=== PATIENT | male | born 1965 | race Two or more races ===

== ENCOUNTER 2024-01-19 07:49 | Outpatient (REF) | payer MEDICARE, MEDICAID, SELFPAY ==
[2024-01-19 08:34] LABS: Estimated Average Glucose 126 mg/dL
[2024-01-19 09:08] LABS: Alanine Aminotransferase 25 U/L (0-40); Alkaline Phosphatase 78 U/L (39-117); Anion Gap 12 (12-20); Aspartate Amino Transferase 24 U/L (5-37); Bilirubin Total 0.4 mg/dL (0.0-1.0); Blood Urea Nitrogen 17 mg/dL (9-16); Calcium 9.5 mg/dL (8.4-10.2); Carbon Dioxide 27 mmol/L (22-29); Chloride 109 mmol/L (96-108); Cholesterol 165 mg/dL (<200); Estimated Glomerular Filt Rate > 60; Glucose Random 132 mg/dL (60-115); HDL Cholesterol 48 mg/dL (>40); LDL Cholesterol Calculated 92 mg/dL (<100); Sodium 144 mmol/L (135-145); Total Protein 6.7 g/dL (6.5-8.0); Triglycerides 128 mg/dL (<150)
[2024-01-19 09:08] LABS: Creatinine Urine 143.58 mg/dL; Microalbum/Creatinine Ratio Ur 7.6 ug/mg cr (<30)
[2024-01-19 09:24] LABS: TSH reflex Free T4 0.09 uIU/mL (0.32-4.0)
[2024-01-19 09:28] LABS: Prostate Specific Antigen 1.11 ng/mL (<0.05-4.0)
[2024-01-19 10:07] LABS: Free T4 (Free Thyroxine) 1.03 ng/dL (0.71-1.85)
[2024-01-20 07:24] LABS: Triiodothyronine T3 Free 3.4 pg/mL (2.3-4.2)
== END 2024-01-19 07:50 | disposition home or self-care (01) ==
LOC: HO.LAB 07:49
PROVIDERS: PCP Internal Medicine; Visit Provider Internal Medicine
DX: E11.9 Type 2 diabetes mellitus without complications (principal); E78.00 Pure hypercholesterolemia, unspecified; E89.0 Postprocedural hypothyroidism; I10 Essential (primary) hypertension; M51.16 Intervertebral disc disorders with radiculopathy, lumbar region; N40.1 Benign prostatic hyperplasia with lower urinary tract symptoms; Z12.5 Encounter for screening for malignant neoplasm of prostate
CPT/HCPCS: 36415; 80053; 80061; 82043; 82570; 83036; 84153; 84439; 84443; 84481

== ENCOUNTER 2024-02-22 09:58 | Outpatient (AMB) | payer MEDICARE, MEDICAID, SELFPAY ==
--- NOTE | 2024-02-22 09:53 | MHC.PC.OV ---
Vital Signs 02/22/24 10:21 Height 5 ft 9 in Weight 207 lb 6 oz BMI 30.6 BP 122/84 Blood Pressure Location Rt brachial Position Sitting Respiration 14 Pulse 82 Pulse Source Pulse Oximeter Temp 98.1 F Temp Source Oral Pulse Oximetry (%) 96 Oxygen Delivery Method Room Air Intake Visit Reasons: Establish Care not a transfer Intake Note: New patient visit. Possible tonsil stones Customer Support Representative Required: Yes Customer Support Representative Language: Speech And Hearing Director Name: Spencer Spaulding Information Interpreted: clinical only Allergies seafood Allergy (Severe, Verified 02/22/24 10:27) throat closes penicillin V Allergy (Unknown, Verified 02/22/24 10:27) Rash Medication List - Last Reconciled 02/22/24 by Mary Ann Briscoe, [employer]UCK [employer] aspirin (Adult Low Dose Aspirin) 81 mg PO DAILY atorvastatin 40 mg PO DAILY dulaglutide (Trulicity) mg subcut finasteride 5 mg PO DAILY folic acid 1 mg PO DAILY gabapentin mg PO levothyroxine 150 mcg PO DAILY lisinopril-hydrochlorothiazide 10-12.5 mg 1 tab PO DAILY lisinopril-hydrochlorothiazide 20-12.5 mg 1 tab PO DAILY metoprolol succinate ER 25 mg PO DAILY Tobacco use date assessed: 02/22/24 Dental Screening Dental Screen Date: 02/22/24 Did you have a dental visit in the last 12 months?: Yes Did you have a dental problem in the last 6 months where you did not have access to dental care?: No Was dental information given to patient?: Patient has dentist HPI HPI Comments History of Present Illness Details 59-year-old [place]uran speaking male with BPH with LUTS, diabetes type 2, hypertension, anemia, hypothyroidism, Vit d def, MDD, insomnia, seasonal allergies, GERD, chronic low back pain , CAD, PVD Status post shoulder replacement right, neck surgery Health Maintenance: ? Colon reports this + EGD done 2022, + polyp w/ 10 year call > record n/a to me ? PSA 01/2024 ? Tdap declines Specialists: [facility] in [place] Customer Support Representative: [phone] [facility]. Old records avail to me today, reviewed prior to visit - very minimal. [place] since [place] care here a few years ago CC: tonsils small things coming out of it and tried to remove w/ Qtips but hurt throat, bilat worse on R side DM well controlled, HGA1c 6.0% Overdue for DM Eye exam wears glasses BPH with LUTs on finasteride, appt w [facility] 04/07/24 Needs derm referral for [place] needs cards referral for CAD, denies chest pain. needs podiatry referral for diabetic neuropathy States he will be getting MRI of his spine 03/06/24 ff'd by an injection,managed by [facility] Reviewed labs below; asked about med change in levothyroxine since these labs; states was at 150mcg now 125 mcg QD, Will repeat labs today to check TSH and properly adjust his levothyroxine. Labs from 01/19/2024 show normal electrolytes, normal renal function, random glucose 132, hemoglobin A1c 6.0%, normal LFTs, triglycerides 128, cholesterol 165, LDL 92, HDL 48, PSA 1.11, TSH 0.09, free T4 1.03, free T3 3.4 Exam: Awake alert, NAD tonsil stone R RRR LS CTAB No edema BLE, decreased PP, hairless ankles bilat, skin intact Plan: referrals made as requested. old records from [facility] requested. thyroid labs today, titrate med PRN Tdap declined reassured re; tonsil stone; salt water gargles, do not try to remove FU in 4-6 weeks 30 min for complex dz mgmt, sooner PRN This note is constructed using voice recognition software. While every effort has been made to ensure accuracy in c[employer], still errors may have been included Sometimes, these errors may affect the content or meaning of the given sentence . Total time spent caring for the patient today was 60 minutes. This includes time spent before the visit reviewing the chart, time spent during the visit, and time spent after the visit on documentation [facility] Medical History (Updated 02/22/24 @ 14:36 by VIMAL Rodriguez) Mass of left testicle Thyroid disorder Diabetes Surgical History (Updated 02/22/24 @ 10:29 by Rosalie Soriano CMA) H/O neck surgery H/O right knee surgery Family History (Updated 02/22/24 @ 10:30 by Rosalie Soriano CMA) Sister Diabetes Brother Diabetes Mother Hypercholesteremia Pancreatic cancer Social History (Updated 02/22/24 @ 10:31 by Rosalie Soriano CMA) Housing: Apartment Patient Tobacco Use Status: Never used Tobacco e-Cigarette/Vaping Use: Never Used Second Hand Smoke Exposure: No service: No Current occupational status: unemployed Cognitive needs: No Hearing needs: No Vision needs: No Questionnaire PHQ-9 Over the last 2 weeks, how often have you been bothered by any of the following problems? 1. Little interest or pleasure in doing things: several days 2. Feeling down, depressed, or hopeless: not at all 3. Trouble falling or staying asleep, or sleeping too much: several days 4. Feeling tired or having little energy: several days 5. Poor appetite or overeating: more than half the days 6. Feeling bad about yourself - or that you are a failure or have let yourself or your family down: not at all 7. Trouble concentrating on things, such as reading the newspaper or watching television: not at all 8. Moving or speaking so slowly that other people could have noticed. Or the opposite - being so fidgety or restless that you have been moving around a lot more than usual: not at all 9. Thoughts that you would be better off or of hurting yourself in some way: not at all Total score: 5 Depression Screening Interpretation: Positive Depression Screening Follow-up: Existing condition Depression Screening Done: Yes 91533 - PHQ-9 Billing: Yes Source: Developed by Drs. Vincent Washington, Yana Brown, Estiven Mckinney and colleagues, with an educational rodney from [employer]. Thrive Questionnaire Date Thrive assessed: 02/22/24 I am a: Patient What is your living situation today?: I have a place to live, but I am worried about losing it in the future Within the past 12 months, did the food you bought not last and you didn't have the money to get more?: Sometimes True Within the past 12 months, did you worry whether your food would run out before you got money to buy more?: Sometimes True Do you have trouble paying for medicines?: Yes Do you have trouble getting transportation to medical appointments?: No Do you have trouble paying your heating and electricity bill?: Yes Do you have trouble taking care of your child, family member or friend?: No Do you have trouble with day-to-day activities such as bathing, preparing meals, shopping, managing finances, etc.?: Yes Are you currently unemployed and looking for a job?: Yes Are you interested in more education?: No Please select the resources that you would like help with: Housing/Prison, Food, Paying for medicine, Daily support and Job search/training Currently or been in a relationship where the following occur: No concerns reported THRIVE Score: 4 AUDIT C Alcohol Use Questionnaire (AUDIT-C) 1. How often do you have a drink containing alcohol?: Never 3. How often do you have six or more drinks on one occasion?: Never Total Score: 0 Score Reviewed/Action Taken: Yes ALBINO-7 AMB Questionnaire ALBINO-7 Date ALBINO - 7 assessed: 02/22/24 Feeling nervous, anxious, or on edge: 0 = Not at all Not being able to stop or control worryin = Not at all Worrying too much about different things: 1 = Several days Trouble relaxin = Not at all Being so restless that it is hard to sit still: 0 = Not at all Becoming easily annoyed or irritable: 0 = Not at all Feeling afraid as if something awful might happen: 0 = Not at all Total ALBINO-7 score (0-4 normal; 5-9 mild; 10-14 moderate; 15-21 severe): 1 Source: Developed by Drs. Vincent Washington, Yana Brown, Estiven Mckinney and colleagues, with an educational rodney from [employer]. ALBINO-7 Assessment Billing ALBINO-7 Assessment Tool: ALBINO-7 Assessment 13136 Physical exam (Primary Care) Vital Signs: Last Vital Signs Temp 98.1 F 02/22/24 10:21 Pulse 82 02/22/24 10:21 Resp 14 02/22/24 10:21 BP 122/84 02/22/24 10:21 Pulse Ox 96 02/22/24 10:21 Oxygen Delivery Method Room Air 02/22/24 10:21 BMI result Body Mass Index 30.6 Tobacco/Smoking Status: Tobacco use Status Tobacco use date assessed 02/22/24 02/22/24 10:27 Patient Tobacco Use Status Never used Tobacco 02/22/24 10:31 e-Cigarette/Vaping Use Never Used 02/22/24 10:31 PHQ-9: PHQ-9 Score PHQ-9: Total score 5 07/22/24 10:51 Depression Screening Interpretation: Positive Depression Screening Follow-up: Existing condition Thrive Assessment: Date of Thrive Assessment Date Thrive assessed 02/22/24 02/22/24 10:33 Currently or been in a relationship where the following occur: No concerns reported Assessment and Plan Assessment & Plan (1) Diabetes mellitus type 2 with complications: Comment: HLD and HTN Code(s): E11.8 - Type 2 diabetes mellitus with unspecified complications (2) CAD (coronary artery disease): Code(s): I25.10 - Atherosclerotic heart disease of [place] coronary artery without angina pectoris Qualifiers: Associated angina: without angina Coronary Disease-Associated Artery/Lesion type: [place] artery [place] vs. transplanted heart: [place] heart Qualified Code(s): I25.10 - Atherosclerotic heart disease of [place] coronary artery without angina pectoris (3) Rosacea: Code(s): L71.9 - Rosacea, unspecified (4) Diabetic peripheral neuropathy: Code(s): E11.42 - Type 2 diabetes mellitus with diabetic polyneuropathy (5) Hypothyroid: Code(s): E03.9 - Hypothyroidism, unspecified Qualifiers: Hypothyroidism type: acquired Qualified Code(s): E03.9 - Hypothyroidism, unspecified (6) HTN (hypertension): Code(s): I10 - Essential (primary) hypertension Qualifiers: Hypertension type: secondary to endocrine disorders Qualified Code(s): I15.2 - Hypertension secondary to endocrine disorders (7) PVD (peripheral vascular disease): Comment: based on clinical exam, decreased PP bilat, hairless ankles, skin intact Monitor skin integrity Statin and ASA Code(s): I73.9 - Peripheral vascular disease, unspecified (8) MDD (major depressive disorder), recurrent episode: Comment: was on sertraline and mirtazapine in the past; not currently on any meds Code(s): F33.9 - Major depressive disorder, recurrent, unspecified Qualifiers: Major depression episode severity: mild Qualified Code(s): F33.0 - Major depressive disorder, recurrent, mild (9) Tonsil stone: Code(s): J35.8 - Other chronic diseases of tonsils and adenoids (10) Chronic low back pain: Comment: managed by [facility] Code(s): M54.50 - Low back pain, unspecified; G89.29 - Other chronic pain Qualifiers: Back pain laterality: bilateral Sciatica presence: without sciatica Qualified Code(s): M54.50 - Low back pain, unspecified; G89.29 - Other chronic pain (11) Encounter for screening involving social determinants of health (SDoH): Code(s): Z13.9 - Encounter for screening, unspecified (12) Vitamin D deficiency: Code(s): E55.9 - Vitamin D deficiency, unspecified (13) BPH w urinary obs/LUTS: Code(s): N40.1 - Benign prostatic hyperplasia with lower urinary tract symptoms; N13.8 - Other obstructive and reflux uropathy (14) Anemia: Code(s): D64.9 - Anemia, unspecified (15) GERD without esophagitis: Code(s): K21.9 - Gastro-esophageal reflux disease without esophagitis (16) Seasonal allergies: Code(s): J30.2 - Other seasonal allergic rhinitis Orders: Orders TSH reflex Free T4 Today E03.9 - Hypothyroidism, unspecified Referrals Nurse Navigator Referral Z13.9 - Encounter for screening, unspecified Cardiology Referral I25.10 - Atherosclerotic heart disease of [place] coronary artery without angina pectoris Podiatry Referral E11.42 - Type 2 diabetes mellitus with diabetic polyneuropathy, E11.8 - Type 2 diabetes mellitus with unspecified complications Ophthalmology Referral E11.8 - Type 2 diabetes mellitus with unspecified complications Dermatology Referral L71.9 - Rosacea, unspecified Patient Instructions: please call and schedule diabetic eye exam with [address]hele [place]wn. D, [place] [address] ? Review Patient declined Pneumococcal Vaccine: 02/22/24 Declined TDap/Td: 02/22/24 Coding Level of Care Code New Pt Level 5 (46021) Complex EM visit Add On G2211 Diagnoses Diabetes mellitus type 2 with complications E11.8 Coronary artery disease involving [place] coronary artery of [place] heart without angina pectoris I25.10 Associated angina: without angina Coronary Disease-Associated Artery/Lesion type: [place] artery [place] vs. transplanted heart: [place] heart Rosacea L71.9 Diabetic peripheral neuropathy E11.42 Acquired hypothyroidism E03.9 Hypothyroidism type: acquired Hypertension due to endocrine disorder I15.2 Hypertension type: secondary to endocrine disorders PVD (peripheral vascular disease) I73.9 Mild episode of recurrent major depressive disorder F33.0 Major depression episode severity: mild Tonsil stone J35.8 Chronic bilateral low back pain without sciatica M54.50; G89.29 Back pain laterality: bilateral Sciatica presence: without sciatica Encounter for screening involving social determinants of health (SDoH) Z13.9 Vitamin D deficiency E55.9 BPH w urinary obs/LUTS N40.1; N13.8 Anemia D64.9 GERD without esophagitis K21.9 Seasonal allergies J30.2 Additional Codes ALBINO-7 Assessment Billing - ALBINO-7 Assessment Tool: ALBINO-7 Assessment [id number] ([id number])
[2024-02-22 10:21] VITALS: BP 122/84; PULSE 82; RESP 14; TEMP 36.7; O2SAT 96; BMI 30.6
== END 2024-02-22 11:02 | disposition home or self-care (01) ==
PROVIDERS: PCP Internal Medicine; Visit Provider Nurse Practitioner Family
DX: E11.8 Type 2 diabetes mellitus with unspecified complications (principal); E11.42 Type 2 diabetes mellitus with diabetic polyneuropathy; I73.9 Peripheral vascular disease, unspecified; F33.0 Major depressive disorder, recurrent, mild; I25.10 Atherosclerotic heart disease of native coronary artery without angina pectoris; L71.9 Rosacea, unspecified; E03.9 Hypothyroidism, unspecified; I15.2 Hypertension secondary to endocrine disorders; J35.8 Other chronic diseases of tonsils and adenoids; M54.50 Low back pain, unspecified; G89.29 Other chronic pain; E55.9 Vitamin D deficiency, unspecified
CPT/HCPCS: 99205; G2211

== ENCOUNTER 2024-02-22 11:25 | Outpatient (REF) | payer MEDICARE, MEDICAID, SELFPAY ==
[2024-02-22 14:38] LABS: TSH reflex Free T4 0.03 uIU/mL (0.32-4.0)
[2024-02-22 15:15] LABS: Free T4 (Free Thyroxine) 1.41 ng/dL (0.71-1.85)
== END 2024-02-22 11:26 | disposition home or self-care (01) ==
LOC: HO.WFDLDS 11:25
PROVIDERS: Visit Provider Nurse Practitioner Family
DX: E03.9 Hypothyroidism, unspecified (principal)
CPT/HCPCS: 36415; 84439; 84443

== ENCOUNTER 2024-03-07 11:27 | Outpatient (AMB) | payer MEDICARE, MEDICAID, SELFPAY ==
[2024-03-07 12:18] VITALS: BP 128/78; PULSE 78; TEMP 36.8; O2SAT 98; BMI 30.6
--- NOTE | 2024-03-07 12:18 | AM.OFFWIN_ITS ---
Intake Vital Signs 03/07/24 12:18 Height 5 ft 9 in Weight 207 lb BMI 30.6 BP 128/78 Blood Pressure Location Rt brachial Position Sitting Pulse 78 Pulse Source Pulse Oximeter Temp 98.2 F Temp Source Oral Pulse Oximetry (%) 98 Intake Visit Reasons: pain right side mouth Intake Note: pt is here for pain on right side of mouth up to ear Patient Tobacco Use Status: Never used Tobacco Anchor Tacker Required: Yes Anchor Tacker Language: Serbian Allergies seafood Allergy (Severe, Verified 03/07/24 12:20) throat closes penicillin V Allergy (Unknown, Verified 03/07/24 12:20) Rash HPI pain right side mouth HPI Details This note is constructed using voice recognition software. While every effort has been made to ensure accuracy, superintendent overhead distribution errors may have been included. The patient is a 59 year old male who presents to the clinic today with pain in the right side of his mouth for the last several days. He notes that he has been looking in the back of his mouth and could see some dripping in the back, and a little bit of redness. He feels the pain to be into his neck region. It is moderately tender. He has not tried anything to help make it better. Nothing seems to make it worse. He denies fever, chills, cough, shortness of breath. [facility] Medical History (Updated 02/22/24 @ 14:36 by Mary Ann Briscoe [facility]) Mass of left testicle Thyroid disorder Diabetes Surgical History (Updated 02/22/24 @ 10:29 by Rosalie Soriano CMA) H/O neck surgery H/O right knee surgery Family History (Updated 02/22/24 @ 10:30 by Rosalie Soriano CMA) Sister Diabetes Brother Diabetes Mother Hypercholesteremia Pancreatic cancer Social History (Updated 02/22/24 @ 10:31 by Rosalie Soriano CMA) Housing: Apartment Patient Tobacco Use Status: Never used Tobacco e-Cigarette/Vaping Use: Never Used Second Hand Smoke Exposure: No service: No Current occupational status: unemployed Cognitive needs: No Hearing needs: No Vision needs: No Review of Systems Const All systems reviewed & are unremarkable except as noted in HPI and below Physical Exam Vital Signs: Last Vital Signs Temp 98.2 F 03/07/24 12:18 Pulse 78 03/07/24 12:18 BP 128/78 03/07/24 12:18 Pulse Ox 98 03/07/24 12:18 BMI result Body Mass Index 30.6 Const General: cooperative, healthy appearing, comfortable and no acute distress Orientation/consciousness: patient oriented x3 Limitations: no limitations HEENT Head: Yes normal to inspection Ears: hearing grossly normal bilaterally, external ears normal and TM's normal bilaterally General nose exam: Normal external nose present, Normal nares present and No steven al discharge present Face and sinus: Yes normal facial exam and Yes sinuses nontender Mouth: Normal oral and palatal mucosa present and moist mucous membranes Throat: Yes tonsils normal, Yes uvula midline, Yes posterior oropharynx abnormal (Erythema) and Yes postnasal drainage Eyes General: appearance normal, both eyes and all related structures Neck Neck: Yes normal visual inspection Resp Effort & Inspection: normal respiratory effort, able to speak in complete sentences, Actively coughing, no respiratory distress, not tachypneic, no tripod positioning and no use of accessory muscles Auscultation: clear to auscultation bilaterally Cardio Jugular venous distension: no JVD Rate: regular rate Rhythm: regular rhythm Heart sounds: S1 normal heart sound present, S2 normal heart sound present, no click, no gallops, no murmurs and no rubs Skin General skin exam: no rashes or lesions noted, elasticity normal and turgor normal Neuro General: patient oriented x3 Extrem General: Yes normal to inspection and Yes no clubbing, cyanosis or edema Assessment & Plan Assessment & Plan (1) Allergic rhinitis: Code(s): J30.9 - Allergic rhinitis, unspecified Qualifiers: Allergic rhinitis trigger: unspecified Allergic rhinitis seasonality: unspecified Qualified Code(s): J30.9 - Allergic rhinitis, unspecified Plan: Supportive measures encouraged and reviewed. Advised patient to try [id number] second-generation antihistamine such as Claritin, Zyrtec, or Pia. Additionally may try Flonase nasal spray to help relieve symptoms. Advised increased hydration. Follow up as needed with primary care with worsening or failure to resolve. Plan See above for full details and plan. Coding Level of Care Code Est Pt Level 3 (38976) Diagnoses Allergic rhinitis, unspecified seasonality, unspecified trigger J30.9 Allergic rhinitis trigger: unspecified Allergic rhinitis seasonality: unspecified
== END 2024-03-07 12:43 | disposition home or self-care (01) ==
PROVIDERS: PCP Nurse Practitioner Family; Visit Provider Registered Nurse
DX: J30.9 Allergic rhinitis, unspecified (principal)
CPT/HCPCS: 99213

== ENCOUNTER 2024-04-07 13:00 | Outpatient (AMB) | payer MEDICARE, MEDICAID, SELFPAY ==
--- NOTE | 2024-04-07 13:07 | MHC.OFFVIS ---
Intake Visit Reasons: BPH with LUTS Intake Note: New Patient presents for initial visit for incontinence, testicular pain, ?testicular mass Urology Medications: Finasteride Blood Thinner: Aspirin PVR: 25ml's Medical And Scientific Illustrator Required: Yes Medical And Scientific Illustrator Name: BELLA OGDENNORMA Accompanied by: Self / Same As Patient Allergies seafood Allergy (Severe, Verified 04/07/24 13:30) throat closes penicillin V Allergy (Unknown, Verified 04/07/24 13:30) Rash Medication List - Last Reconciled 04/07/24 by REBECCA Mckenzie- aspirin (Adult Low Dose Aspirin) 81 mg PO DAILY atorvastatin 40 mg PO DAILY dulaglutide (Trulicity) mg subcut finasteride 5 mg PO DAILY folic acid 1 mg PO DAILY gabapentin mg PO levothyroxine 75 mcg PO DAILY lisinopril-hydrochlorothiazide 10-12.5 mg 1 tab PO DAILY lisinopril-hydrochlorothiazide 20-12.5 mg 1 tab PO DAILY metoprolol succinate ER 25 mg PO DAILY HPI Comments Details: Jimmy is a Sinhala-speaking 59-year-old male patient of . He has a past medical history of diabetes, depression, PVD, hypertension, hypothyroidism, diabetic peripheral neuropathy, rosacea, coronary artery disease, GERD, anemia, seasonal allergies, and chronic low-back pain., and left-sided testicular mass. He presents to the office today for ongoing lower urinary tract symptoms he has been experiencing for over a year. He reports previously following up with the urology group in [place] and has been on finasteride for an enlarged prostate in also underwent a scrotal procedure for a mass in his left testicle however he is unsure as to what procedure this was. He reports noting ongoing issues with mixed urinary incontinence. In office urinalysis results reviewed with the patient today. PVR 25 mL. He reports noting episodes of urinary urgency and frequency. He otherwise denies hematuria, dysuria, foul smelling urine, changes to urinary stream, flank pain, fever, and or chills. We discussed at length potential causes of mixed urinary incontinence. Discussed obtaining retroperitoneal and scrotal ultrasound for further assessment evaluation. He is refusing physical assessment today and would like a male provider. He otherwise offers no other issues or concerns at this time. In review of patient's chart it appears PSAs are as follows: PSA: 01/24 1.1 A1C: 01/24 6.0% [facility] Medical History Mass of left testicle Thyroid disorder Diabetes Surgical History H/O neck surgery H/O right knee surgery Family History Sister Diabetes Brother Diabetes Mother Hypercholesteremia Pancreatic cancer Social History Housing: Apartment Patient Tobacco Use Status: Never used Tobacco e-Cigarette/Vaping Use: Never Used Second Hand Smoke Exposure: No service: No Current occupational status: unemployed Cognitive needs: No Hearing needs: No Vision needs: No Review of Systems Const All systems reviewed & are unremarkable except as noted in HPI and below Physical Exam Const General: cooperative, healthy appearing, comfortable, no acute distress, well developed, alert and awake Orientation/consciousness: patient oriented x3 Limitations: ambulation with cane HEENT Head: Yes normal to inspection, Yes normocephalic and Yes atraumatic Ears: hearing grossly normal bilaterally Eyes General: appearance normal, both eyes and all related structures Neck Neck: Yes normal visual inspection and Yes trachea midline Chest Chest palpation & inspection: normal inspection of the chest Resp Effort & Inspection: normal respiratory effort and able to speak in complete sentences Cardio Rate: regular rate GI Inspection: Yes normal to inspection General: Yes no CVA tenderness Back/Spine/Pelvis Back: no CVA tenderness Skin General skin exam: no rashes or lesions noted Neuro General: patient oriented x3 Extrem General: Yes normal to inspection Psych Appearance: grossly normal and well kempt Mental Status: mental status grossly normal Speech and movement: Normal speech and movement present and Clear speech present Affect: normal affect Attitude: cooperative Thought process: Normal thought process present Thought content: Normal thought content present Insight: Fair insight present (Psych) Judgement: Fair judgement present (Psych) Office Procedures Post Void Residual Post Residual Void Post Void Residual (PVR): 25 [id number] Void Residual by ultrasound Results AMB Urinalysis, Automated UA Leukoctes 0 Julio/uL Last Edit by Shameka Becerra on 04/07/24 13:32 UA Nitrite Last Edit by Shameka Becerra on 04/07/24 13:32 UA Urobilinogen 0.2 mg/dL Last Edit by Shameka Becerra on 04/07/24 13:32 UA Protein 0 mg/dL Last Edit by Shameka Becerra on 04/07/24 13:32 UA pH 6.0 Last Edit by Shameka Becerra on 04/07/24 13:32 UA Blood 0 Herman/uL Last Edit by Shameka Becerra on 04/07/24 13:32 UA Specific [place] 1.025 Last Edit by Shameka Becerra on 04/07/24 13:32 UA Ketone Negative Last Edit by Shameka Becerra on 04/07/24 13:32 UA Bilirubin 0 mg/dL Last Edit by Shameka Becerra on 04/07/24 13:32 UA Glucose 0 mg/dL Last Edit by Shameka Becerra on 04/07/24 13:32 Assessment & Plan Assessment & Plan (1) BPH w urinary obs/LUTS: Code(s): N40.1 - Benign prostatic hyperplasia with lower urinary tract symptoms; N13.8 - Other obstructive and reflux uropathy Category: Medical (2) Mixed stress and urge urinary incontinence: Code(s): N39.46 - Mixed incontinence Category: Medical (3) Lower urinary tract symptoms: Code(s): R39.9 - Unspecified symptoms and signs involving the genitourinary system Category: Medical Plan In office urinalysis results reviewed with the patient today; as noted above. PVR 25 mL. Discussed at length potential causes of mixed urinary incontinence. Discussed pelvic floor exercises for men. Will obtain scrotal ultrasound for further assessment evaluation. Will obtain retroperitoneal ultrasound for further assessment evaluation. Continue finasteride. Start Flomax as discussed and prescribed. Physical assessment offered for scrotal discomfort however patient declines at this time he would like male provider. Follow-up in 1-[address] Truong with imaging and PVR; or sooner with any issues, concerns, and or questions. Orders: Orders AMB Post Void Residual by ultrasound Today N13.8 - Other obstructive and reflux uropathy, N40.1 - Benign prostatic hyperplasia with lower urinary tract symptoms AMB Urinalysis Automated Today Z13.9 - Encounter for screening, unspecified Medications: New tamsulosin (Flomax) 0.4 mg PO BEDTIME 30 days 30 caps 2RF Patient Instructions: The patient had an opportunity to ask questions regarding the treatment plan. All questions were answered. Physical exam, labs, and imaging were discussed and reviewed in detail. As well as risks, benefits, and discussion of treatment choices. No major barriers to understanding were identified. The patient expressed understanding and agreement with the above treatment plan. The patient was made aware they should contact our office by phone for worsening of their current condition, the appearance of new symptoms, or with any questions or concerns. Compliance is encouraged with any medications and follow up testing that is ordered. It is a privilege to be allowed the opportunity to participate in? your urological care.? Again, if you have any questions or concerns If you have any questions or concerns please do not hesitate to contact me. The office is [phone]. This note is constructed using voice recognition software. While every effort has been made to ensure accuracy marketing project manager errors may have been included. Yours sincerely, FLORI Mckenzie Coding Level of Care Code New Pt Level 4 (44253) Diagnoses BPH w urinary obs/LUTS N40.1; N13.8 Mixed stress and urge urinary incontinence N39.46 Lower urinary tract symptoms R39.9 CPT Codes Post Residual Void - PVR CPT Code: 63870-Wtbu Void Residual by ultrasound ([id number])
== END 2024-04-07 13:53 | disposition home or self-care (01) ==
LOC: HO.HUSH 13:00
PROVIDERS: PCP Nurse Practitioner Family; Visit Provider Nurse Practitioner Family
DX: N40.1 Benign prostatic hyperplasia with lower urinary tract symptoms (principal); N13.8 Other obstructive and reflux uropathy; N39.46 Mixed incontinence; R39.9 Unspecified symptoms and signs involving the genitourinary system; Z13.9 Encounter for screening, unspecified
CPT/HCPCS: 99204

== ENCOUNTER → 2024-04-07 13:00 | Outpatient (BNVA) | payer MEDICARE, MEDICAID, SELFPAY | PROVIDERS: PCP Nurse Practitioner Family; Visit Provider Nurse Practitioner Family | DX: N40.1 Benign prostatic hyperplasia with lower urinary tract symptoms (principal); N13.8 Other obstructive and reflux uropathy; N39.46 Mixed incontinence; R39.9 Unspecified symptoms and signs involving the genitourinary system | CPT/HCPCS: 51798; 81003; 99202 ==

== ENCOUNTER 2024-05-28 20:30 | Emergency (ER) | payer MEDICARE, MEDICAID, SELFPAY ==
--- NOTE | 2024-05-28 20:31 | ECG_ITS ---
Test Reason : CHEST PAIN Blood Pressure : / mmHG Vent. Rate : 089 BPM Atrial Rate : 089 BPM P-R Int : 172 ms QRS Dur : 100 ms QT Int : 362 ms P-R-T Axes : 030 -19 029 degrees QTc Int : 440 ms Normal sinus rhythm Minimal voltage criteria for LVH, may be normal variant ( R in aVL ) Borderline ECG No previous ECGs available Referred By: Julisa Glynn Electronically Signed By:Victoriano Kong
[2024-05-28 20:35] VITALS: BP 148/95; PULSE 110; O2SAT 99
[2024-05-28 20:40] VITALS: BP 124/80; PULSE 92; RESP 14; TEMP 37.6; O2SAT 97; BMI 31.5
[2024-05-28 20:43] VITALS: BP 124/80; PULSE 92; RESP 14; TEMP 37.6; O2SAT 97
[2024-05-28 20:44] VITALS: PULSE 87
--- NOTE | 2024-05-28 20:45 | PC.NURSE ---
Pt. on radiographer cardiac catheterization at this time.
--- NOTE | 2024-05-28 20:45 | PC.NURSE ---
global compensation analyst, Kaylee, to bedside to translate.
[2024-05-28 20:56] LABS: MANUAL DIFF FLAG NO
[2024-05-28 20:57] LABS: Basophils Absolute Auto 0.1 X10*3/uL (0.0-0.2); Basophils Percent Auto 0.7 % (0-2); Eosinophils Absolute Auto 0.2 X10*3/uL (0.0-0.4); Eosinophils Percent Auto 3.2 % (0-4); Hematocrit 37.9 % (42.0-52.0); Hemoglobin 13.1 g/dl (14.0-18.0); Imm Gran Abs Auto 0.03 X10*3/uL (0.00-0.03); Imm Gran Pct Auto 0.4 % (0.0-0.4); Lymphocytes Absolute Auto 2.3 X10*3/uL (1.2-4.9); Mean Corpuscular HGB Conc 34.6 g/dl (31.0-36.0); Mean Platelet Volume 10.1 fL (9.4-12.4); Monocytes Absolute Auto 0.5 X10*3/uL (0.1-1.2); Neutrophils Absolute Auto 3.8 x10*3/uL (2.0-8.3); Neutrophils Percent Auto 55.7 % (45-73); Platelet Count 233 X10*3/uL (160-400); Red Blood Count 4.68 X10*6/uL (4.60-5.80); Red Cell Distribution Width 12.7 % (11.0-16.0); White Blood Count 6.8 X10*3/uL (4.8-10.8)
[2024-05-28 21:12] LABS: Anion Gap 13 (12-20); Blood Urea Nitrogen 18 mg/dL (9-16); Calcium 9.3 mg/dL (8.4-10.2); Carbon Dioxide 26 mmol/L (22-29); Chloride 107 mmol/L (96-108); Estimated Glomerular Filt Rate > 60; Glucose Random 134 mg/dL (60-115); Potassium 3.2 mmol/L (3.3-5.1); Sodium 143 mmol/L (135-145)
[2024-05-28 21:21] LABS: Troponin-I High Sensitivity 3.2 ng/L (<3.5-35.0)
--- NOTE | 2024-05-28 21:54 | ED.CHESTPAIN ---
HPI - Chest Pain General Chief Complaint: Chest Pain Stated Complaint: chest pain Time Seen by Provider: 05/28/24 21:54 History of Present Illness ED Provider: Arnulfo ANGEL narrative: The patient is a 59-year-old male with a history of type 2 diabetes and hypertension and peripheral vascular disease. He says that he was also treated a long time ago for a possible heart attack at a hospital in [place]. He does not think he has any cardiac stents however. Today the patient was apparently informed by police that had come to his house that his son has been killed earlier today. The patient has subsequently developed chest pain. He was apparently clutching his chest. An ambulance was called and he was brought to the hospital. His chest discomfort has since resolved. He is now saying that he was having abdominal discomfort that he believes was because of the stress. He says that he was treated for a heart attack several years ago in [place] and that his symptoms today were not similar. The moment he is not having any ongoing symptoms. No shortness of breath. No diaphoresis. No nausea or vomiting. Related Data Home Medications ?Medication ?Instructions ?Recorded ?Confirmed aspirin 81 mg tablet,delayed 81 mg PO DAILY 02/22/24 02/22/24 release (Adult Low Dose Aspirin) atorvastatin 40 mg tablet 40 mg PO DAILY 02/22/24 02/22/24 dulaglutide 0.75 mg/0.5 mL mg subcut 02/22/24 02/22/24 subcutaneous pen injector (Trulicity) finasteride 5 mg tablet 5 mg PO DAILY 02/22/24 02/22/24 folic acid 1 mg tablet 1 mg PO DAILY 02/22/24 02/22/24 gabapentin 100 mg capsule mg PO 02/22/24 02/22/24 lisinopril 10 1 tab PO DAILY 02/22/24 02/22/24 mg-hydrochlorothiazide 12.5 mg tablet lisinopril 20 1 tab PO DAILY 02/22/24 02/22/24 mg-hydrochlorothiazide 12.5 mg tablet metoprolol succinate 25 mg 25 mg PO DAILY 02/22/24 02/22/24 tablet,extended release 24 hr Previous Rx's ?Medication ?Instructions ?Recorded levothyroxine 75 mcg tablet 75 mcg PO DAILY #30 tabs 02/22/24 tamsulosin 0.4 mg capsule (Flomax) 0.4 mg PO BEDTIME 30 days #30 caps 04/07/24 Allergies Allergy/AdvReac Type Severity Reaction Status Date / Time seafood Allergy Severe throat Verified 05/28/24 20:41 closes penicillin V Allergy Unknown Rash Verified 05/28/24 20:41 Review of Systems Review of Systems: Yes all other systems are reviewed and are negative [facility] Past Medical History Medical History Mass of left testicle Thyroid disorder Diabetes Surgical History H/O neck surgery H/O right knee surgery Family History Family History Sister Diabetes Brother Diabetes Mother Hypercholesteremia Pancreatic cancer Social History Social History Housing: Apartment Patient Tobacco Use Status: Never used Tobacco Smoked in Last 30 Days: No e-Cigarette/Vaping Use: Never Used Second Hand Smoke Exposure: No Use of substances other than those prescribed or required for medical reasons: No Advance Directives: No Advance Directives Information Provided: Yes service: No Current occupational status: unemployed Cognitive needs: No Hearing needs: No Vision needs: No Physical Exam Vital Signs: Vital Signs: Last Vital Signs Temp 98.3 F 05/28/24 23:24 Pulse 87 05/28/24 23:24 Resp 13 05/28/24 23:24 BP 149/88 H 05/28/24 23:24 Pulse Ox 100 05/28/24 23:24 O2 Del Method Room Air 05/28/24 23:24 BMI result Body Mass Index 31.5 Const: Other: The patient is awake and alert. He has a somewhat withdrawn demeanor but does not seem in any distress. HEENT: Other: Face is symmetrical. Mucous membranes moist. Eyes: General: appearance normal, both eyes and all related structures Neck: Other: Moving his neck easily Resp: Effort & Inspection: normal respiratory effort Auscultation: clear to auscultation bilaterally Cardio: Rate: regular rate Heart sounds: S1 normal heart sound present and S2 normal heart sound present GI: Other: Abdomen is soft and nontender Skin: Other: Skin is dry and unremarkable Neuro: Other: The patient is awake and alert with a normal mental status. Cranial nerves are grossly intact. He is moving all 4 extremities normally Extrem: Other: No peripheral edema Medications Administered Discontinued Medications Generic Name Dose Route Start Last Admin Trade Name Alexander PRN Reason Stop Dose Admin Diazepam 6 mg 05/28/24 23:14 05/28/24 23:21 Diazepam 2 Mg Tablet PO 05/28/24 23:15 6 mg ONCE ONE Administration Medical Decision Making Medical Decision Making [facility] Narrative: The patient is a 59-year-old male who complained of chest discomfort after being informed that his son has been killed. His symptoms have improved spontaneously. He has an unremarkable EKG. He has 2 negative troponins. My suspicion for an acute coronary syndrome is low. I think he may be discharged. He was given a dose of diazepam at discharge. Lab Data 05/28/24 20:51 05/28/24 20:51 Labs: Lab Results 05/28/24 05/28/24 Range/Units 20:51 22:16 WBC 6.8 (4.8-10.8) X10*3/uL RBC 4.68 (4.60-5.80) X10*6/uL Hgb 13.1 L (14.0-18.0) g/dl Hct 37.9 L (42.0-52.0) % MCV 81.0 (80.0-98.0) fL MCH 28.0 (27.0-33.0) pg MCHC 34.6 (31.0-36.0) g/dl RDW 12.7 (11.0-16.0) % Plt Count 233 (160-400) X10*3/uL MPV 10.1 (9.4-12.4) fL Immature Gran % (Auto) 0.4 (0.0-0.4) % Neut % (Auto) 55.7 (45-73) % Lymph % (Auto) 33.0 (20-40) % Haines % (Auto) 7.0 (2-11) % Eos % (Auto) 3.2 (0-4) % Baso % (Auto) 0.7 (0-2) % Lymph # (Auto) 2.3 (1.2-4.9) X10*3/uL Haines # (Auto) 0.5 (0.1-1.2) X10*3/uL Eos # (Auto) 0.2 (0.0-0.4) X10*3/uL Baso # (Auto) 0.1 (0.0-0.2) X10*3/uL Abs Immat Gran (auto) 0.03 (0.00-0.03) X10*3/uL Absolute Neuts (auto) 3.8 (2.0-8.3) x10*3/uL Absolute Nucleated RBC 0.000 (0.0-0.012) X10*3/uL Nucleated RBC % (auto) 0.0 (0.0-0.2) /100WBC Sodium 143 (135-145) mmol/L Potassium 3.2 L (3.3-5.1) mmol/L Chloride 107 (96-108) mmol/L Carbon Dioxide 26 (22-29) mmol/L Anion Gap 13 (12-20) BUN 18 H (9-16) mg/dL Creatinine 1.06 (0.5-1.4) mg/dL Estim Creat Clear Calc 85.0 Estimated GFR > 60 Random Glucose 134 H (60-115) mg/dL Calcium 9.3 (8.4-10.2) mg/dL Troponin I High Sens 3.2 4.0 (<3.5-35.0) ng/L Independent Interpretation I performed an independent interpretation of an: EKG Interpretation: EKG at 20:31 shows normal sinus rhythm at 89 beats per minute. No definite abnormalities. No ischemic changes. No old EKGs available for comparison. Discharge Plan Discharge Clinical Impression: Chest pain Patient Disposition: Home, Self-Care Additional Instructions: Your testing in the emergency room today is very reassuring. Please try to get some rest tonight. Please plan on following up with your regular doctor. Return to the emergency room if worse. Prescriptions: No Action levothyroxine 75 mcg tablet 75 mcg PO DAILY Qty: 30 1RF Rx Instructions: have him STOP the 125 mcg dose and start this. Repeat labs 6 weeks. gabapentin 100 mg capsule PO lisinopril-hydrochlorothiazide 10-12.5 mg tablet 1 tab PO DAILY aspirin [Adult Low Dose Aspirin] 81 mg tablet,delayed release (DR/EC) 81 mg PO DAILY metoprolol succinate 25 mg tablet extended release 24 hr 25 mg PO DAILY finasteride 5 mg tablet 5 mg PO DAILY lisinopril-hydrochlorothiazide 20-12.5 mg tablet 1 tab PO DAILY atorvastatin 40 mg tablet 40 mg PO DAILY folic acid 1 mg tablet 1 mg PO DAILY Trulicity 0.75 mg/0.5 mL pen injector subcut tamsulosin [Flomax] 0.4 mg capsule 0.4 mg PO BEDTIME 30 Days Qty: 30 2RF Referrals: Mary Ann Briscoe, TOOL PROCUREMENT COORDINATOR-BC [Nurse Practitioner] - (chest pain) Interventions: ED Discharge Assessment Last Done: 05/28/24 23:24 Discharge Date/Time: 05/28/24 23:37 Print Language: Mexican
[2024-05-28 22:00] VITALS: BP 149/88; PULSE 87; RESP 13; TEMP 36.8; O2SAT 100
[2024-05-28] MEDS: diazePAM 2 MG TABLET 6 MG PO (23:21)
[2024-05-28 23:24] VITALS: BP 149/88; PULSE 87; RESP 13; TEMP 36.8; O2SAT 100
== END 2024-05-28 23:37 | disposition home or self-care (01) ==
PROVIDERS: Emergency Provider Emergency Medicine; PCP Nurse Practitioner Family
DX: R07.9 Chest pain, unspecified (principal); E11.9 Type 2 diabetes mellitus without complications; I10 Essential (primary) hypertension; Z72.89 Other problems related to lifestyle; Z63.4 Disappearance and death of family member; Z79.85 Long-term (current) use of injectable non-insulin antidiabetic drugs; Z79.02 Long term (current) use of antithrombotics/antiplatelets; Z79.82 Long term (current) use of aspirin
CPT/HCPCS: 36415; 80048; 84484; 85025; 93005; 99283; 99285

== ENCOUNTER → 2024-05-28 20:31 | Outpatient (BNV) | payer MEDICARE, MEDICAID, SELFPAY | PROVIDERS: Emergency Provider Emergency Medicine; PCP Nurse Practitioner Family; Visit Provider Internal Medicine Cardiovascular Disease | DX: R07.9 Chest pain, unspecified (principal) | CPT/HCPCS: 93010 ==

== ENCOUNTER 2024-07-02 07:35 | Outpatient (REF) | payer MEDICARE, MEDICAID, SELFPAY ==
[2024-07-02 08:22] LABS: Estimated Average Glucose 146 mg/dL; Hemoglobin A1C 165.1502 umol/L; Hemoglobin A1c % 6.7 % (<6.0); Total Hemoglobin (HGBA1C) 3306.0918 umol/L
[2024-07-02 08:38] LABS: Alanine Aminotransferase 28 U/L (0-40); Albumin Level 4.1 g/dL (3.5-5.0); Alkaline Phosphatase 70 U/L (39-117); Anion Gap 15 (12-20); Aspartate Amino Transferase 28 U/L (5-37); Bilirubin Total 0.5 mg/dL (0.0-1.0); Blood Urea Nitrogen 24 mg/dL (9-16); Calcium 9.8 mg/dL (8.4-10.2); Carbon Dioxide 27 mmol/L (22-29); Chloride 105 mmol/L (96-108); Cholesterol 184 mg/dL (<200); Estimated Glomerular Filt Rate 55; Glucose Random 162 mg/dL (60-115); HDL Cholesterol 46 mg/dL (>40); LDL Cholesterol Calculated 120 mg/dL (<100); Potassium 3.9 mmol/L (3.3-5.1); Sodium 143 mmol/L (135-145); Total Protein 6.7 g/dL (6.5-8.0); Triglycerides 91 mg/dL (<150)
== END 2024-07-02 07:36 | disposition home or self-care (01) ==
LOC: HO.LAB 07:35
PROVIDERS: PCP Internal Medicine; Visit Provider Internal Medicine
DX: E11.9 Type 2 diabetes mellitus without complications (principal); E78.00 Pure hypercholesterolemia, unspecified; E89.0 Postprocedural hypothyroidism; I10 Essential (primary) hypertension; Z85.850 Personal history of malignant neoplasm of thyroid
CPT/HCPCS: 36415; 80053; 80061; 83036

== ENCOUNTER 2024-07-06 11:35 | Outpatient (AMB) | payer MEDICARE, MEDICAID, SELFPAY ==
--- NOTE | 2024-07-06 11:42 | MHC.OFFVIS ---
Intake Visit Reasons: 3M Follow Up-Testicular Discomfort Intake Note: Patient is present for 3M F/U TESTICULAR DISCOMFORT Urology Medication:TAMSULOSIN,FINASTERIDE Antibiotic Allergy:PENICILLIN Blood Thinner:ASPIRIN Mechanical Maintenance Worker Required: No Allergies seafood Allergy (Severe, Verified 07/06/24 11:42) throat closes penicillin V Allergy (Unknown, Verified 07/06/24 11:42) Rash HPI Comments Details: Jimmy is a Argentine-speaking male. He is a patient of Dr. Briscoe. He seen for the following urologic conditions - lower urinary tract symptoms in setting of diabetes Lower urinary tract symptoms Was placed on finasteride while in [place] Also on tamsulosin Prior procedure on left testicle PSA 01/24 1.1 PFSH Medical History Mass of left testicle Thyroid disorder Diabetes Surgical History H/O neck surgery H/O right knee surgery Family History Sister Diabetes Brother Diabetes Mother Hypercholesteremia Pancreatic cancer Social History Housing: Apartment Patient Tobacco Use Status: Never used Tobacco e-Cigarette/Vaping Use: Never Used Second Hand Smoke Exposure: No service: No Current occupational status: unemployed Cognitive needs: No Hearing needs: No Vision needs: No Results AMB Urinalysis, Automated UA Leukoctes 0 Julio/uL Last Edit by DINORA Cavazos on 07/06/24 12:00 UA Nitrite Negative Last Edit by DINORA Cavazos on 07/06/24 12:00 UA Urobilinogen 0.2 mg/dL Last Edit by DINORA Cavazos on 07/06/24 12:00 UA Protein 15 mg/dL Last Edit by DINORA Cavazos on 07/06/24 12:00 UA pH 5.5 Last Edit by DINORA Cavazos on 07/06/24 12:00 UA Blood 0 Herman/uL Last Edit by DINORA Cavazos on 07/06/24 12:00 UA Specific [place] 1.030 Last Edit by DINORA Cavazos on 07/06/24 12:00 UA Ketone Negative Last Edit by DINORA Cavazos on 07/06/24 12:00 UA Bilirubin 0 mg/dL Last Edit by DINORA Cavazos on 07/06/24 12:00 UA Glucose 0 mg/dL Last Edit by DINORA Cavazos on 07/06/24 12:00 Results Reviewed Results Reviewed: Laboratory Last Values Urine pH (Auto) 5.5 07/06/24 12:00 Specific [place] (Auto) 1.030 07/06/24 12:00 Urine Protein (Auto) 15 mg/dL 07/06/24 12:00 Glucose (UA)(Auto) 0 mg/dL 07/06/24 12:00 Urine Ketones (Auto) Negative 07/06/24 12:00 Urine Blood (Auto) 0 Herman/uL 07/06/24 12:00 Urine Nitrite (Auto) Negative 07/06/24 12:00 Urine Bilirubin (Auto) 0 mg/dL 07/06/24 12:00 Urine Urobilinogen (Auto) 0.2 mg/dL 07/06/24 12:00 Leukocyte Esterase (Auto) 0 Julio/uL 07/06/24 12:00 Assessment & Plan Assessment & Plan Orders: Orders AMB Urinalysis Automated Today Z13.9 - Encounter for screening, unspecified Coding
== END 2024-07-06 14:30 | disposition home or self-care (01) ==
PROVIDERS: PCP Nurse Practitioner Family; Visit Provider Urology
DX: Z13.9 Encounter for screening, unspecified (principal)

== ENCOUNTER → 2024-07-06 11:35 | Outpatient (BNVA) | payer MEDICARE, MEDICAID, SELFPAY | PROVIDERS: PCP Nurse Practitioner Family; Visit Provider Urology | DX: N40.1 Benign prostatic hyperplasia with lower urinary tract symptoms (principal); N13.8 Other obstructive and reflux uropathy; N39.46 Mixed incontinence | CPT/HCPCS: 81003; 99212 ==

== ENCOUNTER 2024-07-29 17:18 | Emergency (ER) | payer MEDICARE, MEDICAID, SELFPAY ==
--- NOTE | ~2024-07-29 | XR_ITS ---
CLINICAL HISTORY: pain, injury 2 view right foot Comparison: None Findings: Bones intact. No dislocations. Plantar calcaneal spur. No ankle effusion. No radiopaque foreign body. IMPRESSION: 1. No acute findings. This document has been electronically signed by: Jitendra Ohara MD on 07/29/2024 18:14:32
--- NOTE | ~2024-07-29 | XR_ITS ---
CLINICAL HISTORY: pain, injury 3 view right ankle Comparison: None Findings: No acute fractures or dislocations. Plantar calcaneal spur. No ankle effusion. No radiopaque foreign body. IMPRESSION: 1. No acute findings. This document has been electronically signed by: Jitendra Ohara MD on 07/29/2024 18:10:11
[2024-07-29 17:38] VITALS: BP 120/72; PULSE 82; RESP 18; TEMP 36.8; O2SAT 98; BMI 31.0
--- NOTE | 2024-07-29 17:43 | ED_ITS ---
HPI - General Adult General Chief complaint: Extremity Injury, Lower Stated complaint: rt ft pain Time Seen by Provider: 07/29/24 22:00 Source: patient Limitations: language barrier History of Present Illness ED Provider: Lorie Mancini PA-C HPI narrative: 59-year-old male with a history of diabetes, hypertension, hypothyroidism, peripheral vascular disease, coronary artery disease, BPH, chronic back pain, presents with right great toe pain x2 days. Associated redness over the medial aspect of the right great toe, extremely sensitive and tender with light palpation. Patient denies history of gout, or fever. Denies injury to the foot. He was sent here by primary care to rule out infection. Related Data Home Medications ?Medication ?Instructions ?Recorded ?Confirmed aspirin 81 mg tablet,delayed 81 mg PO DAILY 02/22/24 02/22/24 release (Adult Low Dose Aspirin) atorvastatin 40 mg tablet 40 mg PO DAILY 02/22/24 02/22/24 dulaglutide 0.75 mg/0.5 mL mg subcut 02/22/24 02/22/24 subcutaneous pen injector (Trulicity) finasteride 5 mg tablet 5 mg PO DAILY 02/22/24 02/22/24 folic acid 1 mg tablet 1 mg PO DAILY 02/22/24 02/22/24 gabapentin 100 mg capsule mg PO 02/22/24 02/22/24 lisinopril 10 1 tab PO DAILY 02/22/24 02/22/24 mg-hydrochlorothiazide 12.5 mg tablet lisinopril 20 1 tab PO DAILY 02/22/24 02/22/24 mg-hydrochlorothiazide 12.5 mg tablet metoprolol succinate 25 mg 25 mg PO DAILY 02/22/24 02/22/24 tablet,extended release 24 hr Previous Rx's ?Medication ?Instructions ?Recorded levothyroxine 75 mcg tablet 75 mcg PO DAILY #30 tabs 02/22/24 tamsulosin 0.4 mg capsule (Flomax) 0.4 mg PO BEDTIME 30 days #30 caps 04/07/24 doxycycline hyclate 100 mg capsule 100 mg PO BID #14 caps 07/29/24 indomethacin 50 mg capsule 50 mg PO TID PRN pain #15 caps 07/29/24 Allergies Allergy/AdvReac Type Severity Reaction Status Date / Time seafood Allergy Severe throat Verified 07/29/24 17:39 closes penicillin V Allergy Unknown Rash Verified 07/06/24 11:42 Review of Systems 2 Review of Systems: Yes all other systems are reviewed and are negative Constitutional: Constitutional: Denies fatigue and Denies fever(s) Cardiovascular: Cardiovascular: Denies chest pain and Denies dyspnea Respiratory: Respiratory: Denies dyspnea Musculoskeletal: Musculoskeletal: Reports arthralgias and Reports joint swelling Endocrine: Endocrine: Denies fatigue PMFSH Past Medical History Attestation statement: The following information was validated with the patient. Medical History Mass of left testicle Thyroid disorder Diabetes Surgical History H/O neck surgery H/O right knee surgery Family History Family History Sister Diabetes Brother Diabetes Mother Hypercholesteremia Pancreatic cancer Social History Social History Housing: Apartment Patient Tobacco Use Status: Never used Tobacco e-Cigarette/Vaping Use: Never Used Second Hand Smoke Exposure: No Advance Directives: No Advance Directives Information Provided: No service: No Current occupational status: unemployed Cognitive needs: No Hearing needs: No Vision needs: No Physical Exam ED Vital Signs: Vital Signs - 24 hr 07/29/24 17:38 Temperature 98.2 F Pulse Rate 82 Respiratory Rate 18 Blood Pressure 120/72 Pulse Oximetry 98 BMI result Body Mass Index 31.0 Const Other: Alert well-appearing Orientation/consciousness: patient oriented x3 Resp Effort & Inspection: normal respiratory effort Cardio Other: Normal peripheral perfusion Skin Other: Warm dry no rash Neuro General: patient oriented x3, no focal motor deficits and CN's II-XI intact bilaterally Extrem Other: Slight erythema along medial aspect of the right great toe, no deformity no ulceration Psych Other: Calm cooperative Course Course Course Narrative: RME performed by Lauryn Munguia PA-C. Patient is a 59 year old assigned male at presenting to the emergency department with right foot pain. Detailed physical exam and review of systems are deferred to the oracle software engineer. Imaging ordered. Patient placed back in the waiting room pending room availability and results. Reevaluation(s) Reevaluation #1: Attempted to call the patient's son as I promised to do so, he has an inbox/voicemail that is yet to be set up I could not leave a message Medications Administered Discontinued Medications Generic Name Dose Route Start Last Admin Trade Name Aleaxnder PRN Reason Stop Dose Admin Doxycycline Monohydrate 100 mg 07/29/24 22:45 07/29/24 23:05 Doxycycline Monohydrate 100 Mg Capsule PO 07/29/24 22:46 100 mg ONCE ONE Administration Indomethacin 50 mg 07/29/24 22:45 07/29/24 23:16 Indomethacin 25 Mg Capsule PO 07/29/24 22:46 50 mg ONCE ONE Administration Medical Decision Making Medical Decision Making MDM Narrative: 59-year-old male with a history of diabetes, hypertension, hypothyroidism, peripheral vascular disease, coronary artery disease, BPH, chronic back pain, presents with right great toe pain x2 days. Associated redness over the medial aspect of the right great toe, extremely sensitive and tender with light palpation. Patient denies history of gout, or fever. Denies injury to the foot. He was sent here by primary care to rule out infection. Problem: Diabetes, peripheral vascular disease History: Per patient I have considered the following differential diagnoses: Cellulitis, gout, diabetic foot infection, osteomyelitis, Plan: X-ray obtained from triage there was no osteomyelitis. This is gout versus early cellulitis. Given his pain is out of proportion with exam findings, it is likely gout. Screening labs were not obtained. I am going to treat the patient for both conditions, he is agreeing to having labs drawn, I will call his son with results. We will obtain screening labs including inflammatory markers and uric acid I have independently reviewed the following tests: Labs: No leukocytosis, not anemic, no electrolyte abnormality, ESR normal, C- reactive protein 2.43, uric acid 7.5 X-ray right foot:MPRESSION: 1. No acute findings. This document has been electronically signed by: Jitendra Ohara MD on 07/29/2024 18:14:32 Lab Data 07/29/24 23:08 07/29/24 23:08 Labs: Lab Results 07/29/24 Range/Units 23:08 WBC 8.3 (4.8-10.8) X10*3/uL RBC 4.64 (4.60-5.80) X10*6/uL Hgb 12.5 L (14.0-18.0) g/dl Hct 37.9 L (42.0-52.0) % MCV 81.7 (80.0-98.0) fL MCH 26.9 L (27.0-33.0) pg MCHC 33.0 (31.0-36.0) g/dl RDW 13.0 (11.0-16.0) % Plt Count 247 (160-400) X10*3/uL MPV 10.6 (9.4-12.4) fL Immature Gran % (Auto) 0.4 (0.0-0.4) % Neut % (Auto) 48.4 (45-73) % Lymph % (Auto) 41.5 H (20-40) % [place] % (Auto) 6.4 (2-11) % Eos % (Auto) 2.7 (0-4) % Baso % (Auto) 0.6 (0-2) % Lymph # (Auto) 3.4 (1.2-4.9) X10*3/uL [place] # (Auto) 0.5 (0.1-1.2) X10*3/uL Eos # (Auto) 0.2 (0.0-0.4) X10*3/uL Baso # (Auto) 0.1 (0.0-0.2) X10*3/uL Abs Immat Gran (auto) 0.03 (0.00-0.03) X10*3/uL Absolute Neuts (auto) 4.0 (2.0-8.3) x10*3/uL Absolute Nucleated RBC 0.000 (0.0-0.012) X10*3/uL Nucleated RBC % (auto) 0.0 (0.0-0.2) /100WBC ESR 8 (0-15) MM/HR Sodium 143 (135-145) mmol/L Potassium 4.0 (3.3-5.1) mmol/L Chloride 105 (96-108) mmol/L Carbon Dioxide 28 (22-29) mmol/L Anion Gap 14 (12-20) BUN 22 H (9-16) mg/dL Creatinine 0.91 (0.5-1.4) mg/dL Estim Creat Clear Calc 98.3 Estimated GFR > 60 Random Glucose 133 H (60-115) mg/dL Uric Acid 7.5 H (3.4-7.0) mg/dL Calcium 9.3 (8.4-10.2) mg/dL Magnesium 2.1 (1.6-2.6) mg/dL C-Reactive Protein 2.43 H (< or = 0.50) mg/dL Discharge Plan Discharge Clinical Impression: Cellulitis of great toe of right foot, Gouty arthritis of right great toe Patient Disposition: Home, Self-Care Instructions: Cellulitis (ED), Gout (ED) Additional Instructions: You have labs that are in process, I will contact her son with the results. I am treating you for suspect early cellulitis versus gout. See home care instructions. Take the doxycycline as directed, this is an antibiotic. Use the indomethacin as needed for your pain. Continue to follow up with your primary care provider. Prescriptions: New doxycycline hyclate 100 mg capsule 100 mg PO BID Qty: 14 0RF indomethacin 50 mg capsule 50 mg PO TID PRN (Reason: pain) Qty: 15 0RF Rx Instructions: administer with food or milk No Action levothyroxine 75 mcg tablet 75 mcg PO DAILY Qty: 30 1RF Rx Instructions: have him STOP the 125 mcg dose and start this. Repeat labs 6 weeks. gabapentin 100 mg capsule PO lisinopril-hydrochlorothiazide 10-12.5 mg tablet 1 tab PO DAILY aspirin [Adult Low Dose Aspirin] 81 mg tablet,delayed release (DR/EC) 81 mg PO DAILY metoprolol succinate 25 mg tablet extended release 24 hr 25 mg PO DAILY finasteride 5 mg tablet 5 mg PO DAILY lisinopril-hydrochlorothiazide 20-12.5 mg tablet 1 tab PO DAILY atorvastatin 40 mg tablet 40 mg PO DAILY folic acid 1 mg tablet 1 mg PO DAILY Trulicity 0.75 mg/0.5 mL pen injector subcut tamsulosin [Flomax] 0.4 mg capsule 0.4 mg PO BEDTIME 30 Days Qty: 30 2RF Interventions: ED Discharge Assessment Last Done: 07/30/24 00:01 Discharge Date/Time: 07/30/24 00:08 Print Language: Monegasque
[2024-07-29] MEDS: Doxycycline Monohydrate 100 MG CAPSULE PO (23:05)
[2024-07-29 23:11] LABS: MANUAL DIFF FLAG NO
[2024-07-29 23:14] LABS: Basophils Absolute Auto 0.1 X10*3/uL (0.0-0.2); Basophils Percent Auto 0.6 % (0-2); Eosinophils Absolute Auto 0.2 X10*3/uL (0.0-0.4); Eosinophils Percent Auto 2.7 % (0-4); Hematocrit 37.9 % (42.0-52.0); Hemoglobin 12.5 g/dl (14.0-18.0); Imm Gran Abs Auto 0.03 X10*3/uL (0.00-0.03); Imm Gran Pct Auto 0.4 % (0.0-0.4); Lymphocytes Absolute Auto 3.4 X10*3/uL (1.2-4.9); Lymphocytes Percent Auto 41.5 % (20-40); Mean Corpuscular Hemoglobin 26.9 pg (27.0-33.0); Mean Corpuscular Volume 81.7 fL (80.0-98.0); Mean Platelet Volume 10.6 fL (9.4-12.4); Monocytes Absolute Auto 0.5 X10*3/uL (0.1-1.2); Monocytes Percent Auto 6.4 % (2-11); Neutrophils Percent Auto 48.4 % (45-73); Platelet Count 247 X10*3/uL (160-400); Red Blood Count 4.64 X10*6/uL (4.60-5.80); White Blood Count 8.3 X10*3/uL (4.8-10.8)
[2024-07-29] MEDS: Indomethacin 25 MG CAPSULE 50 MG PO (23:16)
[2024-07-29 23:34] LABS: Anion Gap 14 (12-20); Blood Urea Nitrogen 22 mg/dL (9-16); C Reactive Protein 2.43 mg/dL (< or = 0.50); Calcium 9.3 mg/dL (8.4-10.2); Carbon Dioxide 28 mmol/L (22-29); Chloride 105 mmol/L (96-108); Creatinine Clr Calc Pharmacy 98.3; Estimated Glomerular Filt Rate > 60; Glucose Random 133 mg/dL (60-115); Magnesium 2.1 mg/dL (1.6-2.6); Sodium 143 mmol/L (135-145); Uric Acid 7.5 mg/dL (3.4-7.0)
[2024-07-29 23:47] VITALS: BP 128/78; PULSE 60; RESP 16; TEMP 36.8; O2SAT 100
[2024-07-29 23:56] LABS: Erythrocyte Sedimentation Rate 8 MM/HR (0-15)
[2024-07-30 00:01] VITALS: BP 128/78; PULSE 60; RESP 16; TEMP 36.8; O2SAT 100
== END 2024-07-30 00:08 | disposition home or self-care (01) ==
PROVIDERS: Physician Assistant Medical; Emergency Provider Emergency Medicine; PCP Nurse Practitioner Family
DX: L03.031 Cellulitis of right toe (principal); M10.071 Idiopathic gout, right ankle and foot; M25.571 Pain in right ankle and joints of right foot; Z79.899 Other long term (current) drug therapy
CPT/HCPCS: 36415; 73610; 73630; 80048; 83735; 84550; 85025; 85652; 86140; 99283; 99284

== ENCOUNTER → 2024-07-29 17:44 | Outpatient (BNV) | payer MEDICARE, MEDICAID, SELFPAY | PROVIDERS: PCP Nurse Practitioner Family; Visit Provider Radiology Diagnostic Radiology | DX: M25.571 Pain in right ankle and joints of right foot (principal); M79.671 Pain in right foot | CPT/HCPCS: 73610; 73630 ==

== ENCOUNTER 2024-08-10 14:42 | Outpatient (AMB) | payer MEDICARE, MEDICAID, SELFPAY ==
--- OUTSIDE RECORDS SUMMARY | 2024-08-10 14:46 | XMS_ITS | Continuity of Care Document ---
Author Organization [facility] Address [address] [place] [id number]- Care Team Providers Care Water Vessel Captain Name Role Phone Hilda Hills NP Primary Care Physician Encounter [facility] [place] Date(s): 06/12/24 - 07/12/[address] [address]- Encounter Type: Triage Allergies, Adverse Reactions, Alerts Substance Criticality Severity Reaction Reaction Severity Status penicillin Active Contrast Dye 1 Activ e Seafood Active 1pt states SOB and shaking Medications Alcohol Pads See Instructions, # 100 each, Refills 11, Tot. Refills 11, Maintenance, to administer insulin daily; Dx DM2, 05/04/24 9:30:00 AM EDT, Supply, 175, cm, 05/02/24 8:57:00 EDT, Height, 81.8, kg, 12/24/23 19:52:00 EDT, Dry Weight Start Date: 05/04/24 Status: Ordered Quantity: 100.0 Unit: each Repeat number: 12 aspirin 81 mg oral delayed release tablet 81 mg, 1, tablet, By Mouth, Daily, # 90 tablet, Refills 3, Tot. Refills 3, Maintenance, 05/20/24 10:59:00 AM EDT, Route to Pharmacy Electronically, [id number], Partial fill upon patient request if the prescription is for a schedule II opioid drug., 175, cm, 05/20/24 10:42:00 EDT, Height,81.8, kg, 12/24/23 19:52:00 EDT, Dry Weight Start Date: 05/20/24 Status: Ordered Quantity: 90.0 Unit: tablet Repeat number: 4 gabapentin 100 mg oral capsule 100 mg, 1, capsule, By Mouth, 3 times a day, # 270 capsule, Refills 0, Tot. Refills 0, Maintenance,05/02/24 9:29:00 AM EDT, Route to Pharmacy Electronically, [id number], Partial fill upon patient request if the prescription is for a schedule II opioid drug., 175, cm, 05/02/24 8:57:00 EDT, Height, 81.8, kg, 12/24/23 19:52:00 EDT, Dry Weight Start Date: 05/02/24 Status: Ordered Quantity: 270.0 Unit: capsule Repeat number: 1 Home BP monitor Home BP monitor, See Instructions, # 1 each, Refills 0, Tot. Refills 0, Maintenance, Home BP monitor. Chek BP daily. ICD: I10, 05/02/24 9:17:00 AM EDT, Supply Start Date: 05/02/24 Status: Ordered Quantity: 1.0 Unit: each Repeat number: 1 hydrochlorothiazide-lisinopril 25 mg-20 mg oral tablet 1 tablet, By Mouth, Daily, # 90 tablet, 4 Refills, Maintenance, 06/21/24 11:13:00 AM EST, Tablet, [facility], Partial fill upon patient request if the prescription is for a schedule II opioid drug., 1 tablet By Mouth Daily, 175, cm, 06/21/24 10:32:00 EST, Height, 81.8, kg, 12/24/23 19:52:00 EDT, Dry Weight Start Date: 06/21/24 Status: Ordered Quantity: 90.0 Unit: tablet Repeat number: 5 hydrOXYzine hydrochloride 25 mg oral tablet 1 tablet = 25 mg, By Mouth, Daily at bedtime, PRN Sleep, # 90 each, 0 Refills, Acute 02/05/26 10:52:00 AM EDT, 06/21/24 10:52:00 AM EST, Tablet, [id number], Partial fill upon patient requestif the prescription is for a schedule II opioid drug., 175, cm, 06/21/24 10:32:00 EST, Height, 81.8, kg, 12/24/23 19:52:00 EDT, Dry Weight Start Date: 06/21/24 Stop Date: 02/05/26 Status: Ordered Quantity: 90.0 Unit: each Repeat number: 1 levothyroxine 125 mcg (0.125 mg) oral tablet 1 tablet = 125 mcg, By Mouth, Daily, # 30 tablet, 1 Refills, Maintenance, 03/28/24 10:20:00 AM EDT, Tablet, [facility], Partial fill upon patient request if the prescription is for a schedule II opioid drug., 175, cm, 03/28/24 9:40:00 EDT, Height, 81.8, kg, 12/24/23 19:52:00 EDT, Dry Weight Start Date: 03/28/24 Status: Ordered Quantity: 30.0 Unit: tablet Repeat number: 2 LORazepam 1 mg oral tablet 1 tablet = 1 mg, By Mouth, Once, PRN as needed for anxiety, take one tablet 2 hour prior to procedure with second tab as needed 30 min prior to procedure, # 2 tablet, 0 Refills, Soft Stop, 05/02/24 9:15:00 AM EDT, Tablet, [facility], Partial fill upon patient request if the prescription is for a schedule II opioid drug., 175, cm, 05/02/24 8:57:00 EDT, Height, 81.8, kg, 12/24/23 19:52:00 EDT, Dry Weight Start Date: 05/02/24 Status: Ordered Quantity: 2.0 Unit: tablet Repeat number: 1 metFORMIN 500 mg oral tablet, extended release 1 tablet = 500 mg, By Mouth, Daily, 1 tab po daily x 1 week then increase to 1 tab po bid x 1 week then increae dose to 2 tabs po in am and 1 tab in pm x 1 week , then increase dose to 2 tabs po bid., # 90 tablet, 0 Refills, Maintenance, 05/20/24 2:18:00 PM EDT, ER Tablet, [facility], Partial fill upon patient request if the prescription is for a schedule II opioid drug., 175, cm, 05/20/24 10:42:00 EDT, Height, 81.8, kg, 12/24/23 19:52:00 EDT, Dry Weight Start Date: 05/20/24 Status: Ordered Quantity: 90.0 Unit: tablet Repeat number: 1 Metoprolol Succinate ER 25 mg oral tablet, extended release 25 mg, 1, tablet, By Mouth, Daily, # 90 tablet, Refills 3, Tot. Refills 3, Maintenance, 05/20/24 10:57:00 AM EDT, Route to Pharmacy Electronically, [id number], Partial fill upon patient request if the prescription is for a schedule II opioid drug., 175, cm, 05/20/24 10:42:00 EDT, Height,81.8, kg, 12/24/23 19:52:00 EDT, Dry Weight Start Date: 05/20/24 Status: Ordered Quantity: 90.0 Unit: tablet Repeat number: 4 Problem List Condition Confirmation Course Effective Dates Status Health St atus Informant Obese class I Confirmed Active DM type 2 (diabetes mellitus, type 2) Confirmed Active Social History Social History Type Response Smoking Status Never (less than 100 in lifetime) entered on: 05/29/24 Sex Sex Representation Male (finding) Patient Care team information Care Team Personnel Name: Hilda Hills NP Position: S PCO Associate Professional Member Role: PCP Address: [address] [place] [address] Telecom: Care Team Related Persons Name: NATALIE DUDLEY Insurance Providers Guarantor name: JERAMY CANTU [facility] Information #: 1 Payer: MEDICARE PART B OUTPT Member Number: NA Policy Number: NA Group Number: NA
--- OUTSIDE RECORDS SUMMARY | 2024-08-10 14:46 | XMS_ITS | Continuity of Care Document ---
Author Organization [facility] Address [address] [place] [address]- Care Team Providers Care Wildlife Management Professor Name Role Phone Hilda Hills NP Primary Care Physician [place] [facility] [place] [facility] [address] [place] [address]- Attending Physician: Hilda Hills NP Admitting Physician: Hilda Hills NP Referring Physician: Hilda Hills NP Encounter Type: Pre-Outpt Allergies, Adverse Reactions, Alerts Substance Criticality Severity [...] 10:59:00 AM EDT, Route to Pharmacy Electronically, [id number], Partial fill upon patient request if the [...] 9:29:00 AM EDT, Route to Pharmacy Electronically, [id number], Partial fill upon patient [...] Refills, Maintenance, 06/21/24 11:13:00 AM EST, Tablet, [facility], Partial fill upon patient [...] AM EDT, 06/21/24 10:52:00 AM EST, Tablet, [facility], Partial fill upon patient [...] Refills, Maintenance, 03/28/24 10:20:00 AM EDT, Tablet, [facility], Partial fill upon patient request [...] Soft Stop, 05/02/24 9:15:00 AM EDT, Tablet, [facility], Partial fill upon patient request [...] Maintenance, 05/20/24 2:18:00 PM EDT, ER Tablet, [facility], Partial fill upon patient request [...] 10:57:00 AM EDT, Route to Pharmacy Electronically, [facility], Partial fill upon patient request if the [...] Team Personnel Name: Hilda Hills NP Position: [facility] PCO Associate Professional Member Role: PCP Address: [address] [place] [address] Telecom: Care Team Related Persons Name: NATALIE DUDLEY Insurance Providers Guarantor name: JERAMY CANTU [employer] Health Plan Information #: 1 Payer: MEDICARE PART B OUTPT Member Number: [id number] Policy Number: NA Group Number: NA Health Plan Information #: 2 Payer: MEDICARE PART B OUTPT Member Number: [id number] Policy Number: NA Group Number: NA Health Plan Information #: 3 Payer: [facility] Member Number: NA Policy Number: NA Group Number: NA
[2024-08-10 15:00] VITALS: BP 116/80; PULSE 80; O2SAT 97; BMI 30.3
--- NOTE | 2024-08-10 15:00 | MHC.PC.OV ---
Vital Signs 08/10/24 15:00 Height 5 ft 9 in Weight 205 lb 2 oz BMI 30.3 BP 116/80 Blood Pressure Location Lt brachial Position Sitting Pulse 80 Pulse Source Pulse Oximeter Pulse Oximetry (%) 97 Oxygen Delivery Method Room Air Intake Visit Reasons: New Patient Intake Note: Pt is here for Transfer of care from [facility]. Weight Loss Sales Consultant Required: Yes Weight Loss Sales Consultant Language: Danish Accompanied by: children Allergies seafood Allergy (Severe, Verified 08/10/24 15:02) throat closes penicillin V Allergy (Unknown, Verified 08/10/24 15:02) Rash Medication List - Last Reconciled 08/10/24 by Zachary Roberto PA-C alcohol swabs (BD Alcohol Swabs) pad topical aspirin (Adult Low Dose Aspirin) 81 mg PO DAILY cholecalciferol (vitamin D3) 1,250 mcg PO QWEEK dulaglutide (Trulicity) mg subcut finasteride 5 mg PO DAILY folic acid 1 mg PO DAILY gabapentin mg PO hydroxyzine HCl 25 mg PO DAILY indomethacin 50 mg PO TID PRN levothyroxine 125 mcg PO DAILY levothyroxine 125 mcg PO DAILY lisinopril-hydrochlorothiazide 10-12.5 mg 1 tab PO DAILY lorazepam 0.5 mg PO DAILY metformin 1,000 mg PO BID metoprolol succinate ER 25 mg PO DAILY Tobacco use date assessed: 08/10/24 Dental Screening Dental Screen Date: 08/10/24 Did you have a dental visit in the last 12 months?: Yes Did you have a dental problem in the last 6 months where you did not have access to dental care?: No Was dental information given to patient?: Patient has dentist HPI New Patient HPI Details Patient is a 59-year-old Danish-speaking male here today for new patient visit/ transfer care visit. Patient is Danish-speaking only thus used a remote science faculty member.. 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 concerns--> reports recently seen at the ER for right great toe swelling and pain. He was given indomethacin in antibiotic for possible cellulitis. Continues to have swelling in pain though no further redness. Of note uric level is 7.5 recently which is clinical picture could be consistent with gout. Right shoulder tendinitis- has has shoulder surgery in the past though continues to have pain and decrease ROM . He has done physical therapy though has not felt that helpful. He continues to have pain when he does flexion and extension with his right shoulder. He is not interested in anymore surgeries though is interested in trying an anti-inflammatory to help with his tendinitis. .. Type 2 diabetes: Most recent A1c is 6.7 and patient continues with once a week injection of Trulicity. He reports he does neuropathy bilateral lower extremities and he has been taking gabapentin 100 mg. He continues to have signs and symptoms of neuropathy and he is willing to increase his dose of gabapentin to 100 b.i.d.. .. Coronary artery disease: He reports getting coronary artery evaluations in [place] though never needed a stent. He was to see a business risk analyst in the past though did not make it to the appointment due to a family emergency. Most recent lipid panel showing elevated LDL. He reports he takes a atorvastatin 40 mg regularly. We discuss perhaps increasing his dose to 80 mg for better LDL control. He would like to be referred to Cardiology again. .. Hypertension: Patient's blood pressure acceptable today in office. He continues on lisinopril hydrochlorothiazide . [facility] Medical History Mass of left testicle Thyroid disorder Diabetes Surgical History H/O neck surgery H/O right knee surgery Family History Sister Diabetes Brother Diabetes Mother Hypercholesteremia Pancreatic cancer Social History Housing: Apartment Patient Tobacco Use Status: Never used Tobacco e-Cigarette/Vaping Use: Never Used Second Hand Smoke Exposure: No service: No Current occupational status: unemployed Cognitive needs: No Hearing needs: No Vision needs: No Questionnaire PHQ-9 Over the last 2 weeks, how often have you been bothered by any of the following problems? 1. Little interest or pleasure in doing things: not at all 2. Feeling down, depressed, or hopeless: several days 3. Trouble falling or staying asleep, or sleeping too much: several days 4. Feeling tired or having little energy: more than half the days 5. Poor appetite or overeating: not at all 6. Feeling bad about yourself - or that you are a failure or have let yourself or your family down: not at all 7. Trouble concentrating on things, such as reading the newspaper or watching television: not at all 8. Moving or speaking so slowly that other people could have noticed. Or the opposite - being so fidgety or restless that you have been moving around a lot more than usual: several days 9. Thoughts that you would be better off or of hurting yourself in some way: not at all Total score: 5 Depression Screening Interpretation: Positive Depression Screening Follow-up: Existing condition and Declines treatment Depression Screening Done: Yes 56290 - PHQ-9 Billing: Yes Source: Developed by Drs. Vincent Washington, Yana Brown, Estiven Mckinney and colleagues, with an educational rodney from [employer]. Thrive Questionnaire Date Thrive assessed: 08/10/24 I am a: Patient What is your living situation today?: I have a steady place to live Within the past 12 months, did the food you bought not last and you didn't have the money to get more?: Sometimes True Within the past 12 months, did you worry whether your food would run out before you got money to buy more?: Sometimes True Do you have trouble paying for medicines?: Yes Do you have trouble getting transportation to medical appointments?: No Do you have trouble paying your heating and electricity bill?: Yes Do you have trouble taking care of your child, family member or friend?: I choose not to answer this question Do you have trouble with day-to-day activities such as bathing, preparing meals, shopping, managing finances, etc.?: Yes Are you currently unemployed and looking for a job?: No Are you interested in more education?: No Please select the resources that you would like help with: Paying for medicine Currently or been in a relationship where the following occur: I choose not to answer THRIVE Score: 3 AUDIT C Alcohol Use Questionnaire (AUDIT-C) 1. How often do you have a drink containing alcohol?: Never 3. How often do you have six or more drinks on one occasion?: Never Total Score: 0 ALBINO-7 AMB Questionnaire ALBINO-7 Date ALBINO - 7 assessed: 08/10/24 Feeling nervous, anxious, or on edge: 1 = Several days Not being able to stop or control worryin = Several days Worrying too much about different things: 0 = Not at all Trouble relaxin = Not at all Being so restless that it is hard to sit still: 0 = Not at all Becoming easily annoyed or irritable: 0 = Not at all Feeling afraid as if something awful might happen: 0 = Not at all Total ALBINO-7 score (0-4 normal; 5-9 mild; 10-14 moderate; 15-21 severe): 2 Source: Developed by Drs. Vincent Washington, Yana Brown, Estiven Mckinney and colleagues, with an educational rodney from [employer]. ALBINO-7 Assessment Billing ALBINO-7 Assessment Tool: ALBINO-7 Assessment 35209 Review of Systems Const Denies headache(s) Eyes Denies loss of vision ENT Denies vertigo, Denies dizziness, Denies headache(s) and Denies sore throat Card Denies chest pain, Denies leg edema and Denies lightheadedness Resp Denies cough, Denies hemoptysis and Denies wheezing GI Denies abdominal pain, Denies melena, Denies constipation, Denies diarrhea and Denies vomiting Denies dysuria, Denies urinary frequency and Denies urinary urgency Musc Denies arthralgias, Denies joint swelling, Denies numbness and Denies tingling Neuro Denies Abnormal speech present, Denies behavioral changes, Denies vertigo, Denies dizziness, Denies headache(s), Denies loss of vision, Denies memory loss, Denies numbness and Denies tingling Psych Denies anxiety, Denies behavioral changes, Denies depression, Denies memory loss and Denies panic attacks Amandeep/Lymph Denies easy bleeding and Denies easy bruising Aller/Immun Denies wheezing Physical exam (Primary Care) Vital Signs: Last Vital Signs Pulse 80 08/10/24 15:00 BP 116/80 08/10/24 15:00 Pulse Ox 97 08/10/24 15:00 Oxygen Delivery Method Room Air 08/10/24 15:00 BMI result Body Mass Index 30.3 Tobacco/Smoking Status: Tobacco use Status Tobacco use date assessed 08/10/24 08/10/24 15:05 Patient Tobacco Use Status Never used Tobacco 08/10/24 15:05 e-Cigarette/Vaping Use Never Used 08/10/24 15:05 PHQ-9: PHQ-9 Score PHQ-9: Total score 5 08/10/24 15:08 Depression Screening Interpretation: Positive Depression Screening Follow-up: Existing condition and Declines treatment Thrive Assessment: Date of Thrive Assessment Date Thrive assessed 08/10/24 08/10/24 15:05 Currently or been in a relationship where the following occur: I choose not to answer Const General: healthy appearing, no acute distress, alert and awake Nutritional Appearance: well nourished Orientation/consciousness: oriented to person, oriented to place and oriented to time HENMT Ears: TM's normal bilaterally General nose exam: Normal nasal mucous membranes and turbinates present Eyes Conjunctivae: conjunctivae normal Sclerae: sclerae normal Pupils: Equal, round and reactive pupils present Neck Neck: Yes no lymphadenopathy and Yes no JVD Thyroid: Thyroid normal Carotids: no bruits Resp Effort & Inspection: normal respiratory effort and not tachypneic Auscultation: no crackles, no rales, no rhonchi and no wheezes Cardio Rate: regular rate Rhythm: regular rhythm Heart sounds: no murmurs and normal S1 and S2 GI Palpation (GI): Soft to palpation, nontender, no hepatomegaly and no splenomegaly Auscultation: normal bowel sounds Skin General skin exam: no rashes or lesions noted and dry skin Neuro General: oriented to person, oriented to place and oriented to time Cranial nerves: Yes Equal, round and reactive pupils present Speech: No Abnormal speech present Gait exam (Neuro): Normal gait present Motor exam (neuro): no tremor noted Extrem Right upper extremity: full ROM Left upper extremity: full ROM Right lower extremity: full ROM; no edema Left lower extremity: full ROM; no edema Psych Mental Status: mental status grossly normal Speech and movement: Normal speech and movement present Affect: normal affect Attitude: cooperative Thought process: Normal thought process present Office Procedures Flu Questionnaire Does the patient have a severe egg allergy?: No Does the patient have severe life threatening allergies?: No Does the patient have a fever or illness today?: No Has the patient ever had Guillain-Harmony Syndrome?: No Has the patient ever had any past reaction to a flu shot?: No Immunizations Fluarix Triv [id number] (PF) 45 mcg (15 mcg x 3)/0.5 mL IM syringe Performing Provider: Zachary Roberto PA-C [facility] Documented (not given) by: DINORA Carmichael on 08/10/24 15:08 Reason Not Given: Patient Refused Coding Level of Care Code Est Pt Level 4 (42920) Diagnoses Hypertension due to endocrine disorder I15.2 Hypertension type: secondary to endocrine disorders Acquired hypothyroidism E03.9 Hypothyroidism type: acquired Coronary artery disease involving benton coronary artery of benton heart without angina pectoris I25.10 Associated angina: without angina Coronary Disease-Associated Artery/Lesion type: benton artery Elem vs. transplanted heart: benton heart Mild episode of recurrent major depressive disorder F33.0 Major depression episode severity: mild Diabetes mellitus type 2 with complications E11.8 Right shoulder tendinitis M77.8 Additional Codes ALBINO-7 Assessment Billing - ALBINO-7 Assessment Tool: ALBINO-7 Assessment 89447 ([id number]) PHQ-9 - 49572 - PHQ-9 Billing: Yes ([id number]) Assessment & Plan Assessment & Plan (1) HTN (hypertension): Code(s): I10 - Essential (primary) hypertension Category: Medical Qualifiers: Hypertension type: secondary to endocrine disorders Qualified Code(s): I15.2 - Hypertension secondary to endocrine disorders Plan: Patient's blood pressure acceptable today in office. Will continue his current dose of lisinopril hydrochlorothiazide. Will consider discontinuing hydrochlorothiazide if he continues to have gout . Goal blood pressures to remain below 140/90 (2) Hypothyroid: Code(s): E03.9 - Hypothyroidism, unspecified Category: Medical Qualifiers: Hypothyroidism type: acquired Qualified Code(s): E03.9 - Hypothyroidism, unspecified Plan: Most recent TSH slow thus his levothyroxine was reduced to 75 mcg. Unclear what dose he is taking at this point. Will recheck his TSH (3) CAD (coronary artery disease): Code(s): I25.10 - Atherosclerotic heart disease of benton coronary artery without angina pectoris Category: Medical Qualifiers: Associated angina: without angina Coronary Disease-Associated Artery/Lesion type: benton artery Elem vs. transplanted heart: benton heart Qualified Code(s): I25.10 - Atherosclerotic heart disease of benton coronary artery without angina pectoris Plan: Patient apparently has a history of coronary artery disease though he mentions he has gotten cardiac catheterizations in the past though did not need any stents. He was to be referred to a business risk analyst in the past though could not make appointment due to a family emergency. He would like a referral to a business risk analyst as he has history of concerns for coronary artery disease. Will continue risk modifications with blood pressure control, diabetes control and cholesterol control. Goal LDL to remain below 100 optimally below 70. (4) MDD (major depressive disorder), recurrent episode: Comment: was on sertraline and mirtazapine in the past; not currently on any meds Code(s): F33.9 - Major depressive disorder, recurrent, unspecified Category: Medical Qualifiers: Major depression episode severity: mild Qualified Code(s): F33.0 - Major depressive disorder, recurrent, mild Plan: Patient's PHQ-9 score positive for mild depression which has been existing condition for him. Not interested in mental health therapy at this time. Patient was on depression medication in the past though is now off them. (5) Diabetes mellitus type 2 with complications: Comment: HLD and HTN Code(s): E11.8 - Type 2 diabetes mellitus with unspecified complications Category: Medical Plan: Patient's type 2 diabetes well controlled with current antihyperglycemic med regime. Most recent A1c is 6.7. Will continue to follow do assure normal. Goal A1c to be below 7.0 (6) Right shoulder tendinitis: Code(s): M77.8 - Other enthesopathies, not elsewhere classified Category: Medical Plan: Patient continues to have decreased range of motion and pain in the right shoulder with certain movements. He did have previous surgeries right shoulder though never recovered well. He did do 3 months of physical therapy though was not particularly effective. He is willing to try an anti-inflammatory to help with his tendinitis. We did discuss perhaps trying another round of physical therapy or trying a cortisone injection in his right shoulder though he declines at this time. He reports having hypertensive response to cortisone injections in the past. Orders: Orders Influenza [id number] Immunization 08/10/24 Z23 - Encounter for immunization Comprehensive [place]. Panel Fast 08/10/24 E11.8 - Type 2 diabetes mellitus with unspecified complications Microalbumin, Random (w Creat) 08/10/24 E11.8 - Type 2 diabetes mellitus with unspecified complications Complete Blood Count no Diff 08/10/24 E11.8 - Type 2 diabetes mellitus with unspecified complications Vitamin D 25-OH Total 08/10/24 E55.9 - Vitamin D deficiency, unspecified TSH reflex Free T4 08/10/24 E03.9 - Hypothyroidism, unspecified Prostate Specific Antigen Scr 08/10/24 N13.8 - Other obstructive and reflux uropathy, N40.1 - Benign prostatic hyperplasia with lower urinary tract symptoms, Z12.5 - Encounter for screening for malignant neoplasm of prostate Lipid Panel 08/10/24 I25.10 - Atherosclerotic heart disease of benton coronary artery without angina pectoris Referrals Cardiology Referral I25.10 - Atherosclerotic heart disease of benton coronary artery without angina pectoris Medications: New prednisone take 3 tabs x 3 days, take 2 tabs x 3 days , take 1 tabs x 3 days 10 mg PO DIRECTED 9 days 18 tabs 0RF M10.9 - Gout, unspecified levothyroxine 75 mcg PO DAILY 90 tabs 1RF E03.9 - Hypothyroidism, unspecified atorvastatin 40 mg PO DAILY 90 days 90 tabs 1RF I25.10 - Atherosclerotic heart disease of benton coronary artery without angina pectoris meloxicam 15 mg PO DAILY 30 days 30 tabs 1RF M77.8 - Other enthesopathies, not elsewhere classified gabapentin 100 mg PO BID 30 days 60 caps 3RF E11.42 - Type 2 diabetes mellitus with diabetic polyneuropathy Discontinued indomethacin administer with food or milk Discontinued Reason: Doctor's Order 50 mg PO TID PRN 15 caps 0RF pain Patient Instructions: Goal: A1c to remain below 7.0, LDL to be below 100 Barriers: Chronic pain, adherence to physical activity and healthy eating habits
== END 2024-08-10 15:38 | disposition home or self-care (01) ==
PROVIDERS: PCP Nurse Practitioner Family; Visit Provider Physician Assistant
DX: Z23 Encounter for immunization (principal)

== ENCOUNTER → 2024-08-10 14:42 | Outpatient (BNVA) | payer MEDICARE, MEDICAID, SELFPAY | PROVIDERS: PCP Nurse Practitioner Family; Visit Provider Physician Assistant | DX: E11.40 Type 2 diabetes mellitus with diabetic neuropathy, unspecified (principal); E03.9 Hypothyroidism, unspecified; N40.0 Benign prostatic hyperplasia without lower urinary tract symptoms; I25.10 Atherosclerotic heart disease of native coronary artery without angina pectoris; I15.2 Hypertension secondary to endocrine disorders; F33.0 Major depressive disorder, recurrent, mild; M77.8 Other enthesopathies, not elsewhere classified; Z28.21 Immunization not carried out because of patient refusal; Z79.899 Other long term (current) drug therapy | CPT/HCPCS: 90471; 96127; 99212 ==

== ENCOUNTER 2024-08-31 14:49 | Outpatient (AMB) | payer MEDICARE, MEDICAID, SELFPAY ==
--- NOTE | 2024-08-31 14:53 | A.OFFVIS_ITS ---
Intake Visit Reasons: cystoscopy(BPH) Intake Note: Patient presents today for cystoscopy Urology Medication:FINASTERIDE Antibiotic Allergy:PENICILLIN Blood Thinner:ASPIRIN URO- G Disposable Cystoscope Lot:: [id number] Exp: 12/09/26 Web Marketing Intern Required: No Accompanied by: Self / Same As Patient Allergies seafood Allergy (Severe, Verified 08/31/24 15:10) throat closes penicillin V Allergy (Unknown, Verified 08/31/24 15:10) Rash HPI Comments Details: Jimmy is a Divehi-speaking male. He is a patient of Dr. Briscoe. 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 by qualified medical sales representative Here for office cystoscopy Has been on combination prostate medications tamsulosin and finasteride Episodes of urinary leakage Cystoscopy with large median lobe Recommend GreenLight laser prostatectomy Lower urinary tract symptoms Was placed on finasteride while in [place] - Also on tamsulosin Prior procedure on left testicle PSA 01/24 1.1 PFSH Medical History Mass of left testicle Thyroid disorder Diabetes Surgical History H/O neck surgery H/O right knee surgery Family History Sister Diabetes Brother Diabetes Mother Hypercholesteremia Pancreatic cancer Social History Housing: Apartment Patient Tobacco Use Status: Never used Tobacco e-Cigarette/Vaping Use: Never Used Second Hand Smoke Exposure: No service: No Current occupational status: unemployed Cognitive needs: No Hearing needs: No Vision needs: No Review of Systems Const Denies chills and Denies fever(s) Card Reports no additional complaints and Denies syncope Resp Denies cough GI Denies abdominal pain and Denies heartburn Reports as per HPI and Denies change in libido Neuro Denies syncope Psych Denies change in libido Endo Denies change in libido Physical Exam Const General: cooperative, healthy appearing, comfortable and no acute distress Orientation/consciousness: patient oriented x3 HEENT Face and sinus: Yes normal facial exam Mouth: moist mucous membranes Neck Neck: Yes normal visual inspection, Yes full ROM and Yes trachea midline Chest Chest palpation & inspection: normal inspection of the chest Resp Effort & Inspection: normal respiratory effort, able to speak in complete sentences and no respiratory distress GI Inspection: Yes normal to inspection Back/Spine/Pelvis Cervical Spine: normal cervical lordosis Thoracic/Lumbar Spine: thoracic and lumbar spine normal to inspection Skin General skin exam: no rashes or lesions noted Neuro General: patient oriented x3, gait normal, tone normal and moves all extremities Extrem General: Yes normal to inspection and Yes capillary refill normal Office Procedures Cystoscopy Consent Discussed risk and benefit or proposed procedure with the patient. Information consent for procedure given to the patient. Discussed technical aspects, risks, benefits and alternatives in full. Addressed all of the patient's questions and concerns regarding the procedure. The patient demonstrated knowledge and understanding. They wish to proceed with this procedure. Preparation The patient was prepped in the usual manner. A racing car driver was present and in the room. Genitalia was prepped with betadine solution in a sterile manner. Lidocaine Jelly 2% was placed into the urethra and 16Fr flexible Olympus cystoscope was inserted into the meatus after adequate lubrication. Procedure Cystoscopy performed -using a disposable Urovue digital 16 Taj[place] cystoscope. Meatus normal position Urethra anterior and posterior urethra normal Prostatic Urethra median lobe overgrowth Bladder examination with retroflexion of cystoscope Bladder Orifices normal shape and position Bladder Capacity - Trabeculations - Cellule Formation - Diverticulum Formation - Mucosal Erythema - Bladder Tumor - [id number] DISPOSABLE SCOPE URO-G FLEXIBLE SCOPE Procedure code (CPT) selection complete Office Meds lidocaine HCl 2 % mucosal jelly in applicator Performing Provider: Perico Truong MD [facility] Administered by: Lorie Welch RN on 08/31/24 15:19 Dose Route Admin Location Dispensed Lot Number Expiration Date [facility] Auto Bench Mechanic 10 mL intra-urethral 10 mL nitrofurantoin monohydrate/macrocrystals 100 mg capsule Performing Provider: Perico Truong MD Performing [facility] Administered by: Lorie Welch RN on 08/31/24 15:19 Dose Route Admin Location Dispensed Lot Number Expiration Date NDC Auto Bench Mechanic 100 mg PO 1 cap Results AMB Urinalysis, Automated UA Leukoctes 0 Julio/uL Last Edit by Xinguoduyce Triparazzi on 08/31/24 15:11 UA Nitrite Last Edit by Xinguoduyce Bress on 08/31/24 15:11 UA Urobilinogen 0.2 mg/dL Last Edit by Brandyce Bress on 08/31/24 15:11 UA Protein 0 mg/dL Last Edit by Wallope Bress on 08/31/24 15:11 UA pH 6.0 Last Edit by Xinguoduyce Bress on 08/31/24 15:11 UA Blood 0 Herman/uL Last Edit by Wallope Bress on 08/31/24 15:11 UA Specific [place] 1.015 Last Edit by Wallope Bress on 08/31/24 15:11 UA Ketone Last Edit by Brandyce [employer] on 08/31/24 15:11 UA Bilirubin 0 mg/dL Last Edit by Brandyce [employer] on 08/31/24 15:11 UA Glucose 0 mg/dL Last Edit by Brandyce Bress on 08/31/24 15:11 Results Reviewed Results Reviewed: Laboratory Last Values Urine pH (Auto) 6.0 08/31/24 15:10 Specific [place] (Auto) 1.015 08/31/24 15:10 Urine Protein (Auto) 0 mg/dL 08/31/24 15:10 Glucose (UA)(Auto) 0 mg/dL 08/31/24 15:10 Urine Blood (Auto) 0 Herman/uL 08/31/24 15:10 Urine Bilirubin (Auto) 0 mg/dL 08/31/24 15:10 Urine Urobilinogen (Auto) 0.2 mg/dL 08/31/24 15:10 Leukocyte Esterase (Auto) 0 Julio/uL 08/31/24 15:10 Assessment & Plan Assessment & Plan (1) BPH w urinary obs/LUTS: Code(s): N40.1 - Benign prostatic hyperplasia with lower urinary tract symptoms; N13.8 - Other obstructive and reflux uropathy Category: Medical (2) Lower urinary tract symptoms: Code(s): R39.9 - Unspecified symptoms and signs involving the genitourinary system Category: Medical Plan We discussed the nature of the decision and reasonable options for performing a prostate intervention. Interventions include TURP, GreenLight laser enucleation of the prostate, GreenLight laser ablation of the prostate, transurethral incision of the prostate, and I-Tend prostate procedure. Options such as medical therapy were discussed. The relative uncertainties and benefits related to each alternate procedure were adequately discussed. General surgical risks including, but not limited to, pain, bleeding, infection, myocardial infarction, pulmonary embolus, deep vein thrombosis and cerebrovascular accident which may result in further hospitalization were discussed. Full disclosure of the procedure as well as all major risks, benefits and complications were discussed including but not limited to damage to the urethra or bladder neck, recurrent BPH, retrograde ejaculation, bladder infection, urge, de atilio frequency, incomplete emptying, dysuria, remote chance of erectile dysfunction, epididymitis, and meatal stenosis. The success rate of the procedure was discussed. Success of the procedure in the short-term does not necessarily guarantee that long-term success will be maintained. Suitable follow up will need to be maintained. The patient showed understanding of discussion. An opportunity was provided for questions to be answered and wishes to proceed with the following procedure. - GreenLight prostatectomy Orders: Orders AMB Cystoscopy Today N13.8 - Other obstructive and reflux uropathy, N39.46 - Mixed incontinence, N40.1 - Benign prostatic hyperplasia with lower urinary tract symptoms, R39.9 - Unspecified symptoms and signs involving the genitourinary system AMB Urinalysis Automated Today Z13.9 - Encounter for screening, unspecified Patient Instructions: Imaging studies, laboratory and physical exam results were discussed and reviewed in detail. No major barriers to patient understanding were identified. An opportunity to ask questions regarding the treatment plan was provided. All questions were answered. The patient expressed understanding and agreement with the above treatment plan. The patient is aware they should contact our office by phone for worsening of their current condition or the appearance of new urologic symptoms. Compliance is encouraged with any medications and followup testing that is ordered. It is a privilege to participate in the urologic care of your patient. If you have any questions or concerns regarding treatment for the above conditions, or other urologic issues, please do not hesitate to contact me. The office telephone contact is [phone]. This note is constructed using voice recognition software. While every effort has been made to ensure accuracy system integration engineer errors may have been included. Yours sincerely, Dr Perico Truong MD, [facility] - Urology Providers of Expert, Compassionate Care for the Genitourinary System Coding Level of Care Code Est Pt Level 4 (88828) Diagnoses BPH w urinary obs/LUTS N40.1; N13.8 Lower urinary tract symptoms R39.9 CPT Codes Cystoscopy - CPT: 38370-[id number] ([id number])
--- OUTSIDE RECORDS SUMMARY | 2024-08-31 16:58 | XMS_ITS ---
Author Organization [facility] Address [address] [address] Care Team Providers Care Cook House Laborer Name Role Phone Deana Bryant MD Primary Care Provider Unavail able Peter HASTINGS, William Unavailable [phone] Cliff Clemons APRN Unavailable [phone] Allergies Allergen (clinical drug ingredient) Drug/Non Drug Allergy documented on EMR Reaction Allergy Type Onset Date Status Penicillin Unknown Drug Allergy Active REASON FOR VISIT FU AFTER PX Medications Medication SIG (Take, Route, Frequency, Duration) Notes Start Date End Date Status metFORMIN HCl 500 MG 1 tablet with a lisset l Orally Once a day Not-Taking Lactulose 10 GM/15ML 15 ml Orally Once a day as needed for 30 day(s) 05/19/2023 Active PEG 3350-KCl-Na Bicarb-NaCl 420 GM as directed Orally 09/02/2021 Not -Taking Hydrocortisone 2.5 % 1 application Recta l Twice a day for 14 days 02/05/2023 Active Nulytely with Flavor Packs 420 GM as directed Orally 02/05/2023 Not-Takin g Atorvastatin Calcium 40 MG TAKE 1 TABLET BY MOUTH ONCE DAILY AT BEDTIME AT 9PM Oral for 30 Active Metoprolol Succinate ER 25 MG TAKE 1 TABLET BY MOUTH ONCE DAILY FOR 90 DAYS Oral for 90 days Active Aspirin Adult Low Strength 81 MG Oral for 30 Active Lactulose 10 GM/15ML 15 ml Orally Once a day as needed for 30 days Active Lisinopril 10 MG 1 tablet Orally Once a day Active Omeprazole 40 MG 1 capsule 30 minutes before morning meal Orally Once a day 05/19/2023 Active Isosorbide Dinitrate 20 MG 1 tablet Oral ly Twice a day Active Social History Tobacco Use: Social History Observation Description Date Details (start date - stop date) Never Smoker NA - NA Tobacco Use/Smoking (Archived) Question Answer Notes Are you a? nonsmoker Alcohol Screen (Audit-C) Question Answer Notes Did you have a drink containing alcohol in the p ast year? No Points 0 Interpretation Negative Problems Problem Type SNOMED Code ICD Code Onset Dates Problem Status W/U Status Risk Notes Problem Gastric polyp (13556013) Gastric polyp (K31.7) Active confirmed HP resected per egd Problem Chronic gastritis (1413952) Chronic gastritis (K29.50) Active confirmed -per egd Vital Signs Weight 184 lbs 08/26/2023 Height 69 in 08/26/2023 BMI 27.17 kg/m2 08/26/2023 Blood pressure systolic 145 mm Hg 08/26/19 Blood pressure diastolic 95 mm Hg 024 Weight-kg 83.46 kg 08/26/2023 Encounters Encounter Location Date Provider Diagnosis [place] [address] [facility] [place] [address] 08/26/2023 Cliff Clemons Epigastric pain R10. 13 ; Pancreatitis K85.10 ; Family history of colon cancer Z80.0 ; Colon polyp D12.2 ; Internal hemorrhoid K64.8 ; Diverticula of colon K57.30 ; Rectal bleeding K62.5 ; Positive fecal occult blood test R19.5 ; Bowel habit changes R19.4 ; Chronic gastritis K29.50 ; Gastric polyp K31.7 ; Enteritis K52.9 and Encounter to discuss test results Z71.2 Assessments Encounter Date Diagnosis (ICD Code) Assessment Notes Treatment Notes Treatment Clinical Notes Section Notes 08/26/2023 Epigastric pain (ICD-10 - R10.13) Severe episodes. Pt went to the ER recommended EGD to r.o ulcer since pain is not improving with medications and current tx . Will proceed with EGD since symptoms over 3 months will proceed with EUS 08/26/2023 Pancreatitis (ICD-10 - K85.10) as per pt will request records. (RECORDS of ct showed acute interstitial pancreatitis. Lipase 89 h, amylase wnl per labs . will proceed with EUS Recommended EUS and labs but pt is moving to [place] this upcoming week. He will benefit from EUS . Pt agreed to f.u with a new GI and proceed with EUS 08/26/2023 Family history of colon cancer (ICD-10 - Z80.0) mother 70s 08/26/2023 Colon polyp (ICD-10 - D12.2) bx- HP --per csp . surveillance [address] no acute process no polyps seen per csp 01/2023 surveillance 5 y. 08/26/2023 Internal hemorrhoid (ICD-10 - K64.8) csp 08/26/2023 Diverticula of colon (ICD-10 - K57.30) csp To reduce the risk of recurrence, patients with a history of diverticulitis should consume a high-quality diet, achieve or maintain a normal body mass index, be routinely physically active, and not smoke. Additionally, patients with a history of diverticulitis should avoid regular use (2 or more times per week) of nonsteroidal anti-inflammatory drugs except aspirin prescribed for secondary prevention of cardiovascular disease. 08/26/2023 Rectal bleeding (ICD-10 - K62.5) Episodes after bowel movement / as per pt multiple episodes. Bright red blood (seen on pictures) no black stools. Severe constipation. Will proceed with lactulose / iron and hg WNL no recent episodes since last OV 08/26/2023 Positive fecal occult blood test (ICD-10 - R19.5) 01/2023 Csp done 08/26/2023 Bowel habit changes (ICD-10 - R19.4) constipation / poor response to miralax / will try lactulose controlled 08/26/2023 Chronic gastritis (ICD-10 - K29.50) -per egd 08/26/2023 Gastric polyp (ICD-10 - K31.7) HP resected per egd 08/26/2023 Enteritis (ICD-10 - K52.9) suspected per ct 08/26/2023 Encounter to discuss test results (ICD-10 - Z71.2) labs 08/26/2023 Other GERD DIET recommended: Avoid chocolate, garlic, onions, mint, citrus fruits, coffee (including decaffeinated), alcohol, highly seasoned foods, and carbonated beverages. Avoid fried ,spicy and fatty foods. Avoid lying down or bending after eating. Do not eat 2 to 3 hours before bedtime. Eat four to six small meals a day instead of three larger meals. Avoid NSAID medications. . Dietary and lifestyle changes were also discussed. Recommended probiotics TAKE PPI for one month ONLY then only PRN. Discussed side effects of PPI with patient during this visit Discussed test results with patient and all questions answered. Copy of results discussed during visit given to pt present to pcp . Also recommended : Eat a high- fiber diet. Drink at least eight glasses of water each day.Avoid spicy food, coffee , tea and alcohol . Stimulate the intestine by drinking hot or cold water or prune juice before meals. Avoid heavy lifting. Instructe d the pt to go to the nearest ER if symptoms occur as discussed, such as intense abdominal pain, intense nausea and vomiting, fever , chills, or rectal bleeding. Pt expressed understanding Plan Of Treatment Treatment Notes Assessment Notes Diverticula of colon To reduce the risk of recurrence, patients with a history of diverticulitis should consume a high-quality diet, achieve or maintain a normal body mass index, be routinely physically active, and not smoke. Additionally, patients with a history of diverticulitis should avoid regular use (2 or more times per week) of nonsteroidal anti-inflammatory drugs except aspirin prescribed for secondary prevention of cardiovascular disease. Next Appt Details Follow Up: PRN / will fax re cords to new GI, Reason: Progress Notes * JERAMY LINARES MDOB: (58 yo M)Acc No.[id number]:08/26/2023 Patient:?GABE LINARES Lan Sweeney Appointment Provider:?JOAQUIN Greene :1965???Age:58 Y???Sex:Male Sup ervising Provider:William Green MD Date:08/26/2023 Address:[place], [id number] Pcp:Deana Bryant MD Subjective: * Chief Complaints: * ???1. FU AFTER PX. * HPI: ???Depression Screening:?PHQ-2 (2015 Edition)?Little interest or pleasure in doing things??Not at all ?Feeling down, depressed, or hopeless??Not at all ?Total Score?0 ???Introduction:? This is a pleasant 58-year-old male patient come for follow-up discussed the labs with the patient slight elevation on lipase 89. Recommended endoscopic ultrasound but he is unable to proceed because he is moving to [place] this upcoming week recommended to have this test done when he finds a new marketing database analyst and he verbalized understanding he stated that the pain comes and goes but it seems to be controlled copy of all results given to present to new marketing database analyst in [place] and he verbalized understanding. He denies rectal pain, rectal bleeding, nausea, vomiting, weight loss. * ROS:?General/Constitutional:?Fever?denies.?Night sweats?denies.?Weight loss?denies.?Respiratory:?Cough?denies.?Shortness of Breath?denies.?Cardiovascular:?Pain in legs when walking?denies.?Swelling of Feet and Legs?denies.?Chest pain?denies.?Irregular heartbeat?denies.?Gastrointestinal:?Abdominal Swelling?denies.?Bloating?denies.?Gas?denies.?Jaundice?denies.?Hemorrhoids?denie s.?Soiling/ Incontinence?denies.?Denies?Rectal Pain,?denies.?Reflux?denies.?Abdominal Pain?admits middle?right?.?Blood in Stool?denies.?Change in Bowel Habits?denies.?Constipation?denies.?Difficulty Swallowing?denies.?Heartburn?denies.?Denies?Nausea,?denies.?Denies?Rectal Bleeding.?Denies?Vomiting,?denies.?Denies?Weight Loss.? * Medical History:?Hypertensio n, Diabetes mellitus type 2, DiscHerriated, Thyriod Cancer. * Surgical History:?Right knee surgery 2017, thyroid remove 2015. * Hospitalization/Major Diagno stic Procedure:?[facility] due to back injury 06/03/2021, [facility], pancreatitis-[facility] 04/2023. * Family History:?Mother: ginette june, Diabetes.?Father: , Diabetes.?Paternal uncle: , Colon Cancer.? No Family History Of Colon Polyps, Crohn's Disease, Ulcerative Colitis and or Liver Disease. * Social History:?Tobacco Use:?Tobacco Use/Smoking?Are you a??nonsmoker ???Drugs/Alcohol:?Drugs?Have you used drugs other than those for medical reasons in the past 12 months??No ?Alcohol Screen (Audit-C)?Did you have a drink containing alcohol in the past year??No ?Points?0 ?Interpretation?Negative ?Caffeine?Intake:?1-2 cups per day Diet soda ?Do you smoke marijuana?: No. ?Do you drink alcohol?: No. * Medications:?Taking Lactulos e 10 GM/15ML Solution 15 ml Orally Once a day as needed , Taking Omeprazole 40 MG Capsule Delayed Release 1 capsule 30 minutes before morning meal Orally Once a day , Taking Isosorbide Dinitrate 20 MG Tablet 1 tablet Orally Twice a day , Taking Lisinopril 10 MG Tablet 1 tablet Orally Once a day , Taking Atorvastatin Calcium 40 MG Tablet TAKE 1 TABLET BY MOUTH ONCE DAILY AT BEDTIME AT 9PM Oral , Taking Aspirin Adult Low Strength 81 MG Tablet Delayed Release Oral , Taking Metoprolol Succinate ER 25 MG Tablet Extended Release 24 Hour TAKE 1 TABLET BY MOUTH ONCE DAILY FOR 90 DAYS Oral , Taking Lactulose 10 GM/15ML Solution 15 ml Orally Once a day as needed , Taking Hydrocortisone 2.5 % Cream 1 application Rectal Twice a day , Not-Taking/PRN Nulytely with Flavor Packs 420 GM Solution Reconstituted as directed Orally , Not-Taking/PRN metFORMIN HCl 500 MG Tablet 1 tablet with a meal Orally Once a day , Not-Taking/PRN PEG 3350-KCl-Na Bicarb-NaCl 420 GM Solution Reconstituted as directed Orally , Medication List reviewed and reconciled with the patient * Allergies:?Penicillin. Objective: * Vitals:?Wt:184lbs, Ht: 69 in , BMI:27.17Index, BP:145/95mm Hg, Pulse: 64 /min, Wt-k.46 kg. * Examination: ???Patient Exam: ?GENERAL APPEARANCE:?pleasant, well nourished, well developed, in no acute distress,?well groomed , pleasant, well nourished, well developed, in no acute distress,?well groomed.?EYES:?conjunctivae are anicteric.?Upper eyelids normal,?lower eyelids normal , conjunctivae are anicteric.?Upper eyelids normal,?lower eyelids normal.?NECK/THYROID:?neck supple,?no masses. Trachea midline , neck supple,?no masses. Trachea midline.?LYMPH NODES:?no cervical lymphadenopathy , no cervical lymphadenopathy.?HEART:?unremarkable sounds -?no murmurs, rubs, gallops , unremarkable sounds -?no murmurs, rubs, gallops.?LUNGS:?unlabored respiration,?clear to auscultation bilaterally , unlabored respiration,?clear to auscultation bilaterally.?ABDOMEN?normal?bowel sounds present. Soft, nontender, nondistended. No masses. No hepatosplenomegaly , normal?bowel sounds present. Soft, nontender, nondistended. No masses. No hepatosplenomegaly.?NEUROLOGIC:?non-focal , non-focal.?MUSCULOSKELETAL:?normal gait and station , normal gait and station.?PSYCH:?alert and?oriented x 3,?unremarkable , alert and?oriented x 3,?unremarkable.? Assessment: * Assessment: 1.?Pancreatitis - K85.10 (Pr ethan), as per pt will request records. (RECORDS of ct showed acute interstitial pancreatitis. Lipase 89 h, amylase wnl per labs . will proceed with EUS ?2.?Epigastric pain - R10.13, Severe episodes. Pt went to the ER recommended EGD to r.o ulcer since pain is not improving with medications and current tx . Will proceed with EGD since symptoms over 3 months will proceed with EUS ?3.?Family history of colon cancer - Z80.0, mother 70s?4.?Colon polyp - D12.2, bx- HP --per csp . surveillance [address] no acute process no polyps seen per csp 01/2023 surveillance 5 y.?5.?Internal hemorrhoid - K64.8, csp ?6.?Diverticula of colon - K57.30, csp ?7.?Rectal bleeding - K62.5, Episodes after bowel movement / as per pt multiple episodes. Bright red blood (seen on pictures) no black stools. Severe constipation. Will proceed with lactulose / iron and hg WNL no recent episodes since last OV?8.?Positive fecal occult blood test - R19.5, 01/2023 Csp done ?9.?Bowel habit changes - R19.4, constipation / poor response to miralax / will try lactulose controlled?10.?Chronic gastritis - K29.50, -per egd ?11.?Gastric polyp - K31.7, HP resected per egd ?12.?Enteritis - K52.9, suspected per ct ?13.?Encounter to discuss test results - Z71.2, labs? Plan: * Treatment: 2.?Diverticula of colon? Notes: To reduce the risk of recurrence, patients with a history of diverticulitis should consume a high-quality diet, achieve or maintain a normal body mass index, be routinely physically active, and not smoke. Additionally, patients with a history of diverticulitis should avoid regular use (2 or more times per week) of nonsteroidal anti-inflammatory drugs except aspirin prescribed for secondary prevention of cardiovascular disease.?? 3.?Others? Clinical Notes:GERDDIET recommended: Avoid chocolate, garlic, onions, mint, citrus fruits,coffee (including decaffeinated), alcohol, highly seasoned foods, andcarbonated beverages. Avoid fried ,spicy and fatty foods. Avoid lying down orbending after eating. Do not eat 2 to 3 hours before bedtime. Eat four to sixsmall meals a day instead of three larger meals. Avoid NSAID medications.. Dietary and lifestyle changes were alsodiscussed. Recommended probiotics TAKE PPI for one month ONLY then only PRN. Discussed side effects of PPIwith patient during this visit Discussed test results with patient and all questions answered. Copy ofresults discussed during visit given to pt present to pcp . Also recommended : Eat a high- fiber diet. Drink at least eightglasses of water each day.Avoid spicy food, coffee , tea and alcohol . Stimulate the intestine by drinking hotor cold water or prune juice before meals. Avoid heavy lifting.Instructedthe pt to go to the nearest ER if symptoms occur as discussed, suchas intense abdominal pain, intense nausea and vomiting, fever , chills, orrectal bleeding. Pt expressed understanding ?? * ??Immunizations:? ??Immunization record has be en reviewed and updated. * Preventive Medicine:? ??Counseling:?Care goal follow-up plan:?Above Normal BMI Follow-up?Dietary management education, guidance, and counseling ??Screenings:?FALL RISK SCREENING?Fall Risk Assessment:?No falls in the past year * Follow Up:?PRN / will fax re cords to new GI * Review Notes: William Green 2023-08-26 15:11:26* Sign off status: Completed true * Appointment Provider:JOAQUIN Carter Date:?08/26/2023 Generated for Marley maya/Mumtaz/Nickitting on:?08/31/2024 04:57 PM EST History and Physical Notes * HPI (History of Present Illness) Category Sub-Category Detail Notes Category Notes Introduction This is a pleas ant 58-year-old male patient come for follow-up discussed the labs with the patient slight elevation on lipase 89. Recommended endoscopic ultrasound but he is unable to proceed because he is moving to [place] this upcoming week recommended to have this test done when he finds a new marketing database analyst and he verbalized understanding he stated that the pain comes and goes but it seems to be controlled copy of all results given to present to new marketing database analyst in [place] and he verbalized understanding. He denies rectal pain, rectal bleeding, nausea, vomiting, weight loss Depression Screening PHQ-2 (2015 Edition) Little interest or pleasure in doing things?: Not at all Feeling down, depressed, or hopeless?: N ot at all Total Score: 0 Examination Category Sub-Category Detail Notes Category Not es Patient Exam GENERAL APPEARANCE: pleasant, we ll nourished, well developed, in no acute distress,??well groomed , pleasant, well nourished, well developed, in no acute distress,??well groomed EYES: conjunctivae are ani cteric.??Upper eyelids normal,??lower eyelids normal , conjunctivae are anicteric.??Upper eyelids normal,??lower eyelids normal NECK/THYROID: neck supple,??no mas ses. Trachea midline , neck supple,??no masses. Trachea midline HEART: unremarkable sounds -??no murmurs, rubs, gallops , unremarkable sounds - ??no murmurs, rubs, gallops LUNGS: unlabored respiratio n,??clear to auscultation bilaterally , unlabored respiration,??clear to auscultation bilaterally Abdomen normal??bowel sounds present. Soft, nontender, nondistended. No masses. No hepatosplenomegaly , normal??bowel sounds present. Soft, nontender, nondistended. No masses. No hepatosplenomegaly NEUROLOGIC: non-focal , non-foca l MUSCULOSKELETAL: normal gait and stat ion , normal gait and station LYMPH NODES: no cervical lymphade nopathy , no cervical lymphadenopathy PSYCH: alert and??oriented x 3,??unremarkable , alert and??oriented x 3,??unremarkable
--- OUTSIDE RECORDS SUMMARY | 2024-08-31 16:58 | XMS_ITS | Continuity of Care Document ---
Author Organization [facility] Address [address] [place] [address]- Care Team Providers Care Silk Screen Printer Machine Name Role Phone Reinier OSBORNE, Hilda Primary Care Physician Encounter [facility] Date(s): 07/28/24 - 08/27/[address] [address]- Encounter Type: Triage Allergies, Adverse Reactions, Alerts [...] 10:59:00 AM EDT, Route to Pharmacy Electronically, [id number], Partial fill upon patient request if the [...] 9:29:00 AM EDT, Route to Pharmacy Electronically, [facility], Partial fill upon patient [...] Refills, Maintenance, 06/21/24 11:13:00 AM EST, Tablet, [facility], Partial fill upon patient [...] AM EDT, 06/21/24 10:52:00 AM EST, Tablet, [facility], Partial fill upon patient [...] Refills, Maintenance, 03/28/24 10:20:00 AM EDT, Tablet, [facility], Partial fill upon patient [...] Soft Stop, 05/02/24 9:15:00 AM EDT, Tablet, [facility], Partial fill upon patient [...] Maintenance, 05/20/24 2:18:00 PM EDT, ER Tablet, [facility], Partial fill upon patient [...] 10:57:00 AM EDT, Route to Pharmacy Electronically, [id number], Partial fill upon patient request if the [...] PCO Associate Professional Member Role: PCP Address: [address] [place] [address] Telecom: Care Team Related Persons Name: NATALIE DUDLEY Insurance Providers Guarantor name: JERAMY CANTU RANDALL Health Plan Information #: 1 Payer: MEDICARE PART B OUTPT Member Number: NA Policy Number: NA Group Number: NA Health Plan Information #: 2 P[facility]: [facility] Member Number: NA Policy Number: NA Group Number: NA
--- OUTSIDE RECORDS SUMMARY | 2024-08-31 16:58 | XMS_ITS | Patient Health Record ---
Author Organization [facility] Address [address] [place] [address] Care Team Providers Care Spring Tacker Name Role Phone CLAUDE CARVALHO MD Primary Care Provider Unavailable Tacho Schofield Unavailable Allergies Allergen (clinical drug ingredient) Drug/Non Drug Allergy documented on EMR Reaction Allergy Type Onset Date Status Penicillin Unknown Drug Allergy Active Reason For Referral No Information Medications Medication SIG (Take, Route, Frequency, Duration) Notes Start Date End Date Status Atorvastatin Calcium 20 MG 1 tablet Oral ly Once a day for 30 day(s) Active Isosorbide Mononitrate ER 60 MG 1/2 tabl et Orally am and pm Active metFORMIN HCl 500 MG 1 tablet with a lisset l Orally Once a day for 30 day(s) Active Aspirin 81 MG 1 tablet Orally Once a day for 30 day(s) Active Lisinopril 20 MG 1 tablet Orally Once a day for 30 day(s) Active Gabapentin 100 MG 1 capsule Orally Onc e a day for 30 day(s) Active hydroCHLOROthiazide 12.5 MG 1 tablet in the morning Orally Once a day for 30 day(s) 02/05/2021 Active hydrALAZINE HCl 25 MG 1 tablet with food Orally Three times a day Active Metoprolol Succinate ER 100 MG 1 tablet Orally twice daily Active Levothyroxine Sodium 150 MCG 1 tablet in the morning on an empty stomach Orally Once a day for 30 day(s) Active Nitroglycerin 0.4 MG as directed Sublingual Active Social History Tobacco Use: Social History Observation Description Date Details (start date - stop date) Never Smoker NA - NA Tobacco Use/Smoking Question Answer Notes Are you a nonsmoker Problems Problem Type SNOMED Code ICD Code Onset Dates Problem Status W/U Status Risk Notes Problem 187515613 Encounter for pre-operative cardiovascular clearance (Z01.810) Active confirmed Problem 67661978 Essential hypertension (I10) Active confirmed Problem 594291982 Dyslipidemia (E78.5) Active confirmed Problem 846703846 Acquired hypothyroidism (E03.9) Active confirmed Problem 763598340075607 Obesity (BMI 30.0-34.9) (E66.9) Active confirmed Problem 670703546 Body mass index [BMI] 33.0-33.9, adult (Z68.33) Active confirmed Plan Of Treatment No Information Insurance Providers Payer Name Payer Address Payer Phone Subscriber Number Group Number Insured Name Patient Relationship to Insured Coverage Start Date Coverage End Date [employer] [facility] [address] [place] [address] [id number] JERAMY LINARES Self - patient is the insured 1 Medical (General) History Medical History History ICD Code coronary artery disease heart diease angina Hypothyroidism type II diabetes dyslipidemia gastroesophageal reflux disease (GERD) morbid obesity Surgical History Surgery Date(Month/Year)
--- OUTSIDE RECORDS SUMMARY | 2024-08-31 16:58 | XMS_ITS | Patient Health Record ---
Author Organization [facility] Address [address] [place] [address] Care Team Providers Care Training And Development Manager Name Role Phone Deana Bryant MD Primary Care Provider Unavail Yamila Marlow Unavailable [phone] Allergies Allergen (clinical drug ingredient) Drug/Non Drug Allergy documented on EMR Reaction Allergy Type Onset Date Status Penicillin Unknown Drug Allergy Active Shellfish (FN) Shellfish-derived Products Unknown Drug Allergy Active Reason For Referral No Information Medications Medication SIG (Take, Route, Frequency, Duration) Notes Start Date End Date Status Metoprolol Succinate ER 50 MG 1 tablet O rally Once a day for 30 day(s) Active hydroCHLOROthiazide 12.5 MG 1 tablet in the morning Orally Once a day for 30 day(s) Active Albuterol Sulfate (2.5 MG/3M L) 0.083% 3 mL as needed Inhalation every 6 hrs Active Ipratropium Frederick 0.02 % 2.5 mL Inhala tion every 8 hrs Active Aspirin EC 81 MG 1 tablet Orally Once a day for 30 day(s) Active Gabapentin 100 MG 1 capsule Orally Onc e a day for 30 day(s) Active Albuterol Sulfate HFA 108 (9 0 Base) MCG/ACT 1 puff as needed Inhalation every 4 hrs Active Nitroglycerin 0.4 MG as directed Sublingual Active Levothyroxine Sodium 125 MCG 1 tablet in the morning on an empty stomach Orally Once a day for 30 day(s) Active Cyclobenzaprine HCl 10 MG 1 tablet at be dtime Orally Once a day Active Ibuprofen 800 MG 1 tablet with food o r milk as needed Orally Twice a day Active Meclizine HCl 12.5 MG 1 tablet as needed Orally every 12 hrs Active Social History Tobacco Use: Social History Observation Description Date Details (start date - stop date) Never Smoker NA - NA Alcohol intake Question Answer Notes Did you have a drink containing alcohol in the p ast year? No Points 0 Interpretation Negative Smokes Question Answer Notes Are you a: nonsmoker Section Notes: No OP No OP No OP No OP Problems Problem Type SNOMED Code ICD Code Onset Dates Problem Status W/U Status Risk Notes Problem Type II diabetes mellitus without complication (368279087) Type 2 diabetes mellitus without complications (E11.9) Active confirmed Problem Postoperative Hypothyroidism (07507277) Postprocedural hypothyroidism (E89.0) Active confirmed Problem Hereditary and idiopathic peripheral neuropathy (939329510) 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) Active confirmed Problem Essential hypertension (20447686) Essential (primary) hypertension (I10) Active confirmed Problem Lumbosacral spondylosis without myelopathy (26014861) Other spondylosis, lumbosacral region (M47.897) Active confirmed Problem Spinal stenosis of lumbar region (90611597) Spinal stenosis, lumbosacral region (M48.07) Active confirmed Problem Lumbar radiculopathy (946288713) Radiculopathy, lumbar region (M54.16) Active confirmed Problem Paresthesia (finding) (05942508) Paresthesia of skin (R20.2) Active confirmed Problem History of malignant neoplasm of thyroid (291102488) Personal history of malignant neoplasm of thyroid (Z85.850) Active confirmed Problem Pain in lumbar spine (469089137) Vertebrogenic low back pain (M54.51) Active confirmed Problem Asthma (381074182) Asthma (J45.909) Active confirmed Plan Of Treatment Pending Test Test Name Order Date EMG/NCS RT lower ext 08/13/2022 Insurance Providers Payer Name Payer Address Payer Phone Subscriber Number Group Number Insured Name Patient Relationship to Insured Coverage Start Date Coverage End Date [facility] [address] [place] [address] [phone] [id number] Jimmy Azevedo Self - patient is the insured Medical (General) History Medical History History ICD Code diabetes mellitus arterial hypertension hx of thyoid cancer - hypothyroidism asthma Surgical History Surgery Date(Month/Year) right knee surgery 2017 thyroidectomy 2016 shoulder replacement 2021 Right wrist surgery 02/06/2023 Hospitalization History Reason Date(Month/Year) back pain 06/2021
--- OUTSIDE RECORDS SUMMARY | 2024-08-31 16:58 | XMS_ITS | Continuity of Care Document ---
Author Organization [facility] Address [address] [place] [address]- Care Team Providers Care Body Care Manager Name Role Phone Reinier OSBORNE, Hilda Primary Care Physician Encounter [facility] [place] Date(s): 07/13/24 - 08/12/[address] [address]- Encounter Type: Triage Allergies, Adverse Reactions, Alerts [...] 10:59:00 AM EDT, Route to Pharmacy Electronically, [id number], Partial fill upon patient request if the [...] 9:29:00 AM EDT, Route to Pharmacy Electronically, [facility], Partial fill upon patient request [...] Refills, Maintenance, 06/21/24 11:13:00 AM EST, Tablet, [facility], Partial fill upon patient request [...] AM EDT, 06/21/24 10:52:00 AM EST, Tablet, [facility], Partial fill upon patient requestif [...] Refills, Maintenance, 03/28/24 10:20:00 AM EDT, Tablet, [facility], Partial fill upon patient request [...] Soft Stop, 05/02/24 9:15:00 AM EDT, Tablet, [facility], Partial fill upon patient request [...] Maintenance, 05/20/24 2:18:00 PM EDT, ER Tablet, [facility], Partial fill upon patient request [...] 10:57:00 AM EDT, Route to Pharmacy Electronically, [facility], Partial fill upon patient request if the [...] PCO Associate Professional Member Role: PCP Address: [address] [place] [address] Telecom: Care Team Related Persons Name: NATALIE DUDLEY Insurance Providers Guarantor name: JERAMY CANTU [place] Health Plan Information #: 1 Payer: MEDICARE PART B OUTPT Member Number: NA Policy Number: NA Group Number: NA Health Plan Information #: 2 Payer: [place] Member Number: NA Policy Number: NA Group Number: NA
--- OUTSIDE RECORDS SUMMARY | 2024-08-31 16:58 | XMS_ITS ---
Author Organization [facility] Address [address] [place] [address] Care Team Providers Care Cnc Router Operator Name Role Phone Manny HASTINGS, Deana Primary Care Provider Unavail naveen Green MD, William Unavailable [phone] Deonte NUÑEZN, Mailen Unavailable [phone] REASON FOR VISIT Medical records request Encounters Encounter Location Date Provider Diagnosis [facility] [address] [place] [phone] 08/24/2023 Cliff Clemons Plan Of Treatment No Information Progress Notes * JERAMY LINARES MDOB: (58 yo M)Acc No.[id number]:08/24/2023 Patient:?ALONDRA ZUNIGAMARTIN OSBORNI Lan Patel :1965???Age:58 Y???Sex:Male Address:[address] [place], [place] [address] [address] * true * Date:? Generated for Marley maya/Mumtaz/eTransmitting on:?08/31/2024 04:58 PM EST
--- OUTSIDE RECORDS SUMMARY | 2024-08-31 16:58 | XMS_ITS ---
Author Organization [facility] Address [address] [place] [address] Care Team Providers Care Director Employee Communications Name Role Phone Deana Bryant MD Primary Care Provider Unavail able Yamila Juarez Unavailable [phone] Ernestina Cantu Unavailable REASON FOR VISIT . [C L] 06/23 PA REQ SENT Encounters Encounter Location Date Provider Diagnosis Physical Medicine [address] [address] 07/14/2023 Ernestina Juarez Plan Of Treatment No Information Progress Notes * Jimmy AZEVEDODOB:[birth year] (58 yo M)Acc No.[id number]:07/14/2023 Patient:?Clarissa AZEVEDO Provider:?Ernestina Smith MD :1965???Age:58 Y???Sex:Male Victor Manuel e:07/14/2023 Address:[address] [place], [place] [phone] Pcp:Deana Bryant MD Subjective: * Chief Complaints: * ???. [C L] 06/23 PA REQ SENT * Medical History:? * Surgical History:? * Hospitalization/Major Diagno stic Procedure:? * Medications:? Objective: Therapeutic Interventions: Assessment: Plan: * Treatment: * Procedure Codes:? * Images: Care Plan Details* * Sign off status: Completed true * Provider:?Ernestina Smith MD Victor Manuel e:?07/14/2023 Generated for Marley maya/Mumtaz/Harinder on:?08/31/2024 04:58 PM EST
--- OUTSIDE RECORDS SUMMARY | 2024-08-31 16:58 | XMS_ITS ---
Author Organization [facility] Address [address] [place] [address] Care Team Providers Care Final Application Reviewer Name Role Phone Deana Bryant MD Primary Care Provider Unavail able Yamila Juarez Unavailable [phone] Ernestina Cantu Unavailable Allergies Allergen (clinical drug ingredient) Drug/Non Drug Allergy documented on EMR Reaction Allergy Type Onset Date Status Penicillin Unknown Drug Allergy Active Shellfish (FN) Shellfish-derived Products Unknown Drug Allergy Active REASON FOR VISIT chronic lower back pain, RLE pain and paresthesia Medications Medication SIG (Take, Route, Frequency, Duration) Notes Start Date End Date Status Albuterol Sulfate (2.5 MG/3M L) 0.083% 3 mL as needed Inhalation every 6 hrs Active Ipratropium [place] 0.02 % 2.5 mL Inhala tion every 8 hrs Active Gabapentin 100 MG 1 capsule Orally Once a day for 30 day(s) Active Albuterol Sulfate HFA 108 (9 0 Base) MCG/ACT 1 puff as needed Inhalation every 4 hrs Active Cyclobenzaprine HCl 10 MG 1 tablet at be dtime Orally Once a day Active Metoprolol Succinate ER 50 MG 1 tablet O rally Once a day for 30 day(s) Active Nitroglycerin 0.4 MG as directed Sublingual Active Levothyroxine Sodium 125 MCG 1 tablet in the morning on an empty stomach Orally Once a day for 30 day(s) Active Ibuprofen 800 MG 1 tablet with food or milk as needed Orally Twice a day Active Meclizine HCl 12.5 MG 1 tablet as needed Orally every 12 hrs Active hydroCHLOROthiazide 12.5 MG 1 tablet in the morning Orally Once a day for 30 day(s) Active Aspirin EC 81 MG 1 tablet Orally Once a day for 30 day(s) Active Cyclobenzaprine HCl 10 MG 1 tablet as ne eded Orally Twice a day for 30 day(s) 04/21/2023 06/19/2023 Active Social History Tobacco Use: Social History Observation Description Date Details (start date - stop date) Never Smoker NA - NA Alcohol intake Question Answer Notes Did you have a drink containing alcohol in the p ast year? 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 04/21/2023 Spinal stenosis, lumbosacral region (ICD-10 - M48.07) 04/21/2023: The patient is not taking the nabumetone. The patient is taking the ibuprofen and the cyclobenzaprine. 04/21/2023 Radiculopathy, lumbar region (ICD-10 - M54.16) 04/21/2023 Other spondylosis, lumbosacral region (ICD-10 - M47.897) 04/21/2023 Vertebrogenic low back pain (ICD-10 - M54.51) 04/21/2023 Paresthesia of skin (ICD-10 - R20.2) Plan Of Treatment Medication Medication Name Sig Start Date Stop Date Notes Cyclobenzaprine HCl 10 MG 1 tablet as ne eded Orally Twice a day for 30 day(s) 04/21/2023 06/19/2023 Treatment Notes Assessment Notes Other hereditary and idiopat hic neuropathies 09/02/2022: Patient Educated with: EMG an d NCS.pdf (EMG and NCS.pdf) Please see recommendations in attached EMG/NCS report. Spinal stenosis, lumbosacral region 04/21: The patient is not taking the nabumetone. The patient is taking the ibuprofen and the cyclobenzaprine. Next Appt Details Follow Up: 3 Months, Reason: Progress Notes * Jimmy AZEVEDODOB:[birth year] (58 yo M)Acc No.[id number]:04/21/2023 Progress Notes Patient:?Clarissa Azevedo Provider:?Ernestina Smith MD :1965???Age:58 Y???Sex:Male Victor Manuel e:04/21/2023 Address:[address] [place], [place] [id number] Pcp:Deana Bryant MD Subjective: * Chief Complaints: * ???Chronic lower back painRL E pain and paresthesia * HPI: ???New symptom(s):?Follow up?04/21/2023: , Pain rating VAS = 8/10, PATIENT LOCATION:, OFFICE, 58 y/o male who comes today for follow up evaluation of chronic lower back and joint pain. The patient underwent right wrist surgery on 02/06/2023. The patient states that he was doing well until 04/18/2023 when he fell at home. The patient was not able to get up from the floor due to severe pain on the right side of his body. He had to wait over an hour on the floor for his to come back home and with the help of a neighbor, he was able to sit up. The patient was taken by ambulance to the ER. No fractures were found. The patient has increased pain in the right wrist and shoulder. The shoulder ROM is limited again. The patient has a large bruise on the right knee. The back pain is also higher than the usual. The patient has been taking ibuprofen and the muscle relaxer. The patient is pending appointment with the surgeon to re-evaluate the right shoulder and wrist. .? * ROS:?General/Constitutional:?Denies?Chills.?Denies?Fever.?Denies?Weight gain.?Denies?Weight loss.?Ophthalmologic:?Denies?Blurred vision.?Denies?Red eye.?ENT:?Denies?Nasal stuffiness.?Denies?Decreased hearing.?Endocrine:?Denies?Cold intolerance.?Denies?Night sweats.?Denies?Heat intolerance.?Respiratory:?Denies?Cough.?Denies?Shortness of breath.?Denies?Sputum production.?Breast:?Denies?Nipple discharge.?Cardiovascular:?Denies?Chest pain.?Denies?Calf pain when walking.?Denies?Palpitations.?Denies?Leg cramps.?Gastrointestinal:?Denies?Abdominal pain.?Denies?Blood in stool.?Denies?Constipation.?Denies?Diarrhea.?Denies?Difficulty swallowing.?Denies?Nausea.?Denies?Vomiting.?Hematology:?Denies?Easy bruising.?Musculoskeletal:?Admits?Joint Stiffness.?Denies?Muscle Cramps.?Admits?Leg cramps.?Admits?Painful joints.?Denies?Swollen joints.?Admits?Back Pain.?Denies?Neck Pain.?Neurologic:?Admits?Numbness.?Admits?Tingling.?Denies?Decreased sleep.?Denies?Headache.?Denies?Anxiety.?Admits?Weakness.?Denies?Memory loss.?Denies?Seizures.?Denies?Depression.?Genitourinary:?Denies?Discharge from genitalia.?Denies?Painful urination.?Skin:?Denies?Rash.? * Medical History:? * Surgical History:?right knee surgery 2017thyroidectomy 2016shoulder replacement 2022Right wrist surgery 02/06/2023 * Hospitalization/Major Diagno stic Procedure:?back pain 06/2021 * Family History:?Family Histo ry: diabetes mellitus, high blood pressure, thyroid disease.? * Social History:?Tobacco Use:?Smokes: Denies?Are you a:?nonsmoker ???Accident:?Accident / Injury?Do you had an accident / injury related to current problem??No ???Occupation:?Occupation: not working. ???ADLs:?Self Care and Mobility: patient denies self care issues, patient denies mobility issues. ???Disability:?Disability: on disability. ???Drugs/Alcohol:?Illicit/street drug use: Denies?Have you used drugs other than those for medical reasons in the past 12 months? No ..?Alcohol intake: Denies?Did you have a drink containing alcohol in the past year??No ?Points?0 ?Interpretation?Negative ???Miscellaneous:?Functionality / ADLs: Independent in ADLs, patient has independent ambulation. ?Exercise: none. ?Living with: spouse. ?Marital status: . ?Hobbies: None. ?Occupation: on disability. ???No OP. * Medications:?TakingAspirin E C 81 MG Tablet Delayed Release 1 tablet Orally Once a day hydroCHLOROthiazide 12.5 MG Tablet 1 tablet in the morning Orally Once a day Metoprolol Succinate ER 50 MG Tablet Extended Release 24 Hour 1 tablet Orally Once a day Meclizine HCl 12.5 MG Tablet 1 tablet as needed Orally every 12 hrs Levothyroxine Sodium 125 MCG Tablet 1 tablet in the morning on an empty stomach Orally Once a day Nitroglycerin 0.4 MG Tablet Sublingual as directed Sublingual Ibuprofen 800 MG Tablet 1 tablet with food or milk as needed Orally Twice a day Cyclobenzaprine HCl 10 MG Tablet 1 tablet at bedtime Orally Once a day Ipratropium [place] 0.02 % Solution 2.5 mL Inhalation every 8 hrs Albuterol Sulfate (2.5 MG/3ML) 0.083% Nebulization Solution 3 mL as needed Inhalation every 6 hrs Albuterol Sulfate HFA 108 (90 Base) MCG/ACT Aerosol Solution 1 puff as needed Inhalation every 4 hrs Gabapentin 100 MG Capsule 1 capsule Orally Once a day Medication List reviewed and reconciled with the patientTaking Aspirin EC 81 MG Tablet Delayed Release 1 tablet Orally Once a day Taking hydroCHLOROthiazide 12.5 MG Tablet 1 tablet in the morning Orally Once a day Taking Metoprolol Succinate ER 50 MG Tablet Extended Release 24 Hour 1 tablet Orally Once a day Taking Meclizine HCl 12.5 MG Tablet 1 tablet as needed Orally every 12 hrs Taking Levothyroxine Sodium 125 MCG Tablet 1 tablet in the morning on an empty stomach Orally Once a day Taking Nitroglycerin 0.4 MG Tablet Sublingual as directed Sublingual Taking Ibuprofen 800 MG Tablet 1 tablet with food or milk as needed Orally Twice a day Taking Cyclobenzaprine HCl 10 MG Tablet 1 tablet at bedtime Orally Once a day Taking Ipratropium [place] 0.02 % Solution 2.5 mL Inhalation every 8 hrs Taking Albuterol Sulfate (2.5 MG/3ML) 0.083% Nebulization Solution 3 mL as needed Inhalation every 6 hrs Taking Albuterol Sulfate HFA 108 (90 Base) MCG/ACT Aerosol Solution 1 puff as needed Inhalation every 4 hrs Taking Gabapentin 100 MG Capsule 1 capsule Orally Once a day Medication List reviewed and reconciled with the patient * Allergies:?PenicillinShellfi sh-derived Productsno[Allergies Verified] Objective: * Examination: ???General Examination: ?GENERAL APPEARANCE:?alert and oriented to person, place and time.?RESPIRATORY:?Breathing: non-labored, non-dyspneic.?INSPECTION:?Normal posture, no deformities.?LUMBAR SPINE:?Limited active range of motion in the lumbar spine due to pain , Pain with end range of motion. , Tenderness in the lumbar spine, paraspinals , Tenderness on sacroiliac joints.?RANGE OF MOTION:?Full active range of motion in the lower extremities.?MOTOR STRENGTH:?4/5 (able to contract and provide resistance) in lower extremities.?MUSCLE ATROPHY:?No gross atrophy observed.?MUSCLE TONE:?Normal in lower extremities.?JOINTS:?No joint swelling or deformities observed on lower extremities.?GAIT:?slightly unsteady gait.?DEEP TENDON REFLEX:?1+ , lower extremities.?SENSATION:?decreased sensation , bilateral lower extremities.?.... 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 ?Labs PCP (06/02/2022): ABNORMAL - CBC Lymphs 3.4(H); BMP Gluc 171(H). NORMAL - Thyroid Panel ?.... ?MRI Lumbar Spine (04/15/2022): ?1. Kxxa-xr-syfrogwl multilevel disc disease with loss of disc disc desiccation seen diffusely throughout the lumbar spine. ?2. Vertebral heights are preserved. No malalignment. ?3. Concentric disc bulges with canal stenosis: ?* At L2-3: Moderate canal stenosis. ?4. Concentric disc bulges with foraminal narrowing: ?* At L3-4 through L5-S1: Moderate bilateral foraminal narrowing. ?5. At remaining levels, canal and foraminal narrowing are mild/sobi-dl-szghsitd. ?6. No significant T2 FS signal abnormality to suggest bone marrow edema, soft tissue or ligamentous injury. Therapeutic Interventions: Assessment: * Assessment: 1.?Other hereditary and idio pathic neuropathies - G60.8 (Primary)?2.?Spinal stenosis, lumbosacral region - M48.07?3.?Radiculopathy, lumbar region - M54.16?4.?Other spondylosis, lumbosacral region - M47.897?5.?Vertebrogenic low back pain - M54.51?6. Paresthesia of skin - R20.2? Plan: * Treatment: 2.?Spinal stenosis, lumbosac ral region? Start Cyclobenzaprine HCl Tablet, 10 MG, 1 tablet as needed, Orally, Twice a day, 30 day(s), 60 Tablets, Refills 1.?? Notes: 04/21/2023: The patient is not taking the nabumetone. The patient is taking the ibuprofen and the cyclobenzaprine.?? * Procedure Codes:?G3002 Chron ic pain mgmt 30 mins * Preventive Medicine:? ??Education:?EDx (EMG NCS):?Educational material provided in respect to Electromyography (EMG) and Nerve Conduction Studies (NCS).? ??Consents:?EDx (EMG NCS):?Informed consent for Electromyography (EMG) and Nerve Conduction Studies (NCS) discussed with patient in detail and signed.? ??E-FORCSE:?Advisory report:?E-FORCSE reviewed: 04/21/2023Med last filled: 02/06/2023 (hydrocodone Rx by surgeon) and 03/26/2023 (Tylenol #3 Rx by ER).? ??- Chronic Pain Mgmt and Treatment:?Goals:?Reduction of pain intensity, improvement of quality of life, reduction in patient discomfort and pain intensity, enhance physical functioning, promote the appropriate use of medications.?Desired Outcomes:?Pain reduction, improved physical functioning, enhanced psychological well-being, increased self-management skills, medication optimization, improved social functioning and participation, increased quality of life.?Clinical Needs:?Identify the sources of pain, Assessing the contributing factors of pain: inflammation, trauma, sleep pattern, physical activity, nutrition, Multidisciplinary approach, Individualized treatment plans, Non-pharmacological interventions: massage, acupuncture, yoga, relaxation techniques, electrical stimulation (TENS), Pharmacological interventions: medication management, Monitoring and ongoing follow-up: pill count, urine drug screen test (UDT), prescription drug monitoring program (PDMP) review, Quality of Life Scale, Pain Disability Index, Patient education and self-management: understanding chronic pain, pain mechanisms, treatment options, self-care strategies, medication management, lifestyle modifications, Behavioral health support: coping strategies to better manage their pain and improve their overall well-being, Access to specialized services to help manage pain.?Strengths:?Multidimensional approach, individualized treatment, multimodal interventions, holistic focus, patient empowerment, ongoing support and monitoring.?Overall treatment management:?Comprehensive evaluation, non-pharmacologic pain treatment modalities: acupuncture therapy, massage therapy, complementary and alternative therapies: relaxation techniques, music therapy, physical / occupational therapy, behavioral support, medications, interventional procedures: injections, lifestyle modifications: exercise, balanced diet, patient education: proper use of medications, collaborative care with other healthcare providers.?Pain score VAS (0-10):?03/12.? ??- Quality Of Life Scale for Pain:?Quality of Life Scale for Pain ( 0 - 10 )?A Measure of Function for People With Pain, Score (0 - 10):(3) Get dressed in the morning. Minimal activities at home. Contact with friends via phone, email.? ??- Pain Disability Index:?Pain disability index ( 0 - 70 )?-Family/Home Responsibilities: This category refers to activities of the home or family. It includes chores or duties performed around the house (e.g. yard work) and errands or favors for other family members (e.g. driving the children to school) Score (0-10): 8-Recreation: This disability includes hobbies, sports, and other similar leisure time activities. Score (0- 10): 8-Social Activity: This category refers to activities, which involve participation with friends and acquaintances other than family members. It includes parties, theater, concerts, dining out, and other social functions. Score (0-10): 7-Occupation: This category refers to activities that are part of or directly related to ones job. This includes non paying jobs as well, such as that of a housewife or volunteer. Score (0-10): 8-Sexual Behavior: This category refers to the frequency and quality of ones sex life. Score (0-10): 7-Self Care: This category includes activities, which involve personal maintenance and independent daily living (e.g. taking a shower, driving, getting dressed, etc.). Score (0-10): 8-Jvmz-Vdnrlqx Activities: This category refers to basic life supporting behaviors such as eating, sleeping and breathing. Score (0-10): 5Add each category from (0) to (10). No disability (0) Max disability (70)INDEX: 49.? ??Counseling:?Pain follow up?Follow-up Plan documented:?Yes ?Communication to patient:?Physical Activity counseling consisting of?Exercise education Patient advised to engage in general conditioning program to improve endurance, aerobic capacity, strength, and flexibility, low impact, as tolerated. Core muscle strengthening exercises. ?Nutrition counseling consisting of?Diet education Eat a healthy balanced diet ???No OP. * Follow Up:?3 Months * Images: Care Plan Details* * Sign off status: Completed true * Provider:?Ernestina Smith MD Victor Manuel e:?[birth year]/21/2023 Generated for Marley maya/Mumtaz/eTalkasmitting on:?08/31/2024 04:57 PM EST History and Physical Notes * HPI (History of Present Illness) Category Sub-Category Detail Notes Category Not es New symptom(s) Follow up 04/21/2023: , Joe n rating VAS = 8/10, PATIENT LOCATION:, OFFICE, 58 y/o male who comes today for follow up evaluation of chronic lower back and joint pain. The patient underwent right wrist surgery on 02/06/2023. The patient states that he was doing well until 04/18/2023 when he fell at home. The patient was not able to get up from the floor due to severe pain on the right side of his body. He had to wait over an hour on the floor for his to come back home and with the help of a neighbor, he was able to sit up. The patient was taken by ambulance to the ER. No fractures were found. The patient has increased pain in the right wrist and shoulder. The shoulder ROM is limited again. The patient has a large bruise on the right knee. The back pain is also higher than the usual. The patient has been taking ibuprofen and the muscle relaxer. The patient is pending appointment with the surgeon to re-evaluate the right shoulder and wrist. Examination Category Sub-Category Detail Notes Category Not es General Examination GENERAL APPEARANCE: alert and oriented to person , place and time .... 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 Labs PCP (06/02/2022): ABNORMAL - CBC Lymphs 3.4(H); BMP Gluc 171(H). NORMAL - Thyroid Panel .... MRI Lumbar Spine (04/15/2022): 1. Zebl-lw-tkjbdnjx multilevel disc disease with loss of disc disc desiccation seen diffusely throughout the lumbar spine. 2. Vertebral heights are preserved. No malalignment. 3. Concentric disc bulges with canal stenosis: * At L2-3: Moderate canal stenosis. 4. Concentric disc bulges with foraminal narrowing: * At L3-4 through L5-S1: Moderate bilateral foraminal narrowing. 5. At remaining levels, canal and foraminal narrowing are mild/ynfz-kb-cuxeumu e. 6. No significant T2 FS signal abnormality to suggest bone marrow edema, soft tissue or ligamentous injury. GAIT: slightly unsteady ga it DEEP TENDON REFLEX: 1+ , lower extremiti es SENSATION: decreased sensation , bilateral lower extremities MOTOR STRENGTH: 4/5 (able to contrac t and provide resistance) in lower extremities MUSCLE ATROPHY: No gross atrophy obs erved RANGE OF MOTION: Full active range of motion in the lower extremities MUSCLE TONE: Normal in lower extr emities JOINTS: No joint swelling or deformities observed on lower extremities LUMBAR SPINE: Limited active range of motion in the lumbar spine due to pain , Pain with end range of motion. , Tenderness in the lumbar spine, paraspinals , Tenderness on sacroiliac joints INSPECTION: Normal posture, no d eformities RESPIRATORY: Breathing: non-labor ed, non-dyspneic
--- OUTSIDE RECORDS SUMMARY | 2024-08-31 16:59 | XMS_ITS ---
Author Organization [facility] Address [address] [address] Care Team Providers Care Equity Research Analyst Name Role Phone Deana Bryant MD Primary Care Provider Unavail able Peter HASTINGS, William Unavailable [phone] REASON FOR VISIT epigastric pain Medications Medication SIG (Take, Route, Frequency, Duration) Notes Start Date End Date Status Lactulose 10 GM/15ML 15 ml Orally Once a day as needed for 30 day(s) 05/19/2023 Active Hydrocortisone 2.5 % 1 application Recta l Twice a day for 14 days 02/05/2023 Active Metoprolol Succinate ER 25 MG TAKE 1 TABLET BY MOUTH ONCE DAILY FOR 90 DAYS Oral for 90 days Active Aspirin Adult Low Strength 81 MG Oral for 30 Active Lactulose 10 GM/15ML 15 ml Orally Once a day as needed for 30 days Active PEG 3350-KCl-Na Bicarb-NaCl 420 GM as directed Orally 09/02/2021 Not -Taking Atorvastatin Calcium 40 MG TAKE 1 TABLET BY MOUTH ONCE DAILY AT BEDTIME AT 9PM Oral for 30 Active Isosorbide Dinitrate 20 MG 1 tablet Oral ly Twice a day Active Lisinopril 10 MG 1 tablet Orally Once a day Active metFORMIN HCl 500 MG 1 tablet with a lisset l Orally Once a day Not-Taking Nulytely with Flavor Packs 420 GM as directed Orally 02/05/2023 Not-Takin g Omeprazole 40 MG 1 capsule 30 minutes before morning meal Orally Once a day 05/19/2023 Active Encounters Encounter Location Date Provider Diagnosis [facility] [address] [place] [id number] 06/09/2023 William Green Epigastric pain R10.13 and Fecal occult blood test positive R19.5 Assessments Encounter Date Diagnosis (ICD Code) Assessment Notes Treatment Notes Treatment Clinical Notes Section Notes 06/09/2023 Epigastric pain (ICD-10 - R10.13) Severe episodes. Pt went to the ER 9.2022 recommended EGD to r.o ulcer since pain is not improving with medications and current tx . Will proceed with EGD since symptoms over 3 months 06/09/2023 Fecal occult blood test positive (ICD-10 - R19.5) 06/09/2023 Other Please refer to full endoscopy report Plan Of Treatment Treatment Notes Assessment Notes Other Please refer to full endoscopy report Progress Notes * JERAMY LINARES MDOB: (58 yo M)Acc No.[id number]:06/09/2023 Patient:?GABE LINARES Lan Sweeney Provider:?William Green MD :1965???Age:58 Y???Sex:Male Victor Manuel e:06/09/2023 Address:[address] [place], [place] [id number] Pcp:Deana Bryant MD Subjective: * Chief Complaints: * ???1. Epigastric pain. * Medical History:? * Medications:?Taking Lactulos e 10 GM/15ML Solution [...] 420 GM Solution Reconstituted as directed Orally Objective: Assessment: * Assessment: 1.?Epigastric pain - R10.13 (Primary), Severe episodes. Pt went to the ER recommended EGD to r.o ulcer since pain is not improving with medications and current tx . Will proceed with EGD since symptoms over 3 months?2.?Fecal occult blood test positive - R19.5? Plan: * Treatment: * Procedure Codes:?35269 EGD * * Sign off status: Completed true * Provider:?William Green MD Date:? 023 Generated for Marley maya/Mumtaz/Harinder on:?08/31/2024 04:58 PM EST
== END 2024-08-31 16:06 | disposition home or self-care (01) ==
PROVIDERS: PCP Nurse Practitioner Family; Visit Provider Urology
DX: N40.1 Benign prostatic hyperplasia with lower urinary tract symptoms (principal); N13.8 Other obstructive and reflux uropathy; R39.9 Unspecified symptoms and signs involving the genitourinary system; N39.46 Mixed incontinence; Z13.9 Encounter for screening, unspecified
CPT/HCPCS: 52000; 99214

== ENCOUNTER → 2024-08-31 14:49 | Outpatient (BNVA) | payer MEDICARE, MEDICAID, SELFPAY | PROVIDERS: PCP Nurse Practitioner Family; Visit Provider Urology | DX: N40.1 Benign prostatic hyperplasia with lower urinary tract symptoms (principal); N39.46 Mixed incontinence; N13.8 Other obstructive and reflux uropathy; E11.9 Type 2 diabetes mellitus without complications; R39.9 Unspecified symptoms and signs involving the genitourinary system | CPT/HCPCS: 52000; 81003; 99212 ==

== ENCOUNTER 2024-09-30 08:50 | Outpatient (REF) | payer MEDICARE, MEDICAID, SELFPAY ==
--- OUTSIDE RECORDS SUMMARY | 2024-09-30 09:15 | XMS_ITS ---
Author Organization [facility] Address [address] [place] [address] Care Team Providers Care Head Transfer Clerk Name Role Phone Deana Bryant MD Primary Care Provider Unavail able Yamila Juarez Unavailable [phone] Ernestina Cantu Unavailable Allergies Allergen (clinical drug [...] needed Inhalation every 6 hrs Active Ipratropium [place] 0.02 % 2.5 mL Inhala tion every [...] Encounter Location Date Provider Diagnosis [facility] [address] [place] [address] 04/21/2023 Ernestina Juarez Other hereditary and idiopathic [...] Notes * Jimmy AZEVEDODOB:[birth year] (58 yo M)Acc No.[id number]:04/21/2023 Progress Notes Patient:?Clarissa Azevedo Provider:?Ernestina Smith MD :1965???Age:58 Y???Sex:Male Victor Manuel e:04/21/2023 Address:[address] [place], [place] [id number] Pcp:Deana Bryant MD Subjective: * Chief Complaints: [...] at bedtime Orally Once a day Ipratropium [place] 0.02 % Solution 2.5 mL Inhalation every [...] bedtime Orally Once a day Taking Ipratropium [place] 0.02 % Solution 2.5 mL Inhalation every [...] Panel ?.... ?MRI Lumbar Spine (04/15/2022): ?1. Oper-bl-zlxgeonw multilevel disc disease with loss of disc disc desiccation seen diffusely throughout the lumbar spine. ?2. Vertebral heights are preserved. No malalignment. ?3. Concentric disc bulges with canal stenosis: ?* At L2-3: Moderate canal stenosis. ?4. Concentric disc bulges with foraminal narrowing: ?* At L3-4 through L5-S1: Moderate bilateral foraminal narrowing. ?5. At remaining levels, canal and foraminal narrowing are mild/gaze-ru-kuetbtou. ?6. No significant T2 FS signal abnormality [...] shower, driving, getting dressed, etc.). Score (0-10): 9-Rgfs-Agnapyi Activities: This category refers to basic life [...] Victor Manuel e:?04/21/2023 Generated for Marley maya/Mumtaz/eTalkasmitting on:?09/30/2024 09:14 AM EST History and Physical Notes * HPI [...] Panel .... MRI Lumbar Spine (04/15/2022): 1. Qymc-id-szopirtx multilevel disc disease with loss of disc disc desiccation seen diffusely throughout the lumbar spine. 2. Vertebral heights are preserved. No malalignment. 3. Concentric disc bulges with canal stenosis: * At L2-3: Moderate canal stenosis. 4. Concentric disc bulges with foraminal narrowing: * At L3-4 through L5-S1: Moderate bilateral foraminal narrowing. 5. At remaining levels, canal and foraminal narrowing are mild/stnc-pk-xnbwtxb e. 6. No significant T2 FS signal [...]
--- OUTSIDE RECORDS SUMMARY | 2024-09-30 09:15 | XMS_ITS ---
Author Organization [facility] Address [address] [place] [address] Care Team Providers Care Cloth Mender Name Role Phone Manny HASTINGS, Deana Primary Care Provider Unavail naveen Green MD, William Unavailable [phone] Bropopeye NUÑEZN, Mailen Unavailable [phone] REASON FOR VISIT Medical records request Encounters Encounter Location Date Provider Diagnosis [facility] [place] [address] [place] [address] 08/24/2023 Cliff Clemons Plan Of Treatment No Information Progress Notes * JERAMY LINARES MDOB: (58 yo M)Acc No.[id number]:08/24/2023 Patient:?ALONDRA ZUNIGAMARTIN OSBORNI Lan Patel :1965???Age:58 Y???Sex:Male Address:[place] [address] * true * Date:? Generated for Marley maya/Mumtaz/eTransmitting on:?09/30/2024 09:14 AM EST
--- OUTSIDE RECORDS SUMMARY | 2024-09-30 09:15 | XMS_ITS ---
Author Organization [facility] Address [address] [address] Care Team Providers Care Track Inspecting Supervisor Name Role Phone Deana Bryant MD Primary Care Provider Unavail able Peter HASTINGS, William Unavailable [phone] REASON FOR VISIT epigastric pain Medications Medication [...] Active Encounters Encounter Location Date Provider Diagnosis [facility] [address] [place] [address] 06/09/2023 William Green Epigastric pain R10.13 and [...] * JERAMY LINARES MDOB: (58 yo M)Acc No.[id number]:06/09/2023 Patient:?GABE LINARES Lan Sweeney Provider:?William Green MD :1965???Age:58 Y???Sex:Male Victor Manuel e:06/09/2023 Address:[address] [place], [place] [phone] Pcp:Deana Bryant MD Subjective: * Chief Complaints: [...] - R19.5? Plan: * Treatment: * Procedure Codes:?17997 EGD * * Sign off status: Completed true * Provider:?William Green MD Date:? 023 Generated for Marlye maya/Mumtaz/Harinder on:?09/30/2024 09:15 AM EST
--- OUTSIDE RECORDS SUMMARY | 2024-09-30 09:15 | XMS_ITS | Continuity of Care Document ---
Author Organization [facility] Address [address] [place] [address]- Care Team Providers Care Air Shovel Operator Name Role Phone Hilda Hills NP Primary Care Physician Encounter [facility] Date(s): 07/13/24 - 08/31/24 [facility] [address] [place] [address] Attending Physician: Melissa Gooden MD Admitting Physician: Melissa Gooden MD Referring Physician: Hilda Hills NP Encounter Type: Pre-OutPatient One Time Allergies, Adverse Reactions, Alerts Substance Criticality Severity [...] 10:59:00 AM EDT, Route to Pharmacy Electronically, [facility], Partial fill upon patient request if the [...] 9:29:00 AM EDT, Route to Pharmacy Electronically, [facility], Partial fill upon patient request [...] Refills, Maintenance, 06/21/24 11:13:00 AM EST, Tablet, [facility], Partial fill upon patient request [...] AM EDT, 06/21/24 10:52:00 AM EST, Tablet, [facility], Partial fill upon patient requestif [...] Refills, Maintenance, 03/28/24 10:20:00 AM EDT, Tablet, [facility], Partial fill upon patient request [...] Soft Stop, 05/02/24 9:15:00 AM EDT, Tablet, [facility], Partial fill upon patient request [...] Maintenance, 05/20/24 2:18:00 PM EDT, ER Tablet, [facility], Partial fill upon patient request [...] 10:57:00 AM EDT, Route to Pharmacy Electronically, [facility], Partial fill upon patient request [...] Team Personnel Name: Hilda Hills NP Position: [facility] PCO Associate Professional Member Role: PCP Address: [address] [place] [address] Telecom: Care Team Related Persons Name: NATALIE DUDLEY Insurance Providers Guarantor name: JERAMY CANTU [facility] Information #: 2 Payer: [facility] Member Number: [id number] Policy Number: NA Group Number: NA Health Plan Information #: 1 Payer: MEDICARE PART B OUTPT Member Number: [id number] Policy Number: NA Group Number: NA
--- OUTSIDE RECORDS SUMMARY | 2024-09-30 09:15 | XMS_ITS | Patient Health Record ---
Author Organization [facility] Address [address] [address] Care Team Providers Care Fire Apparatus Sprinkler Inspector Name Role Phone Deana Bryant MD Primary Care Provider Unavail naveen Green MD, William Unavailable [phone] Allergies Allergen (clinical drug ingredient) Drug/Non Drug Allergy documented on EMR Reaction Allergy Type Onset Date Status Penicillin Unknown Drug Allergy Active Reason For Referral No Information Medications Medication SIG (Take, Route, Frequency, Duration) Notes Start Date End Date Status metFORMIN HCl 500 MG 1 tablet with a lisset l Orally Once a day Not-Taking Atorvastatin Calcium 40 MG TAKE 1 TABLET BY MOUTH ONCE DAILY AT BEDTIME AT 9PM Oral for 30 Active Lactulose 10 GM/15ML 15 ml Orally Once a day as needed for 30 day(s) 05/19/2023 Active Metoprolol Succinate ER 25 MG TAKE 1 TABLET BY MOUTH ONCE DAILY FOR 90 DAYS Oral for 90 days Active PEG 3350-KCl-Na Bicarb-NaCl 420 GM as directed Orally 09/02/2021 Not -Taking Aspirin Adult Low Strength 81 MG Oral for 30 Active Omeprazole 40 MG 1 capsule 30 minutes before morning meal Orally Once a day 05/19/2023 Active Lactulose 10 GM/15ML 15 ml Orally Once a day as needed for 30 days Active Isosorbide Dinitrate 20 MG 1 tablet Oral ly Twice a day Active Lisinopril 10 MG 1 tablet Orally Once a day Active Hydrocortisone 2.5 % 1 application Recta l Twice a day for 14 days 02/05/2023 Active Nulytely with Flavor Packs 420 GM as directed Orally 02/05/2023 Not-Aminta sabillon Immunizations Vaccine Route Administration Date Status Comme nts COVID-19 Pfizer 30mcg/0.3 mL dose Unknown 01/21/2021 Ad ministered COVID-19 Pfizer 30mcg/0.3 mL dose Unknown 08/26/2021 Ad ministered Social History Tobacco Use: Social History Observation [...] Problem Status W/U Status Risk Notes Problem Constipation (28669995) Constipation, unspecified (K59.00) Active confirmed Problem Epigastric pain (97251322) Epigastric pain (R10.13) Active confirmed Severe episodes. Pt went to the ER recommended EGD to r.o ulcer since pain is not improving with medications and current tx . Will proceed with EGD since symptoms over 3 months will proceed with EUS Problem Diverticular disease of colon (323735246) Diverticula of colon (K57.30) Active confirmed csp Problem Rectal bleeding (62511218) Rectal bleeding (K62.5) Active confirmed Episodes after bowel movement / as per pt multiple episodes. Bright red blood (seen on pictures) no black stools. Severe constipation. Will proceed with lactulose / iron and hg WNL no recent episodes since last OV Problem Family history of malignant neoplasm of gastrointestinal tract (266879154) Family history of colon cancer (Z80.0) Active confirmed mother 70s Problem Gastric polyp (32559019) Gastric polyp (K31.7) Active confirmed HP resected per egd Problem Altered bowel habits (08884958) Bowel habit changes (R19.4) Active confirmed constipation / poor response to miralax / will try lactulose controlled Problem Internal hemorrhoid (04408017) Internal hemorrhoid (K64.8) Active confirmed csp Problem Abnormal feces (111496763) Positive fecal occult blood test (R19.5) Active confirmed 01/2023 Csp done Problem Polyp colon (71093773) Colon polyp (D12.2) Active confirmed bx- HP --per csp . surveillance [address] no acute process no polyps seen per csp 01/2023 surveillance 5 y. Problem Pancreatitis (95995549) Pancreatitis (K85.10) Active confirmed as per pt will request records. (RECORDS of ct showed acute interstitial pancreatitis. Lipase 89 h, amylase wnl per labs . will proceed with EUS Problem Constipation (09525212) Constipation (K59.00) Active confirmed Problem Functional dyspepsia (9061095) Acid indigestion (K30) Active confirmed Problem Chronic gastritis (3692013) Chronic gastritis (K29.50) Active confirmed -per egd Problem Encounter to discuss colonoscopy results (Z71.2) Active confirmed Problem History of polyp of colon (situation) (546374963) Personal history of colon polyps (Z79.02) Active confirmed Plan Of Treatment Future Test Test Name Order Date AMYLASE AND LIPASE 05/19/2023 Comp. Metabolic Panel (14) 05/19/2023 Obtain old records 05/26/2023 Insurance Providers Payer Name Payer Address Payer Phone Subscriber Number Group Number Insured Name Patient Relationship to Insured Coverage Start Date Coverage End Date [employer] PLAN [address] [place] [id number] [facility] Self - patient is the insured 2 Medical (General) History Medical History History ICD Code Hypertension diabetes mellitus type 2 DiscHerriated Thyriod Cancer Surgical History Surgery Date(Month/Year) thyroid remove 2016 Right knee surgery 2017 Hospitalization History Reason Date(Month/Year) pancreatitis-[facility] 04/2023 chest pain -[facility] 01/2023 [facility] due to back [facility] 08/2020
--- OUTSIDE RECORDS SUMMARY | 2024-09-30 09:15 | XMS_ITS | Patient Health Record ---
Author Organization [facility] Address [address] [place] [address] Care Team Providers Care Pantograph Setter Name Role Phone CLAUDE CARVALHO MD Primary Care Provider Unavailable Tacho Schofield Unavailable [phone] Allergies Allergen (clinical drug ingredient) Drug/Non Drug [...] Problem Status W/U Status Risk Notes Problem 845500953 Encounter for pre-operative cardiovascular clearance (Z01.810) Active confirmed Problem 98859066 Essential hypertension (I10) Active confirmed Problem 427397638 Dyslipidemia (E78.5) Active confirmed Problem 658334413 Acquired hypothyroidism (E03.9) Active confirmed Problem 741882713432238 Obesity (BMI 30.0-34.9) (E66.9) Active confirmed Problem 581985280 Body mass index [BMI] 33.0-33.9, adult (Z68.33) Active confirmed Plan Of Treatment No Information Insurance Providers Payer Name Payer Address Payer Phone Subscriber Number Group Number Insured Name Patient Relationship to Insured Coverage Start Date Coverage End Date [employer] [address] [place] [address] [id number] JERAMY LINARES Self - patient is the insured 1 Medical (General) History Medical History History ICD Code coronary artery disease heart diease angina Hypothyroidism type II diabetes dyslipidemia gastroesophageal reflux disease (GERD) morbid obesity Surgical History Surgery Date(Month/Year)
--- OUTSIDE RECORDS SUMMARY | 2024-09-30 09:15 | XMS_ITS | Continuity of Care Document ---
Author Organization [facility] Address [address] [place] [address]- Care Team Providers Care Care Director Rn Name Role Phone Reinier OSBORNE, Hilda Primary Care Physician Encounter [facility] Date(s): 08/01/24 - 08/31/24 [facility] [address] [place], [place] [address] Attending Physician: Hilary Cohen Admitting Physician: AdmtrHilary Referring Physician: Admtr ArBrook Encounter Type: Triage Allergies, Adverse Reactions, Alerts [...] 10:59:00 AM EDT, Route to Pharmacy Electronically, [facility], Partial fill upon patient request if the [...] 9:29:00 AM EDT, Route to Pharmacy Electronically, [facility] 5278, Partial fill upon patient [...] Refills, Maintenance, 06/21/24 11:13:00 AM EST, Tablet, [facility]278, Partial fill upon patient [...] AM EDT, 06/21/24 10:52:00 AM EST, Tablet, [facility]278, Partial fill upon patient [...] Refills, Maintenance, 03/28/24 10:20:00 AM EDT, Tablet, [facility], Partial fill upon patient [...] Soft Stop, 05/02/24 9:15:00 AM EDT, Tablet, [facility], Partial fill upon patient [...] Maintenance, 05/20/24 2:18:00 PM EDT, ER Tablet, [facility]278, Partial fill upon patient [...] 10:57:00 AM EDT, Route to Pharmacy Electronically, [facility]273, Partial fill upon patient request if the [...] Team Personnel Name: Hilda Hills NP Position: [facility] PCO Associate Professional Member Role: PCP Address: [address] [place] [address] Telecom: Care Team Related Persons Name: NATALIE DUDLEY Insurance Providers Guarantor name: JERAMY CANTU TONY Health Plan Information #: 1 Payer: MEDICARE PART B OUTPT Member Number: NA Policy Number: NA Group Number: NA Health Plan Information #: 2 Payer: [place] Member Number: NA Policy Number: NA Group Number: NA
--- OUTSIDE RECORDS SUMMARY | 2024-09-30 09:15 | XMS_ITS ---
Author Organization [facility] Address [address] [address] Care Team Providers Care Data Software Engineer Name Role Phone Deana Bryant MD Primary Care Provider Unavail able Peter HASTINGS, William Unavailable [phone] Cliff Clemons APRN Unavailable [phone] Allergies Allergen (clinical drug ingredient) Drug/Non Drug [...] W/U Status Risk Notes Problem Gastric polyp (17355269) Gastric polyp (K31.7) Active confirmed HP resected per egd Problem Chronic gastritis (8462370) Chronic gastritis (K29.50) Active confirmed -per egd Vital Signs Weight 184 lbs 08/26/2023 Height 69 in 08/26/2023 BMI 27.17 kg/m2 08/26/2023 Blood pressure systolic 145 mm Hg 08/26/19 Blood pressure diastolic 95 mm Hg 024 Weight-kg 83.46 kg 08/26/2023 Encounters Encounter Location Date Provider Diagnosis [place] [address] [employer] [facility] [place] [address] 08/26/2023 Cliff Clemons Epigastric pain R10. 13 [...] and labs but pt is moving to [place] this upcoming week. He will benefit from [...] * JERAMY LINARES MDOB: (58 yo M)Acc No.[id number]:08/26/2023 Patient:?GABE LINARES Lan Sweeney Appointment Provider:?JOAQUIN Greene :1965???Age:58 Y???Sex:Male Sup ervising Provider:William Green MD Date:08/26/2023 Address:[place], [phone] Pcp:Deana Bryant MD Subjective: * Chief Complaints: [...] to proceed because he is moving to [place] this upcoming week recommended to have this test done when he finds a new manager call center and he verbalized understanding he stated that the pain comes and goes but it seems to be controlled copy of all results given to present to new manager call center in [place] and he verbalized understanding. He denies rectal [...] thyroid remove 2015. * Hospitalization/Major Diagno stic Procedure:?[facility] due to [facility] 06/03/2021, [facility], pancreatitis-[facility] 04/2023. * Family History:?Mother: ginette june, Diabetes.?Father: [...] Provider:JOAQUIN Carter Date:?08/26/2023 Generated for Marley maya/Mumtaz/Nickitting on:?09/30/2024 09:15 AM EST History and Physical Notes * HPI (History of Present Illness) Category Sub-Category Detail Notes Category Notes Introduction This is a pleas ant 58-year-old male patient come for follow-up discussed the labs with the patient slight elevation on lipase 89. Recommended endoscopic ultrasound but he is unable to proceed because he is moving to [place] this upcoming week recommended to have this test done when he finds a new manager call center and he verbalized understanding he stated that the pain comes and goes but it seems to be controlled copy of all results given to present to new manager call center in [place] and he verbalized understanding. He denies rectal [...]
--- OUTSIDE RECORDS SUMMARY | 2024-09-30 09:15 | XMS_ITS | Patient Health Record ---
Author Organization [facility] Address [address] [place] [address] Care Team Providers Care C Application Developer Name Role Phone Deana Bryant MD Primary Care Provider Unavail Yamila Marlow Unavailable [phone] Allergies Allergen (clinical drug ingredient) Drug/Non Drug [...] needed Inhalation every 6 hrs Active Ipratropium [place] 0.02 % 2.5 mL Inhala tion every [...] Problem Type II diabetes mellitus without complication (428190922) Type 2 diabetes mellitus without complications (E11.9) Active confirmed Problem Postoperative Hypothyroidism (75813752) Postprocedural hypothyroidism (E89.0) Active confirmed Problem Hereditary and idiopathic peripheral neuropathy (223793021) 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) Active confirmed Problem Essential hypertension (20224847) Essential (primary) hypertension (I10) Active confirmed Problem Lumbosacral spondylosis without myelopathy (31885800) Other spondylosis, lumbosacral region (M47.897) Active confirmed Problem Spinal stenosis of lumbar region (23599156) Spinal stenosis, lumbosacral region (M48.07) Active confirmed Problem Lumbar radiculopathy (924973666) Radiculopathy, lumbar region (M54.16) Active confirmed Problem Paresthesia (finding) (07651210) Paresthesia of skin (R20.2) Active confirmed Problem History of malignant neoplasm of thyroid (471471712) Personal history of malignant neoplasm of thyroid (Z85.850) Active confirmed Problem Pain in lumbar spine (178991910) Vertebrogenic low back pain (M54.51) Active confirmed Problem Asthma (516222908) Asthma (J45.909) Active confirmed Plan Of Treatment Pending Test Test Name Order Date EMG/NCS RT lower ext 08/13/2022 Insurance Providers Payer Name Payer Address Payer Phone Subscriber Number Group Number Insured Name Patient Relationship to Insured Coverage Start Date Coverage End Date [facility] [address] [place] [address] [phone] [id number] Jimmy Azevedo Self - patient is the insured Medical (General) History Medical History History ICD Code diabetes mellitus arterial hypertension hx of thyoid cancer - hypothyroidism asthma Surgical History Surgery Date(Month/Year) right knee surgery 2017 thyroidectomy 2016 shoulder replacement 2021 Right wrist surgery 02/06/2023 Hospitalization History Reason Date(Month/Year) back pain 06/2021
--- OUTSIDE RECORDS SUMMARY | 2024-09-30 09:15 | XMS_ITS ---
Author Organization [facility] Address [address] [place] [address] Care Team Providers Care Substation Operator Transforming Name Role Phone Deana Bryant MD Primary Care Provider Unavail able Yamila Juarez Unavailable [phone] Ernestina Cantu Unavailable [phone] REASON FOR VISIT . [C L] 06/23 PA REQ SENT Encounters Encounter Location Date Provider Diagnosis Physical Medicine [address] [address] 07/14/2023 Ernestina Juarez Plan Of Treatment No Information Progress Notes * Jimmy AZEVEDODOB:[birth year] (58 yo M)Acc No.[id number]:07/14/2023 Patient:?Clarissa AZEVEDO Provider:?Ernestina Smith MD :1965???Age:58 Y???Sex:Male Victor Manuel e:07/14/2023 Address:[address] [place], [place] [address] Pcp:Deana Bryant MD Subjective: * Chief Complaints: * ???. [C L] 06/23 PA REQ SENT * Medical History:? * Surgical History:? * Hospitalization/Major Diagno stic Procedure:? * Medications:? Objective: Therapeutic Interventions: Assessment: Plan: * Treatment: * Procedure Codes:? * Images: Care Plan Details* * Sign off status: Completed true * Provider:?Ernestina Smith MD Victor Manuel e:?07/14/2023 Generated for Marley maya/Mumtaz/Nickitting on:?09/30/2024 09:14 AM EST
[2024-09-30 10:30] LABS: Estimated Average Glucose 137 mg/dL; Hemoglobin A1C 149.7737 umol/L; Hemoglobin A1c % 6.4 % (<6.0); Total Hemoglobin (HGBA1C) 3255.9434 umol/L
[2024-09-30 11:07] LABS: Alanine Aminotransferase 21 U/L (0-40); Alkaline Phosphatase 66 U/L (39-117); Anion Gap 11 (12-20); Aspartate Amino Transferase 23 U/L (5-37); Bilirubin Total 0.5 mg/dL (0.0-1.0); Blood Urea Nitrogen 17 mg/dL (9-16); Calcium 9.5 mg/dL (8.4-10.2); Carbon Dioxide 30 mmol/L (22-29); Chloride 106 mmol/L (96-108); Cholesterol 165 mg/dL (<200); Estimated Glomerular Filt Rate > 60; Glucose Random 126 mg/dL (60-115); HDL Cholesterol 42 mg/dL (>40); LDL Cholesterol Calculated 106 mg/dL (<100); Potassium 4.2 mmol/L (3.3-5.1); Sodium 143 mmol/L (135-145); Total Protein 6.9 g/dL (6.5-8.0); Triglycerides 86 mg/dL (<150)
[2024-09-30 11:24] LABS: Free T4 (Free Thyroxine) 1.36 ng/dL (0.71-1.85); TSH reflex Free T4 0.07 uIU/mL (0.32-4.0)
== END 2024-09-30 08:51 | disposition home or self-care (01) ==
LOC: HO.LAB 08:50
PROVIDERS: PCP Internal Medicine; Visit Provider Internal Medicine
DX: E05.90 Thyrotoxicosis, unspecified without thyrotoxic crisis or storm (principal); E11.9 Type 2 diabetes mellitus without complications; E78.00 Pure hypercholesterolemia, unspecified; G25.0 Essential tremor
CPT/HCPCS: 36415; 80053; 80061; 83036; 84439; 84443

== ENCOUNTER 2024-10-30 23:59 | Emergency (ER) | payer MEDICARE, MEDICAID, SELFPAY ==
--- NOTE | ~2024-10-30 | CT_ITS ---
CLINICAL HISTORY: pain CT cervical spine without contrast Comparison: None Findings: Straightening of the cervical lordosis. Thyroid not well visualized absent or severely atrophic. No significant degenerative change. No acute fractures or dislocations. Soft tissues of the neck are normal. Lung apices are clear. IMPRESSION: No acute findings. This document has been electronically signed by: Eladio Godfrey MD on 10/31/2024 02:51:07
[2024-10-31 00:08] VITALS: BP 149/79; PULSE 66; RESP 18; TEMP 36.8; O2SAT 99; BMI 30.4
[2024-10-31] MEDS: Ketorolac Tromethamine 15 MG/ML VIAL IM (02:50)
[2024-10-31] MEDS: methocarbamoL 750 MG TABLET 1500 MG PO (02:50)
--- NOTE | 2024-10-31 02:58 | ED_ITS ---
HPI - General Adult General Chief complaint: Extremity Problem Stated complaint: neck pain, nauseous Time Seen by Provider: 10/31/24 02:12 Source: patient Limitations: language barrier History of Present Illness ED Provider: Lorie Mancini PA-C HPI narrative: 59-year-old male with a history of diabetes, hypertension, hyperlipidemia, coronary artery disease, hypothyroidism, peripheral vascular disease, chronic b ack pain, who presents with neck pain x4 weeks. Pain originates over left posterior neck with radiation across upper back into the shoulder and upper chest. Pain worse with movement and palpation. Patient can not identify a mechanism of injury, there was no obvious trauma or overuse injury. Denied paresthesias of upper extremity. No weakness of upper extremity. No visual changes or headache. Patient states he was seen by his primary care provider, they prescribed naproxen, he has not had relief from symptoms. Related Data Home Medications ?Medication ?Instructions ?Recorded ?Confirmed aspirin 81 mg tablet,delayed 81 mg PO DAILY 02/22/24 08/10/24 release (Adult Low Dose Aspirin) dulaglutide 0.75 mg/0.5 mL mg subcut 02/22/24 08/10/24 subcutaneous pen injector (Trulicity) finasteride 5 mg tablet 5 mg PO DAILY 02/22/24 08/10/24 folic acid 1 mg tablet 1 mg PO DAILY 02/22/24 08/10/24 lisinopril 10 1 tab PO DAILY 02/22/24 08/10/24 mg-hydrochlorothiazide 12.5 mg tablet metoprolol succinate 25 mg 25 mg PO DAILY 02/22/24 08/10/24 tablet,extended release 24 hr alcohol swabs (BD Alcohol Swabs) pad topical 08/10/24 08/10/24 cholecalciferol (vitamin D3) 1,250 1,250 mcg PO QWEEK 08/10/24 08/10/24 mcg (50,000 unit) capsule hydroxyzine HCl 25 mg tablet 25 mg PO DAILY 08/10/24 08/10/24 lorazepam 0.5 mg tablet 0.5 mg PO DAILY 08/10/24 08/10/24 metformin 1,000 mg tablet 1,000 mg PO BID 08/10/24 08/10/24 Previous Rx's ?Medication ?Instructions ?Recorded atorvastatin 40 mg tablet 40 mg PO DAILY 90 days #90 tabs 08/10/24 gabapentin 100 mg capsule 100 mg PO BID 30 days #60 caps 08/10/24 levothyroxine 75 mcg tablet 75 mcg PO DAILY #90 tabs 08/10/24 meloxicam 15 mg tablet 15 mg PO DAILY 30 days #30 tabs 08/10/24 ketorolac 10 mg tablet 10 mg PO Q6H PRN pain #20 tabs 10/31/24 methocarbamol 750 mg tablet 1,500 mg (2 x 750 mg) PO Q8H PRN 10/31/24 pain, moderate #20 tabs methylprednisolone 4 mg tablets in 4 mg PO QAM #21 ea 10/31/24 a dose pack (Medrol (Og)) Allergies Allergy/AdvReac Type Severity Reaction Status Date / Time seafood Allergy Severe throat Verified 10/31/24 00:09 closes penicillin V Allergy Unknown Rash Verified 10/31/24 00:09 Review of Systems Review of Systems: Yes all other systems are reviewed and are negative Constitutional: Constitutional: Denies fatigue, Denies fever(s) and Denies headache(s) Eyes: Eyes: Denies change in vision ENT: Denies headache(s) and Reports neck pain Cardiovascular: Cardiovascular: Denies chest pain and Denies dyspnea Respiratory: Respiratory: Denies dyspnea Gastrointestinal: Gastrointestinal: Denies abdominal pain Musculoskeletal: Musculoskeletal: Reports back pain, Denies muscle weakness, Reports neck pain, Denies numbness, Reports radiating pain into limb and Denies tingling Neurologic: Denies headache(s), Denies numbness and Denies tingling Endocrine: Endocrine: Denies fatigue PMFSH Past Medical History Attestation statement: The following information was validated with the patient. Medical History Mass of left testicle Thyroid disorder Diabetes Surgical History H/O neck surgery H/O right knee surgery Family History Family History Sister Diabetes Brother Diabetes Mother Hypercholesteremia Pancreatic cancer Social History Social History Housing: Apartment Patient Tobacco Use Status: Never used Tobacco e-Cigarette/Vaping Use: Never Used Second Hand Smoke Exposure: No Advance Directives: No Advance Directives Information Provided: Yes Do you have a plan to hurt others: No Plan service: No Current occupational status: unemployed Cognitive needs: No Hearing needs: No Vision needs: No Physical Exam ED Vital Signs: Vital Signs - 24 hr 10/31/24 00:08 Temperature 98.2 F Pulse Rate 66 Respiratory Rate 18 Blood Pressure 149/79 H Pulse Oximetry 99 Oxygen Delivery Method Room Air BMI result Body Mass Index 30.4 Const Other: Alert Orientation/consciousness: patient oriented x3 Neck Other: No midline tenderness, pain is left lateral neck with palpation, full range of motion Resp Effort & Inspection: normal respiratory effort Cardio Other: Normal peripheral perfusion Back/Spine/Pelvis Other: Palpable pain across upper trapezius muscle group on the left Skin Other: Warm dry no rash Neuro General: patient oriented x3, gait normal, no focal motor deficits and CN's II- XI intact bilaterally Extrem Other: Strength 5/5 bilateral upper extremities with resistance Psych Other: Cooperative Medications Administered Discontinued Medications Generic Name Dose Route Start Last Admin Trade Name Freq PRN Reason Stop Dose Admin Ketorolac Tromethamine 15 mg 10/31/24 02:20 10/31/24 02:50 Ketorolac Tromethamine 15 Mg/Ml Vial IM 10/31/24 02:21 15 mg ONCE ONE Administration Methocarbamol 1,500 mg 10/31/24 02:20 10/31/24 02:50 Methocarbamol 750 Mg Tablet PO 10/31/24 02:21 1,500 mg ONCE ONE Administration Medical Decision Making Medical Decision Making MDM Narrative: 59-year-old male with a history of diabetes, hypertension, hyperlipidemia, coronary artery disease, hypothyroidism, peripheral vascular disease, chronic ba ck pain, who presents with neck pain x4 weeks. Pain originates over left posterior neck with radiation across upper back into the shoulder and upper chest. Pain worse with movement and palpation. Patient can not identify a mechanism of injury, there was no obvious trauma or overuse injury. Denied paresthesias of upper extremity. No weakness of upper extremity. No visual changes or headache. Patient states he was seen by his primary care provider, they prescribed naproxen, he has not had relief from symptoms. Problem: Diabetes History: Per patient I have considered the following differential diagnoses: Cervical strain, arthritis, cervical radiculopathy, VAD, compression fracture, musculoskeletal strain Plan: Patient having symptoms of cervical radiculopathy, unclear mechanism of injury. We will obtain imaging he has yet to have any. We will treat with Toradol and a muscle relaxant. Thought about VAD, however he has had symptoms for 4 weeks, there was no preceding heavy lifting injury, he has no headache and no visual disturbance he is neurologically intact. I have independently reviewed the following tests: CT cervical spine:Findings: Straightening of the cervical lordosis. Thyroid not well visualized absent or severely atrophic. No significant degenerative change. No acute fractures or dislocations. Soft tissues of the neck are normal. Lung apices are clear. IMPRESSION: No acute findings. Discharge Plan Discharge Clinical Impression: Left cervical radiculopathy Patient Disposition: Home, Self-Care Instructions: Cervical Radiculopathy (ED) Additional Instructions: The CT scan of your cervical spine revealed mild arthritis. There were no other abnormalities. I suspect that you have a pinched nerve causing your symptoms. See home care instructions. Use the ketorolac as directed, this is an anti- inflammatory. Use the Medrol Dosepak as directed this is a steroid taper that is also an anti-inflammatory. Use the methocarbamol as needed for further pain, to note this medication may cause drowsiness do not drive or operate machinery while taking this medication. Follow up with your primary care provider, given the duration of symptoms, they will likely recommend physical therapy. Call to make an appointment. Prescriptions: New methylprednisolone [Medrol (Og)] 4 mg tablets,dose pack 4 mg PO QAM Qty: 21 0RF Rx Instructions: Take the taper per package instructions methocarbamol 750 mg tablet 1,500 mg PO Q8H PRN (Reason: pain, moderate) Qty: 20 0RF ketorolac 10 mg tablet 10 mg PO Q6H PRN (Reason: pain) Qty: 20 0RF Rx Instructions: maximum total duration of 5 days from all oral, intranasal, or parenteral formulations. The patient had an intramuscular dose of Toradol here in the emergency room. No Action lisinopril-hydrochlorothiazide 10-12.5 mg tablet 1 tab PO DAILY aspirin [Adult Low Dose Aspirin] 81 mg tablet,delayed release (DR/EC) 81 mg PO DAILY metoprolol succinate 25 mg tablet extended release 24 hr 25 mg PO DAILY finasteride 5 mg tablet 5 mg PO DAILY folic acid 1 mg tablet 1 mg PO DAILY Trulicity 0.75 mg/0.5 mL pen injector subcut hydroxyzine HCl 25 mg tablet 25 mg PO DAILY lorazepam 0.5 mg tablet 0.5 mg PO DAILY alcohol swabs [BD Alcohol Swabs] Pads, Medicated topical metformin 1,000 mg tablet 1,000 mg PO BID cholecalciferol (vitamin D3) 1,250 mcg (50,000 unit) capsule 1,250 mcg PO QWEEK atorvastatin 40 mg tablet 40 mg PO DAILY 90 Days Qty: 90 1RF meloxicam 15 mg tablet 15 mg PO DAILY 30 Days Qty: 30 1RF gabapentin 100 mg capsule 100 mg PO BID 30 Days Qty: 60 3RF levothyroxine 75 mcg tablet 75 mcg PO DAILY Qty: 90 1RF Print Language: Italian
[2024-10-31 03:13] VITALS: BP 132/62; PULSE 70; RESP 16; TEMP 37.2; O2SAT 99
== END 2024-10-31 03:14 | disposition home or self-care (01) ==
PROVIDERS: Emergency Provider Emergency Medicine Emergency Medical Services; PCP Internal Medicine
DX: M54.12 Radiculopathy, cervical region (principal); M54.2 Cervicalgia; R11.0 Nausea; I25.10 Atherosclerotic heart disease of native coronary artery without angina pectoris; M54.50 Low back pain, unspecified; Z79.899 Other long term (current) drug therapy
CPT/HCPCS: 72125; 96372; 99283; 99284; J1885

== ENCOUNTER → 2024-10-31 02:14 | Outpatient (BNV) | payer MEDICARE, MEDICAID, SELFPAY | PROVIDERS: Emergency Provider Emergency Medicine Emergency Medical Services; PCP Internal Medicine; Visit Provider Radiology Diagnostic Radiology | DX: M54.2 Cervicalgia (principal) | CPT/HCPCS: 72125 ==

== ENCOUNTER 2024-11-04 08:58 | Outpatient (REF) | payer MEDICARE, MEDICAID, SELFPAY ==
--- OUTSIDE RECORDS SUMMARY | 2024-11-04 09:39 | XMS_ITS | Patient Health Record ---
Author Organization [facility] Address [address] [place] [address] Care Team Providers Care Technical Sales Director Name Role Phone CLAUDE CARVALHO MD Primary Care Provider Unavailable Tacho Schofield Unavailable [phone] Allergies Allergen (clinical drug ingredient) Drug/Non Drug [...] Problem Status W/U Status Risk Notes Problem 461783200 Encounter for pre-operative cardiovascular clearance (Z01.810) Active confirmed Problem 23947356 Essential hypertension (I10) Active confirmed Problem 430154183 Dyslipidemia (E78.5) Active confirmed Problem 035514284 Acquired hypothyroidism (E03.9) Active confirmed Problem 100221297532634 Obesity (BMI 30.0-34.9) (E66.9) Active confirmed Problem 671566774 Body mass index [BMI] 33.0-33.9, adult (Z68.33) Active confirmed Plan Of Treatment No Information Insurance Providers Payer Name Payer Address Payer Phone Subscriber Number Group Number Insured Name Patient Relationship to Insured Coverage Start Date Coverage End Date [employer] [facility] [address] [place] [phone] [id number] JERAMY LINARES Self - patient is the insured 1 Medical (General) History Medical History History ICD Code coronary artery disease heart diease angina Hypothyroidism type II diabetes dyslipidemia gastroesophageal reflux disease (GERD) morbid obesity Surgical History Surgery Date(Month/Year)
--- OUTSIDE RECORDS SUMMARY | 2024-11-04 09:39 | XMS_ITS ---
Author Organization [facility] Address [address] [place] [address] Care Team Providers Care Grid Trimmer Name Role Phone Deana Bryant MD Primary Care Provider Unavail able Yamila Juarez Unavailable [phone] Ernestina Cantu Unavailable [phone] REASON FOR VISIT . [C L] 06/23 PA REQ SENT Encounters Encounter Location Date Provider Diagnosis Physical Medicine [address] [address] 07/14/2023 Ernestina Juarez Plan Of Treatment No Information Progress Notes * Jimmy AZEVEDODOB:[birth year] (58 yo M)Acc No.[id number]:07/14/2023 Patient:?Clarissa AZEVEDO Provider:?Ernestina Smith MD :1965???Age:58 Y???Sex:Male Victor Manuel e:07/14/2023 Address:[address] [place], [place] [id number] Pcp:Deana Bryant MD Subjective: * Chief Complaints: * ???. [C L] 06/23 PA REQ SENT * Medical History:? * Surgical History:? * Hospitalization/Major Diagno stic Procedure:? * Medications:? Objective: Therapeutic Interventions: Assessment: Plan: * Treatment: * Procedure Codes:? * Images: Care Plan Details* * Sign off status: Completed true * Provider:?Ernestina Smith MD Victor Manuel e:?07/14/2023 Generated for Marley maya/Mumtaz/Nickitting on:?11/04/2024 09:39 AM EDT
--- NOTE | 2024-11-04 13:16 | MHC.AU.HA1 ---
Hearing Aid Evaluation Date of Visit: 11/04/24 Tugboat Engineer Used: Latvian- In Person Historical Information: Description of Hearing: Within normal gradually sloping to moderate sensorineural hearing loss, binaural. Current personal amplification information, if applicable: None Summary: Pt. went to ENT due to trouble hearing at home, feeling of water in ears, hearing aids recommended. Pt. notes new onset pulsatile tinnitus Ad, reports he did not discuss at ENT because he did not have it at that time. Reviewed amplification options, recommended RITVanessa Jimmy selected rechargeable, has an iPhone he may like to connect with. Counseled on benefits and limitations of amplification. Recommended return to ENT due to pulsatile tinnitus Ad, advised to discuss with PCP, pt reports he is seeing PCP next week and will discuss. Otoscopy clear Au. Hearing Aid Prescription: Based on the individual?s shared listening needs, communication environments, dexterity, desire for connectivity, and personal preferences, the following prescription for amplification has been made: Right ear: Make, Model, Color: Oticion Intent 2 R honey beige Battery Size: Rechargeable Property Preservation Specialist/Slim Tube: 2 85 Type of Earmold/Dome/CShell/SlimTip: 8mm dbl tello Left ear: Make, Model, Color: Oticon Intent 2 R honey beige Battery Size: Rechargeable Property Preservation Specialist/Slim Tube: 2/85 Type of Earmold/Dome/CShell/SlimTip: 8mm double tello Plan of Care: Patient wishes to purchase hearing aids as prescribed Action Taken/Action Needed: Hearing Instrument Fitting to be scheduled when materials arrive Primary Diagnosis: H90.3 Bilateral Sensorineural Hearing Loss Signature: Provider: Taryn Baker, [facility]
== END 2024-11-04 08:59 | disposition home or self-care (01) ==
LOC: HO.SH 08:58
PROVIDERS: Visit Provider Otolaryngology
DX: Z01.118 Encounter for examination of ears and hearing with other abnormal findings (principal); H90.3 Sensorineural hearing loss, bilateral
CPT/HCPCS: 92591

== ENCOUNTER 2024-11-07 11:19 | Day surgery (SDC) | payer MEDICARE, MEDICAID, SELFPAY ==
[2024-11-03 08:13] VITALS: BMI 30.3
--- NOTE | 2024-11-04 12:01 | P.CONAN_ITS ---
Documented by User: Lori Guevara NP 11/04/24 12:02 HPI - Anesthesia Eval Consult details Narrative: 59yo M for ?Laser Ablation Prostate w/Green Light Anesthesia Pre-Procedure Meds Is the patient on any of the following meds?: GLP1/DPP4 PMFSH Active Problems Active Problems: All Active Problems Right shoulder tendinitis (Acute) Gout (Acute) Lower urinary tract symptoms (Acute) Mixed stress and urge urinary incontinence (Acute) Seasonal allergies (Acute) GERD without esophagitis (Acute) Anemia (Acute) BPH w urinary obs/LUTS (Acute) Vitamin D deficiency (Acute) Chronic low back pain (Acute) MDD (major depressive disorder), recurrent episode (Acute) PVD (peripheral vascular disease) (Acute) HTN (hypertension) (Acute) Hypothyroid (Acute) Diabetic peripheral neuropathy (Acute) Rosacea (Acute) CAD (coronary artery disease) (Acute) Encounter for screening involving social determinants of health (SDoH) (Acute) Diabetes mellitus type 2 with complications (Acute) Past Medical History Medical History (Updated 11/01/24 @ 00:01 by Margret Hampton) Mass of left testicle Thyroid disorder Diabetes Family History Family History Sister Diabetes Brother Diabetes Mother Hypercholesteremia Pancreatic cancer Surgical History Surgical History (Updated 11/07/24 @ 12:35 by Deanna Greer RN) H/O hand surgery H/O shoulder surgery H/O neck surgery H/O right knee surgery Social History Social History Housing: Apartment Are you a primary resident care technician to a significant other at home: No Do you presently have visiting nurse or other home services: No Patient Tobacco Use Status: Never used Tobacco e-Cigarette/Vaping Use: Never Used Second Hand Smoke Exposure: No Use of substances other than those prescribed or required for medical reasons: No Have you been hit, kicked, punched, or otherwise hurt by someone within the past year? If so, by whom?: No Are you DNR?: No Advance Directives: No Advance Directives Information Provided: No Advance Directives on File: No Poor oral hygiene: No service: No Current occupational status: unemployed Cognitive needs: No Hearing needs: No Vision needs: No Meds Allergies Allergy/AdvReac Type Severity Reaction Status Date / Time seafood Allergy Severe throat Verified 11/07/24 12:29 closes penicillin V Allergy Intermediate Rash Verified 11/07/24 12:29 Home Medications ?Medication ?Instructions ?Recorded ?Confirmed ?Last Taken ?Type aspirin 81 mg tablet,delayed 81 mg PO DAILY 02/22/24 11/07/24 10/26/24 History release (Adult Low Dose Aspirin) dulaglutide 0.75 mg/0.5 mL mg subcut 02/22/24 08/10/24 10/10/24 History subcutaneous pen injector (Trulicity) finasteride 5 mg tablet 5 mg PO DAILY 02/22/24 11/07/24 Unknown History folic acid 1 mg tablet 1 mg PO DAILY 02/22/24 11/07/24 10/26/24 History lisinopril 10 1 tab PO DAILY 02/22/24 11/07/24 11/06/24 History mg-hydrochlorothiazide 12.5 mg tablet metoprolol succinate 25 mg 25 mg PO DAILY 02/22/24 11/07/24 11/07/24 History tablet,extended release 24 hr alcohol swabs (BD Alcohol Swabs) pad topical 08/10/24 08/10/24 Unknown History cholecalciferol (vitamin D3) 1,250 1,250 mcg PO QWEEK 08/10/24 11/07/24 Unknown History mcg (50,000 unit) capsule hydroxyzine HCl 25 mg tablet 25 mg PO DAILY 08/10/24 11/07/24 Unknown History lorazepam 0.5 mg tablet 0.5 mg PO DAILY PRN Anxiety 08/10/24 11/07/24 Unknown History metformin 1,000 mg tablet 1,000 mg PO BID 08/10/24 11/07/24 10/27/24 History Exam Height,Weight and Vital Signs: Height 5 ft 9 in Weight 92.986 kg Pertinent Lab Results Pertinent Lab Results: Laboratory Tests 07/29/24 09/30/24 23:08 09:17 WBC 8.3 Hgb 12.5 L Hct 37.9 L Plt Count 247 Sodium 143 Potassium 4.2 Chloride 106 Carbon Dioxide 30 H BUN 17 H Creatinine 0.96 Narrative Narrative: EKG 05/2024 Vent. Rate : 089 BPM Atrial Rate : 089 BPM P-R Int : 172 ms QRS Dur : 100 ms QT Int : 362 ms P-R-T Axes : 030 -19 029 degrees QTc Int : 440 ms Normal sinus rhythm Minimal voltage criteria for LVH, may be normal variant ( R in aVL ) Borderline ECG No previous ECGs available Assessment and Plan Assessment Anesthesia Assessment: Chart Reviewed Documented by User: Zaina Davidson MD 11/07/24 15:00 [facility] Past Medical History Medical History (Updated 11/01/24 @ 00:01 by Margret Hampton) Mass of left testicle Thyroid disorder Diabetes Family History Family History Sister Diabetes Brother Diabetes Mother Hypercholesteremia Pancreatic cancer Family history of problems with anesthesia: No Surgical History Surgical History (Updated 11/07/24 @ 12:35 by Deanna Greer RN) H/O hand surgery H/O shoulder surgery H/O neck surgery H/O right knee surgery History of Problems with Anesthesia: No Social History Social History Housing: Apartment Are you a primary resident care technician to a significant other at home: No Do you presently have visiting nurse or other home services: No Patient Tobacco Use Status: Never used Tobacco e-Cigarette/Vaping Use: Never Used Second Hand Smoke Exposure: No Use of substances other than those prescribed or required for medical reasons: No Have you been hit, kicked, punched, or otherwise hurt by someone within the past year? If so, by whom?: No Are you DNR?: No Advance Directives: No Advance Directives Information Provided: No Advance Directives on File: No Poor oral hygiene: No service: No Current occupational status: unemployed Cognitive needs: No Hearing needs: No Vision needs: No Meds Allergies Allergy/AdvReac Type Severity Reaction Status Date / Time seafood Allergy Severe throat Verified 11/07/24 12:29 closes penicillin V Allergy Intermediate Rash Verified 11/07/24 12:29 Home Medications ?Medication ?Instructions ?Recorded ?Confirmed ?Last Taken ?Type aspirin 81 mg tablet,delayed 81 mg PO DAILY 02/22/24 11/07/24 10/26/24 History release (Adult Low Dose Aspirin) dulaglutide 0.75 mg/0.5 mL mg subcut 02/22/24 08/10/24 10/10/24 History subcutaneous pen injector (Trulicity) finasteride 5 mg tablet 5 mg PO DAILY 02/22/24 11/07/24 Unknown History folic acid 1 mg tablet 1 mg PO DAILY 02/22/24 11/07/24 10/26/24 History lisinopril 10 1 tab PO DAILY 02/22/24 11/07/24 11/06/24 History mg-hydrochlorothiazide 12.5 mg tablet metoprolol succinate 25 mg 25 mg PO DAILY 02/22/24 11/07/24 11/07/24 History tablet,extended release 24 hr alcohol swabs (BD Alcohol Swabs) pad topical 08/10/24 08/10/24 Unknown History cholecalciferol (vitamin D3) 1,250 1,250 mcg PO QWEEK 08/10/24 11/07/24 Unknown History mcg (50,000 unit) capsule hydroxyzine HCl 25 mg tablet 25 mg PO DAILY 08/10/24 11/07/24 Unknown History lorazepam 0.5 mg tablet 0.5 mg PO DAILY PRN Anxiety 08/10/24 11/07/24 Unknown History metformin 1,000 mg tablet 1,000 mg PO BID 08/10/24 11/07/24 10/27/24 History Exam Airway Mallampati Class: II TM Dist: >3cm Neck ROM: Full Heart: rrr Lungs: cta Assessment and Plan Assessment Anesthesia Assessment: Anesthesia Plan Discussed Final Anesthetic Review Family History of Problems with Anesthesia: No History of Problems with Anesthesia: No NPO: Yes ASA Class: III Final Preanesthetic Review: No Changes in Pt Med Stat, Meds/Allgs Chart Reviewed and Consent Obtained/Reviewed Patient Risk: Intermediate Procedure Risk: Low Anesthetic Plan Anesthetic Plan: GA Disposition: Standard PACU
[2024-11-07 12:41] VITALS: BP 148/83; PULSE 62; RESP 16; TEMP 36.2; O2SAT 100; BMI 30.2
[2024-11-07 12:46] LABS: Glucose, Whole Blood 108 mg/dL (60-115)
[2024-11-07] MEDS: Lactated Ringers 1,000 ML 100 ML IVCONT (13:15)
--- NOTE | 2024-11-07 15:03 | MHC.SHP ---
Pre-Procedural Eval Section A - 24 Hr Update-Section A only Date of Service: 11/07/24 The patient is an INPATIENT: No Changes since office visit: No Cold of Flu in the past 2 weeks, No New Medical Problems, No Changes in Medication and No Patient answered all questions The patient has been examined within 24 hours of the surgical procedure. The History & Physical has been completed within 30 days and I have reviewed it.: Yes Section B - Complete if H&P > 30 days Chief Complaint: Bladder-neck obstruction Details of Present Illness: Greenlight laser prostate Allergies: Allergies Allergy/AdvReac Type Severity Reaction Status Date / Time seafood Allergy Severe throat Verified 11/07/24 12:29 closes penicillin V Allergy Intermediate Rash Verified 11/07/24 12:29 Plan I have reviewed the history and physical and performed a pertinent physical examination on my patient. No changes have occurred unless specified. Time Spent With Patient Time: Total time managing care of this patient today ____ minutes.
[2024-11-07] MEDS: levoFLOXacin/D5W 500 MG/100 ML PIGGYBACK 100 MG IV (15:15)
--- NOTE | 2024-11-07 16:07 | P.OP_ITS ---
Operative Note Operative Note Date of Service: 11/07/24 Narrative: PreOperative Diagnosis: Bladder outlet obstruction Post Operative Diagnosis: Bladder outlet obstruction Procedure: GreenLight Laser Enucleation of the prostate CPT 26485 Surgeon: Dr Perico Truong Anesthesia: General History of bladder outlet obstruction. Treated with alpha-garcia and other medications. Still with symptoms. On cystoscopy in office has trilobar prostate . Recommendation for prostate procedure with laser enucleation of prostate. Risks and benefits have been discussed. Focus was placed on development of retrograde ejaculation which is a normal part of this procedure. Procedure: After informed consent was verified the patient was brought to the operating room and placed in a supine position. Anesthesia was administered per protocol. Patient was placed in modified dorsal lithotomy position and prepped and draped in a sterile fashion. Safety pause time-out was confirmed. Antibiotics have been given. A Twenty-four English laser cystoscope was inserted per urethra. No abnormalities were found of the anterior and bulbar urethra. The prostatic urethra shows trilobar hypertrophy . The bladder was examined and both ureteric orifices were seen in their normal positions away from the area of interest. Bladder trabeculation Grade 1. Using a GreenLight laser with initial settings of 80 david incisions were made at the 5 and 7 o'clock position. The incisions were taken down from the bladder neck down to the area just proximal of the veru. These were gradually deepened in order to define the lateral aspects of the median lobe area. The deep boundary of enucleation was defined by the prostate surgical capsule. Once clearly defined the grooves were extended in the lateral directions in order to create a deep groove. The median lobe was then ablated and enucleated tissue released into the bladder with the laser power increased to 120 W. Medium sized median lobe. Once the median lobe area had been cleared, attention was directed to the lateral lobes. Starting with the patient's left lateral lobe. First the 05:00 o'clock groove was further developed. This was moved in the lateral direction to undermine the tissue on the lateral side running from the bladder neck to the prostate apex. The ureteric orifice was used to guide incisions. The laser fiber was placed at the 1 o'clock position and a secondary groove was developed down to the level of prostatic capsule. The creation of a second deep groove defined a segment of intervening tissue similar to a slice of orange. At the apex of the prostate the laser was used to vertically link the two grooves releasing the intervening tissue and creating a segment of tissue. This tissue was then removed with a combination of enucleation and ablation working from the apex toward the bladder neck. A similar procedure was repeated on the patient's right-hand side. The only differences being the position of the lateral groove at he 7 o'clock position and the secondary groove at the 11 o'clock position, Otherwise the procedure was developed in a mirror fashion. Power of 120 w After the majority of tissue had been debulked remnant tissue was ablated with the side fire laser and the curve of the prostate followed up each side wall clearly defining the anterior remnant strip that remained between the 11 and 1 o'clock positions. In this case the anterior tissue protruded into the prostatic fossa and was partially ablated with the laser At completion debris and pieces of prostate were removed from the bladder with irrigation. Both ureteric orifices were reviewed again in shown to be patent in away from any areas of energy damage. The apical area was reviewed and any stray mucosal ooze was controlled. A 22 English 30 cc balloon Mancini catheter was placed into the bladder using a flexible stylet. Clear efflux was obtained upon irrigation with a Alicia piston syringe. 30 cc was placed in the balloon and gentle traction was placed. A snap was used to hold tension on the catheter to control bleeding during patient moved and transported. A drainage bag was placed. Once transportation is complete to the PACU the snap will be removed. The patient tolerated the procedure well, he was extubated in the operating and transferred in a stable condition to the recovery area. Total Power 172 kW Lasing time 23.05 Pathology: Prostate tissue Drains: Mancini catheter
[2024-11-07 16:10] VITALS: BP 126/78; PULSE 83; RESP 16; TEMP 36.4; O2SAT 98
[2024-11-07 16:15] VITALS: BP 116/75; PULSE 84; RESP 16; O2SAT 99
[2024-11-07 16:20] VITALS: BP 104/72; PULSE 82; RESP 16; O2SAT 100
[2024-11-07 16:25] VITALS: BP 116/59; PULSE 83; RESP 16; O2SAT 98
[2024-11-07 16:40] VITALS: BP 114/81; PULSE 80; RESP 16; TEMP 36.1; O2SAT 96
== END 2024-11-07 16:43 | disposition home or self-care (01) ==
PROVIDERS: PCP Internal Medicine; Visit Provider Urology
PROC: (CPT 52648; principal; 2024-11-07 14:40)
DX: N40.1 Benign prostatic hyperplasia with lower urinary tract symptoms (principal); N13.8 Other obstructive and reflux uropathy; N50.9 Disorder of male genital organs, unspecified; N39.46 Mixed incontinence; N32.89 Other specified disorders of bladder; E11.9 Type 2 diabetes mellitus without complications; E07.9 Disorder of thyroid, unspecified; Z79.899 Other long term (current) drug therapy; Z79.82 Long term (current) use of aspirin; Z88.0 Allergy status to penicillin; Z56.0 Unemployment, unspecified
CPT/HCPCS: 52649; 82947; 88305; J1885; J1956; J2250; J3010

== ENCOUNTER → 2024-11-07 11:19 | Outpatient (BNV) | payer MEDICARE, MEDICAID, SELFPAY | PROVIDERS: PCP Internal Medicine; Visit Provider Urology | DX: N32.0 Bladder-neck obstruction (principal) | CPT/HCPCS: 52649 ==

== ENCOUNTER → 2024-11-09 08:25 | Outpatient (BNVA) | payer MEDICARE, MEDICAID, SELFPAY | PROVIDERS: PCP Nurse Practitioner Family; Visit Provider Urology | DX: I25.10 Atherosclerotic heart disease of native coronary artery without angina pectoris (principal); E11.40 Type 2 diabetes mellitus with diabetic neuropathy, unspecified; E03.9 Hypothyroidism, unspecified; N40.0 Benign prostatic hyperplasia without lower urinary tract symptoms; I15.2 Hypertension secondary to endocrine disorders; M77.8 Other enthesopathies, not elsewhere classified; M62.830 Muscle spasm of back; Z96.611 Presence of right artificial shoulder joint | CPT/HCPCS: 51700; 51798; 99212 ==

== ENCOUNTER 2024-11-09 08:57 | Outpatient (AMB) | payer MEDICARE, MEDICAID, SELFPAY ==
--- NOTE | 2024-11-09 09:21 | MHC.PC.OV ---
Vital Signs 11/09/24 09:26 Height 5 ft 9 in Weight 208 lb 4 oz BMI 30.7 BP 120/80 Blood Pressure Location Lt brachial Position Sitting Pulse 82 Pulse Source Pulse Oximeter Temp 97.1 F Temp Source Temporal Artery Scan Pulse Oximetry (%) 97 Oxygen Delivery Method Room Air Intake Visit Reasons: f/u DMII/ HTN/ Superintendent Automotive Required: Yes Superintendent Automotive Language: Videogame Designer Name: used tablet- ID#[id number] Accompanied by: Spouse Allergies seafood Allergy (Severe, Verified 11/09/24 09:27) throat closes penicillin V Allergy (Intermediate, Verified 11/09/24 09:27) Rash Medication List - Last Reconciled 11/09/24 by Zachary Roberto PA-C alcohol swabs (BD Alcohol Swabs) pad topical DAILY amlodipine 5 mg PO DAILY aspirin (Adult Low Dose Aspirin) 81 mg PO DAILY atorvastatin 40 mg PO DAILY 90 days cholecalciferol (vitamin D3) 1,250 mcg PO QWEEK dulaglutide (Trulicity) mg subcut finasteride 5 mg PO DAILY folic acid 1 mg PO DAILY gabapentin 300 mg PO BID 30 days hydroxyzine HCl 25 mg PO DAILY levothyroxine 75 mcg PO DAILY levothyroxine 50 mcg PO DAILY 90 days lisinopril-hydrochlorothiazide 10-12.5 mg 1 tab PO DAILY lorazepam 0.5 mg PO DAILY PRN meloxicam 15 mg PO DAILY 30 days metformin 1,000 mg PO BID methocarbamol 1,500 mg (2 x 750 mg) PO Q8H PRN metoprolol succinate ER 25 mg PO DAILY naproxen 500 mg PO BID sulfamethoxazole-trimethoprim 400-80 mg (Bactrim) 1 tab PO DAILY Tobacco use date assessed: 08/10/24 Dental Screening Dental Screen Date: 08/10/24 HPI f/u DMII/ HTN/ HPI Details Patient is a 59-year-old Turkmen-speaking male here today for a follow-up visit Patient is Turkmen-speaking only thus used a remote chief of service.. 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 concerns--> Right shoulder tendinitis- has has shoulder surgery in the past though continues to have pain and decrease ROM . He has done physical therapy though has not felt that helpful. He continues to have pain when he does flexion and extension with his right shoulder. Also having pain in both bilateral upper trapezius regions. Did get seen at the ER for his neck pain and was given a CT of his cervical spine which was normal though had arthritis. He is interested in chiropractics and perhaps increasing his dose of gabapentin for better pain control. He is not interested in anymore surgeries or injections though is interested in trying an anti-inflammatory to help with his tendinitis .. BPH: Recently underwent bladder surgery for bladder outlet obstruction with [facility]. Recently had his catheter removed .. Type 2 diabetes: Most recent A1c is 6.4 from 6.7. and patient continues with once a week injection of Trulicity. .. Coronary artery disease: He reports getting coronary artery evaluations in [place] though never needed a stent. He was to see a silk crepe machine operator in the past though did not make it to the appointment due to a family emergency. Most recent LDL at 01:06. Most recent lipid panel showing elevated LDL. He reports he takes a atorvastatin 40 mg regularly. We discuss perhaps increasing his dose to 80 mg for better LDL control. He would like to be referred to Cardiology again. .. Hypertension: Patient's blood pressure acceptable today in office. He continues on lisinopril hydrochlorothiazide . Laboratory Tests 07/02/24 07/29/24 09/30/24 07:46 23:08 09:17 Hgb 12.5 L Hct 37.9 L Creatinine 0.91 Hemoglobin A1c % 6.7 H 6.4 H Cholesterol 184 165 LDL Cholesterol, C alc 120 H 106 H TSH 0.07 L [facility] Medical History (Updated 11/09/24 @ 09:43 by Zachary Roberto PA-C) Mass of left testicle Thyroid disorder Diabetes Surgical History (Updated 11/09/24 @ 09:38 by Zachary Roberto PA-C) H/O hand surgery H/O shoulder surgery H/O neck surgery H/O right knee surgery Family History Sister Diabetes Brother Diabetes Mother Hypercholesteremia Pancreatic cancer Social History Housing: Apartment Are you a primary health care analyst to a significant other at home: No Do you presently have visiting nurse or other home services: No Patient Tobacco Use Status: Never used Tobacco e-Cigarette/Vaping Use: Never Used Second Hand Smoke Exposure: No service: No Current occupational status: unemployed Cognitive needs: No Hearing needs: No Vision needs: No Questionnaire Thrive Questionnaire Date Thrive assessed: 08/10/24 I am a: Patient What is your living situation today?: I have a steady place to live Within the past 12 months, did the food you bought not last and you didn't have the money to get more?: Sometimes True Within the past 12 months, did you worry whether your food would run out before you got money to buy more?: Sometimes True Do you have trouble paying for medicines?: Yes Do you have trouble getting transportation to medical appointments?: No Do you have trouble paying your heating and electricity bill?: Yes Do you have trouble taking care of your child, family member or friend?: I choose not to answer this question Do you have trouble with day-to-day activities such as bathing, preparing meals, shopping, managing finances, etc.?: Yes Are you currently unemployed and looking for a job?: No Are you interested in more education?: No Please select the resources that you would like help with: Paying for medicine Currently or been in a relationship where the following occur: I choose not to answer THRIVE Score: 3 ALBINO-7 AMB Questionnaire ALBINO-7 Date ALBINO - 7 assessed: 08/10/24 Source: Developed by Drs. Vincent Washington, Yana Brown, Estiven Mckinney and colleagues, with an educational rodney from [employer]. Review of Systems Const Denies headache(s) Eyes Denies loss of vision ENT Denies vertigo, Denies dizziness, Denies headache(s) and Denies sore throat Card Denies chest pain, Denies leg edema and Denies lightheadedness Resp Denies cough, Denies hemoptysis and Denies wheezing GI Denies abdominal pain, Denies melena, Denies constipation, Denies diarrhea and Denies vomiting Denies dysuria, Denies urinary frequency and Denies urinary urgency Musc Denies arthralgias, Denies joint swelling, Denies numbness and Denies tingling Neuro Denies Abnormal speech present, Denies behavioral changes, Denies vertigo, Denies dizziness, Denies headache(s), Denies loss of vision, Denies memory loss, Denies numbness and Denies tingling Psych Denies anxiety, Denies behavioral changes, Denies depression, Denies memory loss and Denies panic attacks Amandeep/Lymph Denies easy bleeding and Denies easy bruising Aller/Immun Denies wheezing Physical exam (Primary Care) Vital Signs: Last Vital Signs Temp 97.1 F 11/09/24 09:26 Pulse 82 11/09/24 09:26 BP 120/80 11/09/24 09:26 Pulse Ox 97 11/09/24 09:26 Oxygen Delivery Method Room Air 11/09/24 09:26 BMI result Body Mass Index 30.7 Tobacco/Smoking Status: Tobacco use Status Tobacco use date assessed 08/10/24 11/09/24 09:22 Patient Tobacco Use Status Never used Tobacco 11/09/24 09:22 e-Cigarette/Vaping Use Never Used 11/09/24 09:22 Thrive Assessment: Date of Thrive Assessment Date Thrive assessed 08/10/24 11/09/24 09:22 Currently or been in a relationship where the following occur: I choose not to answer Const General: healthy appearing, no acute distress, alert and awake Nutritional Appearance: well nourished Orientation/consciousness: oriented to person, oriented to place and oriented to time HENMT Ears: TM's normal bilaterally General nose exam: Normal nasal mucous membranes and turbinates present Eyes Conjunctivae: conjunctivae normal Sclerae: sclerae normal Pupils: Equal, round and reactive pupils present Neck Neck: Yes no lymphadenopathy and Yes no JVD Thyroid: Thyroid normal Carotids: no bruits Resp Effort & Inspection: normal respiratory effort and not tachypneic Auscultation: no crackles, no rales, no rhonchi and no wheezes Cardio Rate: regular rate Rhythm: regular rhythm Heart sounds: no murmurs and normal S1 and S2 GI Palpation (GI): Soft to palpation, nontender, no hepatomegaly and no splenomegaly Auscultation: normal bowel sounds Skin General skin exam: no rashes or lesions noted and dry skin Neuro General: oriented to person, oriented to place and oriented to time Cranial nerves: Yes Equal, round and reactive pupils present Speech: No Abnormal speech present Gait exam (Neuro): Normal gait present Motor exam (neuro): no tremor noted Extrem Right upper extremity: full ROM Left upper extremity: full ROM Right lower extremity: full ROM; no edema Left lower extremity: full ROM; no edema Psych Mental Status: mental status grossly normal Speech and movement: Normal speech and movement present Affect: normal affect Attitude: cooperative Thought process: Normal thought process present Coding Level of Care Code Est Pt Level 4 (08018) Diagnoses Hypertension due to endocrine disorder I15.2 Hypertension type: secondary to endocrine disorders Acquired hypothyroidism E03.9 Hypothyroidism type: acquired Coronary artery disease involving nome coronary artery of nome heart without angina pectoris I25.10 Coronary Disease-Associated Artery/Lesion type: nome artery [place] vs. transplanted heart: nome heart Associated angina: without angina Diabetes mellitus type 2 with complications E11.8 Right shoulder tendinitis M77.8 Status post replacement of right shoulder joint Z96.611 Spasm of both trapezius muscles M62.830 Assessment & Plan Assessment & Plan (1) HTN (hypertension): Code(s): I10 - Essential (primary) hypertension Category: Medical Qualifiers: Hypertension type: secondary to endocrine disorders Qualified Code(s): I15.2 - Hypertension secondary to endocrine disorders Plan: Patient's blood pressure acceptable today in office. Will continue his current dose of lisinopril hydrochlorothiazide. Will consider discontinuing hydrochlorothiazide if he continues to have gout . Goal blood pressures to remain below 140/90 (2) Hypothyroid: Code(s): E03.9 - Hypothyroidism, unspecified Category: Medical Qualifiers: Hypothyroidism type: acquired Qualified Code(s): E03.9 - Hypothyroidism, unspecified Plan: Most recent TSH slow thus his levothyroxine was reduced to 50mcg. Unclear what dose he is taking at this point. Will recheck his TSH (3) CAD (coronary artery disease): Code(s): I25.10 - Atherosclerotic heart disease of nome coronary artery without angina pectoris Category: Medical Qualifiers: Coronary Disease-Associated Artery/Lesion type: nome artery [place] vs. transplanted heart: nome heart Associated angina: without angina Qualified Code(s): I25.10 - Atherosclerotic heart disease of nome coronary artery without angina pectoris Plan: Patient apparently has a history of coronary artery disease though he mentions he has gotten cardiac catheterizations in the past though did not need any stents. Unclear if he has actual established atherosclerosis in the coronary arteries. He was to be referred to a silk crepe machine operator in the past though could not make appointment due to a family emergency. He would like a referral to a silk crepe machine operator as he has history of concerns for coronary artery disease. Will continue risk modifications with blood pressure control, diabetes control and cholesterol control. Goal LDL to remain below 100 optimally below 70. (4) Diabetes mellitus type 2 with complications: Comment: HLD and HTN Code(s): E11.8 - Type 2 diabetes mellitus with unspecified complications Category: Medical Plan: Patient's type 2 diabetes well controlled with current antihyperglycemic med regime. Most recent A1c is 6.7. Will continue to follow do assure normal. Goal A1c to be below 7.0 (5) Right shoulder tendinitis: Code(s): M77.8 - Other enthesopathies, not elsewhere classified Category: Medical Plan: Patient continues to have decreased range of motion and pain in the right shoulder with certain movements. He did have previous surgeries right shoulder though never recovered well. He did do 3 months of physical therapy though was not particularly effective. He is willing to try an anti-inflammatory to help with his tendinitis. We did discuss perhaps trying another round of physical therapy or trying a cortisone injection in his right shoulder though he declines at this time. He reports having hypertensive response to cortisone injections in the past. (6) Status post replacement of right shoulder joint: Code(s): Z96.611 - Presence of right artificial shoulder joint Category: Surgical Plan: As above (7) Spasm of both trapezius muscles: Code(s): M62.830 - Muscle spasm of back Category: Medical Plan: As above patient is interested in going to a chiropractor for conservative treatment of his bilateral trapezius pain and shoulder pains. Will increase his gabapentin to 300 b.i.d. for better pain control. We did discuss the possibility of seeing pain management and doing a pain reduction modality though he is not interested in injections at this time. Medications: New lisinopril-hydrochlorothiazide 10-12.5 mg 1 tab PO DAILY 90 tabs 2RF I15.2 - Hypertension secondary to endocrine disorders levothyroxine 50 mcg PO DAILY 90 days 90 tabs 1RF E03.9 - Hypothyroidism, unspecified gabapentin 300 mg PO BID 30 days 60 caps 3RF M62.830 - Muscle spasm of back, Z96.611 - Presence of right artificial shoulder joint amlodipine 5 mg PO DAILY 90 days 90 tabs 1RF E03.9 - Hypothyroidism, unspecified, I15.2 - Hypertension secondary to endocrine disorders Changed From alcohol swabs (BD Alcohol Swabs) topical DAILY E11.8 - Type 2 diabetes mellitus with unspecified complications To alcohol swabs (BD Alcohol Swabs) 1 pad topical DAILY 90 days 100 ea 6RF E11.8 - Type 2 diabetes mellitus with unspecified complications From hydroxyzine HCl 25 mg PO DAILY J30.2 - Other seasonal allergic rhinitis To hydroxyzine HCl 25 mg PO DAILY 90 days PRN 90 tabs 1RF allergies J30.2 - Other seasonal allergic rhinitis From metformin 1,000 mg PO BID E03.9 - Hypothyroidism, unspecified, E11.8 - Type 2 diabetes mellitus with unspecified complications To metformin 1,000 mg PO BID 90 days 180 tabs 1RF E03.9 - Hypothyroidism, unspecified, E11.8 - Type 2 diabetes mellitus with unspecified complications From dulaglutide (Trulicity) subcut E11.8 - Type 2 diabetes mellitus with unspecified complications To dulaglutide (Trulicity) 0.75 mg (0.5 mL) subcut QWEEK 4 weeks 2 mL 3RF E11.8 - Type 2 diabetes mellitus with unspecified complications Refilled atorvastatin 40 mg PO DAILY 90 days 90 tabs 1RF I25.10 - Atherosclerotic heart disease of nome coronary artery without angina pectoris Discontinued gabapentin Discontinued Reason: Doctor's Order 100 mg PO BID 30 days 60 caps 3RF E11.42 - Type 2 diabetes mellitus with diabetic polyneuropathy On Hold levothyroxine Hold Comment: Doctor's Order 75 mcg PO DAILY 90 tabs 1RF E03.9 - Hypothyroidism, unspecified Patient Instructions: Goal: A1c to be below 7.0, LDL to be below 100, blood pressure to remain below 140/90 Barriers: Adherence to physical activity and healthy eating habits
[2024-11-09 09:26] VITALS: BP 120/80; PULSE 82; TEMP 36.2; O2SAT 97; BMI 30.7
--- OUTSIDE RECORDS SUMMARY | 2024-11-09 09:26 | XMS_ITS | Patient Health Record ---
Author Organization [facility] Address [address] [address] Care Team Providers Care Crepe Machine Operator Name Role Phone Deana Bryant MD Primary Care Provider Unavail naveen Green MD, William Unavailable [phone] Allergies Allergen (clinical drug ingredient) Drug/Non Drug [...] Status W/U Status Risk Notes Problem Constipation (44525442) Constipation, unspecified (K59.00) Active confirmed Problem Epigastric pain (04548301) Epigastric pain (R10.13) Active confirmed Severe episodes. Pt went to the ER recommended EGD to r.o ulcer since pain is not improving with medications and current tx . Will proceed with EGD since symptoms over 3 months will proceed with EUS Problem Diverticular disease of colon (643012700) Diverticula of colon (K57.30) Active confirmed csp Problem Rectal bleeding (63956461) Rectal bleeding (K62.5) Active confirmed Episodes after bowel movement / as per pt multiple episodes. Bright red blood (seen on pictures) no black stools. Severe constipation. Will proceed with lactulose / iron and hg WNL no recent episodes since last OV Problem Family history of malignant neoplasm of gastrointestinal tract (856567059) Family history of colon cancer (Z80.0) Active confirmed mother 70s Problem Gastric polyp (51718368) Gastric polyp (K31.7) Active confirmed HP resected per egd Problem Altered bowel habits (83063883) Bowel habit changes (R19.4) Active confirmed constipation / poor response to miralax / will try lactulose controlled Problem Internal hemorrhoid (53239740) Internal hemorrhoid (K64.8) Active confirmed csp Problem Abnormal feces (956012591) Positive fecal occult blood test (R19.5) Active confirmed 01/2023 Csp done Problem Polyp colon (31111951) Colon polyp (D12.2) Active confirmed bx- HP --per csp . surveillance [address] no acute process no polyps seen per csp 01/2023 surveillance 5 y. Problem Pancreatitis (02230095) Pancreatitis (K85.10) Active confirmed as per pt will request records. (RECORDS of ct showed acute interstitial pancreatitis. Lipase 89 h, amylase wnl per labs . will proceed with EUS Problem Constipation (27957275) Constipation (K59.00) Active confirmed Problem Functional dyspepsia (9875384) Acid indigestion (K30) Active confirmed Problem Chronic gastritis (4171664) Chronic gastritis (K29.50) Active confirmed -per egd Problem Encounter to discuss colonoscopy results (Z71.2) Active confirmed Problem History of polyp of colon (situation) (642834262) Personal history of colon polyps (Z79.02) Active confirmed Plan Of Treatment Future Test Test Name Order Date AMYLASE AND LIPASE 05/19/2023 Comp. Metabolic Panel (14) 05/19/2023 Obtain old records 05/26/2023 Insurance Providers Payer Name Payer Address Payer Phone Subscriber Number Group Number Insured Name Patient Relationship to Insured Coverage Start Date Coverage End Date [employer] [address] [place] [address] [id number] [facility] Self - patient is the insured 2 Medical (General) History Medical History History ICD Code Hypertension diabetes mellitus type 2 DiscHerriated Thyriod Cancer Surgical History Surgery Date(Month/Year) thyroid remove 2016 Right knee surgery 2017 Hospitalization History Reason Date(Month/Year) pancreatitis-[facility] 04/2023 chest pain -[facility] 01/2023 [facility] due to back injury 08/2020
== END 2024-11-09 09:59 | disposition home or self-care (01) ==
LOC: HO.HMCH 08:58
PROVIDERS: PCP Nurse Practitioner Family; Visit Provider Physician Assistant
DX: I15.2 Hypertension secondary to endocrine disorders (principal); E11.8 Type 2 diabetes mellitus with unspecified complications; E03.9 Hypothyroidism, unspecified; I25.10 Atherosclerotic heart disease of native coronary artery without angina pectoris; M77.8 Other enthesopathies, not elsewhere classified; Z96.611 Presence of right artificial shoulder joint; M62.830 Muscle spasm of back

== ENCOUNTER 2024-11-18 10:01 | Outpatient (REF) | payer MEDICARE, MEDICAID, SELFPAY ==
--- OUTSIDE RECORDS SUMMARY | 2024-11-18 10:49 | XMS_ITS | Patient Health Record ---
Author Organization [facility] Address [address] [place] [address] Care Team Providers Care Director Clinical Pharmacology Name Role Phone Deana Bryant MD Primary Care Provider Unavail Yamila Marlow Unavailable [phone] Allergies Allergen (clinical drug ingredient) Drug/Non Drug [...] needed Inhalation every 6 hrs Active Ipratropium [place] 0.02 % 2.5 mL Inhala tion every [...] Problem Type II diabetes mellitus without complication (408252130) Type 2 diabetes mellitus without complications (E11.9) Active confirmed Problem Postoperative Hypothyroidism (03979014) Postprocedural hypothyroidism (E89.0) Active confirmed Problem Hereditary and idiopathic peripheral neuropathy (982752532) 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) Active confirmed Problem Essential hypertension (32711261) Essential (primary) hypertension (I10) Active confirmed Problem Lumbosacral spondylosis without myelopathy (32268148) Other spondylosis, lumbosacral region (M47.897) Active confirmed Problem Spinal stenosis of lumbar region (88696320) Spinal stenosis, lumbosacral region (M48.07) Active confirmed Problem Lumbar radiculopathy (181226508) Radiculopathy, lumbar region (M54.16) Active confirmed Problem Paresthesia (finding) (52068775) Paresthesia of skin (R20.2) Active confirmed Problem History of malignant neoplasm of thyroid (591078167) Personal history of malignant neoplasm of thyroid (Z85.850) Active confirmed Problem Pain in lumbar spine (876501169) Vertebrogenic low back pain (M54.51) Active confirmed Problem Asthma (409115462) Asthma (J45.909) Active confirmed Plan Of Treatment Pending Test Test Name Order Date EMG/NCS RT lower ext 08/13/2022 Insurance Providers Payer Name Payer Address Payer Phone Subscriber Number Group Number Insured Name Patient Relationship to Insured Coverage Start Date Coverage End Date [facility] [address] [place] [address] [phone] [id number] Jimmy Azevedo Self - patient is the insured Medical (General) History Medical History History ICD Code diabetes mellitus arterial hypertension hx of thyoid cancer - hypothyroidism asthma Surgical History Surgery Date(Month/Year) right knee surgery 2017 thyroidectomy 2016 shoulder replacement 2021 Right wrist surgery 02/06/2023 Hospitalization History Reason Date(Month/Year) back pain 06/2021
--- OUTSIDE RECORDS SUMMARY | 2024-11-18 10:49 | XMS_ITS ---
Author Organization [facility] Address [address] [place] [address] Care Team Providers Care Information Technology Assistant Name Role Phone Deana Bryant MD Primary Care Provider Unavail able Yamila Juarez Unavailable [phone] Ernestina Cantu Unavailable REASON FOR VISIT . [C L] 06/23 PA REQ SENT Encounters Encounter Location Date Provider Diagnosis Physical Medicine [address] [address] 07/14/2023 Ernestina Juarez Plan Of Treatment No Information Progress Notes * Jimmy AZEVEDODOB:[birth year] (58 yo M)Acc No.[id number]:07/14/2023 Patient:?Clarissa AZEVEDO Provider:?Ernestina Smith MD :1965???Age:58 Y???Sex:Male Victor Manuel e:07/14/2023 Address:[address] [place], [place] [address] Pcp:Deana Bryant MD Subjective: * Chief Complaints: * ???. [C L] 06/23 PA REQ SENT * Medical History:? * Surgical History:? * Hospitalization/Major Diagno stic Procedure:? * Medications:? Objective: Therapeutic Interventions: Assessment: Plan: * Treatment: * Procedure Codes:? * Images: Care Plan Details* * Sign off status: Completed true * Provider:?Ernestina Smith MD Victor Manuel e:?07/14/2023 Generated for Marley maya/Mumtaz/Nickitting on:?11/18/2024 10:48 AM EDT
--- OUTSIDE RECORDS SUMMARY | 2024-11-18 10:49 | XMS_ITS | Patient Health Record ---
Author Organization [facility] Address [address] [place] [address] Care Team Providers Care Reconcilement Clerk Name Role Phone CLAUDE CARVALHO MD Primary [...] Problem Status W/U Status Risk Notes Problem 344274530 Encounter for pre-operative cardiovascular clearance (Z01.810) Active confirmed Problem 07132880 Essential hypertension (I10) Active confirmed Problem 387577428 Dyslipidemia (E78.5) Active confirmed Problem 272903341 Acquired hypothyroidism (E03.9) Active confirmed Problem 748465123195879 Obesity (BMI 30.0-34.9) (E66.9) Active confirmed Problem 440725382 Body mass index [BMI] 33.0-33.9, adult (Z68.33) Active confirmed Plan Of Treatment No Information Insurance Providers Payer Name Payer Address Payer Phone Subscriber Number Group Number Insured Name Patient Relationship to Insured Coverage Start Date Coverage End Date [facility] [address] [place] [phone] [id number] JERAMY LINARES Self - patient is the insured 1 Medical (General) History Medical History History ICD Code coronary artery disease heart diease angina Hypothyroidism type II diabetes dyslipidemia gastroesophageal reflux disease (GERD) morbid obesity Surgical History Surgery Date(Month/Year)
--- OUTSIDE RECORDS SUMMARY | 2024-11-18 10:49 | XMS_ITS | Patient Health Record ---
Author Organization [facility] Address [address] [address] Care Team Providers Care Sql Programmer Analyst Name Role Phone Deana Bryant MD Primary Care Provider Unavail naveen Green MD, William Unavailable [phone] Allergies Allergen (clinical drug ingredient) Drug/Non Drug [...] 420 GM as directed Orally 02/05/2023 Not-Aminta g Immunizations Vaccine Route Administration Date Status Comme [...] Status W/U Status Risk Notes Problem Constipation (28062704) Constipation, unspecified (K59.00) Active confirmed Problem Epigastric pain (77028830) Epigastric pain (R10.13) Active confirmed Severe episodes. Pt went to the ER recommended EGD to r.o ulcer since pain is not improving with medications and current tx . Will proceed with EGD since symptoms over 3 months will proceed with EUS Problem Diverticular disease of colon (991444516) Diverticula of colon (K57.30) Active confirmed csp Problem Rectal bleeding (97116589) Rectal bleeding (K62.5) Active confirmed Episodes after bowel movement / as per pt multiple episodes. Bright red blood (seen on pictures) no black stools. Severe constipation. Will proceed with lactulose / iron and hg WNL no recent episodes since last OV Problem Family history of malignant neoplasm of gastrointestinal tract (245594144) Family history of colon cancer (Z80.0) Active confirmed mother 70s Problem Gastric polyp (43925894) Gastric polyp (K31.7) Active confirmed HP resected per egd Problem Altered bowel habits (26411955) Bowel habit changes (R19.4) Active confirmed constipation / poor response to miralax / will try lactulose controlled Problem Internal hemorrhoid (00594019) Internal hemorrhoid (K64.8) Active confirmed csp Problem Abnormal feces (688497522) Positive fecal occult blood test (R19.5) Active confirmed 01/2023 Csp done Problem Polyp colon (47327822) Colon polyp (D12.2) Active confirmed bx- HP --per csp . surveillance [address] no acute process no polyps seen per csp 01/2023 surveillance 5 y. Problem Pancreatitis (87270209) Pancreatitis (K85.10) Active confirmed as per pt will request records. (RECORDS of ct showed acute interstitial pancreatitis. Lipase 89 h, amylase wnl per labs . will proceed with EUS Problem Constipation (85051970) Constipation (K59.00) Active confirmed Problem Functional dyspepsia (8288485) Acid indigestion (K30) Active confirmed Problem Chronic gastritis (1165223) Chronic gastritis (K29.50) Active confirmed -per egd Problem Encounter to discuss colonoscopy results (Z71.2) Active confirmed Problem History of polyp of colon (situation) (146715884) Personal history of colon polyps (Z79.02) Active confirmed Plan Of Treatment Future Test Test Name Order Date AMYLASE AND LIPASE 05/19/2023 Comp. Metabolic Panel (14) 05/19/2023 Obtain old records 05/26/2023 Insurance Providers Payer Name Payer Address Payer Phone Subscriber Number Group Number Insured Name Patient Relationship to Insured Coverage Start Date Coverage End Date [employer] [address] [place] [address] [id number] [facility] Self - patient is the insured 2 Medical (General) History Medical History History ICD Code Hypertension diabetes mellitus type 2 DiscHerriated Thyriod Cancer Surgical History Surgery Date(Month/Year) thyroid remove 2016 Right knee surgery 2017 Hospitalization History Reason Date(Month/Year) pancreatitis-[facility] 04/2023 chest pain -[facility] 01/2023 [facility] due to back injury 08/2020
--- NOTE | 2024-11-18 12:57 | MHC.AU.HA2 ---
Hearing Instrument Fitting- Adult- Binaural Date of Visit: 11/18/24 Firer Watertender Used: Polish in-person Hearing Instruments Dispensed: Right Ear: Make, Model, Color, Serial Number: Oticion Intent 2 R honey lacy [id number] Recruiting And Selection Consultant Repair Warranty: 12/08/2027 Recruiting And Selection Consultant Loss and Damage Warranty: 12/08/2027 [facility] Service Plan: 11/18/25 Battery Size: Rechargeable Manager Wealth Management/Slim Tube: 2 85 Earmold/Dome/CShell/SlimTip: 8mm dbl tello Type of Wax Guard: Oticon Minifit Prowax Left Ear: Make, Model, Color, Serial Number: Oticon Intent 2 R honey bemaliha [id number] Recruiting And Selection Consultant Repair Warranty: 12/08/2027 Recruiting And Selection Consultant Loss and Damage Warranty: 12/08/2027 [facility] Service Plan: 11/18/25 Battery Size: Rechargeable Manager Wealth Management/Slim Tube: 2/85 Earmold/Dome/CShell/SlimTip: 8mm double tello Type of Wax Guard: Oticon Minifit Prowax Accessories/Assistive Technology: Oticon Elevator Operator Service Minirite [id number] Warranty 12/08/2027 Summary of Fitting: Fit with and oriented to binaural Oticon Intent 2 R HAs. Verified to L Adult 5 targets. Ran feedback management. Good subjective comfort and benefit reported. Reviewed charging, maintenance, precautions. Practiced insertion and removal. Counseled on adjustment to amplification. Connected to iPhone. Recommendations: Recommendations: A hearing instrument follow-up was scheduled. Diagnosis Code(s): Primary Diagnosis: H90.3 Bilateral Sensorineural Hearing Loss Signature: Provider: Taryn Baker, [facility]
== END 2024-11-18 10:02 | disposition home or self-care (01) ==
LOC: HO.HAP 10:01
PROVIDERS: Visit Provider Physician Assistant
DX: Z46.1 Encounter for fitting and adjustment of hearing aid (principal); H90.3 Sensorineural hearing loss, bilateral
CPT/HCPCS: V5011; V5020; V5160; V5261

== ENCOUNTER 2024-12-09 08:27 | Outpatient (REF) | payer MEDICARE, MEDICAID, SELFPAY ==
--- OUTSIDE RECORDS SUMMARY | 2024-12-09 08:40 | XMS_ITS | Patient Health Record ---
Author Organization [facility] Address [address] [place] [address] Care Team Providers Care Lining Feller Name Role Phone CLAUDE CARVALHO MD Primary [...] Problem Status W/U Status Risk Notes Problem 424528266 Encounter for pre-operative cardiovascular clearance (Z01.810) Active confirmed Problem 68446948 Essential hypertension (I10) Active confirmed Problem 860346314 Dyslipidemia (E78.5) Active confirmed Problem 050969151 Acquired hypothyroidism (E03.9) Active confirmed Problem 804516631847227 Obesity (BMI 30.0-34.9) (E66.9) Active confirmed Problem 664196407 Body mass index [BMI] 33.0-33.9, adult (Z68.33) Active confirmed Plan Of Treatment No Information Insurance Providers Payer Name Payer Address Payer Phone Subscriber Number Group Number Insured Name Patient Relationship to Insured Coverage Start Date Coverage End Date [employer] [facility] [address] [place] [phone] [id number] JERAMY LINARES Self - patient is the insured 1 Medical (General) History Medical History History ICD Code coronary artery disease heart diease angina Hypothyroidism type II diabetes dyslipidemia gastroesophageal reflux disease (GERD) morbid obesity Surgical History Surgery Date(Month/Year)
--- OUTSIDE RECORDS SUMMARY | 2024-12-09 08:40 | XMS_ITS | Patient Health Record ---
Author Organization [facility] Address [address] [place] [address] Care Team Providers Care Steam Table Worker Name Role Phone Deana Bryant MD Primary Care Provider Unavail Yamila Marlow Unavailable [phone] Allergies Allergen (clinical drug ingredient) Drug/Non Drug [...] needed Inhalation every 6 hrs Active Ipratropium [place] 0.02 % 2.5 mL Inhala tion every [...] Problem Type II diabetes mellitus without complication (213854445) Type 2 diabetes mellitus without complications (E11.9) Active confirmed Problem Postoperative Hypothyroidism (96895804) Postprocedural hypothyroidism (E89.0) Active confirmed Problem Hereditary and idiopathic peripheral neuropathy (483861341) 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) Active confirmed Problem Essential hypertension (57041181) Essential (primary) hypertension (I10) Active confirmed Problem Lumbosacral spondylosis without myelopathy (27442102) Other spondylosis, lumbosacral region (M47.897) Active confirmed Problem Spinal stenosis of lumbar region (67825806) Spinal stenosis, lumbosacral region (M48.07) Active confirmed Problem Lumbar radiculopathy (411743861) Radiculopathy, lumbar region (M54.16) Active confirmed Problem Paresthesia (finding) (09582533) Paresthesia of skin (R20.2) Active confirmed Problem History of malignant neoplasm of thyroid (911187408) Personal history of malignant neoplasm of thyroid (Z85.850) Active confirmed Problem Pain in lumbar spine (317034070) Vertebrogenic low back pain (M54.51) Active confirmed Problem Asthma (521762329) Asthma (J45.909) Active confirmed Plan Of Treatment Pending Test Test Name Order Date EMG/NCS RT lower ext 08/13/2022 Insurance Providers Payer Name Payer Address Payer Phone Subscriber Number Group Number Insured Name Patient Relationship to Insured Coverage Start Date Coverage End Date [facility] [address] [place] [address] [phone] [id number] Jimmy Azevedo Self - patient is the insured Medical (General) History Medical History History ICD Code diabetes mellitus arterial hypertension hx of thyoid cancer - hypothyroidism asthma Surgical History Surgery Date(Month/Year) right knee surgery 2017 thyroidectomy 2016 shoulder replacement 2021 Right wrist surgery 02/06/2023 Hospitalization History Reason Date(Month/Year) back pain 06/2021
--- OUTSIDE RECORDS SUMMARY | 2024-12-09 08:41 | XMS_ITS | Patient Health Record ---
Author Organization [facility] Address [address] [address] Care Team Providers Care Communication Electronic Technician Name Role Phone Deana Bryant MD Primary Care Provider Unavail naveen Green MD, William Unavailable [phone] Allergies Allergen (clinical drug ingredient) Drug/Non Drug [...] Status W/U Status Risk Notes Problem Constipation (79946268) Constipation, unspecified (K59.00) Active confirmed Problem Epigastric pain (87526181) Epigastric pain (R10.13) Active confirmed Severe episodes. Pt went to the ER recommended EGD to r.o ulcer since pain is not improving with medications and current tx . Will proceed with EGD since symptoms over 3 months will proceed with EUS Problem Diverticular disease of colon (180145709) Diverticula of colon (K57.30) Active confirmed csp Problem Rectal bleeding (11315074) Rectal bleeding (K62.5) Active confirmed Episodes after bowel movement / as per pt multiple episodes. Bright red blood (seen on pictures) no black stools. Severe constipation. Will proceed with lactulose / iron and hg WNL no recent episodes since last OV Problem Family history of malignant neoplasm of gastrointestinal tract (868063348) Family history of colon cancer (Z80.0) Active confirmed mother 70s Problem Gastric polyp (74487680) Gastric polyp (K31.7) Active confirmed HP resected per egd Problem Altered bowel habits (89814041) Bowel habit changes (R19.4) Active confirmed constipation / poor response to miralax / will try lactulose controlled Problem Internal hemorrhoid (90270011) Internal hemorrhoid (K64.8) Active confirmed csp Problem Abnormal feces (485906277) Positive fecal occult blood test (R19.5) Active confirmed 01/2023 Csp done Problem Polyp colon (83005506) Colon polyp (D12.2) Active confirmed bx- HP --per csp . surveillance [address] no acute process no polyps seen per csp 01/2023 surveillance 5 y. Problem Pancreatitis (09690767) Pancreatitis (K85.10) Active confirmed as per pt will request records. (RECORDS of ct showed acute interstitial pancreatitis. Lipase 89 h, amylase wnl per labs . will proceed with EUS Problem Constipation (50686529) Constipation (K59.00) Active confirmed Problem Functional dyspepsia (9262219) Acid indigestion (K30) Active confirmed Problem Chronic gastritis (2363765) Chronic gastritis (K29.50) Active confirmed -per egd Problem Encounter to discuss colonoscopy results (Z71.2) Active confirmed Problem History of polyp of colon (situation) (149357965) Personal history of colon polyps (Z79.02) Active confirmed Plan Of Treatment Future Test Test Name Order Date AMYLASE AND LIPASE 05/19/2023 Comp. Metabolic Panel (14) 05/19/2023 Obtain old records 05/26/2023 Insurance Providers Payer Name Payer Address Payer Phone Subscriber Number Group Number Insured Name Patient Relationship to Insured Coverage Start Date Coverage End Date [employer] [address] [place] [address] [id number] [facility] Self - patient is the insured 2 Medical (General) History Medical History History ICD Code Hypertension diabetes mellitus type 2 DiscHerriated Thyriod Cancer Surgical History Surgery Date(Month/Year) thyroid remove 2016 Right knee surgery 2017 Hospitalization History Reason Date(Month/Year) pancreatitis-[facility] 04/2023 chest pain -[facility] 01/2023 [facility] due to back injury 08/2020
--- NOTE | 2024-12-09 10:42 | MHC.AU.HA3 ---
Hearing Instrument Follow-Up- Binaural Date of Visit: 12/09/24 Right Ear: Jovon, Model, Color, Serial Number: Oticion Intent 2 R honey beige [id number] Plant Protection Officer Repair Warranty: 12/08/2027 Plant Protection Officer Loss and Damage Warranty: 12/08/2027 [facility] Service Plan: 11/18/25 Battery Size: Rechargeable Drainage Design Coordinator/Slim Tube: 2 85 Earmold/Dome/CShell/SlimTip:8mm dbl tello Type of Wax Guard: Oticon Minifit Prowax Dispensed By: [facility] Date of Fittin11/18/2024 Left Ear: Jovon, Model, Color, Serial Number: Oticon Intent 2 R honey bemaliha [id number] Plant Protection Officer Repair Warranty: 12/08/2027 Plant Protection Officer Loss and Damage Warranty: 12/08/2027 [facility] Service Plan: 11/18/25 Battery Size: Rechargeable Drainage Design Coordinator/Slim Tube: 2/85 Earmold/Dome/CShell/SlimTip: 8mm double tello Type of Wax Guard: Oticon Minifit Prowax Dispensed By: [facility] Date of Fittin11/18/2024 Follow-Up Summary: Seen for follow up. Reports good satisfaction with hearing aids. No questions or concerns at this time. No adjustments needed. Changed domes and wax guards together today. Recommendations: Recommendations: Hearing instrument follow-up or maintenance as needed. Please contact our clinic with any questions or concerns. Diagnosis Code(s): Primary Diagnosis: H90.3 Bilateral Sensorineural Hearing Loss Signature: Provider: Taryn Baker, [facility]
== END 2024-12-09 08:28 | disposition home or self-care (01) ==
LOC: HO.HAP 08:27
PROVIDERS: Visit Provider Physician Assistant
DX: Z13.89 Encounter for screening for other disorder (principal)

== ENCOUNTER 2024-12-21 14:28 | Outpatient (REF) | payer MEDICARE, MEDICAID, SELFPAY ==
[2024-12-21 16:54] LABS: Urine Cytology See Pathology rpt
== END 2024-12-21 14:29 | disposition home or self-care (01) ==
LOC: HO.LAB 14:28
PROVIDERS: PCP Nurse Practitioner Family; Visit Provider Urology
DX: R31.9 Hematuria, unspecified (principal); N40.1 Benign prostatic hyperplasia with lower urinary tract symptoms; N13.8 Other obstructive and reflux uropathy; Z13.9 Encounter for screening, unspecified
CPT/HCPCS: 51798; 81003; 88112; 88305; 99212

== ENCOUNTER 2024-12-21 14:28 | Outpatient (AMB) | payer MEDICARE, MEDICAID, SELFPAY ==
--- NOTE | 2024-12-21 14:37 | MHC.OFFVIS ---
Intake Visit Reasons: [facility], follow up Intake Note: Patient is present for [facility] F/U Urology Medication:FINASTERIDE Antibiotic Allergy:PENICILLIN V Blood Thinner:ASPIRIN TODAY'S PVR:0ML'S User Experience Analyst Required: No Allergies seafood Allergy (Severe, Verified 12/21/24 14:39) throat closes penicillin V Allergy (Intermediate, Verified 12/21/24 14:39) Rash HPI Comments Details: Jimmy is a Green[place]ic-speaking male. He is a patient of Dr. Briscoe. 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 by qualified medical device sales representative 6 week follow-up [facility] laser PVR 0 cc 3+ blood, 1+ leuks on UA Lower urinary tract symptoms Was placed on finasteride while in [place] - Also on tamsulosin Prior procedure on left testicle PSA 01/24 1.1 [facility] prostatectomy 11/25 [facility] Medical History (Updated 11/09/24 @ 09:43 by Zachary Roberto PA-C) Mass of left testicle Thyroid disorder Diabetes Surgical History (Updated 11/09/24 @ 09:38 by Zachary Roberto PA-C) H/O hand surgery H/O shoulder surgery H/O neck surgery H/O right knee surgery Family History Sister Diabetes Brother Diabetes Mother Hypercholesteremia Pancreatic cancer Social History Housing: Apartment Are you a primary respiratory care specialist to a significant other at home: No Do you presently have visiting nurse or other home services: No Patient Tobacco Use Status: Never used Tobacco e-Cigarette/Vaping Use: Never Used Second Hand Smoke Exposure: No service: No Current occupational status: unemployed Cognitive needs: No Hearing needs: No Vision needs: No Review of Systems Const Denies chills and Denies fever(s) Card Reports no additional complaints and Denies syncope Resp Denies cough GI Denies abdominal pain and Denies heartburn Reports as per HPI and Denies change in libido Neuro Denies syncope Psych Denies change in libido Endo Denies change in libido Physical Exam Const General: cooperative, healthy appearing, comfortable and no acute distress Orientation/consciousness: patient oriented x3 HEENT Face and sinus: Yes normal facial exam Mouth: moist mucous membranes Neck Neck: Yes normal visual inspection, Yes full ROM and Yes trachea midline Chest Chest palpation & inspection: normal inspection of the chest Resp Effort & Inspection: normal respiratory effort, able to speak in complete sentences and no respiratory distress GI Inspection: Yes normal to inspection Back/Spine/Pelvis Cervical Spine: normal cervical lordosis Thoracic/Lumbar Spine: thoracic and lumbar spine normal to inspection Skin General skin exam: no rashes or lesions noted Neuro General: patient oriented x3, gait normal, tone normal and moves all extremities Extrem General: Yes normal to inspection and Yes capillary refill normal Office Procedures Post Void Residual Post Residual Void Post Void Residual (PVR): 0 53551-Hroc Void Residual by ultrasound Results AMB Urinalysis, Automated UA Leukoctes 70 Julio/uL Last Edit by DINORA Cavazos on 12/21/24 16:05 UA Nitrite Negative Last Edit by DINORA Cavazos on 12/21/24 16:05 UA Urobilinogen 3.5 mg/dL Last Edit by Anna Delacruz CCM on 12/21/24 16:05 UA Protein 15 mg/dL Last Edit by DINORA Cavazos on 12/21/24 16:05 UA pH 5.0 Last Edit by DINORA Cavazos on 12/21/24 16:05 UA Blood 200 Herman/uL Last Edit by Anna Delacruz CCM on 12/21/24 16:05 UA Specific [place] 1.025 Last Edit by DINORA Cavazos on 12/21/24 16:05 UA Ketone Negative Last Edit by DINORA Cavazos on 12/21/24 16:05 UA Bilirubin 0 mg/dL Last Edit by DINORA Cavazos on 12/21/24 16:05 UA Glucose 0 mg/dL Last Edit by DINORA Cavazos on 12/21/24 16:05 Results Reviewed Results Reviewed: Laboratory Last Values Urine pH (Auto) 5.0 12/21/24 16:05 Specific [place] (Auto) 1.025 12/21/24 16:05 Urine Protein (Auto) 15 mg/dL 12/21/24 16:05 Glucose (UA)(Auto) 0 mg/dL 12/21/24 16:05 Urine Ketones (Auto) Negative 12/21/24 16:05 Urine Blood (Auto) 200 Herman/uL 12/21/24 16:05 Urine Nitrite (Auto) Negative 12/21/24 16:05 Urine Bilirubin (Auto) 0 mg/dL 12/21/24 16:05 Urine Urobilinogen (Auto) 3.5 mg/dL 12/21/24 16:05 Leukocyte Esterase (Auto) 70 Julio/uL 12/21/24 16:05 Assessment & Plan Assessment & Plan (1) BPH w urinary obs/LUTS: Code(s): N40.1 - Benign prostatic hyperplasia with lower urinary tract symptoms; N13.8 - Other obstructive and reflux uropathy Category: Medical Plan Continue finasteride Follow-up six-month uroflow Orders: Orders Urine Cytology Today R31.9 - Hematuria, unspecified AMB Urinalysis Automated Today Z13.9 - Encounter for screening, unspecified Medications: Changed From finasteride 5 mg PO DAILY N13.8 - Other obstructive and reflux uropathy, N40.1 - Benign prostatic hyperplasia with lower urinary tract symptoms To finasteride 5 mg PO DAILY 90 tabs 0RF 90 days N13.8 - Other obstructive and reflux uropathy, N40.1 - Benign prostatic hyperplasia with lower urinary tract symptoms Patient Instructions: This note is constructed using voice recognition software. While every effort has been made to ensure accuracy agriculture specialist errors may have been included. Imaging studies, laboratory and physical exam results were discussed and reviewed in detail. No major barriers to patient understanding were identified. An opportunity to ask questions regarding the treatment plan was provided. All questions were answered. The patient expressed understanding and agreement with the above treatment plan. The patient is aware they should contact our office by phone for worsening of their current condition or the appearance of new urologic symptoms. Compliance is encouraged with any medications and followup testing that is ordered. It is a privilege to participate in the urologic care of your patient. If you have any questions or concerns regarding treatment for the above conditions, or other urologic issues, please do not hesitate to contact me. The office telephone contact is [phone]. Sincerely, Dr Perico Truong MD, [facility] - Urology Compassionate Specialist Care for the Genitourinary System Coding Level of Care Code Est Pt Level 3 (19594) Diagnoses BPH w urinary obs/LUTS N40.1; N13.8 CPT Codes Post Residual Void - PVR CPT Code: 58790-Qtst Void Residual by ultrasound ([id number])
--- OUTSIDE RECORDS SUMMARY | 2024-12-21 14:42 | XMS_ITS | Patient Health Record ---
Author Organization [facility] Address [address] [place] [address] Care Team Providers Care Heel Scourer Name Role Phone Deana Bryant MD Primary Care Provider Unavail Yamila Marlow Unavailable [phone] Allergies Allergen (clinical drug ingredient) Drug/Non Drug [...] needed Inhalation every 6 hrs Active Ipratropium [place] 0.02 % 2.5 mL Inhala tion every [...] Problem Type II diabetes mellitus without complication (706468173) Type 2 diabetes mellitus without complications (E11.9) Active confirmed Problem Postoperative Hypothyroidism (97071919) Postprocedural hypothyroidism (E89.0) Active confirmed Problem Hereditary and idiopathic peripheral neuropathy (795235614) 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) Active confirmed Problem Essential hypertension (56553397) Essential (primary) hypertension (I10) Active confirmed Problem Lumbosacral spondylosis without myelopathy (67172549) Other spondylosis, lumbosacral region (M47.897) Active confirmed Problem Spinal stenosis of lumbar region (73066637) Spinal stenosis, lumbosacral region (M48.07) Active confirmed Problem Lumbar radiculopathy (710901390) Radiculopathy, lumbar region (M54.16) Active confirmed Problem Paresthesia (finding) (71097974) Paresthesia of skin (R20.2) Active confirmed Problem History of malignant neoplasm of thyroid (800055573) Personal history of malignant neoplasm of thyroid (Z85.850) Active confirmed Problem Pain in lumbar spine (227665479) Vertebrogenic low back pain (M54.51) Active confirmed Problem Asthma (721624501) Asthma (J45.909) Active confirmed Plan Of Treatment Pending Test Test Name Order Date EMG/NCS RT lower ext 08/13/2022 Insurance Providers Payer Name Payer Address Payer Phone Subscriber Number Group Number Insured Name Patient Relationship to Insured Coverage Start Date Coverage End Date [facility] [address] [place] [address] [id number] Jimmy Azevedo Self - patient is the insured Medical (General) History Medical History History ICD Code diabetes mellitus arterial hypertension hx of thyoid cancer - hypothyroidism asthma Surgical History Surgery Date(Month/Year) right knee surgery 2017 thyroidectomy 2016 shoulder replacement 2021 Right wrist surgery 02/06/2023 Hospitalization History Reason Date(Month/Year) back pain 06/2021
--- OUTSIDE RECORDS SUMMARY | 2024-12-21 14:43 | XMS_ITS | Patient Health Record ---
Author Organization [facility] Address [address] [address] Care Team Providers Care Religious Studies Professor Name Role Phone Deana Bryant MD Primary Care Provider Unavail naveen Green MD, William Unavailable [phone] Allergies Allergen (clinical drug ingredient) Drug/Non Drug [...] Status W/U Status Risk Notes Problem Constipation (47958973) Constipation, unspecified (K59.00) Active confirmed Problem Epigastric pain (30243958) Epigastric pain (R10.13) Active confirmed Severe episodes. Pt went to the ER recommended EGD to r.o ulcer since pain is not improving with medications and current tx . Will proceed with EGD since symptoms over 3 months will proceed with EUS Problem Diverticular disease of colon (064725714) Diverticula of colon (K57.30) Active confirmed csp Problem Rectal bleeding (02950093) Rectal bleeding (K62.5) Active confirmed Episodes after bowel movement / as per pt multiple episodes. Bright red blood (seen on pictures) no black stools. Severe constipation. Will proceed with lactulose / iron and hg WNL no recent episodes since last OV Problem Family history of malignant neoplasm of gastrointestinal tract (257454470) Family history of colon cancer (Z80.0) Active confirmed mother 70s Problem Gastric polyp (18527831) Gastric polyp (K31.7) Active confirmed HP resected per egd Problem Altered bowel habits (90568351) Bowel habit changes (R19.4) Active confirmed constipation / poor response to miralax / will try lactulose controlled Problem Internal hemorrhoid (86158041) Internal hemorrhoid (K64.8) Active confirmed csp Problem Abnormal feces (601185462) Positive fecal occult blood test (R19.5) Active confirmed 01/2023 Csp done Problem Polyp colon (30449447) Colon polyp (D12.2) Active confirmed bx- HP --per csp . surveillance [address] no acute process no polyps seen per csp 01/2023 surveillance 5 y. Problem Pancreatitis (35933035) Pancreatitis (K85.10) Active confirmed as per pt will request records. (RECORDS of ct showed acute interstitial pancreatitis. Lipase 89 h, amylase wnl per labs . will proceed with EUS Problem Constipation (65885194) Constipation (K59.00) Active confirmed Problem Functional dyspepsia (4869600) Acid indigestion (K30) Active confirmed Problem Chronic gastritis (7465507) Chronic gastritis (K29.50) Active confirmed -per egd Problem Encounter to discuss colonoscopy results (Z71.2) Active confirmed Problem History of polyp of colon (situation) (211719267) Personal history of colon polyps (Z79.02) Active confirmed Plan Of Treatment Future Test Test Name Order Date AMYLASE AND LIPASE 05/19/2023 Comp. Metabolic Panel (14) 05/19/2023 Obtain old records 05/26/2023 Insurance Providers Payer Name Payer Address Payer Phone Subscriber Number Group Number Insured Name Patient Relationship to Insured Coverage Start Date Coverage End Date [employer] [address] [place] [address] [phone] [id number] [facility] - patient is the insured 2 Medical (General) History Medical History History ICD Code Hypertension diabetes mellitus type 2 DiscHerriated Thyriod Cancer Surgical History Surgery Date(Month/Year) thyroid remove 2016 Right knee surgery 2017 Hospitalization History Reason Date(Month/Year) pancreatitis-[facility] 04/2023 chest pain -[facility] 01/2023 [facility] due to back injury 08/2020
--- OUTSIDE RECORDS SUMMARY | 2024-12-21 14:43 | XMS_ITS | Patient Health Record ---
Author Organization [facility] Address [address] [place] [address] Care Team Providers Care Glass Selector Name Role Phone CLAUDE CARVALHO MD Primary [...] Problem Status W/U Status Risk Notes Problem 876333287 Encounter for pre-operative cardiovascular clearance (Z01.810) Active confirmed Problem 58024734 Essential hypertension (I10) Active confirmed Problem 568599383 Dyslipidemia (E78.5) Active confirmed Problem 958043974 Acquired hypothyroidism (E03.9) Active confirmed Problem 073237485729899 Obesity (BMI 30.0-34.9) (E66.9) Active confirmed Problem 433361882 Body mass index [BMI] 33.0-33.9, adult (Z68.33) Active confirmed Plan Of Treatment No Information Insurance Providers Payer Name Payer Address Payer Phone Subscriber Number Group Number Insured Name Patient Relationship to Insured Coverage Start Date Coverage End Date [facility] [address] [place] [phone] [id number] JERAMY LINARES Self - patient is the insured 1 Medical (General) History Medical History History ICD Code coronary artery disease heart diease angina Hypothyroidism type II diabetes dyslipidemia gastroesophageal reflux disease (GERD) morbid obesity Surgical History Surgery Date(Month/Year)
== END 2024-12-21 15:54 | disposition home or self-care (01) ==
LOC: HO.HUSH 14:29
PROVIDERS: PCP Nurse Practitioner Family; Visit Provider Urology
DX: N40.1 Benign prostatic hyperplasia with lower urinary tract symptoms (principal); N13.8 Other obstructive and reflux uropathy; Z13.9 Encounter for screening, unspecified
CPT/HCPCS: 99024

== ENCOUNTER 2024-12-28 08:06 | Outpatient (AMB) | payer MEDICARE, MEDICAID, SELFPAY ==
--- OUTSIDE RECORDS SUMMARY | 2024-12-28 08:18 | XMS_ITS | Patient Health Record ---
Author Organization [facility] Address [address] [place] [address] Care Team Providers Care Conference Service Coordinator Name Role Phone Deana Bryant MD Primary Care Provider Unavail Yamila Marlow Unavailable [phone] Allergies Allergen (clinical drug ingredient) Drug/Non Drug [...] needed Inhalation every 6 hrs Active Ipratropium [place] 0.02 % 2.5 mL Inhala tion every [...] Problem Type II diabetes mellitus without complication (872176980) Type 2 diabetes mellitus without complications (E11.9) Active confirmed Problem Postoperative Hypothyroidism (58097306) Postprocedural hypothyroidism (E89.0) Active confirmed Problem Hereditary and idiopathic peripheral neuropathy (212123270) 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) Active confirmed Problem Essential hypertension (31584502) Essential (primary) hypertension (I10) Active confirmed Problem Lumbosacral spondylosis without myelopathy (07282834) Other spondylosis, lumbosacral region (M47.897) Active confirmed Problem Spinal stenosis of lumbar region (22796658) Spinal stenosis, lumbosacral region (M48.07) Active confirmed Problem Lumbar radiculopathy (229954842) Radiculopathy, lumbar region (M54.16) Active confirmed Problem Paresthesia (finding) (65811280) Paresthesia of skin (R20.2) Active confirmed Problem History of malignant neoplasm of thyroid (991613914) Personal history of malignant neoplasm of thyroid (Z85.850) Active confirmed Problem Pain in lumbar spine (730869216) Vertebrogenic low back pain (M54.51) Active confirmed Problem Asthma (847679452) Asthma (J45.909) Active confirmed Plan Of Treatment Pending Test Test Name Order Date EMG/NCS RT lower ext 08/13/2022 Insurance Providers Payer Name Payer Address Payer Phone Subscriber Number Group Number Insured Name Patient Relationship to Insured Coverage Start Date Coverage End Date [facility] [address] [place] [address] [id number] Jimmy Azevedo Self - patient is the insured Medical (General) History Medical History History ICD Code diabetes mellitus arterial hypertension hx of thyoid cancer - hypothyroidism asthma Surgical History Surgery Date(Month/Year) right knee surgery 2017 thyroidectomy 2016 shoulder replacement 2021 Right wrist surgery 02/06/2023 Hospitalization History Reason Date(Month/Year) back pain 06/2021
[2024-12-28 08:22] VITALS: BP 120/74; PULSE 78; BMI 30.9
--- NOTE | 2024-12-28 08:22 | A.OFFVIS_ITS ---
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/atherosclerotic heart disease Last Inserter Required: Yes Last Inserter Services: Last Inserter Present Last Inserter Name: Nicky Diaz Allergies seafood Allergy (Severe, Verified 12/21/24 14:39) throat closes penicillin V Allergy (Intermediate, Verified 12/21/24 14:39) Rash Medication List - Last Reconciled 12/28/24 by Shakeel Metcalf MD alcohol swabs (BD Alcohol Swabs) 1 pad topical DAILY 90 days amlodipine 5 mg PO DAILY 90 days aspirin (Adult Low Dose Aspirin) 81 mg PO DAILY atorvastatin 40 mg PO DAILY 90 days cholecalciferol (vitamin D3) 1,250 mcg PO QWEEK dulaglutide (Trulicity) 0.75 mg (0.5 mL) subcut QWEEK 4 weeks finasteride 5 mg PO DAILY 90 days gabapentin 300 mg PO BID 30 days hydroxyzine HCl 25 mg PO DAILY PRN 90 days levothyroxine 50 mcg PO DAILY 90 days lisinopril-hydrochlorothiazide 10-12.5 mg 1 tab PO DAILY lorazepam 0.5 mg PO DAILY PRN meloxicam 15 mg PO DAILY 30 days metformin 1,000 mg PO BID 90 days metoprolol succinate ER 25 mg PO DAILY HPI Comments Details: Jimmy is here for consultation regarding coronary artery disease. Somewhat of a vague history. Apparently, he has had cardiac workup [place] including cardiac catheter[place]. He believes the last catheterization was in [place] around 3 years ago ([place]). He is not able to say clearly if there was any intervention done or not. Multiple risk factors including diabetes, hypertension, dyslipidemia. Within limits of his activity, he denies any clear-cut cardiac symptoms. Denies any angina. Nonspecific tiredness. [facility] Medical History (Updated 12/28/24 @ 08:55 by Shakeel Metcalf MD) Mass of left testicle Thyroid disorder Diabetes Surgical History (Updated 11/09/24 @ 09:38 by Zachary Roberto PA-C) H/O hand surgery H/O shoulder surgery H/O neck surgery H/O right knee surgery Family History Sister Diabetes Brother Diabetes Mother Hypercholesteremia Pancreatic cancer Social History Housing: Apartment Are you a primary care associate to a significant other at home: No Do you presently have visiting nurse or other home services: No Patient Tobacco Use Status: Never used Tobacco e-Cigarette/Vaping Use: Never Used Second Hand Smoke Exposure: No service: No Current occupational status: unemployed Cognitive needs: No Hearing needs: No Vision needs: No Review of Systems Const Denies chills, Denies daytime sleepiness, Denies fatigue, Denies fever(s), Denies frequent falls, Denies poor appetite, Denies snoring, Denies stops breathing during sleep, Denies weakness, Denies weight gain and Denies weight loss Eyes Denies loss of vision ENT Denies dizziness and Denies hearing loss Card Denies chest pain, Denies claudication, Denies leg edema, Denies lightheadedness, Denies palpitations, Denies dyspnea, Denies dyspnea on exertion and Denies orthopnea Resp Denies cough, Denies excessive phlegm production, Denies dyspnea, Denies dyspnea on exertion, Denies snoring and Denies wheezing GI Denies abdominal pain, Denies hematochezia, Denies change in bowel habits, Denies nausea and Denies vomiting Denies dysuria and Denies urinary frequency Musc Denies arthralgias, Denies muscle weakness, Denies numbness and Denies other (frequent falls) Skin/Breast Denies nail changes and Denies rash Neuro Denies Abnormal speech present, Denies dizziness, Denies frequent falls, Denies loss of vision, Denies memory loss, Denies numbness and Denies weakness Psych Denies depression and Denies memory loss Endo Denies fatigue and Denies palpitations Amandeep/Lymph Reports easy bruising and Reports other (anemia) Aller/Immun Denies wheezing Physical Exam Vital Signs: Last Vital Signs Pulse 78 12/28/24 08:22 BP 120/74 12/28/24 08:22 BMI result Body Mass Index 30.9 Const General: comfortable and no acute distress Orientation/consciousness: patient oriented x3 HEENT Other: Unremarkable Head: Yes normal to inspection Neck Neck: Yes normal visual inspection Chest Chest palpation & inspection: normal inspection of the chest Resp Auscultation: clear to auscultation bilaterally Cardio Palpation: normal PMI Heart sounds: S1 normal heart sound present, S2 normal heart sound present, no gallops, no murmurs and no rubs GI Palpation (GI): Soft to palpation Back/Spine/Pelvis Other: unremarkable Skin General skin exam: no rashes or lesions noted Neuro General: patient oriented x3 Speech: No Abnormal speech present Extrem General: Yes normal to inspection Psych Mental Status: mental status grossly normal Office Procedures EKG Details: EKG with underlying sinus rhythm at 78/Min; moderate criteria for LVH; [place] [id number], Complete Assessment & Plan Assessment & Plan (1) CAD (coronary artery disease): Code(s): I25.10 - Atherosclerotic heart disease of [place] coronary artery without angina pectoris Category: Medical Qualifiers: Coronary Disease-Associated Artery/Lesion type: [place] artery [place] vs. transplanted heart: [place] heart Associated angina: without angina Qualified Code(s): I25.10 - Atherosclerotic heart disease of [place] coronary artery without angina pectoris (2) Diabetes mellitus type 2 with complications: Comment: HLD and HTN Code(s): E11.8 - Type 2 diabetes mellitus with unspecified complications Category: Medical (3) HTN (hypertension): Code(s): I10 - Essential (primary) hypertension Category: Medical Qualifiers: Hypertension type: secondary to endocrine disorders Qualified Code(s): I15.2 - Hypertension secondary to endocrine disorders (4) Hyperlipidemia, unspecified: Code(s): E78.5 - Hyperlipidemia, unspecified Category: Medical Plan Multiple cardiovascular risk factors; patient described history of coronary disease/cardiac catheterizations but unknown details; currently no overt symptoms. We will get an echocardiogram for cardiac function assessment and any obvious findings like LV dysfunction/wall motion abnormalities. We will try to obtain records from [place], [place]-apparently, last catheterization was about 3 years ago. Based on this, we will decide if he needs any new ischemic workup. Otherwise, mainly aggressive risk factor modification including optimal treatment of diabetes, hypertension, dyslipidemia. We will follow up in a few weeks' time. Discussion Notes I discussed with the patient the plan to conduct an echocardiogram to evaluate his cardiac function, emphasizing the importance of obtaining past medical records from [place] for a comprehensive assessment. We reviewed his current medication regimen for diabetes, hypertension, and hyperlipidemia, ensuring adherence. The patient was informed of the need for follow-up in six weeks to discuss results and plan further management. He was advised to continue his abstinence from smoking, drugs, and alcohol, which supports his overall cardiovascular health. Consent was implied for the echocardiogram and follow-up plan. Patient was informed and verbally consented to the use of an ambient scribe for clinic note documentation during this visit. Orders: Orders [place] echo transthoracic complete Today I25.10 - Atherosclerotic heart disease of [place] coronary artery without angina pectoris Patient Instructions: - Continue taking your medications for diabetes, hypertension, and hyperlipidemia as prescribed. - Abstain from smoking, drugs, and alcohol. - Prepare for an echocardiogram to assess your heart function. - Follow up in six weeks to discuss your test results and medical records. - Contact the office if you experience new or worsening symptoms like chest pain or severe fatigue. Coding Level of Care Code New Pt Level 4 (93399) Diagnoses Coronary artery disease involving [place] coronary artery of [place] heart without angina pectoris I25.10 Coronary Disease-Associated Artery/Lesion type: [place] artery [place] vs. transplanted heart: [place] heart Associated angina: without angina Diabetes mellitus type 2 with complications E11.8 Hypertension due to endocrine disorder I15.2 Hypertension type: secondary to endocrine disorders Hyperlipidemia, unspecified E78.5 CPT Codes EKG - CPT: 07879-[id number], Complete ([id number])
== END 2024-12-28 09:09 | disposition home or self-care (01) ==
PROVIDERS: PCP Physician Assistant; Visit Provider Internal Medicine
DX: I25.10 Atherosclerotic heart disease of native coronary artery without angina pectoris (principal); E11.8 Type 2 diabetes mellitus with unspecified complications; I15.2 Hypertension secondary to endocrine disorders; E78.5 Hyperlipidemia, unspecified
CPT/HCPCS: 93010; 99204

== ENCOUNTER → 2024-12-28 08:06 | Outpatient (BNVA) | payer MEDICARE, MEDICAID, SELFPAY | PROVIDERS: PCP Internal Medicine; Visit Provider Internal Medicine | DX: I25.10 Atherosclerotic heart disease of native coronary artery without angina pectoris (principal); E11.8 Type 2 diabetes mellitus with unspecified complications; I15.2 Hypertension secondary to endocrine disorders; E78.5 Hyperlipidemia, unspecified | CPT/HCPCS: 93005; 99202 ==

== ENCOUNTER → 2025-01-24 09:01 | Outpatient (REF) | payer MEDICARE, MEDICAID, SELFPAY ==
--- NOTE | 2025-01-24 09:03 | CA_ITS ---
Transthoracic Echocardiogram Patient (Last, First, Middle): Jimmy Azevedo M Gender: Male Date of : 1965 Age: 60 Procedure Date: 01/24/2025 Procedure Type: Transthoracic Echocardiogram Location: OP Height: 175.26 cm Weight: 95.71 kg BSA: 2.11 m2 Heart Rate: 71 bpm BP: 150 / 100 mmHg Fixed Income Director: TO Referring MD: Shakeel Metcalf MD Symptoms: I25.10 - Atherosclerotic heart disease of [place] coronary artery without... Study Quality: Adequate w contrast ECG Rhythm: Sinus Conclusions: - The left ventricular systolic function is low normal. The visually estimated ejection fraction is between 50-55%. - There is a bicuspid aortic valve. No valvular dysfunction. Findings Procedure Information Contrast agent, definity, is being given per protocol without apparent complications. Left Ventricle Normal left ventricular cavity size. The left ventricular systolic function is low normal. The visually estimated ejection fraction is between 50-55%. There is no evidence of regional wall motion abnormalities. Evidence suggests grade I (mild) diastolic dysfunction. There is mild septal and mild basal asymmetric hypertrophy. Right Ventricle Mildly increased right ventricular cavity size. There is normal right ventricular systolic function. Atria The left atrium is mildly dilated. The right atrium is normal in size. Aortic Valve There is a bicuspid aortic valve. There is no aortic valve stenosis. There is no aortic valve regurgitation. Mitral Valve The mitral valve appears normal. There is no mitral valve regurgitation. There is no mitral valve stenosis. Pulmonic Valve The pulmonic valve is likely normal. Tricuspid Valve There is trace tricuspid valve regurgitation. There is no evidence of pulmonary hypertension. Great Vessels There is mild dilatation of the ascending aorta measuring 3.90 cm. Venous The inferior vena cava is normal in size and collapses greater than 50% with inspiration. Pericardium/Pleural There is no evidence of pericardial effusion. Prior Study Comparison No significant change compared to prior study dated: 01/18/2020. Measurements 2D Linear Measurements IVSd: 1.29 0.6-0.9/0.6-1.0 cm LVIDd: 4.75 3.9-5.3/4.2-5.9 cm LVIDd Index: 2.25 2.4-3.2/2.2-3.1 cm/m2 LVIDs: 3.29 2.0-3.6 cm LVPWd: 0.88 0.7-1.1 cm LA Diam: 3.20 2.7-3.8/3.0-4.0 cm LAIDs Index: 1.52 1.5-2.3 cm/m2 LV Mass: 233.02 67-162/88-224 g LV Mass Index: 110.44 43-95/49-115 g/m2 LVOT Diam: 2.40 3.0+(-)1.3 cm 2D Systolic Function EF 4C: 50.00 >55% EF 2C: 55.80 >55% EF BiP: 51.40 >55% Mitral Valve MV Pk E: 0.35 MV PK A: 0.43 MV Decel Time: 196.00 E/A: 0.80 E'Lateral: 5.11 E'Medial: 3.48 E/E' Med: 10.00 E/E' Lat: 6.80 PHT: 57.00 MVA PHT: 3.86 Decel [place]: 1.77 Aortic Valve AoV Pk Juan F: 1.32 AoV Mn Juan F: 0.88 AoV VTI: 0.25 AoV Pk Grad: 7.00 Aov Mn Grad: 4.00 RONNA Cont.VTI: 3.07 LVOT LVOT Pk Juan F: 0.80 LVOT Mn Juan F: 0.54 LVOT VTI: 0.17 LVOT Pk Grad: 3.00 LVOT Mn Grad: 1.00 LVOT Diam: 2.40 LVOT Area: 4.52 Diastolic Function MV Pk E: 0.35 MV Pk A: 0.43 E/A: 0.80 E'Medial: 3.48 E/E' Med: 10.00 E' Laterial: 5.11 E/E' Lat: 6.80 Right Ventricle TAPSE (mm): 21.70 TVS' Juan F: 11.70 Tricuspid Valve TR Pk Juan F: 1.81 TR Pk Grad: 13.00 RA Press: 3.00 RVSP: 16.00 Great Vessels Aorta Sinus of Valsalva: 4.03 2.0-3.5 cm Ao Asc: 3.90 2.1-3.4 cm Updated in Other Vendor System with Status of Final Shakeel Metcalf MD electronically signed on 01/25/2025 10:15:37 AM with status of Final
== END ==
LOC: HO.CARD 09:01
PROVIDERS: Visit Provider Internal Medicine
DX: I25.10 Atherosclerotic heart disease of native coronary artery without angina pectoris (principal)
CPT/HCPCS: 93306; Q9957

== ENCOUNTER → 2025-01-24 09:03 | Outpatient (BNV) | payer MEDICARE, MEDICAID, SELFPAY | PROVIDERS: Visit Provider Internal Medicine | DX: I42.2 Other hypertrophic cardiomyopathy (principal); Q23.81 Bicuspid aortic valve; I25.10 Atherosclerotic heart disease of native coronary artery without angina pectoris | CPT/HCPCS: 93306 ==

== ENCOUNTER 2025-02-13 08:21 | Outpatient (AMB) | payer MEDICARE, MEDICAID, SELFPAY ==
[2025-02-13 08:24] VITALS: BP 140/90; PULSE 84; BMI 31.7
--- NOTE | 2025-02-13 08:24 | A.OFFVIS_ITS ---
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 Name: [place] [id number] Allergies seafood Allergy (Severe, Verified 02/13/25 08:26) throat closes penicillin V Allergy (Intermediate, Verified 02/13/25 08:26) Rash Medication List - Last Reconciled 02/13/25 by Mago Ivan, [employer]-C alcohol swabs (BD Alcohol Swabs) 1 pad topical DAILY 90 days amlodipine 5 mg PO DAILY 90 days aspirin (Adult Low Dose Aspirin) 81 mg PO DAILY atorvastatin 40 mg PO DAILY 90 days cholecalciferol (vitamin D3) 1,250 mcg PO QWEEK dulaglutide (Trulicity) 0.75 mg (0.5 mL) subcut QWEEK 4 weeks finasteride 5 mg PO DAILY 90 days gabapentin 300 mg PO BID 30 days hydroxyzine HCl 25 mg PO DAILY PRN 90 days levothyroxine 50 mcg PO DAILY 90 days lisinopril-hydrochlorothiazide 10-12.5 mg 1 tab PO DAILY lorazepam 0.5 mg PO DAILY PRN metoprolol succinate ER 50 mg PO DAILY HPI HPI 6 wk f/[place] / echo/ [place]: Details: Geovanna is a 60-year-old male with past medical history of hypertension, hyperlipidemia, diabetes, [place] 2020, coronary artery disease, previously living in [place] who presents for follow-up after recent echocardiogram. Today he reports he has been feeling well with no concerning symptoms. He denies chest discomfort at rest or with activity. He does get shortness of breath if he climbs more than 1 flight of stairs. He tells me he walks frequently and tolerates it well. No PND, orthopnea or edema. No heart palpitations, lightheadedness, presyncope, syncope. Taking meds as directed. Trying to eat a well-balanced diet. Tells me overall he has lost weight in the last few years. Nonsmoker, social alcohol use. 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 [facility] Medical History Mass of left testicle Thyroid disorder Diabetes Surgical History H/O hand surgery H/O shoulder surgery H/O neck surgery H/O right knee surgery Family History Sister Diabetes Brother Diabetes Mother Hypercholesteremia Pancreatic cancer Social History Housing: Apartment Are you a primary rn progressive care unit to a significant other at home: No Do you presently have visiting nurse or other home services: No Patient Tobacco Use Status: Never used Tobacco e-Cigarette/Vaping Use: Never Used Second Hand Smoke Exposure: No service: No Current occupational status: unemployed Cognitive needs: No Hearing needs: No Vision needs: No Review of Systems Const All systems reviewed & are unremarkable except as noted in HPI and below ENT Denies dizziness Card Denies chest pain, Denies chest pain at rest, Denies chest pain with activity, Denies rapid heart rate, Denies pedal edema, Denies edema, Denies leg edema, Denies lightheadedness, Denies palpitations, Denies dyspnea, Denies dyspnea on exertion and Denies orthopnea Resp Denies cough, Denies dyspnea and Denies dyspnea on exertion GI Denies hematochezia and Denies change in stool character Musc Denies abnormal gait, Denies limited range of motion, Denies muscle cramps, Denies muscle weakness, Denies numbness, Denies radiating pain into limb, Denies stiffness and Denies tingling Neuro Denies abnormal gait, Denies dizziness, Denies numbness and Denies tingling Endo Denies palpitations Physical Exam Vital Signs: Last Vital Signs Pulse 84 02/13/25 08:24 BP 140/90 H 02/13/25 08:24 BMI result Body Mass Index 31.7 Const General: cooperative, healthy appearing, comfortable and no acute distress Orientation/consciousness: patient oriented x3 Neck Neck: Yes normal visual inspection and Yes no JVD Resp Effort & Inspection: normal respiratory effort Auscultation: clear to auscultation bilaterally, no rales, no rhonchi and no wheezes Cardio Jugular venous distension: no JVD Rate: regular rate Rhythm: regular rhythm Heart sounds: S1 normal heart sound present, S2 normal heart sound present, no murmurs and no rubs Neuro General: patient oriented x3 Extrem General: Yes normal to inspection, No no pedal edema and No calf tenderness Psych Appearance: grossly normal Mental Status: mental status grossly normal Speech and movement: Normal speech and movement present Assessment & Plan Assessment & Plan (1) CAD (coronary artery disease): Code(s): I25.10 - Atherosclerotic heart disease of [place] coronary artery without angina pectoris Category: Medical Qualifiers: Coronary Disease-Associated Artery/Lesion type: [place] artery [place] vs. transplanted heart: [place] heart Associated angina: without angina Qualified Code(s): I25.10 - Atherosclerotic heart disease of [place] coronary artery without angina pectoris Plan: History of CAD with prior [place] according to records from [place]. Cardiac catheterization has been completed however results are still not available at the time of this visit. Will reach out again to [facility] to try to obtain. Echocardiogram done 01/24/2025 shows EF 50-55%, no regional wall motion abnormalities, bicuspid aortic valve, ascending aorta 3.9 cm. EKG done last visit shows sinus rhythm with LVH. No anginal symptoms. Continue with risk factor modification. Continue aspirin indefinitely. Continue atorvastatin with ideal LDL goal less than 70. Continue metoprolol. Signs and symptoms of angina reviewed. Cardiology follow-up 3 months, sooner if needed. (2) HTN (hypertension): Code(s): I10 - Essential (primary) hypertension Category: Medical Qualifiers: Hypertension type: secondary to endocrine disorders Qualified Code(s): I15.2 - Hypertension secondary to endocrine disorders Plan: Blood pressure goal less than 130/80. Blood pressure elevated today. Recheck done by me 142/92. Will increase lisinopril up to 20 mg daily combined with his current hydrochlorothiazide 12.5 mg daily. Continue metoprolol. CMP in 6-8 weeks. (3) Hyperlipidemia, unspecified: Code(s): E78.5 - Hyperlipidemia, unspecified Category: Medical Plan: [place] LDL goal less than 70 in patient with diabetes and CAD. Labs done 09/30/2024 showed LDL 106. Will increase atorvastatin up to 80 mg daily. Lipids and liver test prior to next visit. (4) Diabetes mellitus type 2 with complications: Comment: HLD and HTN Code(s): E11.8 - Type 2 diabetes mellitus with unspecified complications Category: Medical Plan: Hemoglobin A1c goal less than 7. Followed by PCP.. (5) Bicuspid aortic valve: Code(s): Q23.81 - Bicuspid aortic valve Category: Medical Plan: Recent echocardiogram is showing bicuspid aortic valve, with normal valve function. No murmur on examination. Reviewed this finding with him. Plan I discussed with the patient the need to increase atorvastatin and lisinopril dosages to manage hyperlipidemia and hypertension, respectively. I emphasized the importance of maintaining physical activity and monitoring for any chest discomfort during exertion. We will follow up in three months, with labs in two months to monitor cholesterol and electrolytes. I will attempt to obtain the catheterization report from [facility] for further evaluation. Orders: Orders Lipid Panel 1 Month E78.5 - Hyperlipidemia, unspecified Comprehensive Met. Panel 1 Month E78.5 - Hyperlipidemia, unspecified, I15.2 - Hypertension secondary to endocrine disorders Medications: New atorvastatin (Lipitor) dose increased 80 mg PO BEDTIME 90 tabs 3RF lisinopril-hydrochlorothiazide 20-12.5 mg dose increased 1 tab PO DAILY 90 tabs 3RF 90 days Discontinued atorvastatin Discontinued Reason: Doctor's Order 40 mg PO DAILY 90 days 90 tabs 1RF I25.10 - Atherosclerotic heart disease of [place] coronary artery without angina pectoris lisinopril-hydrochlorothiazide 10-12.5 mg Discontinued Reason: Doctor's Order 1 tab PO DAILY 90 tabs 2RF I15.2 - Hypertension secondary to endocrine disorders Patient Instructions: - Take atorvastatin and lisinopril as prescribed. - Stay physically active and report any chest pain. - Follow up in three months, with labs in two months. Patient was informed and verbally consented to the use of an ambient scribe for clinic note documentation during this visit. Visit time spent on chart review, interview, assessment, orders, documentation. Coding Level of Care Code Est Pt Level 4 (68547) Complex EM visit Add On G2211 Diagnoses Coronary artery disease involving [place] coronary artery of [place] heart without angina pectoris I25.10 Coronary Disease-Associated Artery/Lesion type: [place] artery [place] vs. transplanted heart: [place] heart Associated angina: without angina Hypertension due to endocrine disorder I15.2 Hypertension type: secondary to endocrine disorders Hyperlipidemia, unspecified E78.5 Diabetes mellitus type 2 with complications E11.8 Bicuspid aortic valve Q23.81 Time Spent (min) 28
== END 2025-02-13 09:38 | disposition home or self-care (01) ==
LOC: HO.HCS 08:22
PROVIDERS: PCP Physician Assistant; Visit Provider Nurse Practitioner Family
DX: I25.10 Atherosclerotic heart disease of native coronary artery without angina pectoris (principal); I15.2 Hypertension secondary to endocrine disorders; E78.5 Hyperlipidemia, unspecified; E11.8 Type 2 diabetes mellitus with unspecified complications; Q23.81 Bicuspid aortic valve
CPT/HCPCS: 99214; G2211

== ENCOUNTER → 2025-02-13 08:21 | Outpatient (BNVA) | payer MEDICARE, MEDICAID, SELFPAY | PROVIDERS: PCP Physician Assistant; Visit Provider Nurse Practitioner Family | DX: I25.10 Atherosclerotic heart disease of native coronary artery without angina pectoris (principal); I15.2 Hypertension secondary to endocrine disorders; E78.5 Hyperlipidemia, unspecified; E11.8 Type 2 diabetes mellitus with unspecified complications; Q23.81 Bicuspid aortic valve; Z79.82 Long term (current) use of aspirin; Z79.899 Other long term (current) drug therapy | CPT/HCPCS: 99212 ==

== ENCOUNTER 2025-03-29 08:51 | Outpatient (AMB) | payer MEDICARE, MEDICAID, SELFPAY ==
--- NOTE | 2025-03-29 09:04 | MHC.PC.OV ---
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 Wire Mill Rover Language: Prover Name: Shashi # [id number] Accompanied by: Self / Same As Patient Allergies seafood Allergy (Severe, Verified 03/29/25 09:27) throat closes penicillin V Allergy (Intermediate, Verified 03/29/25 09:27) Rash Medication List - Last Reconciled 03/29/25 by Zachary Roberto PA-C alcohol swabs (BD Alcohol Swabs) 1 pad topical DAILY 90 days amlodipine 5 mg PO DAILY 90 days aspirin (Adult Low Dose Aspirin) 81 mg PO DAILY atorvastatin (Lipitor) 80 mg PO BEDTIME cholecalciferol (vitamin D3) 1,250 mcg PO QWEEK dulaglutide (Trulicity) 0.75 mg (0.5 mL) subcut QWEEK 4 weeks finasteride 5 mg PO DAILY 90 days gabapentin 300 mg PO BID 30 days hydroxyzine HCl 25 mg PO DAILY PRN 90 days levothyroxine 50 mcg PO DAILY 90 days lisinopril-hydrochlorothiazide 20-12.5 mg 1 tab PO DAILY 90 days lorazepam 0.5 mg PO DAILY PRN metoprolol succinate ER 50 mg PO DAILY Tobacco use date assessed: 03/29/25 Dental Screening Dental Screen Date: 03/29/25 Did you have a dental visit in the last 12 months?: No Did you have a dental problem in the last 6 months where you did not have access to dental care?: No Was dental information given to patient?: No HPI f/u DMII/ HTN HPI Details Patient is a 59-year-old Tunisian-speaking male here today for a follow-up visit Patient is Tunisian-speaking only thus used a remote regional account manager.. 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 concerns--> The patient has a history of thyroid cancer, for which he underwent surgery several years ago in [place]. He did not receive radiation therapy post-surgery. Recently, he experiences pain when swallowing, particularly with sugary foods, and reports intermittent choking sensations. The patient reports a two-week history of right-sided throat pain radiating to the ear. He has been advised to undergo a CT scan with contrast to evaluate for any masses in the neck region. .. BPH: Recently underwent bladder surgery for bladder outlet obstruction with [facility]. Recently had his catheter removed .. Type 2 diabetes: Most recent A1c is 6.4 from 6.7. and patient continues with once a week injection of Trulicity. .. Coronary artery disease: He reports getting coronary artery evaluations in [place] though never needed a stent. He was to see a charge authorizer in the past though did not make it to the appointment due to a family emergency. Most recent LDL at 01:06. Most recent lipid panel showing elevated LDL. He reports he takes a atorvastatin 40 mg regularly. We discuss perhaps increasing his dose to 80 mg for better LDL control. He would like to be referred to Cardiology again. .. Hypertension: Patient's blood pressure acceptable today in office. He continues on lisinopril hydrochlorothiazide . [facility] Medical History Mass of left testicle Thyroid disorder Diabetes Surgical History H/O hand surgery H/O shoulder surgery H/O neck surgery H/O right knee surgery Family History Sister Diabetes Brother Diabetes Mother Hypercholesteremia Pancreatic cancer Social History Housing: Apartment Are you a primary critical care nurse to a significant other at home: No Do you presently have visiting nurse or other home services: No Patient Tobacco Use Status: Never used Tobacco e-Cigarette/Vaping Use: Never Used Second Hand Smoke Exposure: No service: No Current occupational status: unemployed Cognitive needs: No Hearing needs: No Vision needs: No Questionnaire PHQ-9 Over the last 2 weeks, how often have you been bothered by any of the following problems? 1. Little interest or pleasure in doing things: not at all 2. Feeling down, depressed, or hopeless: not at all 3. Trouble falling or staying asleep, or sleeping too much: several days 4. Feeling tired or having little energy: more than half the days 5. Poor appetite or overeating: several days 6. Feeling bad about yourself - or that you are a failure or have let yourself or your family down: not at all 7. Trouble concentrating on things, such as reading the newspaper or watching television: not at all 8. Moving or speaking so slowly that other people could have noticed. Or the opposite - being so fidgety or restless that you have been moving around a lot more than usual: not at all 9. Thoughts that you would be better off or of hurting yourself in some way: not at all Total score: 4 Depression Screening Interpretation: Positive Depression Screening Follow-up: Existing condition and Declines treatment Depression Screening Done: Yes 15776 - PHQ-9 Billing: Yes Source: Developed by Drs. Vincent Washington, Yana Brown, Estiven Mckinney and colleagues, with an educational rodney from [employer]. Thrive Questionnaire Date Thrive assessed: 08/10/24 I am a: Patient What is your living situation today?: I have a steady place to live Within the past 12 months, did the food you bought not last and you didn't have the money to get more?: Sometimes True Within the past 12 months, did you worry whether your food would run out before you got money to buy more?: Sometimes True Do you have trouble paying for medicines?: Yes Do you have trouble getting transportation to medical appointments?: No Do you have trouble paying your heating and electricity bill?: Yes Do you have trouble taking care of your child, family member or friend?: I choose not to answer this question Do you have trouble with day-to-day activities such as bathing, preparing meals, shopping, managing finances, etc.?: Yes Are you currently unemployed and looking for a job?: No Are you interested in more education?: No Please select the resources that you would like help with: Paying for medicine Currently or been in a relationship where the following occur: I choose not to answer THRIVE Score: 3 AUDIT C Alcohol Use Questionnaire (AUDIT-C) 1. How often do you have a drink containing alcohol?: Never 3. How often do you have six or more drinks on one occasion?: Never Total Score: 0 ALBINO-7 AMB Questionnaire ALBINO-7 Date ALBINO - 7 assessed: 08/10/24 Source: Developed by Drs. Vincent Washington, Yana Brown, Estiven Mckinney and colleagues, with an educational rodney from [employer]. Review of Systems Const Denies headache(s) Eyes Denies loss of vision ENT Denies vertigo, Denies dizziness, Denies headache(s) and Denies sore throat Card Denies chest pain, Denies leg edema and Denies lightheadedness Resp Denies cough, Denies hemoptysis and Denies wheezing GI Denies abdominal pain, Denies melena, Denies constipation, Denies diarrhea and Denies vomiting Denies dysuria, Denies urinary frequency and Denies urinary urgency Musc Denies arthralgias, Denies joint swelling, Denies numbness and Denies tingling Neuro Denies Abnormal speech present, Denies behavioral changes, Denies vertigo, Denies dizziness, Denies headache(s), Denies loss of vision, Denies memory loss, Denies numbness and Denies tingling Psych Denies anxiety, Denies behavioral changes, Denies depression, Denies memory loss and Denies panic attacks Amandeep/Lymph Denies easy bleeding and Denies easy bruising Aller/Immun Denies wheezing Physical exam (Primary Care) Vital Signs: Last Vital Signs Pulse 71 03/29/25 09:06 BP 122/82 03/29/25 09:06 Pulse Ox 99 03/29/25 09:06 Oxygen Delivery Method Room Air 03/29/25 09:06 BMI result Body Mass Index 31.0 Tobacco/Smoking Status: Tobacco use Status Tobacco use date assessed 03/29/25 03/29/25 09:14 Patient Tobacco Use Status Never used Tobacco 03/29/25 09:14 e-Cigarette/Vaping Use Never Used 03/29/25 09:14 PHQ-9: PHQ-9 Score PHQ-9: Total score 4 03/29/25 09:30 Depression Screening Interpretation: Positive Depression Screening Follow-up: Existing condition and Declines treatment Thrive Assessment: Date of Thrive Assessment Date Thrive assessed 08/10/24 03/29/25 09:14 Currently or been in a relationship where the following occur: I choose not to answer Const General: healthy appearing, no acute distress, alert and awake Nutritional Appearance: well nourished Orientation/consciousness: oriented to person, oriented to place and oriented to time HENMT Ears: TM's normal bilaterally General nose exam: Normal nasal mucous membranes and turbinates present Eyes Conjunctivae: conjunctivae normal Sclerae: sclerae normal Pupils: Equal, round and reactive pupils present Neck Neck: Yes no lymphadenopathy and Yes no JVD Thyroid: Thyroid normal Carotids: no bruits Resp Effort & Inspection: normal respiratory effort and not tachypneic Auscultation: no crackles, no rales, no rhonchi and no wheezes Cardio Rate: regular rate Rhythm: regular rhythm Heart sounds: no murmurs and normal S1 and S2 GI Palpation (GI): Soft to palpation, nontender, no hepatomegaly and no splenomegaly Auscultation: normal bowel sounds Skin General skin exam: no rashes or lesions noted and dry skin Neuro General: oriented to person, oriented to place and oriented to time Cranial nerves: Yes Equal, round and reactive pupils present Speech: No Abnormal speech present Gait exam (Neuro): Normal gait present Motor exam (neuro): no tremor noted Extrem Right upper extremity: full ROM Left upper extremity: full ROM Right lower extremity: full ROM; no edema Left lower extremity: full ROM; no edema Psych Mental Status: mental status grossly normal Speech and movement: Normal speech and movement present Affect: normal affect Attitude: cooperative Thought process: Normal thought process present Coding Level of Care Code Est Pt Level 4 (79766) Diagnoses Coronary artery disease involving wilton coronary artery of wilton heart without angina pectoris I25.10 Associated angina: without angina Coronary Disease-Associated Artery/Lesion type: wilton artery [place] vs. transplanted heart: wilton heart Pharyngoesophageal dysphagia R13.14 Dysphagia type: pharyngoesophageal phase Hypertension due to endocrine disorder I15.2 Hypertension type: secondary to endocrine disorders Acquired hypothyroidism E03.9 Hypothyroidism type: acquired Diabetes mellitus type 2 with complications E11.8 Lisa onychomycosis B37.2 Chronic idiopathic constipation K59.04 Constipation type: chronic idiopathic constipation Additional Codes PHQ-9 - 64116 - PHQ-9 Billing: Yes ([id number]) Assessment & Plan Assessment & Plan (1) CAD (coronary artery disease): Code(s): I25.10 - Atherosclerotic heart disease of wilton coronary artery without angina pectoris Category: Medical Qualifiers: Associated angina: without angina Coronary Disease-Associated Artery/Lesion type: wilton artery [place] vs. transplanted heart: wilton heart Qualified Code(s): I25.10 - Atherosclerotic heart disease of wilton coronary artery without angina pectoris Plan: Now followed by [facility]. Continues on high-dose statin therapy and aspirin. Goal LDL to remain below 100 optimally below 70. (2) Dysphagia: Code(s): R13.10 - Dysphagia, unspecified Category: Medical Qualifiers: Dysphagia type: pharyngoesophageal phase Qualified Code(s): R13.14 - Dysphagia, pharyngoesophageal phase Plan: The patient reports post-surgical symptoms including pain when swallowing and intermittent choking. A CT scan with contrast is planned to evaluate for any masses in the neck region. (3) HTN (hypertension): Code(s): I10 - Essential (primary) hypertension Category: Medical Qualifiers: Hypertension type: secondary to endocrine disorders Qualified Code(s): I15.2 - Hypertension secondary to endocrine disorders Plan: Patient's blood pressure acceptable today in office. Will continue his current dose of lisinopril hydrochlorothiazide. Will consider discontinuing hydrochlorothiazide if he continues to have gout . Goal blood pressures to remain below 140/90 (4) Hypothyroid: Code(s): E03.9 - Hypothyroidism, unspecified Category: Medical Qualifiers: Hypothyroidism type: acquired Qualified Code(s): E03.9 - Hypothyroidism, unspecified Plan: Continues on levothyroxine 50 mcg. Will recheck his TSH (5) Diabetes mellitus type 2 with complications: Comment: HLD and HTN Code(s): E11.8 - Type 2 diabetes mellitus with unspecified complications Category: Medical Plan: Patient's type 2 diabetes well controlled with current antihyperglycemic med regime. Most recent A1c is 6.7. Will continue to follow do assure normal. Goal A1c to be below 7.0 (6) Lisa onychomycosis: Code(s): B37.2 - Candidiasis of skin and nail Category: Medical Plan: The patient is referred to a registered radiation therapist for potential toenail removal to address persistent fungal infection. (7) Constipation: Code(s): K59.00 - Constipation, unspecified Category: Medical Qualifiers: Constipation type: chronic idiopathic constipation Qualified Code(s): K59.04 - Chronic idiopathic constipation Plan: The patient is advised to consider fiber supplements to manage constipation and reduce dependency on MiraLax and magnesium milk. Orders: Orders Lipid Panel Today I25.10 - Atherosclerotic heart disease of wilton coronary artery without angina pectoris Prostate Specific Antigen Scr Today E03.9 - Hypothyroidism, unspecified, Z12.5 - Encounter for screening for malignant neoplasm of prostate CT soft tissue neck w IV con Today M54.2 - Cervicalgia, R13.14 - Dysphagia, pharyngoesophageal phase Hemoglobin A1c Today E11.8 - Type 2 diabetes mellitus with unspecified complications Comprehensive [place]. Panel Fast Today E11.8 - Type 2 diabetes mellitus with unspecified complications Complete Blood Count no Diff Today E11.8 - Type 2 diabetes mellitus with unspecified complications TSH reflex Free T4 Today E03.9 - Hypothyroidism, unspecified Referrals Podiatry Referral B37.2 - Candidiasis of skin and nail Medications: New lorazepam 1 mg PO ONCE 1 tab 0RF anxiety 1 day R13.14 - Dysphagia, pharyngoesophageal phase Refilled lisinopril-hydrochlorothiazide 20-12.5 mg dose increased 1 tab PO DAILY 90 tabs 3RF 90 days
[2025-03-29 09:06] VITALS: BP 122/82; PULSE 71; O2SAT 99; BMI 31.0
--- OUTSIDE RECORDS SUMMARY | 2025-03-29 09:20 | XMS_ITS | Patient Health Record ---
Author Organization [facility] Address [address] [place] [address] Care Team Providers Care Manager Validation Name Role Phone Deana Bryant MD Primary Care Provider Unavail Yamila Marlow Unavailable [phone] Allergies Allergen (clinical drug ingredient) Drug/Non Drug Allergy documented on EMR Reaction Allergy Type Onset Date Status Penicillin Unknown Drug Allergy Active Shellfish (FN) Shellfish-derived Products Unknown Drug Allergy Active Reason For Referral No Information Medications Medication SIG (Take, Route, Frequency, Duration) Notes Start Date End Date Status Metoprolol Succinate ER 50 MG 1 tablet O rally Once a day; Duration: 30 day(s) Active hydroCHLOROthiazide 12.5 MG 1 tablet in the morning Orally Once a day; Duration: 30 day(s) Active Albuterol Sulfate (2.5 MG/3M L) 0.083% 3 mL as needed Inhalation every 6 hrs Active Ipratropium [place] 0.02 % 2.5 mL Inhala tion every 8 hrs Active Aspirin EC 81 MG 1 tablet Orally Once a day; Duration: 30 day(s) Active Gabapentin 100 MG 1 capsule Orally Onc e a day; Duration: 30 day(s) Active Albuterol Sulfate HFA 108 (9 0 Base) MCG/ACT 1 puff as needed Inhalation every 4 hrs Active Nitroglycerin 0.4 MG as directed Sublingual Active Levothyroxine Sodium 125 MCG 1 tablet in the morning on an empty stomach Orally Once a day; Duration: 30 day(s) Active Cyclobenzaprine HCl 10 MG [...] Problem Type II diabetes mellitus without complication (920712963) Type 2 diabetes mellitus without complications (E11.9) Active confirmed Problem Postoperative Hypothyroidism (28379162) Postprocedural hypothyroidism (E89.0) Active confirmed Problem 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) Active confirmed Problem Essential hypertension (75564837) Essential (primary) hypertension (I10) Active confirmed Problem Lumbosacral spondylosis without myelopathy (05569096) Other spondylosis, lumbosacral region (M47.897) Active confirmed Problem Spinal stenosis of lumbar region (05208694) Spinal stenosis, lumbosacral region (M48.07) Active confirmed Problem Lumbar radiculopathy (866359727) Radiculopathy, lumbar region (M54.16) Active confirmed Problem Paresthesia (finding) (62569149) Paresthesia of skin (R20.2) Active confirmed Problem History of malignant neoplasm of thyroid (613225896) Personal history of malignant neoplasm of thyroid (Z85.850) Active confirmed Problem Pain in lumbar spine (961867209) Vertebrogenic low back pain (M54.51) Active confirmed Problem Asthma (955432586) Asthma (J45.909) Active confirmed Plan Of Treatment Pending Test Test Name Order Date EMG/NCS RT lower ext 08/13/2022 Insurance Providers Payer Name Payer Address Payer Phone Subscriber Number Group Number Insured Name Patient Relationship to Insured Coverage Start Date Coverage End Date [facility] [address] [place] [address] [id number] Jimmy Azevedo Self - patient is the insured Medical (General) History Medical History History ICD Code diabetes mellitus arterial hypertension hx of thyoid cancer - hypothyroidism asthma Surgical History Surgery Date(Month/Year) right knee surgery 2017 thyroidectomy 2016 shoulder replacement 2021 Right wrist surgery 02/06/2023 Hospitalization History Reason Date(Month/Year) back pain 06/2021
--- OUTSIDE RECORDS SUMMARY | 2025-03-29 09:20 | XMS_ITS | Patient Health Record ---
Author Organization [facility] Address [address] [place] [address] Care Team Providers Care [employer] Field Technician Name Role Phone CLAUDE CARVALHO MD Primary Care Provider Unavailable Tacho Schofield Unavailable [phone] Allergies Allergen (clinical drug ingredient) Drug/Non Drug Allergy documented on EMR Reaction Allergy Type Onset Date Status Penicillin Unknown Drug Allergy Active Reason For Referral No Information Medications Medication SIG (Take, Route, Frequency, Duration) Notes Start Date End Date Status Atorvastatin Calcium 20 MG 1 tablet Oral ly Once a day; Duration: 30 day(s) Active Isosorbide Mononitrate ER 60 MG 1/2 tabl et Orally am and pm Active metFORMIN HCl 500 MG 1 tablet with a lisset l Orally Once a day; Duration: 30 day(s) Active Aspirin 81 MG 1 tablet Orally Once a day; Duration: 30 day(s) Active Lisinopril 20 MG 1 tablet Orally Once a day; Duration: 30 day(s) Active Gabapentin 100 MG 1 capsule Orally Onc e a day; Duration: 30 day(s) Active hydroCHLOROthiazide 12.5 MG 1 tablet in the morning Orally Once a day; Duration: 30 day(s) 02/05/2021 Active hydrALAZINE HCl 25 MG 1 tablet with food Orally Three times a day Active Metoprolol Succinate ER 100 MG 1 tablet Orally twice daily Active Levothyroxine Sodium 150 MCG 1 tablet in the morning on an empty stomach Orally Once a day; Duration: 30 day(s) Active Nitroglycerin 0.4 MG as directed Sublingual Active Social History Tobacco Use: Social History Observation Description Date Details (start date - stop date) Never Smoker NA - NA Tobacco Use/Smoking Question Answer Notes Are you a nonsmoker Problems Problem Type SNOMED Code ICD Code Onset Dates Problem Status W/U Status Risk Notes Problem Preoperative cardiovascular examination (929507956) Encounter for pre-operative cardiovascular clearance (Z01.810) Active confirmed Problem Essential hypertension (70113784) Essential hypertension (I10) Active confirmed Problem Dyslipidemia (359812781) Dyslipidemia (E78.5) Active confirmed Problem Acquired hypothyroidism (515726718) Acquired hypothyroidism (E03.9) Active confirmed Problem Obese class I (finding) (863747733382628) Obesity (BMI 30.0-34.9) (E66.9) Active confirmed Problem Body mass index 30.00 to 34.99 (095614295237691) Body mass index [BMI] 33.0-33.9, adult (Z68.33) Active confirmed Plan Of Treatment No Information Insurance Providers Payer Name Payer Address Payer Phone Subscriber Number Group Number Insured Name Patient Relationship to Insured Coverage Start Date Coverage End Date [facility] [address] [place] [address] [id number] ALONDRA [id number] Self - patient is the insured 1 Medical (General) History Medical History History ICD Code coronary artery disease heart diease angina Hypothyroidism type II diabetes dyslipidemia gastroesophageal reflux disease (GERD) morbid obesity Surgical History Surgery Date(Month/Year)
--- OUTSIDE RECORDS SUMMARY | 2025-03-29 09:21 | XMS_ITS | Patient Health Record ---
Author Organization [facility] Address [address] [address] Care Team Providers Care Wool Hat Hydraulicker Name Role Phone Deana Bryant MD Primary Care Provider Unavail naveen Green MD, William Unavailable [phone] Allergies Allergen (clinical drug ingredient) Drug/Non Drug Allergy documented on EMR Reaction Allergy Type Onset Date Status Penicillin Unknown Drug Allergy Active Reason For Referral No Information Medications Medication SIG (Take, Route, Frequency, Duration) Notes Start Date End Date Status metFORMIN HCl 500 MG Tablet 1 tablet with a meal Orally Once a day Not-Taking/PRN Atorvastatin Calcium 40 MG Tablet TAKE 1 TABLET BY MOUTH ONCE DAILY AT BEDTIME AT 9PM Oral; Duration: 30 Active Lactulose 10 GM/15ML Solution 15 ml Orally Once a day as needed; Duration: 30 day(s) 05/19/2023 Active Metoprolol Succinate ER 25 MG Tablet Extended Release 24 Hour TAKE 1 TABLET BY MOUTH ONCE DAILY FOR 90 DAYS Oral; Duration: 90 days Active PEG 3350-KCl-Na Bicarb-NaCl 420 GM Solution Reconstituted as directed Orally 09/02/2021 Not-Taking/PRN Aspirin Adult Low Strength 81 MG Tablet Delayed Release Oral; Duration: 30 Active Omeprazole 40 MG Capsule Delayed Release 1 capsule 30 minutes before morning meal Orally Once a day 05/19/2023 Active Lactulose 10 GM/15ML Solution 15 ml Orally Once a day as needed; Duration: 30 days Active Isosorbide Dinitrate 20 MG Tablet 1 tablet Orally Twice a day Active Lisinopril 10 MG Tablet 1 tablet Orally Once a day Active Hydrocortisone 2.5 % Cream 1 application Rectal Twice a day; Duration: 14 days 02/05/2023 Active Nulytely with Flavor Packs 420 GM Solution Reconstituted as directed Orally 02/05/2023 Not-Taki ng/PRN Immunizations Vaccine Route Administration Date Status Comme nts COVID-19 Pfizer 30mcg/0.3 mL dose Unknown 01/21/2021 Ad ministered COVID-19 Pfizer 30mcg/0.3 mL dose Unknown 08/26/2021 Ad ministered Social History Tobacco Use: Social History Observation Description Date Details (start date - stop date) Never Smoker NA - NA Social History Drugs/Alcohol(Archived) Social Info Question Answer Notes Alcohol Screen (Audit-C) Did you have a drink containing alcohol in the past year? No Points 0 Interpretation Negative Drugs Have you used drugs other than those for medical reasons in the past 12 months? No Caffeine Intake: 1-2 cups per day Diet soda Tobacco Use: Social Info Question Answer Notes Tobacco Use/Smoking (Archived) Are you a? nonsmoker Additional Details Category Social Info Options Details Drugs/Alcohol(Archived) Do you smoke marijuana? No Do you drink alcohol? No Problems Problem Type SNOMED Code ICD Code Onset Dates Problem Status W/U Status Risk Notes Problem Constipation (83080809) Constipation, unspecified (K59.00) Active confirmed Problem Epigastric pain (46042166) Epigastric pain (R10.13) Active confirmed Severe episodes. Pt went to the ER recommended EGD to r.o ulcer since pain is not improving with medications and current tx . Will proceed with EGD since symptoms over 3 months will proceed with EUS Problem Diverticular disease of colon (743278170) Diverticula of colon (K57.30) Active confirmed csp Problem Rectal bleeding (95769462) Rectal bleeding (K62.5) Active confirmed Episodes after bowel movement / as per pt multiple episodes. Bright red blood (seen on pictures) no black stools. Severe constipation. Will proceed with lactulose / iron and hg WNL no recent episodes since last OV Problem Family History of Cancer of Colon (Situation) (753019314) Family history of colon cancer (Z80.0) Active confirmed mother 70s Problem Gastric polyp (03341729) Gastric polyp (K31.7) Active confirmed HP resected per egd Problem Altered bowel habits (92838558) Bowel habit changes (R19.4) Active confirmed constipation / poor response to miralax / will try lactulose controlled Problem Internal hemorrhoid (48462853) Internal hemorrhoid (K64.8) Active confirmed csp Problem Abnormal feces (366389927) Positive fecal occult blood test (R19.5) Active confirmed 01/2023 Csp done Problem Polyp colon (08198986) Colon polyp (D12.2) Active confirmed bx- HP --per csp . surveillance [address] no acute process no polyps seen per csp 01/2023 surveillance 5 y. Problem Pancreatitis (95647979) Pancreatitis (K85.10) Active confirmed as per pt will request records. (RECORDS of ct showed acute interstitial pancreatitis. Lipase 89 h, amylase wnl per labs . will proceed with EUS Problem Constipation (76410572) Constipation (K59.00) Active confirmed Problem Functional dyspepsia (3892599) Acid indigestion (K30) Active confirmed Problem Chronic gastritis (3030978) Chronic gastritis (K29.50) Active confirmed -per egd Problem Encounter to discuss colonoscopy results (Z71.2) Active confirmed Problem History of polyp of colon (situation) (492811338) Personal history of colon polyps (Z79.02) Active confirmed Plan Of Treatment Future Test Test Name Order Date AMYLASE AND LIPASE 05/19/2023 Comp. Metabolic Panel (14) 05/19/2023 Obtain old records 05/26/2023 Insurance Providers Payer Name Payer Address Payer Phone Subscriber Number Group Number Insured Name Patient Relationship to Insured Coverage Start Date Coverage End Date [employer] [address] [place] [address] [id number] JERAMY LINARES Self - patient is the insured 2 Medical (General) History Medical History History ICD Code Hypertension diabetes mellitus type 2 DiscHerriated Thyriod Cancer Surgical History Surgery Date(Month/Year) Right knee surgery 2017 thyroid remove 2015 Hospitalization History Reason Date(Month/Year) pancreatitis-[facility] 04/2023 chest pain -[facility] 01/2023 [facility] due to back injury 08/2020
== END 2025-03-29 09:52 | disposition home or self-care (01) ==
LOC: HO.HMCH 08:52
PROVIDERS: PCP Nurse Practitioner Family; Visit Provider Physician Assistant
DX: I25.10 Atherosclerotic heart disease of native coronary artery without angina pectoris (principal); E11.8 Type 2 diabetes mellitus with unspecified complications; R13.14 Dysphagia, pharyngoesophageal phase; I15.2 Hypertension secondary to endocrine disorders; E03.9 Hypothyroidism, unspecified; B37.2 Candidiasis of skin and nail; K59.04 Chronic idiopathic constipation

== ENCOUNTER → 2025-03-29 08:51 | Outpatient (BNVA) | payer MEDICARE, MEDICAID, SELFPAY | PROVIDERS: PCP Nurse Practitioner Family; Visit Provider Physician Assistant | DX: I25.10 Atherosclerotic heart disease of native coronary artery without angina pectoris (principal); R13.14 Dysphagia, pharyngoesophageal phase; I15.2 Hypertension secondary to endocrine disorders; E03.9 Hypothyroidism, unspecified; E11.8 Type 2 diabetes mellitus with unspecified complications; B37.2 Candidiasis of skin and nail; K59.04 Chronic idiopathic constipation | CPT/HCPCS: 96127; 99212 ==

== ENCOUNTER 2025-04-17 14:41 | Outpatient (AMB) | payer MEDICARE, MEDICAID, SELFPAY ==
[2025-04-17 14:46] VITALS: BMI 31.0
--- NOTE | 2025-04-17 14:46 | MHC.OFFVIS ---
Vital Signs 04/17/25 14:46 Height 5 ft 9 in Weight 210 lb BMI 31.0 Intake Visit Reasons: New Pt- Toe Nail infection Intake Note: Jimmy is a 60 year old male who presents today as a new patient for an evaluation of his candiasis of his right great toenail. Patient mentions this has been an ongoing issue for years and has tried OTC fungal cream but it has not helped. He states he is interested in getting his toe nail trimmed. Patient mentions he is a diabetic and his sugars last night was as 140. Shuttle Preparation Supervisor Required: Yes Shuttle Preparation Supervisor Services: Shuttle Preparation Supervisor Present Shuttle Preparation Supervisor Name: [id number] Allergies seafood Allergy (Severe, Verified 03/29/25 09:27) throat closes penicillin V Allergy (Intermediate, Verified 03/29/25 09:27) Rash HPI Comments Details: The patient is a 60-year-old male with a past medical history as seen below presenting with thickened and discolored toenails bilaterally. Patient is diabetic and his most recent A1c was 6.4. Patient states his most recent blood glucose from last night was 140. He also states he experiences numbness and tingling to the feet bilaterally. He denies any recent pedal injuries. Patient states he tried an nbuf-zvq-lbpfdqc topical cream to the nails with no improvement. He denies any other pedal concerns. Denies any current Nausea vomiting fever or chills. [facility] Medical History (Updated 04/17/25 @ 15:04 by Yumiko Ball DPM) Nail dystrophy Onychomycosis Mass of left testicle Thyroid disorder Diabetes Surgical History H/O hand surgery H/O shoulder surgery H/O neck surgery H/O right knee surgery Family History Sister Diabetes Brother Diabetes Mother Hypercholesteremia Pancreatic cancer Social History Housing: Apartment Are you a primary career services assistant to a significant other at home: No Do you presently have visiting nurse or other home services: No Patient Tobacco Use Status: Never used Tobacco e-Cigarette/Vaping Use: Never Used Second Hand Smoke Exposure: No service: No Current occupational status: unemployed Cognitive needs: No Hearing needs: No Vision needs: No Review of Systems Const Details: - Neurological: Experiences numbness and tingling in the feet. All systems reviewed & are unremarkable except as noted in HPI and below Physical Exam Vital Signs: BMI result Body Mass Index 31.0 Extrem Other: Bilateral lower extremity focused physical exam: Derm: Toenails noted to be thickened, dystrophic, with subungual debris worsened to bilateral toes 1 and 2. No open lesions abrasions or wounds noted. Skin supple and within normal limits. No clinical signs of infection. Vascular: DP pulse palpable on the right PT pulse mildly palpable on the right. DP pulse nonpalpable on the left and PT pulses mildly palpable on the left. Capillary refill time less than 3 seconds. Temperature gradient warm to warm. Pedal hair noted to the proximal aspect of the legs and absent to the distal aspects of the legs and feet. No edema noted. No varicosities noted. Neuro: Protective sensation is grossly absent to bilateral feet-monofilament test conducted. MSK: No pain on palpation to bilateral feet or lower extremities. Range of motion of the forefoot within normal limits. Range of motion of the hindfoot and ankle within normal limits. No crepitus noted. Mild Hammertoe deformities bilaterally. Class A, B, and C findings noted. Office Procedures Diabetic Foot Exam G9226 - Diabetic Foot Exam Results Reviewed Results Reviewed: Laboratory Tests 09/30/24 09:17 Hemoglobin A1c % 6.4 H Ordered new labs to be performed prior to the next visit. Assessment & Plan Assessment & Plan (1) Diabetes mellitus type 2 with complications: Comment: HLD and HTN Code(s): E11.8 - Type 2 diabetes mellitus with unspecified complications Category: Medical (2) Diabetic peripheral neuropathy: Code(s): E11.42 - Type 2 diabetes mellitus with diabetic polyneuropathy Category: Medical (3) PVD (peripheral vascular disease): Comment: based on clinical exam, decreased PP bilat, hairless ankles, skin intact Monitor skin integrity Statin and ASA Code(s): I73.9 - Peripheral vascular disease, unspecified Category: Medical (4) Onychomycosis: Code(s): B35.1 - Tinea unguium Category: Medical (5) Nail dystrophy: Code(s): L60.3 - Nail dystrophy Category: Medical Plan Patient was informed and verbally consented to the use of an ambient scribe for clinic note documentation during this visit. I discussed with the patient the management of onychomycosis, including the use of a topical antifungal thai and the potential for oral medication pending liver function test results. We also reviewed the importance of regular foot care and wearing appropriate footwear to prevent injuries due to peripheral neuropathy. Educated patient on affects of diabetes to the lower extremities. 1. Onychomycosis - prescribed ciclopirox 8% topical to be applied daily. Discussed with the patient it takes approximately 1 year to notice changes to the nails when using topical medication. - Ordered labs and Plan to monitor liver function tests before considering oral antifungal therapy. 2. Peripheral Neuropathy - Conducted monofilament testing to assess sensation in feet. Sensation noted to be absent bilaterally. - Advised patient on wearing appropriate footwear to prevent injuries. Advised patient to monitor his feet daily and to avoid barefoot walking to prevent any ulcerations. - Schedule regular nail trimming every nine weeks to prevent complications from unnoticed injuries. Patient is to follow up in the office in 9 weeks for routine foot care.. Orders: Orders Hemoglobin A1c Today E11.42 - Type 2 diabetes mellitus with diabetic polyneuropathy, E11.8 - Type 2 diabetes mellitus with unspecified complications Complete Blood Count Auto Diff Today B35.1 - Tinea unguium, E11.8 - Type 2 diabetes mellitus with unspecified complications, I73.9 - Peripheral vascular disease, unspecified, L60.3 - Nail dystrophy Comprehensive Met. Panel Today B35.1 - Tinea unguium, E11.8 - Type 2 diabetes mellitus with unspecified complications, I73.9 - Peripheral vascular disease, unspecified, L60.3 - Nail dystrophy Medications: New uxqlzzwfxy-dix-jgreb-menth-euc 8 % (Ciclodan Kit) 34.6 mL topical .qd 34.6 mL 0RF Onychomycosis B35.1 - Tinea unguium, L60.3 - Nail dystrophy Coding Level of Care Code New Pt Level 4 (47927) Diagnoses Diabetes mellitus type 2 with complications E11.8 Diabetic peripheral neuropathy E11.42 PVD (peripheral vascular disease) I73.9 Onychomycosis B35.1 Nail dystrophy L60.3 CPT Codes Diabetic Foot Exam - CPT: G9226 - Diabetic Foot Exam ([id number]) Time Spent (min) 45
--- OUTSIDE RECORDS SUMMARY | 2025-04-17 20:08 | XMS_ITS | Patient Health Record ---
Author Organization [facility] Address [address] [place] [address] Care Team Providers Care Sculpture Conservator Name Role Phone Deana Bryant MD Primary Care Provider Unavail Yamila Marlow Unavailable [phone] Allergies Allergen (clinical drug ingredient) Drug/Non Drug [...] needed Inhalation every 6 hrs Active Ipratropium [place] 0.02 % 2.5 mL Inhala tion every [...] Problem Type II diabetes mellitus without complication (598750366) Type 2 diabetes mellitus without complications (E11.9) Active confirmed Problem Postoperative Hypothyroidism (57879399) Postprocedural hypothyroidism (E89.0) Active confirmed Problem 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) Active confirmed Problem Essential hypertension (43096827) Essential (primary) hypertension (I10) Active confirmed Problem Lumbosacral spondylosis without myelopathy (59495058) Other spondylosis, lumbosacral region (M47.897) Active confirmed Problem Spinal stenosis of lumbar region (72496422) Spinal stenosis, lumbosacral region (M48.07) Active confirmed Problem Lumbar radiculopathy (613979026) Radiculopathy, lumbar region (M54.16) Active confirmed Problem Paresthesia (finding) (84680078) Paresthesia of skin (R20.2) Active confirmed Problem History of malignant neoplasm of thyroid (726920218) Personal history of malignant neoplasm of thyroid (Z85.850) Active confirmed Problem Pain in lumbar spine (398173204) Vertebrogenic low back pain (M54.51) Active confirmed Problem Asthma (505434893) Asthma (J45.909) Active confirmed Plan Of Treatment Pending Test Test Name Order Date EMG/NCS RT lower ext 08/13/2022 Insurance Providers Payer Name Payer Address Payer Phone Subscriber Number Group Number Insured Name Patient Relationship to Insured Coverage Start Date Coverage End Date [facility] [address] [place] [address] [phone] [id number] Jimmy Azevedo Self - patient is the insured Medical (General) History Medical History History ICD Code diabetes mellitus arterial hypertension hx of thyoid cancer - hypothyroidism asthma Surgical History Surgery Date(Month/Year) right knee surgery 2017 thyroidectomy 2016 shoulder replacement 2021 Right wrist surgery 02/06/2023 Hospitalization History Reason Date(Month/Year) back pain 06/2021
--- OUTSIDE RECORDS SUMMARY | 2025-04-17 20:09 | XMS_ITS | Patient Health Record ---
Author Organization [facility] Address [address] [place] [address] Care Team Providers Care Asset Protection Assistant Name Role Phone CLAUDE CARVALHO MD Primary [...] Status Risk Notes Problem Preoperative cardiovascular examination (350832754) Encounter for pre-operative cardiovascular clearance (Z01.810) Active confirmed Problem Essential hypertension (26876639) Essential hypertension (I10) Active confirmed Problem Dyslipidemia (000313546) Dyslipidemia (E78.5) Active confirmed Problem Acquired hypothyroidism (874994219) Acquired hypothyroidism (E03.9) Active confirmed Problem Obese class I (finding) (907202204383730) Obesity (BMI 30.0-34.9) (E66.9) Active confirmed Problem Body mass index 30.00 to 34.99 (434016636497108) Body mass index [BMI] 33.0-33.9, adult (Z68.33) Active confirmed Plan Of Treatment No Information Insurance Providers Payer Name Payer Address Payer Phone Subscriber Number Group Number Insured Name Patient Relationship to Insured Coverage Start Date Coverage End Date [employer] [facility] [address] [place] [address] [id number] ALONDRA [id number] Self - patient is the insured 1 Medical (General) History Medical History History ICD Code coronary artery disease heart diease angina Hypothyroidism type II diabetes dyslipidemia gastroesophageal reflux disease (GERD) morbid obesity Surgical History Surgery Date(Month/Year)
--- OUTSIDE RECORDS SUMMARY | 2025-04-17 20:09 | XMS_ITS | Patient Health Record ---
Author Organization [facility] Address [address] [address] Care Team Providers Care Smooth Plater Name Role Phone Deana Bryant MD Primary Care Provider Unavail naveen Green MD, William Unavailable [phone] Allergies Allergen (clinical drug ingredient) Drug/Non Drug [...] Status W/U Status Risk Notes Problem Constipation (02126670) Constipation, unspecified (K59.00) Active confirmed Problem Epigastric pain (91507075) Epigastric pain (R10.13) Active confirmed Severe episodes. Pt went to the ER recommended EGD to r.o ulcer since pain is not improving with medications and current tx . Will proceed with EGD since symptoms over 3 months will proceed with EUS Problem Diverticular disease of colon (658240956) Diverticula of colon (K57.30) Active confirmed csp Problem Rectal bleeding (75533250) Rectal bleeding (K62.5) Active confirmed Episodes after bowel movement / as per pt multiple episodes. Bright red blood (seen on pictures) no black stools. Severe constipation. Will proceed with lactulose / iron and hg WNL no recent episodes since last OV Problem Family History of Cancer of Colon (Situation) (428903653) Family history of colon cancer (Z80.0) Active confirmed mother 70s Problem Gastric polyp (76364313) Gastric polyp (K31.7) Active confirmed HP resected per egd Problem Altered bowel habits (51198982) Bowel habit changes (R19.4) Active confirmed constipation / poor response to miralax / will try lactulose controlled Problem Internal hemorrhoid (21482754) Internal hemorrhoid (K64.8) Active confirmed csp Problem Abnormal feces (731005619) Positive fecal occult blood test (R19.5) Active confirmed 01/2023 Csp done Problem Polyp colon (08956558) Colon polyp (D12.2) Active confirmed bx- HP --per csp . surveillance [address] no acute process no polyps seen per csp 01/2023 surveillance 5 y. Problem Pancreatitis (15239038) Pancreatitis (K85.10) Active confirmed as per pt will request records. (RECORDS of ct showed acute interstitial pancreatitis. Lipase 89 h, amylase wnl per labs . will proceed with EUS Problem Constipation (10734684) Constipation (K59.00) Active confirmed Problem Functional dyspepsia (3640970) Acid indigestion (K30) Active confirmed Problem Chronic gastritis (4709496) Chronic gastritis (K29.50) Active confirmed -per egd Problem Encounter to discuss colonoscopy results (Z71.2) Active confirmed Problem History of polyp of colon (situation) (418956899) Personal history of colon polyps (Z79.02) Active confirmed Plan Of Treatment Future Test Test Name Order Date AMYLASE AND LIPASE 05/19/2023 Comp. Metabolic Panel (14) 05/19/2023 Obtain old records 05/26/2023 Insurance Providers Payer Name Payer Address Payer Phone Subscriber Number Group Number Insured Name Patient Relationship to Insured Coverage Start Date Coverage End Date [employer] [address] [place] [address] [id number] JERAMY LINARES Self - patient is the insured 2 Medical (General) History Medical History History ICD Code Hypertension diabetes mellitus type 2 DiscHerriated Thyriod Cancer Surgical History Surgery Date(Month/Year) thyroid remove 2015 Right knee surgery 2017 Hospitalization History Reason Date(Month/Year) pancreatitis-[facility] 04/2023 chest pain -[facility] 01/2023 [facility] due to back injury 08/2020
== END 2025-04-17 15:18 | disposition home or self-care (01) ==
LOC: HO.HPODS 14:42
PROVIDERS: PCP Nurse Practitioner Family; Visit Provider Student in an Organized Health Care Education/Training Program
DX: E11.8 Type 2 diabetes mellitus with unspecified complications (principal); E11.42 Type 2 diabetes mellitus with diabetic polyneuropathy; I73.9 Peripheral vascular disease, unspecified; B35.1 Tinea unguium; L60.3 Nail dystrophy
CPT/HCPCS: 99204; G9226

== ENCOUNTER → 2025-04-17 14:41 | Outpatient (BNVA) | payer MEDICARE, MEDICAID, SELFPAY | PROVIDERS: PCP Nurse Practitioner Family; Visit Provider Student in an Organized Health Care Education/Training Program | DX: B35.1 Tinea unguium (principal); L60.3 Nail dystrophy; E11.8 Type 2 diabetes mellitus with unspecified complications; E11.51 Type 2 diabetes mellitus with diabetic peripheral angiopathy without gangrene; I73.9 Peripheral vascular disease, unspecified; E11.42 Type 2 diabetes mellitus with diabetic polyneuropathy | CPT/HCPCS: 99202 ==

== ENCOUNTER 2025-05-16 14:05 | Outpatient (AMB) | payer MEDICARE, MEDICAID, SELFPAY ==
--- NOTE | 2025-05-16 14:20 | MHC.PC.OV ---
Vital Signs 05/16/25 14:21 Height 5 ft 9 in Weight 216 lb 2 oz BMI 31.9 BP 136/62 Blood Pressure Location Lt brachial Position Sitting Pulse 83 Pulse Source Pulse Oximeter Temp 96.9 F Temp Source Temporal Artery Scan Pulse Oximetry (%) 95 Oxygen Delivery Method Room Air Intake Visit Reasons: pain in tonsils Intake Note: Patient is here to follow up on Pain in tonsils. Test Borer Helper Required: No Test Borer Helper Name: Omero ([id number]) Information Interpreted: non-clinical & clinical Rn Digestive: Not Required per policy Accompanied by: Self / Same As Patient Allergies seafood Allergy (Severe, Verified 05/16/25 14:30) throat closes penicillin V Allergy (Intermediate, Verified 05/16/25 14:30) Rash Medication List - Last Reconciled 05/16/25 by Zachary Roberto PA-C alcohol swabs (BD Alcohol Swabs) 1 pad topical DAILY 90 days amlodipine 5 mg PO DAILY 90 days aspirin (Adult Low Dose Aspirin) 81 mg PO DAILY atorvastatin (Lipitor) 80 mg PO BEDTIME cholecalciferol (vitamin D3) 1,250 mcg PO QWEEK ciclopirox 8% 1 appl topical DAILY 4 weeks dulaglutide (Trulicity) 0.75 mg (0.5 mL) subcut QWEEK 4 weeks finasteride 5 mg PO DAILY 90 days gabapentin 300 mg PO BID 30 days hydroxyzine HCl 25 mg PO DAILY PRN 90 days levothyroxine 50 mcg PO DAILY 90 days lisinopril-hydrochlorothiazide 20-12.5 mg 1 tab PO DAILY 90 days lorazepam 1 mg PO ONCE 1 day metoprolol succinate ER 50 mg PO DAILY Tobacco use date assessed: 05/16/25 Dental Screening Dental Screen Date: 03/29/25 HPI pain in tonsils HPI Details The patient is a 60-year-old male presenting with tonsillitis and back pain. The patient reports tonsillitis symptoms for about six weeks, initially noticing white debris on his tonsils, which he attempted to remove manually, leading to pain. The pain has since radiated to his ear and jaw, extending from the throat downwards. He has been using antibiotics provided by his daughter and ibuprofen 800 mg, but the pain persists, mainly affecting the right tonsil, which is red and causes discomfort during swallowing. Of note patient does have an upcoming appointment for a CT of neck due to dysphagia and right-sided neck pain The patient also experiences chronic back pain, worsened by cold weather, which limits his mobility, especially in the morning. He has a history of shoulder surgery, and cold weather exacerbates pain in his shoulders and neck. He requested a prescription for a shower chair to aid in bathing due to his limited mobility. [facility] Medical History (Updated 05/16/25 @ 14:45 by Zachary Roberto PA-C) Nail dystrophy Onychomycosis Mass of left testicle Thyroid disorder Diabetes Surgical History H/O hand surgery H/O shoulder surgery H/O neck surgery H/O right knee surgery Family History Sister Diabetes Brother Diabetes Mother Hypercholesteremia Pancreatic cancer Social History Housing: Apartment Are you a primary acute care clinical nurse specialist to a significant other at home: No Do you presently have visiting nurse or other home services: No Patient Tobacco Use Status: Never used Tobacco e-Cigarette/Vaping Use: Never Used Second Hand Smoke Exposure: No service: No Current occupational status: unemployed Cognitive needs: No Hearing needs: No Vision needs: Yes (Glasses) Questionnaire Thrive Questionnaire Date Thrive assessed: 08/10/24 I am a: Patient What is your living situation today?: I have a steady place to live Within the past 12 months, did the food you bought not last and you didn't have the money to get more?: Sometimes True Within the past 12 months, did you worry whether your food would run out before you got money to buy more?: Sometimes True Do you have trouble paying for medicines?: Yes Do you have trouble getting transportation to medical appointments?: No Do you have trouble paying your heating and electricity bill?: Yes Do you have trouble taking care of your child, family member or friend?: I choose not to answer this question Do you have trouble with day-to-day activities such as bathing, preparing meals, shopping, managing finances, etc.?: Yes Are you currently unemployed and looking for a job?: No Are you interested in more education?: No Please select the resources that you would like help with: Paying for medicine Currently or been in a relationship where the following occur: I choose not to answer THRIVE Score: 3 ALBINO-7 AMB Questionnaire ALBINO-7 Date ALBINO - 7 assessed: 08/10/24 Source: Developed by Drs. Vincent Washington, Yana Brown, Estiven Mckinney and colleagues, with an educational rodney from [employer]. Review of Systems Const Denies headache(s) Eyes Denies loss of vision ENT Denies vertigo, Denies dizziness, Denies headache(s) and Denies sore throat Card Denies chest pain, Denies leg edema and Denies lightheadedness Resp Denies cough, Denies hemoptysis and Denies wheezing GI Denies abdominal pain, Denies melena, Denies constipation, Denies diarrhea and Denies vomiting Denies dysuria, Denies urinary frequency and Denies urinary urgency Musc Denies arthralgias, Denies joint swelling, Denies numbness and Denies tingling Neuro Denies Abnormal speech present, Denies behavioral changes, Denies vertigo, Denies dizziness, Denies headache(s), Denies loss of vision, Denies memory loss, Denies numbness and Denies tingling Psych Denies anxiety, Denies behavioral changes, Denies depression, Denies memory loss and Denies panic attacks Amandeep/Lymph Denies easy bleeding and Denies easy bruising Aller/Immun Denies wheezing Physical exam (Primary Care) Vital Signs: Last Vital Signs Temp 96.9 F 05/16/25 14:21 Pulse 83 05/16/25 14:21 BP 136/62 05/16/25 14:21 Pulse Ox 95 05/16/25 14:21 Oxygen Delivery Method Room Air 05/16/25 14:21 BMI result Body Mass Index 31.9 Tobacco/Smoking Status: Tobacco use Status Tobacco use date assessed 05/16/25 05/16/25 14:28 Patient Tobacco Use Status Never used Tobacco 05/16/25 14:28 e-Cigarette/Vaping Use Never Used 05/16/25 14:28 Thrive Assessment: Date of Thrive Assessment Date Thrive assessed 08/10/24 05/16/25 14:28 Currently or been in a relationship where the following occur: I choose not to answer Const General: healthy appearing, no acute distress, alert and awake Nutritional Appearance: well nourished Orientation/consciousness: oriented to person, oriented to place and oriented to time HENMT Other: RIGHT TONSIL SLIGHTLY EDEMATOUS AND ERYTHEMATOUS. Ears: TM's normal bilaterally General nose exam: Normal nasal mucous membranes and turbinates present Eyes Conjunctivae: conjunctivae normal Sclerae: sclerae normal Pupils: Equal, round and reactive pupils present Neck Neck: Yes no lymphadenopathy and Yes no JVD Thyroid: Thyroid normal Carotids: no bruits Resp Effort & Inspection: normal respiratory effort and not tachypneic Auscultation: no crackles, no rales, no rhonchi and no wheezes Cardio Rate: regular rate Rhythm: regular rhythm Heart sounds: no murmurs and normal S1 and S2 GI Palpation (GI): Soft to palpation, nontender, no hepatomegaly and no splenomegaly Auscultation: normal bowel sounds Skin General skin exam: no rashes or lesions noted and dry skin Neuro General: oriented to person, oriented to place and oriented to time Cranial nerves: Yes Equal, round and reactive pupils present Speech: No Abnormal speech present Gait exam (Neuro): Normal gait present Motor exam (neuro): no tremor noted Extrem Right upper extremity: full ROM Left upper extremity: full ROM Right lower extremity: full ROM; no edema Left lower extremity: full ROM; no edema Psych Mental Status: mental status grossly normal Speech and movement: Normal speech and movement present Affect: normal affect Attitude: cooperative Thought process: Normal thought process present Coding Level of Care Code Est Pt Level 3 (15542) Diagnoses Acute tonsillitis, unspecified etiology J03.90 Pharyngitis/tonsillitis etiology: unspecified etiology Lumbar spondylosis with myelopathy M47.16 Assessment & Plan Assessment & Plan (1) Acute tonsillitis: Code(s): J03.90 - Acute tonsillitis, unspecified Category: Medical Qualifiers: Pharyngitis/tonsillitis etiology: unspecified etiology Qualified Code(s): J03.90 - Acute tonsillitis, unspecified Plan: The patient will receive medication for potential tonsillar infection and inflammation, including a steroid taper to help reduce inflammation. He is informed that the steroid may temporarily elevate blood sugar levels. If there is no improvement, further imaging such as a CT scan of the neck and a referral to an ENT specialist may be necessary. (2) Lumbar spondylosis with myelopathy: Code(s): M47.16 - Other spondylosis with myelopathy, lumbar region Category: Medical Plan: PATIENT HAS CHRONIC LOWER LUMBAR AND CERVICAL SPINE PAIN. HE IS ASKING FOR SCRIPT FOR A SHOWER CHAIR TO HELP HIM REDUCE FALLS IN THE SHOWER DUE TO HIS CHRONIC LOWER BACK PAIN. Medications: New prednisone take 3 tabs x 3 days , take 2 tabs x 3 days , take 1 tabs x 3 days. 10 mg PO DIRECTED 18 tabs 0RF 9 days J03.90 - Acute tonsillitis, unspecified doxycycline monohydrate 100 mg PO BID 14 caps 0RF 7 days J03.90 - Acute tonsillitis, unspecified [shower chair] As directed 1 ea 0RF M47.16 - Other spondylosis with myelopathy, lumbar region
[2025-05-16 14:21] VITALS: BP 136/62; PULSE 83; TEMP 36.1; O2SAT 95; BMI 31.9
--- OUTSIDE RECORDS SUMMARY | 2025-05-16 17:03 | XMS_ITS | Patient Health Record ---
Author Organization [facility] Address [address] [address] Care Team Providers Care Donor Relations Associate Name Role Phone Deana Bryant MD Primary Care Provider Unavail naveen Green MD, William Unavailable [phone] Allergies Allergen (clinical drug ingredient) Drug/Non Drug [...] Status W/U Status Risk Notes Problem Constipation (30486506) Constipation, unspecified (K59.00) Active confirmed Problem Epigastric pain (71938149) Epigastric pain (R10.13) Active confirmed Severe episodes. Pt went to the ER recommended EGD to r.o ulcer since pain is not improving with medications and current tx . Will proceed with EGD since symptoms over 3 months will proceed with EUS Problem Diverticular disease of colon (852011256) Diverticula of colon (K57.30) Active confirmed csp Problem Rectal bleeding (96869786) Rectal bleeding (K62.5) Active confirmed Episodes after bowel movement / as per pt multiple episodes. Bright red blood (seen on pictures) no black stools. Severe constipation. Will proceed with lactulose / iron and hg WNL no recent episodes since last OV Problem Family History of Cancer of Colon (Situation) (783758663) Family history of colon cancer (Z80.0) Active confirmed mother 70s Problem Gastric polyp (36611475) Gastric polyp (K31.7) Active confirmed HP resected per egd Problem Altered bowel habits (14040498) Bowel habit changes (R19.4) Active confirmed constipation / poor response to miralax / will try lactulose controlled Problem Internal hemorrhoid (71290303) Internal hemorrhoid (K64.8) Active confirmed csp Problem Abnormal feces (000714051) Positive fecal occult blood test (R19.5) Active confirmed 01/2023 Csp done Problem Polyp colon (62784380) Colon polyp (D12.2) Active confirmed bx- HP --per csp . surveillance [address] no acute process no polyps seen per csp 01/2023 surveillance 5 y. Problem Pancreatitis (44922810) Pancreatitis (K85.10) Active confirmed as per pt will request records. (RECORDS of ct showed acute interstitial pancreatitis. Lipase 89 h, amylase wnl per labs . will proceed with EUS Problem Constipation (48080524) Constipation (K59.00) Active confirmed Problem Functional dyspepsia (5908224) Acid indigestion (K30) Active confirmed Problem Chronic gastritis (0362674) Chronic gastritis (K29.50) Active confirmed -per egd Problem Encounter to discuss colonoscopy results (Z71.2) Active confirmed Problem History of polyp of colon (situation) (177244269) Personal history of colon polyps (Z79.02) Active confirmed Plan Of Treatment Future Test Test Name Order Date AMYLASE AND LIPASE 05/19/2023 Comp. Metabolic Panel (14) 05/19/2023 Obtain old records 05/26/2023 Insurance Providers Payer Name Payer Address Payer Phone Subscriber Number Group Number Insured Name Patient Relationship to Insured Coverage Start Date Coverage End Date [employer] PLAN [address] [place] [address] [id number] JERAMY LINARES Self - patient is the insured 2 Medical (General) History Medical History History ICD Code Hypertension diabetes mellitus type 2 DiscHerriated Thyriod Cancer Surgical History Surgery Date(Month/Year) thyroid remove 2015 Right knee surgery 2017 Hospitalization History Reason Date(Month/Year) pancreatitis-[facility] 04/2023 chest pain -[facility] 01/2023 [facility] due to back injury 08/2020
--- OUTSIDE RECORDS SUMMARY | 2025-05-16 17:03 | XMS_ITS | Patient Health Record ---
Author Organization [facility] Address [address] [place] [address] Care Team Providers Care Peripheral Equipment Operator Name Role Phone Deana Bryant MD Primary Care Provider Unavail Yamila Marlow Unavailable [phone] Allergies Allergen (clinical drug ingredient) Drug/Non Drug [...] needed Inhalation every 6 hrs Active Ipratropium Wise 0.02 % 2.5 mL Inhala tion every [...] Problem Type II diabetes mellitus without complication (551058292) Type 2 diabetes mellitus without complications (E11.9) Active confirmed Problem Postoperative Hypothyroidism (17574525) Postprocedural hypothyroidism (E89.0) Active confirmed Problem 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) Active confirmed Problem Essential hypertension (57495504) Essential (primary) hypertension (I10) Active confirmed Problem Lumbosacral spondylosis without myelopathy (88111384) Other spondylosis, lumbosacral region (M47.897) Active confirmed Problem Spinal stenosis of lumbar region (07977141) Spinal stenosis, lumbosacral region (M48.07) Active confirmed Problem Lumbar radiculopathy (878289093) Radiculopathy, lumbar region (M54.16) Active confirmed Problem Paresthesia (finding) (57861739) Paresthesia of skin (R20.2) Active confirmed Problem History of malignant neoplasm of thyroid (756996261) Personal history of malignant neoplasm of thyroid (Z85.850) Active confirmed Problem Pain in lumbar spine (459916540) Vertebrogenic low back pain (M54.51) Active confirmed Problem Asthma (495107853) Asthma (J45.909) Active confirmed Plan Of Treatment Pending Test Test Name Order Date EMG/NCS RT lower ext 08/13/2022 Insurance Providers Payer Name Payer Address Payer Phone Subscriber Number Group Number Insured Name Patient Relationship to Insured Coverage Start Date Coverage End Date [facility] [address] [place] [phone] [id number] Jimmy Azevedo Self - patient is the insured Medical (General) History Medical History History ICD Code diabetes mellitus arterial hypertension hx of thyoid cancer - hypothyroidism asthma Surgical History Surgery Date(Month/Year) right knee surgery 2017 thyroidectomy 2016 shoulder replacement 2021 Right wrist surgery 02/06/2023 Hospitalization History Reason Date(Month/Year) back pain 06/2021
--- OUTSIDE RECORDS SUMMARY | 2025-05-16 17:03 | XMS_ITS | Patient Health Record ---
Author Organization [facility] Address [address] [place] [address] Care Team Providers Care Processing Assistant Name Role Phone CLAUDE CARVALHO MD [...] Status Risk Notes Problem Preoperative cardiovascular examination (810653305) Encounter for pre-operative cardiovascular clearance (Z01.810) Active confirmed Problem Essential hypertension (99611154) Essential hypertension (I10) Active confirmed Problem Dyslipidemia (241351211) Dyslipidemia (E78.5) Active confirmed Problem Acquired hypothyroidism (978581631) Acquired hypothyroidism (E03.9) Active confirmed Problem Obese class I (finding) (997946610031295) Obesity (BMI 30.0-34.9) (E66.9) Active confirmed Problem Body mass index 30.00 to 34.99 (776589055467042) Body mass index [BMI] 33.0-33.9, adult (Z68.33) Active confirmed Plan Of Treatment No Information Insurance Providers Payer Name Payer Address Payer Phone Subscriber Number Group Number Insured Name Patient Relationship to Insured Coverage Start Date Coverage End Date [employer] [facility] [address] [place] [address] [id number] ALONDRA [id number] Self - patient is the insured 1 Medical (General) History Medical History History ICD Code coronary artery disease heart diease angina Hypothyroidism type II diabetes dyslipidemia gastroesophageal reflux disease (GERD) morbid obesity Surgical History Surgery Date(Month/Year)
== END 2025-05-16 14:48 | disposition home or self-care (01) ==
LOC: HO.HMCH 14:06
PROVIDERS: PCP Physician Assistant; Visit Provider Physician Assistant
DX: J03.90 Acute tonsillitis, unspecified (principal); M47.16 Other spondylosis with myelopathy, lumbar region

== ENCOUNTER → 2025-05-16 14:05 | Outpatient (BNVA) | payer MEDICARE, MEDICAID, SELFPAY | PROVIDERS: PCP Physician Assistant; Visit Provider Physician Assistant | DX: M54.2 Cervicalgia (principal); M47.16 Other spondylosis with myelopathy, lumbar region; J03.90 Acute tonsillitis, unspecified; R13.10 Dysphagia, unspecified | CPT/HCPCS: 99212 ==

== ENCOUNTER 2025-05-22 09:10 | Outpatient (AMB) | payer MEDICARE, MEDICAID, SELFPAY ==
[2025-05-22 09:25] VITALS: BP 130/82; PULSE 84; BMI 32.2
--- NOTE | 2025-05-22 09:25 | A.OFFVIS_ITS ---
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 Operator Language: Supervisor Of Guidance And Testing Name: miguelina luna [id number] Allergies seafood Allergy (Severe, Verified 05/22/25 09:33) throat closes penicillin V Allergy (Intermediate, Verified 05/22/25 09:33) Rash Medication List - Last Reconciled 05/22/25 by RIGO ThomasC alcohol swabs (BD Alcohol Swabs) 1 pad topical DAILY 90 days amlodipine 5 mg PO DAILY 90 days aspirin (Adult Low Dose Aspirin) 81 mg PO DAILY atorvastatin (Lipitor) 80 mg PO BEDTIME cholecalciferol (vitamin D3) 1,250 mcg PO QWEEK ciclopirox 8% 1 appl topical DAILY 4 weeks doxycycline monohydrate 100 mg PO BID 7 days dulaglutide (Trulicity) 0.75 mg (0.5 mL) subcut QWEEK 4 weeks gabapentin 300 mg PO BID 30 days hydroxyzine HCl 25 mg PO DAILY PRN 90 days levothyroxine 50 mcg PO DAILY 90 days lisinopril-hydrochlorothiazide 20-12.5 mg 1 tab PO DAILY 90 days metoprolol succinate ER 50 mg PO DAILY prednisone 10 mg PO DIRECTED 9 days [shower chair As directed] HPI HPI 3 mth f/up: Details: Geovanna is a 60-year-old male with past medical history of hypertension, hyperlipidemia, diabetes, SD 2020, coronary artery disease, bicuspid aortic valve who presents for follow-up. Today he reports he had an episode of right-sided chest discomfort that lasted several hours causing him concern. This occurred last week and has not reoccurred since then. He has not had other chest discomfort at rest or with activity. He tells me that his younger sister recently of SD. He still gets shortness of breath if he climbs more than 1 flight of stairs. He tells me he walks frequently and tolerates it well. No PND, orthopnea or edema. No heart palpitations, lightheadedness, presyncope, syncope. Taking meds as directed. Trying to eat a well-balanced diet. Nonsmoker, social alcohol use. 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 PFSH Medical History Nail dystrophy Onychomycosis Mass of left testicle Thyroid disorder Diabetes Surgical History H/O hand surgery H/O shoulder surgery H/O neck surgery H/O right knee surgery Family History Sister Diabetes Brother Diabetes Mother Hypercholesteremia Pancreatic cancer Social History Housing: Apartment Are you a primary direct care specialist to a significant other at home: No Do you presently have visiting nurse or other home services: No Patient Tobacco Use Status: Never used Tobacco e-Cigarette/Vaping Use: Never Used Second Hand Smoke Exposure: No service: No Current occupational status: unemployed Cognitive needs: No Hearing needs: No Vision needs: Yes (Glasses) Review of Systems Const All systems reviewed & are unremarkable except as noted in HPI and below ENT Denies dizziness Card Reports chest pain, Reports chest pain at rest, Denies chest pain with activity, Denies rapid heart rate, Denies pedal edema, Denies edema, Denies leg edema, Denies lightheadedness, Denies palpitations, Denies dyspnea, Denies dyspnea on exertion and Denies orthopnea Resp Denies cough, Denies dyspnea and Denies dyspnea on exertion GI Denies hematochezia and Denies change in stool character Musc Denies abnormal gait, Denies limited range of motion, Denies muscle cramps, Denies muscle weakness, Denies numbness, Denies radiating pain into limb, Denies stiffness and Denies tingling Neuro Denies abnormal gait, Denies dizziness, Denies numbness and Denies tingling Endo Denies palpitations Physical Exam Vital Signs: Last Vital Signs Pulse 84 05/22/25 09:25 BP 130/82 05/22/25 09:25 BMI result Body Mass Index 32.2 Const General: cooperative, healthy appearing, comfortable and no acute distress Orientation/consciousness: patient oriented x3 Neck Neck: Yes normal visual inspection Resp Effort & Inspection: normal respiratory effort Auscultation: clear to auscultation bilaterally, no crackles, no rales, no rhonchi and no wheezes Cardio Rate: regular rate Rhythm: regular rhythm Heart sounds: S1 normal heart sound present, S2 normal heart sound present, no gallops, no murmurs and no rubs Skin General skin exam: no rashes or lesions noted Neuro General: patient oriented x3 Extrem General: Yes normal to inspection, No no pedal edema and No calf tenderness Psych Appearance: grossly normal Mental Status: mental status grossly normal Speech and movement: Normal speech and movement present Assessment & Plan Assessment & Plan (1) CAD (coronary artery disease): Code(s): I25.10 - Atherosclerotic heart disease of [place] coronary artery without angina pectoris Category: Medical Qualifiers: Associated angina: without angina Coronary Disease-Associated Artery/Lesion type: [place] artery [place] vs. transplanted heart: [place] heart Qualified Code(s): I25.10 - Atherosclerotic heart disease of [place] coronary artery without angina pectoris Plan: History of CAD with prior SD according to records from [place]. Cardiac catheterization has been completed however results are not available. He did not get coronary stent according to him. He does report an episode of atypical sounding chest discomfort occurring last week. His sister also reported of SD recently. Last Echocardiogram done 01/24/2025 shows EF 50-55%, no regional wall motion abnormalities, bicuspid aortic valve, ascending aorta 3.9 cm. With his chest discomfort, family history and low normal EF will check an exercise nuclear stress test to evaluate for any ischemia. Plan to call him with results. Continue with risk factor modification. Continue aspirin indefinitely. Continue atorvastatin with ideal LDL goal less than 70. Continue metoprolol. Signs and symptoms of angina reviewed. Cardiology follow-up 9 months, sooner if needed. (2) HTN (hypertension): Code(s): I10 - Essential (primary) hypertension Category: Medical Qualifiers: Hypertension type: secondary to endocrine disorders Qualified Code(s): I15.2 - Hypertension secondary to endocrine disorders Plan: Blood pressure goal less than 130/80. Blood pressure at goal today. No medication changes made. (3) Hyperlipidemia, unspecified: Code(s): E78.5 - Hyperlipidemia, unspecified Category: Medical Plan: [place] LDL goal less than 70 in patient with diabetes and CAD. Labs done 09/30/2024 showed LDL 106. Continue high-dose atorvastatin. Repeat fasting lipids is pending (4) Diabetes mellitus type 2 with complications: Comment: HLD and HTN Code(s): E11.8 - Type 2 diabetes mellitus with unspecified complications Category: Medical Plan: Hemoglobin A1c goal less than 7. Followed by PCP.. (5) Bicuspid aortic valve: Code(s): Q23.81 - Bicuspid aortic valve Category: Medical Plan: Recent echocardiogram is showing bicuspid aortic valve, with normal valve function. No murmur on examination. Reviewed this finding with him. Will plan for repeat echocardiogram prior to next visit to reassess EF as well as valve. (6) Chest discomfort: Code(s): R07.89 - Other chest pain Category: Medical Plan: As above Plan I discussed with the patient the importance of monitoring his bicuspid aortic valve with regular echocardiograms to detect any potential stenosis early. We also talked about the need for a stress test to evaluate his cardiac health, given his history of myocardial infarction. I emphasized the importance of reporting any new or recurrent symptoms, particularly chest discomfort during physical activity, and maintaining adherence to his medication regimen. Orders: Orders CA stress test Today I15.2 - Hypertension secondary to endocrine disorders, I25.10 - Atherosclerotic heart disease of [place] coronary artery without angina pectoris, R07.89 - Other chest pain NM cardiolite stress test Today I15.2 - Hypertension secondary to endocrine disorders, I25.10 - Atherosclerotic heart disease of [place] coronary artery without angina pectoris, R07.89 - Other chest pain CA echo transthoracic complete 01/15/26 I15.2 - Hypertension secondary to endocrine disorders, Q23.81 - Bicuspid aortic valve Patient Instructions: - Continue taking prescribed medications as directed. - Stay physically active, but report any chest discomfort during exercise. - Attend nuclear stress test appnt and follow-up echocardiogram next January. - Notify the healthcare provider of any new or worsening symptoms. Patient was informed and verbally consented to the use of an ambient scribe for clinic note documentation during this visit. Visit time spent on chart review, interview, assessment, orders, documentation. Coding Level of Care Code Est Pt Level 4 (84296) Complex EM visit Add On G2211 Diagnoses Coronary artery disease involving [place] coronary artery of [place] heart without angina pectoris I25.10 Associated angina: without angina Coronary Disease-Associated Artery/Lesion type: [place] artery [place] vs. transplanted heart: [place] heart Hypertension due to endocrine disorder I15.2 Hypertension type: secondary to endocrine disorders Hyperlipidemia, unspecified E78.5 Diabetes mellitus type 2 with complications E11.8 Bicuspid aortic valve Q23.81 Chest discomfort R07.89 Time Spent (min) 28
== END 2025-05-22 10:07 | disposition home or self-care (01) ==
LOC: HO.HCS 09:11
PROVIDERS: PCP Physician Assistant; Visit Provider Nurse Practitioner Family
DX: I25.10 Atherosclerotic heart disease of native coronary artery without angina pectoris (principal); I15.2 Hypertension secondary to endocrine disorders; E78.5 Hyperlipidemia, unspecified; E11.8 Type 2 diabetes mellitus with unspecified complications; Q23.81 Bicuspid aortic valve; R07.89 Other chest pain
CPT/HCPCS: 99214; G2211

== ENCOUNTER → 2025-05-22 09:10 | Outpatient (BNVA) | payer MEDICARE, MEDICAID, SELFPAY | PROVIDERS: PCP Physician Assistant; Visit Provider Nurse Practitioner Family | DX: I25.10 Atherosclerotic heart disease of native coronary artery without angina pectoris (principal); I15.2 Hypertension secondary to endocrine disorders; E78.5 Hyperlipidemia, unspecified; E11.8 Type 2 diabetes mellitus with unspecified complications; R07.89 Other chest pain; Q23.81 Bicuspid aortic valve | CPT/HCPCS: 99212 ==

== ENCOUNTER 2025-06-13 09:22 | Outpatient (REF) | payer MEDICARE, MEDICAID, SELFPAY ==
[2025-06-13 09:40] LABS: MANUAL DIFF FLAG NO
[2025-06-13 10:02] LABS: Hematocrit 43.6 % (42.0-52.0); Hemoglobin 14.1 g/dl (14.0-18.0); Imm Gran Abs Auto 0.03 X10*3/uL (0.00-0.03); Imm Gran Pct Auto 0.5 % (0.0-0.4); Lymphocytes Absolute Auto 2.4 X10*3/uL (1.2-4.9); Mean Corpuscular HGB Conc 32.3 g/dl (31.0-36.0); Mean Corpuscular Hemoglobin 27.4 pg (27.0-33.0); Mean Corpuscular Volume 84.7 fL (80.0-98.0); NRBC Abs Auto 0.000 X10*3/uL (0.0-0.012); NRBC Pct Auto 0.0 /100WBC (0.0-0.2); Platelet Count 196 X10*3/uL (160-400); Red Blood Count 5.15 X10*6/uL (4.60-5.80); White Blood Count 6.3 X10*3/uL (4.8-10.8)
--- OUTSIDE RECORDS SUMMARY | 2025-06-13 10:12 | XMS_ITS | Patient Health Record ---
Author Organization [facility] Card[facility] Address [address] [place] [address] Care Team Providers Care Marketing Admin Name Role Phone CLAUDE CARVALHO MD Primary [...] Status Risk Notes Problem Preoperative cardiovascular examination (566358247) Encounter for pre-operative cardiovascular clearance (Z01.810) Active confirmed Problem Essential hypertension (12856524) Essential hypertension (I10) Active confirmed Problem Dyslipidemia (531493253) Dyslipidemia (E78.5) Active confirmed Problem Acquired hypothyroidism (420833023) Acquired hypothyroidism (E03.9) Active confirmed Problem Obese class I (finding) (069231440516807) Obesity (BMI 30.0-34.9) (E66.9) Active confirmed Problem Body mass index 30.00 to 34.99 (890793225541333) Body mass index [BMI] 33.0-33.9, adult (Z68.33) Active confirmed Plan Of Treatment No Information Insurance Providers Payer Name Payer Address Payer Phone Subscriber Number Group Number Insured Name Patient Relationship to Insured Coverage Start Date Coverage End Date Merchant [employer] [facility] [address] [place] [address] [id number] ALONDRA ZUNIGAIDADJERAMY Self - patient is the insured 1 Medical (General) History Medical History History ICD Code coronary artery disease heart diease angina Hypothyroidism type II diabetes dyslipidemia gastroesophageal reflux disease (GERD) morbid obesity Surgical History Surgery Date(Month/Year)
--- OUTSIDE RECORDS SUMMARY | 2025-06-13 10:12 | XMS_ITS | Patient Health Record ---
Author Organization [facility] Address [address] [place] [address] Care Team Providers Care Plaster Mixer Name Role Phone Deana Bryant MD Primary Care Provider Unavail Yamila Marlow Unavailable [phone] Allergies Allergen (clinical drug ingredient) Drug/Non Drug [...] needed Inhalation every 6 hrs Active Ipratropium [place] 0.02 % 2.5 mL Inhala tion every [...] Problem Type II diabetes mellitus without complication (568607576) Type 2 diabetes mellitus without complications (E11.9) Active confirmed Problem Postoperative Hypothyroidism (87860764) Postprocedural hypothyroidism (E89.0) Active confirmed Problem 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) Active confirmed Problem Essential hypertension (96627235) Essential (primary) hypertension (I10) Active confirmed Problem Lumbosacral spondylosis without myelopathy (02661774) Other spondylosis, lumbosacral region (M47.897) Active confirmed Problem Spinal stenosis of lumbar region (05339331) Spinal stenosis, lumbosacral region (M48.07) Active confirmed Problem Lumbar radiculopathy (642082721) Radiculopathy, lumbar region (M54.16) Active confirmed Problem Paresthesia (finding) (89989298) Paresthesia of skin (R20.2) Active confirmed Problem History of malignant neoplasm of thyroid (617018509) Personal history of malignant neoplasm of thyroid (Z85.850) Active confirmed Problem Pain in lumbar spine (148703925) Vertebrogenic low back pain (M54.51) Active confirmed Problem Asthma (359133902) Asthma (J45.909) Active confirmed Plan Of Treatment Pending Test Test Name Order Date EMG/NCS RT lower ext 08/13/2022 Insurance Providers Payer Name Payer Address Payer Phone Subscriber Number Group Number Insured Name Patient Relationship to Insured Coverage Start Date Coverage End Date [facility] [address] [place] [address] [phone] [id number] Jimmy Azevedo Self - patient is the insured Medical (General) History Medical History History ICD Code diabetes mellitus arterial hypertension hx of thyoid cancer - hypothyroidism asthma Surgical History Surgery Date(Month/Year) right knee surgery 2017 thyroidectomy 2016 shoulder replacement 2021 Right wrist surgery 02/06/2023 Hospitalization History Reason Date(Month/Year) back pain 06/2021
--- OUTSIDE RECORDS SUMMARY | 2025-06-13 10:12 | XMS_ITS | Continuity of Care Document ---
Demographics Address [address] [place] [address] Home Phone Mobile Phone Preferred Language es Marital Status Unknown Sabianist Affiliation Unknown Race Unknown Additional Race(s) Other Race Ethnic Group or Author Organization [place] [facility], [facility] Address [address] [place] [address] Care Team Providers Care Broommaking Supervisor Name Role Phone JACK STAUFFER Primary Care Provider JACK STAUFFER Referring Provider [phone] Assessment No assessment recorded. Plan of Treatment Reminders Order Date Submit Date Provider Last Modified By Organization Details Last Modified Time Details Appointments Establish ed 30 2025 12:00P Patel Ragsdale MD Not available Not available Not available Lab None recorded. Referral None recorded. Procedures None recorded. Surgeries None recorded. Imaging CT, neck, soft tissue, w/ contrast 2024 025 [email or web address] [facility], [address] [place] [address], [id number], 04/25/2025 15:50:38 Medication Orders omeprazol e 20 mg tablet,de layed release [address] [facility], [address] [place] [address], [id number], 04/04/2025 14:44:26 Patient TargetsNo targets recorded. Patient InstructionsNo instructions recorded. Reason for Referral None Reported. Results Created Date Observation Date Name Description Value Unit Range Abnormal Flag Note LastModifiedBy Organization Detail LastModifiedTime 04/24/2004/19/2025 CT, neck, soft tissu e, w/ contr ast No observ ation record ed. [email or web address] [place] [address], [address], 05/01/2025 16:08:25 Result Notes None recorded. Problems Name Problem SNOMED Code Status Onset Date Resolution Date Notes Provider Name and Address Organization Details Recorded Time Abnormal auditory perception 24796711 Active 2024 MONICA MOORE MD [address] [address], [place], [phone], [facility] 09:52:01 Sensorineural hearing loss of bilateral ears 715849581 Active 2024 Janice hairston [place] [facility] 10:34:35 Chronic sore throat 507722902 Active 2024 NICANOR Ragsdale MD [address] [place] [address], [place], [address], [facility] - [facility] 14:32:28 Otalgia of right ear 8474266229 Active 2024 NICANOR Ragsdale MD [address] [place] [address], [place], [address], [facility] - [facility] 14:32:37 Gastroesophag eal reflux disease without esophagitis 585867267 Active 2024 Mica hairston [place] [facility] [place] 10:15:22 Dysphagia 28069723 Active 2024 NICANOR Rgasdale MD [address] [place] [address], [place], [address], [facility] - [facility] 14:38:08 Problem Notes None recorded. Procedures Surgical History Date Name Laterality Status Provider Name and Address Organization Details Recorded Time 04/04/20 25 FFL_RE completed NICANOR WEBBER MD [address] [place] [address], [phone], [facility] - [facility] 04/04/2025 14:44:16 09/12/19 25 Comp Audio with Tymps - 87450 & 45967 completed Janice Jay [place] [facility] 09/12/2024 10:34:30 thyroidectomy completed MONICA MOORE MD [address] [place] [address], [phone], [facility] - [facility] 09/12/2024 09:44:07 Imaging Results None recorded. Procedure Notes None recorded. Medical Equipment None Reported. Allergies Allergen ID Allergen Name Allergen Category Reaction Reaction Severity Criticality Documentation Date Start Date Code Code System Note Provider Name and Address Organization Details Recorded Time 025057 Product containin g penicilli n (product) medicatio n Not available Not available Not available 09/12/2024 64443 8001 SNOMED Edith hairston [place] [facility] 10:44:33 034011 shellfish derived food,medi cation Not available Not available Not available 09/12/2024 Edith hairston [facility] 10:44:54 Medications Name Sig Start Date Stop Date Status Note LastModified by Organization Details LastModified Time Prescription - Prior Authorization Request active Not Available Not Available Not Available atorvastatin 20 mg tablet Take 1 tablet every day by oral route. active Not Available Not Available No t Available Norvasc 10 mg tablet Take 1 tablet every day by oral route. active Not Available Not Available No t Available lisinopril 20 mg-hydrochlorot hiazide 12.5 mg tablet Take 1 tablet every day by oral route. active Not Available Not Available No t Available aspirin 81 mg tablet,delayed release Take 1 tablet every day by oral route. active Not Available Not Available No t Available omeprazole 10 mg capsule,delayed release 1 QDAY active Not Available Not Available Not Available metformin 1,000 mg tablet Take 1 tablet every day by oral route. active Not Available Not Available No t Available metoprolol tartrate 50 mg tablet Take 1 tablet every day by oral route. active Not Available Not Available No t Available omeprazole 20 mg capsule,delayed release Take 1 capsule every day by oral route before meal(s) for 30 days. 2024 active Not Available Not Available Not Avai lable omeprazole 20 mg tablet,delayed release TAKE 1 TABLET BY ORAL ROUTE. active Not Available Not Available No t Available Vitals Date Recorded Body height Body mass index (BMI) Body weight Provider Name and Address Organization Details Last Updated DateTime 04/04/2025 177.8 cm 30.1 kg/m2 92854.4 g Mica Yoo [place] [facility] 04/04/2025 13:51:11 Social History None recorded. Functional Status None recorded. Mental Status None recorded. Family History Nothing Reported. Medical History Condition Response Allergies/Hayfever N Heart Problems N Anxiety N Tonsil Infections N Emphysema N Thyroid Problems N COPD N Developmental Delay N Glaucoma N Anemia N Immune System Disorder N Anesthesia Complications N Heart Attack (PR) N Other Skin Condition N Diabetes Y Rhinitis N Bleeding Disorder N Food Allergy Y Hearing Loss N Arthritis Y Stroke N Nasal polyps N Asthma N Sleep Disorder N High Cholesterol N GERD/Reflux N Liver Disease N Headaches N Fibromyalgia N Hypertension Y Speech Delay N Kidney Disease N Past Encounters Encounter ID Performer Location Encounter Start Date Encounter Closed Date Diagnosis/Indication Diagnosis SNOMED-CT Code Diagnosis ICD10 Code Diagnosis IMO Codes Diagnosis Note [id number] NICANOR WEBBER MD [facility] [address] [address] 04/04/2025 13:32:26 04/04/2025 15:05:13 Chronic sore throat 618247738 J31.2 2579 Exam and laryngosco py were normal. I recommend a CT of the neck with contrast to rule out occult disease since he has had the symptoms chronicall y for about 6 months. Will plan a telehealth visit to review his CT scan. Otalgia of right ear 086 0201839 H92.01 [id number] Your exam was normal. May be referred pain from the throat. I will evaluate with a CT to exclude occult disease. Gastroesop hageal reflux disease without esophagitis 990923480 K21.9 780855 Exam was benign. Laryngosco py showed [place] ing. I feel the symptoms are likely due to extra esophageal reflux disease. We will begin a six-week trial of omeprazole which was sent to their pharmacy. We will plan a follow up in 3-4 months to reassess. Health Concerns Section Related Observation LastModified by Organization Detai ls LastModified Time None Recorded Concern Status LastModified by Organization Details LastModified Time None Recorded Payers Encounter Date Sequence Insurance Name Policy Number Policy Barboza Covered Member ID Barboza Member ID Guarantor Name 04/04/2025 1 [place]ARE [place]: [facility] Jimmy Blumidad [id number] Jimmy Carrion ad 04/04/2025 2 [place] [facility] Jimmy Harkins [id number] Jimmy Carrion ad Notes Date Note Type Note Provider Name and Address Organization Details Recorded Time 04/04/2025 text/html ROS as noted in the HPI He was seen 09/2024 for right ear and neck pain. It worsened in March and he presents for reevaluation. He has pain which keeps him up in his right neck and ear. He does not smoke. He has some discomfort on the right when he swallows. He denies dysphagia to liquids and solids but sometimes has discomfort after. He has occasional hoarseness. Denies heartburn. NICANOR WEBBER MD [address] [place] [address], [phone] [place] [facility] 04/04/2025 14:44:21
--- OUTSIDE RECORDS SUMMARY | 2025-06-13 10:13 | XMS_ITS | Data Portability ---
Demographics Address [address] [place] [address] Home Phone Mobile Phone Preferred Language es Marital Status Unknown Hoahaoism Affiliation Unknown Race Unknown Additional Race(s) Other Race Ethnic Group or Author Organization [place] - [facility], Allergy Address [address] [address] Care Team Providers Care Project Buyer Name Role Phone JACK STAUFFER Primary Care Provider JACK STAUFFER Referring Provider [phone] Assessment Encounter Date Assessment Date Assessment LastModified by Organization Details LastModified Time 09/12/2024 09/12/2024 Recommendatio ns: Follow up with referring provider. [email or web address] Not available 09/12/2024 10:34:13 Plan of Treatment Reminders Order Date Submit Date Provider Last Modified By Organization Details Last Modified Time Details Appointments Establish ed 30 2025 12:00P M NICANOR aRgsdale MD Not available Not available Not available Lab None recorded. Referral None recorded. Procedures None recorded. Surgeries None recorded. Imaging CT, neck, soft tissue, w/ contrast 2024 025 [email or web address] [facility], [address] [place] [address] 101, [place], [address], 04/25/2025 15:50:38 Medication Orders omeprazol e 20 mg tablet,de layed release 2024 025 [facility] [address], [address] [place] [address], [place], [address], 04/04/2025 14:44:26 Patient TargetsNo targets recorded. Patient InstructionsNo instructions recorded. Reason for Referral None Reported. Results Created Date Observation Date Name Description Value Unit Range Abnormal Flag Note LastModifiedBy Organization Detail LastModifiedTime 09/12/19 25 audio gram No observ ation record ed. BARCODE Not Available 2024 18:19:20 04/24/20 25 04/19/2025 CT, neck, soft tissu e, w/ contr ast No observ ation record ed. earle [facility] 36[address] [facility] [address], [place], [address], 05/01/2025 16:08:25 Result Notes None recorded. Problems Name Problem SNOMED Code Status Onset Date Resolution Date Notes Provider Name and Address Organization Details Recorded Time Abnormal auditory perception 16965363 Active 2024 MONICA MOORE MD 100 [facility] 100, [facility] [place], [address], [facility] - [facility] 09:52:01 Sensorineural hearing loss of bilateral ears 675383709 Active 2024 Janice hairston [place] - [facility] 10:34:35 Chronic sore throat 857300607 Active 2024 NICANOR Ragsdale MD [address] [place] [address], [facility] [place], [address], [facility] - [facility] 14:32:28 Otalgia of right ear 1800193513 Active 2024 NICANOR Ragsdale MD [address] [place] [address], [facility] [place], [address], [place] - [facility] 14:32:37 Gastroesophag eal reflux disease without esophagitis 638989969 Active 2024 Mica hairston [place] - [facility] 10:15:22 Dysphagia 78541968 Active 2024 NICANOR Ragsdale MD [address] [place] [address], [facility] [place], [address], [facility] - [facility] 14:38:08 Problem Notes None recorded. Procedures Surgical History Date Name Laterality Status Provider Name and Address Organization Details Recorded Time 04/04/20 25 FFL_RE completed NICANOR WEBBER MD [address] [place], [place] [address], [place], [address], [facility] - [facility] 04/04/2025 14:44:16 09/12/19 25 Comp Audio with Tymps - 08532 & 09276 completed Janice Jay [place] - [facility] 09/12/2024 10:34:30 thyroidectomy completed MONICA MOORE MD 100 [facility],[address], [address], [facility] - [facility] 09/12/2024 09:44:07 Imaging Results None recorded. Procedure Notes None recorded. Medical Equipment None Reported. Allergies Allergen ID Allergen Name Allergen Category Reaction Reaction Severity Criticality Documentation Date Start Date Code Code System Note Provider Name and Address Organization Details Recorded Time 113565 Product containin g penicilli n (product) medicatio n Not available Not available Not available 09/12/2024 16204 8001 SNOMED Edith hairston [place] - [facility] 5 10:44:33 150822 shellfish derived food,medi cation Not available Not available Not available 09/12/2024 Edith hairston [facility] 10:44:54 Medications Name Sig Start Date Stop [...] and Address Organization Details Last Updated DateTime 09/12/2024 177.8 cm 30.1 kg/m2 16790.4 g Edith Downingtara [facility] 09/12/2024 09:42:00 Date Recorded Body height Body mass index (BMI) Body weight Provider Name and Address Organization Details Last Updated DateTime 04/04/2025 177.8 cm 30.1 kg/m2 21170.4 g Mica Naila [facility] 04/04/2025 13:51:11 Social History None recorded. Functional [...] ICD10 Code Diagnosis IMO Codes Diagnosis Note [id number] MONICA MOORE MD [facility] [address] [address] 09/12/2024 09:37:27 09/12/2024 11:03:17 Abnormal auditory perception 14361557 H93.299 59 yo M presents for assessment of ear pressure. Previously had sore throat associated with tonsilliti s but this has resolved. Ear exam is normal. Audiometri c testing showed normal sloping to moderate SNHL bilaterall y. I recommende d amplificat ion and gave clearance. We discussed that clenching can also contribute to ear pressure. Follow up for new or worsening symptoms. Sensorineu ral hearing loss of bilateral ears 357269055 H90.3 Audiologic al evaluation results: Right ear: Normal sloping to a moderate sensorineu ral hearing loss with excellent word recognitio n. Left ear: Normal sloping to a moderate sensorineu ral hearing loss with excellent word recognitio n. Tympanomet ry: Right Ear:Type A Left Ear:Type A 80882 SARAH MUELLER [facility] [address] [address] 09/12/2024 10:31:54 09/13/2024 07:08:58 Sensorineural hearing loss of bilateral ears 785328336 H90.3 Audiologic al evaluation results: Right ear: Normal sloping to a moderate sensorineu ral hearing loss with excellent word recognitio n. Left ear: Normal sloping to a moderate sensorineu ral hearing loss with excellent word recognitio n. Tympanomet ry: Right Ear:Type A Left Ear:Type A 25231 NICANOR WEBBER MD [facility] [address] [place] [address] 04/04/2025 13:32:26 04/04/2025 15:05:13 Chronic sore throat 241470989 J31.2 2579 Exam and laryngosco py were normal. I recommend a CT of the neck with contrast to rule out occult disease since he has had the symptoms chronicall y for about 6 months. Will plan a telehealth visit to review his CT scan. Otalgia of right ear 821 8661487 H92.01 0137145 Your exam was normal. May be referred pain from the throat. I will evaluate with a CT to exclude occult disease. Gastroesop hageal reflux disease without esophagitis 734252866 K21.9 228746 Exam was benign. Laryngosco py showed cobbleston [...] by Organization Details LastModified Time None Recorded Advance Directives Directive None Recorded Payers Insurance Date Sequence Insurance Name Policy Number Policy Barboza Covered Member ID Barboza Member ID Guarantor Name 04/17/2025 1 [place]IANA oropeza Trindad [id number] Jimmy Carrion ad 04/17/2025 1 [place] B[place] [facility] Jimmy Cornejo [id number] Jimmy Carrion ad 04/17/2025 2 [place] [facility] Jimmy Harkins [id number] Jimmy Carrion ad Notes Date Note Type Note Provider Name and Address Organization Details Recorded Time 09/12/2024 text/html ROS as noted in the HPI 59 yo M presents for ear and throat pain on the right. Tried to schedule last year and could not hear well. Hearing was worse on the right. Sometimes on the left. No pain today. Previously had abx for the tonsils which helped. Today, on the right, feels pressure and on the left hears well. No ear pain. No allergies. No HB. No trouble swallowing. Does clench the teeth. No mouth guard. MONICA MOORE MD 100 [facility],[address], [address], [place] - [facility] 09/12/2024 11:20:09 04/04/2025 text/html ROS as noted in the [...] occasional hoarseness. Denies heartburn. NICANOR WEBBER MD [address] [place] [address],[address], [address], [place] - [facility] 04/04/2025 14:44:21
--- OUTSIDE RECORDS SUMMARY | 2025-06-13 10:13 | XMS_ITS | Patient Health Record ---
Author Organization [facility] Address [address] [address] Care Team Providers Care Seat Cover Maker Name Role Phone Deana Bryant MD Primary Care Provider Unavail naveen Green MD, William Unavailable [phone] Allergies Allergen (clinical drug ingredient) Drug/Non Drug [...] Status W/U Status Risk Notes Problem Constipation (27119006) Constipation, unspecified (K59.00) Active confirmed Problem Epigastric pain (94947504) Epigastric pain (R10.13) Active confirmed Severe episodes. Pt went to the ER recommended EGD to r.o ulcer since pain is not improving with medications and current tx . Will proceed with EGD since symptoms over 3 months will proceed with EUS Problem Diverticular disease of colon (177902721) Diverticula of colon (K57.30) Active confirmed csp Problem Rectal bleeding (05899842) Rectal bleeding (K62.5) Active confirmed Episodes after bowel movement / as per pt multiple episodes. Bright red blood (seen on pictures) no black stools. Severe constipation. Will proceed with lactulose / iron and hg WNL no recent episodes since last OV Problem Family History of Cancer of Colon (Situation) (454839236) Family history of colon cancer (Z80.0) Active confirmed mother 70s Problem Gastric polyp (19843659) Gastric polyp (K31.7) Active confirmed HP resected per egd Problem Altered bowel habits (88802033) Bowel habit changes (R19.4) Active confirmed constipation / poor response to miralax / will try lactulose controlled Problem Internal hemorrhoid (75524173) Internal hemorrhoid (K64.8) Active confirmed csp Problem Abnormal feces (885550337) Positive fecal occult blood test (R19.5) Active confirmed 01/2023 Csp done Problem Polyp colon (58483438) Colon polyp (D12.2) Active confirmed bx- HP --per csp . surveillance [address] no acute process no polyps seen per csp 01/2023 surveillance 5 y. Problem Pancreatitis (88012693) Pancreatitis (K85.10) Active confirmed as per pt will request records. (RECORDS of ct showed acute interstitial pancreatitis. Lipase 89 h, amylase wnl per labs . will proceed with EUS Problem Constipation (61117173) Constipation (K59.00) Active confirmed Problem Functional dyspepsia (4834459) Acid indigestion (K30) Active confirmed Problem Chronic gastritis (1380021) Chronic gastritis (K29.50) Active confirmed -per egd Problem Encounter to discuss colonoscopy results (Z71.2) Active confirmed Problem History of polyp of colon (situation) (105638175) Personal history of colon polyps (Z79.02) Active confirmed Plan Of Treatment Future Test Test Name Order Date AMYLASE AND LIPASE 05/19/2023 Comp. Metabolic Panel (14) 05/19/2023 Obtain old records 05/26/2023 Insurance Providers Payer Name Payer Address Payer Phone Subscriber Number Group Number Insured Name Patient Relationship to Insured Coverage Start Date Coverage End Date [employer] PLAN [address] [place] [address] [id number] JERAMY LINARES Self - patient is the insured 2 Medical (General) History Medical History History ICD Code Hypertension diabetes mellitus type 2 DiscHerriated Thyriod Cancer Surgical History Surgery Date(Month/Year) Right knee surgery 2017 thyroid remove 2015 Hospitalization History Reason Date(Month/Year) [facility]23 [facility] 01/2023 [facility] due to back injury 08/2020
[2025-06-13 10:51] LABS: Alanine Aminotransferase 32 U/L (0-40); Albumin Level 4.7 g/dL (3.5-5.0); Alkaline Phosphatase 87 U/L (39-117); Anion Gap 16 (12-20); Aspartate Amino Transferase 30 U/L (5-37); Blood Urea Nitrogen 19 mg/dL (9-16); Calcium 9.7 mg/dL (8.4-10.2); Carbon Dioxide 23 mmol/L (22-29); Chloride 107 mmol/L (96-108); Cholesterol 225 mg/dL (<200); Estimated Glomerular Filt Rate > 60; HDL Cholesterol 53 mg/dL (>40); Potassium 3.5 mmol/L (3.3-5.1); Sodium 142 mmol/L (135-145); Total Protein 7.6 g/dL (6.5-8.0); Triglycerides 98 mg/dL (<150)
[2025-06-13 11:45] LABS: Free T4 (Free Thyroxine) 0.70 ng/dL (0.71-1.85)
== END 2025-06-13 09:23 | disposition home or self-care (01) ==
LOC: HO.LAB 09:22
PROVIDERS: Absent Provider Physician Assistant; PCP Physician Assistant; Visit Provider Student in an Organized Health Care Education/Training Program
DX: Z12.5 Encounter for screening for malignant neoplasm of prostate (principal); I25.10 Atherosclerotic heart disease of native coronary artery without angina pectoris; E11.42 Type 2 diabetes mellitus with diabetic polyneuropathy; E11.51 Type 2 diabetes mellitus with diabetic peripheral angiopathy without gangrene; E03.9 Hypothyroidism, unspecified; B35.1 Tinea unguium; L60.3 Nail dystrophy
CPT/HCPCS: 36415; 80053; 80061; 83036; 84153; 84439; 84443; 85025

== ENCOUNTER 2025-06-19 08:36 | Outpatient (AMB) | payer MEDICARE, MEDICAID, SELFPAY ==
--- NOTE | 2025-06-19 08:45 | A.OFFVIS_ITS ---
Vital Signs 06/19/25 08:49 Height 5 ft 9 in Weight 217 lb BMI 32.0 Intake Visit Reasons: OV - Toe Nail infection Intake Note: Jimmy is a 60 year old male who presents today for a follow up on his onychomycosis. At his last visit he was prescribed Ciclopirox 8%. Patient states he has been using the medication daily and has seen a slight improvement. Rabbit Breeder Required: Yes Rabbit Breeder Services: Rabbit Breeder Present Rabbit Breeder Name: [id number] Allergies seafood Allergy (Severe, Verified 06/19/25 08:50) throat closes penicillin V Allergy (Intermediate, Verified 06/19/25 08:50) Rash HPI Comments Details: The patient is a 60-year-old male presenting with onychomycosis bilaterally. Patient states he has been applying the ciclopirox to the toenails and has noted minimal improvement. Patient states he recently started experiencing pain to the left hallucal nail in suspected an ingrown toenail to medial and lateral borders. Patient states that he cut his toenails himself but still feels some sensitivity in those areas. He denies any purulence, bleeding, or drainage from the left hallux.The patient has a history of diabetes mellitus, which he monitors regularly. He has not checked his blood sugar today due to skipping breakfast, but reports stable readings over the past few days, except for a recent episode of elevated levels due to a change in dosage of medication. He denies any other pedal concerns. He denies any new pedal injuries. [facility] Medical History Nail dystrophy Onychomycosis Mass of left testicle Thyroid disorder Diabetes Surgical History H/O hand surgery H/O shoulder surgery H/O neck surgery H/O right knee surgery Family History Sister Diabetes Brother Diabetes Mother Hypercholesteremia Pancreatic cancer Social History Housing: Apartment Are you a primary healthcare account manager to a significant other at home: No Do you presently have visiting nurse or other home services: No Patient Tobacco Use Status: Never used Tobacco e-Cigarette/Vaping Use: Never Used Second Hand Smoke Exposure: No service: No Current occupational status: unemployed Cognitive needs: No Hearing needs: No Vision needs: Yes (Glasses) Review of Systems Const Details: - Neurological: Experiences numbness and tingling in the feet. - Integumentary: Reports thickened, discolored, dystrophic toenails x10. All systems reviewed & are unremarkable except as noted in HPI and below Physical Exam Extrem Other: Bilateral lower extremity focused physical exam: Derm: Toenails noted to be thickened, elongated, dystrophic, and discolored with subungual debris worsened to bilateral toes 1 and 2. No open lesions abrasions or wounds noted. Skin supple and within normal limits. No clinical signs of infection. No ecchymosis or discoloration noted. Vascular: DP pulse palpable on the right PT pulse mildly palpable on the right. DP pulse nonpalpable on the left and PT pulses mildly palpable on the left. Capillary refill time less than 3 seconds. Temperature gradient warm to warm. Pedal hair noted to the proximal aspect of the legs and absent to the distal aspects of the legs and feet. No edema noted. No varicosities noted. Neuro: Protective sensation is grossly absent to bilateral feet-monofilament test conducted. MSK: Mild tenderness on palpation to the left hallux. No pain on palpation to remaining toes. No pain on palpation to the hindfoot or ankles bilaterally. Range of motion of the forefoot within normal limits. Range of motion of the hindfoot and ankle within normal limits. No crepitus or fluctuance noted. Mild Hammertoe deformities bilaterally. Nonantalgic gait noted. Class B and C findings noted. Office Procedures AMB Debridement/Avulsion Podia Details: Debrided toenails x10 using a sterile karen catalina and Dremel without incidents. 10339-Zduavlwveqb of Nail 6+ Procedure code (CPT) selection complete Results Reviewed Results Reviewed: Laboratory Tests 09/30/24 06/13/25 09:17 09:39 Random Glucose 161 H Hemoglobin A1c % 6.4 H 8.1 H Assessment & Plan Assessment & Plan (1) Diabetes mellitus type 2 with complications: Comment: HLD and HTN Code(s): E11.8 - Type 2 diabetes mellitus with unspecified complications Category: Medical (2) Diabetic peripheral neuropathy: Code(s): E11.42 - Type 2 diabetes mellitus with diabetic polyneuropathy Category: Medical (3) PVD (peripheral vascular disease): Comment: based on clinical exam, decreased PP bilat, hairless ankles, skin intact Monitor skin integrity Statin and ASA Code(s): I73.9 - Peripheral vascular disease, unspecified Category: Medical (4) Onychomycosis: Code(s): B35.1 - Tinea unguium Category: Medical (5) Nail dystrophy: Code(s): L60.3 - Nail dystrophy Category: Medical Plan Patient was informed and verbally consented to the use of an ambient scribe for clinic note documentation during this visit. I discussed with the patient the management of onychomycosis, emphasizing the importance of continuing the application of ciclopirox daily and the expected timeline for improvement. We also addressed the ingrown toenail which patient trimmed himself, advising the use of Epsom salt soaks and monitoring for infection. The patient was informed about the follow-up plan in nine weeks and the prescription refill process. - Refilled ciclopirox, to be applied daily with filing of the nails and between application. - Soak left foot in Epsom salt and warm water to reduce swelling and pain from previous ingrown toenail. - Monitor for signs of infection in the left hallucal nail area and contact clinic if symptoms develop. - Advised patient on wearing appropriate footwear to prevent injuries. Advised patient to monitor his feet daily and to avoid barefoot walking to prevent any ulcerations. - Continue diabetic management as per PCP. RTC in 9 weeks. Orders: Orders AMB Debridement/Avulsion Podiatry Today B35.1 - Tinea unguium, E11.42 - Type 2 diabetes mellitus with diabetic polyneuropathy, E11.8 - Type 2 diabetes mellitus with unspecified complications, I73.9 - Peripheral vascular disease, unspecified, L60.3 - Nail dystrophy Medications: New ciclopirox 8% 1 appl topical BEDTIME 6.6 mL 0RF Onychomycosis 4 weeks B35.1 - Tinea unguium, L60.3 - Nail dystrophy Discontinued nhgmjorsax-vkl-abptm-menth-euc 8 % Discontinued Reason: Doctor's Order APPLY 34.6 ML TOPICALLY ONCE DAILY FOR ONYCHOMYCOSIS. 35 mL 0RF B35.1 - Tinea unguium, L60.3 - Nail dystrophy Coding Level of Care Code Est Pt Level 4 (04192) Diagnoses Diabetes mellitus type 2 with complications E11.8 Diabetic peripheral neuropathy E11.42 PVD (peripheral vascular disease) I73.9 Onychomycosis B35.1 Nail dystrophy L60.3 CPT Codes Skin Debridement - CPT: 62979-Pegpfmfokrf of Nail 6+ ([id number]) Time Spent (min) 40 Comment 10 mins for procedure
[2025-06-19 08:49] VITALS: BMI 32.0
== END 2025-06-19 09:01 | disposition home or self-care (01) ==
LOC: HO.HPODS 08:36
PROVIDERS: PCP Physician Assistant; Visit Provider Student in an Organized Health Care Education/Training Program
DX: E11.8 Type 2 diabetes mellitus with unspecified complications (principal); E11.42 Type 2 diabetes mellitus with diabetic polyneuropathy; I73.9 Peripheral vascular disease, unspecified; B35.1 Tinea unguium; L60.3 Nail dystrophy
CPT/HCPCS: 11721; 99214

== ENCOUNTER → 2025-06-19 08:36 | Outpatient (BNVA) | payer MEDICARE, MEDICAID, SELFPAY | PROVIDERS: PCP Physician Assistant; Visit Provider Student in an Organized Health Care Education/Training Program | DX: L60.3 Nail dystrophy (principal); E11.42 Type 2 diabetes mellitus with diabetic polyneuropathy; I10 Essential (primary) hypertension; E11.8 Type 2 diabetes mellitus with unspecified complications; I73.9 Peripheral vascular disease, unspecified; B35.1 Tinea unguium | CPT/HCPCS: 11721; 99212 ==

== ENCOUNTER 2025-06-20 09:24 | Outpatient (AMB) | payer MEDICARE, MEDICAID, SELFPAY ==
--- NOTE | 2025-06-20 09:43 | A.OFFVIS_ITS ---
Intake Visit Reasons: 6m/ PSA Intake Note: Patient is present for 6 mo follow up Urology Medication:NONE Antibiotic Allergy:PENICILLIN V Blood Thinner:ASPIRIN TODAY'S PVR:42 ML'S Manager Dish Required: Yes Manager Dish Language: Omani Accompanied by: Self / Same As Patient Allergies seafood Allergy (Severe, Verified 06/20/25 09:44) throat closes penicillin V Allergy (Intermediate, Verified 06/20/25 09:44) Rash HPI Comments Details: Jimmy is a Omani-speaking male. He is a patient of Dr. Briscoe. He is seen for the following urologic conditions - lower urinary tract symptoms in setting of diabetes - stress and urge incontinence fire chief's aide provided by qualified medical claims assistant Six-month follow-up from [facility] procedure PSA low Experiencing good flow and minimal nocturia Move to 12 month follow-up schedule Lower urinary tract symptoms Was placed on finasteride while in [place] - Also on tamsulosin Prior procedure on left testicle PSA 01/24 1.1, 06/27 0.7 [facility] Medical History Nail dystrophy Onychomycosis Mass of left testicle Thyroid disorder Diabetes Surgical History H/O hand surgery H/O shoulder surgery H/O neck surgery H/O right knee surgery Family History Sister Diabetes Brother Diabetes Mother Hypercholesteremia Pancreatic cancer Social History Housing: Apartment Are you a primary care assistant to a significant other at home: No Do you presently have visiting nurse or other home services: No Patient Tobacco Use Status: Never used Tobacco e-Cigarette/Vaping Use: Never Used Second Hand Smoke Exposure: No service: No Current occupational status: unemployed Cognitive needs: No Hearing needs: No Vision needs: Yes (Glasses) Review of Systems Const Denies chills and Denies fever(s) Card Reports no additional complaints and Denies syncope Resp Denies cough GI Denies abdominal pain and Denies heartburn Reports as per HPI and Denies change in libido Neuro Denies syncope Psych Denies change in libido Endo Denies change in libido Physical Exam Const General: cooperative, healthy appearing, comfortable and no acute distress Orientation/consciousness: patient oriented x3 HEENT Face and sinus: Yes normal facial exam Mouth: moist mucous membranes Neck Neck: Yes normal visual inspection, Yes full ROM and Yes trachea midline Chest Chest palpation & inspection: normal inspection of the chest Resp Effort & Inspection: normal respiratory effort, able to speak in complete sentences and no respiratory distress GI Inspection: Yes normal to inspection Back/Spine/Pelvis Cervical Spine: normal cervical lordosis Thoracic/Lumbar Spine: thoracic and lumbar spine normal to inspection Skin General skin exam: no rashes or lesions noted Neuro General: patient oriented x3, gait normal, tone normal and moves all extremities Extrem General: Yes normal to inspection and Yes capillary refill normal Office Procedures Post Void Residual Post Residual Void Post Void Residual (PVR): 42 [id number] Void Residual by ultrasound Results AMB Urinalysis, Automated UA Leukoctes 0 Julio/uL Last Edit by Darlene Winkler [facility] on 06/20/25 09:51 UA Nitrite Negative Last Edit by Darlene Winkler [facility] on 06/20/25 09:51 UA Urobilinogen 0.2 mg/dL Last Edit by Darlene Winkler [facility] on 06/20/25 09:51 UA Protein 0 mg/dL Last Edit by Darlene Winkler [facility] on 06/20/25 09:51 UA pH 6.0 Last Edit by Darlene Winkler [facility] on 06/20/25 09:51 UA Blood 0 Herman/uL Last Edit by Darlene Winkler [facility] on 06/20/25 09:51 UA Specific [place] 1.020 Last Edit by Darlene Winkler [facility] on 06/20/25 09:5 1 UA Ketone Negative Last Edit by Darlene Winkler [facility] on 06/20/25 09:51 UA Bilirubin 0 mg/dL Last Edit by Darlene Winkler [facility] on 06/20/25 09:51 UA Glucose 0 mg/dL Last Edit by Darlene Winkler [facility] on 06/20/25 09:51 Results Reviewed Results Reviewed: Laboratory Last Values Urine pH (Auto) 6.0 06/20/25 09:51 Specific [place] (Auto) 1.020 06/20/25 09:51 Urine Protein (Auto) 0 mg/dL 06/20/25 09:51 Glucose (UA)(Auto) 0 mg/dL 06/20/25 09:51 Urine Ketones (Auto) Negative 06/20/25 09:51 Urine Blood (Auto) 0 Herman/uL 06/20/25 09:51 Urine Nitrite (Auto) Negative 06/20/25 09:51 Urine Bilirubin (Auto) 0 mg/dL 06/20/25 09:51 Urine Urobilinogen (Auto) 0.2 mg/dL 06/20/25 09:51 Leukocyte Esterase (Auto) 0 Julio/uL 06/20/25 09:51 Assessment & Plan Assessment & Plan (1) BPH w urinary obs/LUTS: Code(s): N40.1 - Benign prostatic hyperplasia with lower urinary tract symptoms; N13.8 - Other obstructive and reflux uropathy Category: Medical (2) Mixed stress and urge urinary incontinence: Code(s): N39.46 - Mixed incontinence Category: Medical Plan Twelve month follow-up Patient Instructions: This note is constructed using voice recognition software. While every effort has been made to ensure accuracy classroom monitor errors may have been included. Imaging studies, laboratory and physical exam results were discussed and reviewed in detail. No major barriers to patient understanding were identified. An opportunity to ask questions regarding the treatment plan was provided. All questions were answered. The patient expressed understanding and agreement with the above treatment plan. The patient is aware they should contact our office by phone for worsening of their current condition or the appearance of new urologic symptoms. Compliance is encouraged with any medications and followup testing that is ordered. It is a privilege to participate in the urologic care of your patient. If you have any questions or concerns regarding treatment for the above conditions, or other urologic issues, please do not hesitate to contact me. The office telephone contact is [phone]. Sincerely, Dr Perico Truong MD, [facility] - Urology Compassionate Specialist Care for the Genitourinary System Coding Level of Care Code Est Pt Level 3 (32509) Complex EM visit Add On G2211 Diagnoses BPH w urinary obs/LUTS N40.1; N13.8 Mixed stress and urge urinary incontinence N39.46 CPT Codes Post Residual Void - PVR CPT Code: 12410-Xzqf Void Residual by ultrasound ([id number])
--- OUTSIDE RECORDS SUMMARY | 2025-06-20 19:33 | XMS_ITS | Continuity of Care Document ---
Demographics Address [address] [place] [address] Home Phone Mobile Phone Preferred Language es Marital Status Unknown Denominational Affiliation Unknown Race Unknown Additional Race(s) Other Race Ethnic Group or Author Organization [place] - [facility], [facility] Address [address] [place] [address] Care Team Providers Care Nursing Program Chair Name Role Phone JACK STAUFFER Primary Care Provider JACK STAUFFER Referring Provider [phone] Assessment No assessment recorded. Plan of Treatment Reminders Order Date Submit Date Provider Last Modified By Organization Details Last Modified Time Details Appointments Establish ed 30 2025 12:00P Patel Ragsdale MD Not available Not available Not available Lab None recorded. Referral None recorded. Procedures None recorded. Surgeries None recorded. Imaging CT, neck, soft tissue, w/ contrast 2024 025 [email or web address] [facility], [address] [place] [address], [address], 04/25/2025 15:50:38 Medication Orders omeprazol e 20 mg tablet,de layed release 2024 025 [facility], [address] [place] [address], [address], 04/04/2025 14:44:26 Patient TargetsNo targets recorded. Patient InstructionsNo instructions recorded. Reason for Referral None Reported. Results Created Date Observation Date Name Description Value Unit Range Abnormal Flag Note LastModifiedBy Organization Detail LastModifiedTime 04/24/2004/19/2025 CT, neck, soft tissu e, w/ contr ast No observ ation record ed. [email or web address] [facility] [address], [address], 05/01/2025 16:08:25 Result Notes None recorded. Problems Name Problem SNOMED Code Status Onset Date Resolution Date Notes Provider Name and Address Organization Details Recorded Time Abnormal auditory perception 66746266 Active 2024 MONICA MOORE MD [address] [address], [place], [address], [facility] - [facility] [place] 09:52:01 Sensorineural hearing loss of bilateral ears 214800242 Active 2024 Janice hairston [place] - [facility] [place] 10:34:35 Chronic sore throat 570908775 Active 2024 NICANOR Ragsdale MD [address] [place] [address], [place], [address], [facility] - [facility] [place] 14:32:28 Otalgia of right ear 6878846919 Active 2024 NICANOR Ragsdale MD [address] [place] [address], [place], [address], [facility] - [facility] [place] 14:32:37 Gastroesophag eal reflux disease without esophagitis 628314202 Active 2024 Mica hairston [place] - [facility] [place] 10:15:22 Dysphagia 14253388 Active 2024 NICANOR Ragsdale MD [address] [place] [address], [place], [address], [facility] - [facility] [place] 14:38:08 Problem Notes None recorded. Procedures Surgical History Date Name Laterality Status Provider Name and Address Organization Details Recorded Time 04/04/20 25 FFL_RE completed NICANOR WEBBER MD [address] [place] [address], [address], [facility] - [facility] [place] 04/04/2025 14:44:16 09/12/19 25 Comp Audio with Tymps - 45465 & 84612 completed Janice Jya [place] - [facility] 09/12/2024 10:34:30 thyroidectomy completed MONICA MOORE MD [address] [place] [address], [address], [facility] - [facility] 09/12/2024 09:44:07 Imaging Results None recorded. Procedure Notes None recorded. Medical Equipment None Reported. Allergies Allergen ID Allergen Name Allergen Category Reaction Reaction Severity Criticality Documentation Date Start Date Code Code System Note Provider Name and Address Organization Details Recorded Time 420532 Product containin g penicilli n (product) medicatio n Not available Not available Not available 09/12/2024 81642 8001 SNOMED Edith hairston [place] - [facility] 10:44:33 897004 shellfish derived food,medi cation Not available Not available Not available 09/12/2024 Edith hairston [facility] 10:44:54 Medications Name Sig Start Date Stop [...] Updated DateTime 04/04/2025 177.8 cm 30.1 kg/m2 71089.4 g Mica Yoo [place] - [facility] 04/04/2025 13:51:11 Social History None recorded. Functional Status None recorded. Mental Status None recorded. Family History Nothing Reported. Medical History Condition Response Allergies/Hayfever N Heart Problems N Anxiety N Tonsil Infections N Emphysema N Thyroid Problems N COPD N Developmental Delay N Glaucoma N Anemia N Immune System Disorder N Anesthesia Complications N Heart Attack (ND) N Other Skin Condition N Diabetes Y [...] ICD10 Code Diagnosis IMO Codes Diagnosis Note [id number] NICANOR WEBBER MD [facility] of [address] [address] 04/04/2025 13:32:26 04/04/2025 15:05:13 Chronic sore throat 101074515 J31.2 2579 Exam and laryngosco py were normal. I recommend a CT of the neck with contrast to rule out occult disease since he has had the symptoms chronicall y for about 6 months. Will plan a telehealth visit to review his CT scan. Otalgia of right ear 855 1306084 H92.01 [id number] Your exam was normal. May be referred pain from the throat. I will evaluate with a CT to exclude occult disease. Gastroesop hageal reflux disease without esophagitis 088375914 K21.9 [id number] Exam was benign. Laryngosco py showed cobbleston [...] ID Guarantor Name 04/04/2025 1 MEDICARE B-[place]: [facility] Jimmy Blumidad [id number] Jimmy Carrion ad 04/04/2025 2 [place] [facility] Jimmy Harkins [id number] Jimmy Carrion ad Notes Date Note Type [...] occasional hoarseness. Denies heartburn. NICANOR WEBBER MD [address] [place] [address], [address] [place] - [facility] 04/04/2025 14:44:21
--- OUTSIDE RECORDS SUMMARY | 2025-06-20 19:34 | XMS_ITS | Data Portability ---
Demographics Address [address] [place] [address] Home Phone Mobile Phone Preferred Language es Marital Status Unknown Scientology Affiliation Unknown Race Unknown Additional Race(s) Other Race Ethnic Group or Author Organization [place] - [facility], Allergy Address [address] [address] Care Team Providers Care Supervisor Dry Paste Name Role Phone JACK STAUFFER Primary Care Provider [phone] JACK STAUFFER Referring Provider Assessment Encounter Date Assessment Date Assessment LastModified by Organization Details LastModified Time 09/12/2024 09/12/2024 Recommendatio ns: Follow up with referring provider. [email or web address] Not available 09/12/2024 10:34:13 Plan of Treatment Reminders Order Date Submit Date Provider Last Modified By Organization Details Last Modified Time Details Appointments Establish ed 30 2025 12:00P M NICANOR Ragsdale MD Not available Not available Not available Lab None recorded. Referral None recorded. Procedures None recorded. Surgeries None recorded. Imaging CT, neck, soft tissue, w/ contrast 2024 025 [facility], [address] [place] [address] [address], [place], [address], 04/25/2025 15:50:38 Medication Orders omeprazol e 20 mg tablet,de layed release 2024 025 [facility], [address] [place] [address], [place], [address], 04/04/2025 14:44:26 Patient TargetsNo targets recorded. Patient [...] observ ation record ed. [facility] 3640 [facility] 101, [place], [address], 05/01/2025 16:08:25 Result Notes None recorded. Problems Name Problem SNOMED Code Status Onset Date Resolution Date Notes Provider Name and Address Organization Details Recorded Time Abnormal auditory perception 78206754 Active 2024 MONICA MOORE MD 100 [facility] 100, [place], [address], [facility] - [facility] [place] 09:52:01 Sensorineural hearing loss of bilateral ears 678430552 Active 2024 Janice hairston [place] - [facility] [place] 10:34:35 Chronic sore throat 931997797 Active 2024 NICANOR Ragsdale MD [address] [place] [address], [place], [address], [facility] - [facility] [place] 14:32:28 Otalgia of right ear 5320734634 Active 2024 NICANOR Ragsdale MD [address] [place] [address], [place], [address], [place] - [facility] 14:32:37 Gastroesophag eal reflux disease without esophagitis 118240530 Active 2024 Mica hairston [place] - [facility] [place] 10:15:22 Dysphagia 04703613 Active 2024 NICANOR Ragsdale MD [address] [place] [address], [place], [address], [facility] - [facility] 14:38:08 Problem Notes None recorded. Procedures Surgical History Date Name Laterality Status Provider Name and Address Organization Details Recorded Time 04/04/20 25 FFL_RE completed NICANOR WEBBER MD [address] [place], [place] [address], [place], [address], [facility] - [facility] 04/04/2025 14:44:16 09/12/19 25 Comp Audio with Tymps - 68188 & 40086 completed Janice Jay [place] - [facility] 09/12/2024 10:34:30 thyroidectomy completed MONICA MOORE MD 100 [facility],[address], [address], [facility] - [facility] 09/12/2024 09:44:07 Imaging Results None recorded. Procedure Notes None recorded. Medical Equipment None Reported. Allergies Allergen ID Allergen Name Allergen Category Reaction Reaction Severity Criticality Documentation Date Start Date Code Code System Note Provider Name and Address Organization Details Recorded Time 368871 Product containin g penicilli n (product) medicatio n Not available Not available Not available 09/12/2024 80941 8001 SNOMED Edith hairston [place] - [facility] 5 10:44:33 089260 shellfish derived food,medi cation Not available Not available Not available 09/12/2024 Edith hairston [facility] 10:44:54 Medications Name Sig Start Date [...] Updated DateTime 09/12/2024 177.8 cm 30.1 kg/m2 07202.4 g Edith Downingtara [facility] 09/12/2024 09:42:00 Date Recorded Body height Body mass index (BMI) Body weight Provider Name and Address Organization Details Last Updated DateTime 04/04/2025 177.8 cm 30.1 kg/m2 61924.4 g Mica Naila [facility] 04/04/2025 13:51:11 Social History None recorded. Functional Status None recorded. Mental Status None recorded. Family History Nothing Reported. Medical History Condition Response Allergies/Hayfever N Heart Problems N Anxiety N Tonsil Infections N Emphysema N Thyroid Problems N Developmental Delay N Glaucoma N COPD N Anemia N Immune System Disorder N Anesthesia Complications N Heart Attack (NC) N Other Skin Condition N Diabetes Y Rhinitis N Bleeding Disorder N Food Allergy Y Hearing Loss N Arthritis Y Stroke N Nasal polyps N Asthma N High Cholesterol N Sleep Disorder N GERD/Reflux N Liver Disease N Headaches N Fibromyalgia N Hypertension Y Speech Delay N Kidney Disease N Past Encounters Encounter ID Performer Location Encounter Start Date Encounter Closed Date Diagnosis/Indication Diagnosis SNOMED-CT Code Diagnosis ICD10 Code Diagnosis IMO Codes Diagnosis Note [id number] MONICA MOORE MD [facility] [address] [address] 09/12/2024 09:37:27 09/12/2024 11:03:17 Abnormal auditory perception 04231064 H93.299 59 yo M presents for assessment [...] Sensorineu ral hearing loss of bilateral ears 091741117 H90.3 Audiologic al evaluation results: Right ear: Normal sloping to a moderate sensorineu ral hearing loss with excellent word recognitio n. Left ear: Normal sloping to a moderate sensorineu ral hearing loss with excellent word recognitio n. Tympanomet ry: Right Ear:Type A Left Ear:Type A [id number] SARAH MUELLER [facility] [address] [address] 09/12/2024 10:31:54 09/13/2024 07:08:58 Sensorineural hearing loss of bilateral ears 713234467 H90.3 Audiologic al evaluation results: Right ear: Normal sloping to a moderate sensorineu ral hearing loss with excellent word recognitio n. Left ear: Normal sloping to a moderate sensorineu ral hearing loss with excellent word recognitio n. Tympanomet ry: Right Ear:Type A Left Ear:Type A [id number] NICANOR WEBBER MD [facility] of [address] [place] [address] 04/04/2025 13:32:26 04/04/2025 15:05:13 Chronic sore throat 810811567 J31.2 2579 Exam and laryngosco py were normal. I recommend a CT of the neck with contrast to rule out occult disease since he has had the symptoms chronicall y for about 6 months. Will plan a telehealth visit to review his CT scan. Otalgia of right ear 844 4904277 H92.01 [id number] Your exam was normal. May be referred pain from the throat. I will evaluate with a CT to exclude occult disease. Gastroesop hageal reflux disease without esophagitis 581277520 K21.9 [id number] Exam was benign. Laryngosco py showed cobbleston [...] Name 04/17/2025 1 [place] oropeza Trindad [id number] Jimmy Carrion ad 04/17/2025 1 MEDICARE B-[place]: [facility] Jimmy Cornejo [id number] Jimmy Carrion ad 04/17/2025 2 [place] [facility] Jimmy Harkins [id number] Jimmy Carrion ad Notes Date Note Type [...] No mouth guard. MONICA MOORE MD 100 [facility],[address], [address], [place] - [facility] 09/12/2024 11:20:09 04/04/2025 text/html ROS as [...] occasional hoarseness. Denies heartburn. NICANOR WEBBER MD [address] [place] [address],[address], [address], [place] - [facility] 04/04/2025 14:44:21
== END 2025-06-20 10:14 | disposition home or self-care (01) ==
LOC: HO.HUSH 09:24
PROVIDERS: PCP Nurse Practitioner Family; Visit Provider Urology
DX: N40.1 Benign prostatic hyperplasia with lower urinary tract symptoms (principal); N13.8 Other obstructive and reflux uropathy; N39.46 Mixed incontinence
CPT/HCPCS: 99213; G2211

== ENCOUNTER → 2025-06-20 09:24 | Outpatient (BNVA) | payer MEDICARE, MEDICAID, SELFPAY | PROVIDERS: PCP Nurse Practitioner Family; Visit Provider Urology | DX: N40.1 Benign prostatic hyperplasia with lower urinary tract symptoms (principal); N39.46 Mixed incontinence; Z79.82 Long term (current) use of aspirin; N32.81 Overactive bladder | CPT/HCPCS: 51798; 99212 ==

== ENCOUNTER → 2025-06-23 08:54 | Outpatient (REF) | payer MEDICARE, MEDICAID, SELFPAY ==
--- OUTSIDE RECORDS SUMMARY | 2025-06-23 09:03 | XMS_ITS | Patient Health Record ---
Author Organization [facility] Address [address] [address] Care Team Providers Care Cardiovascular Or Nurse Name Role Phone Deana Bryant MD Primary Care Provider Unavail naveen Green MD, William Unavailable [phone] Allergies Allergen (clinical drug ingredient) Drug/Non Drug [...] Status W/U Status Risk Notes Problem Constipation (82215291) Constipation, unspecified (K59.00) Active confirmed Problem Epigastric pain (42296662) Epigastric pain (R10.13) Active confirmed Severe episodes. Pt went to the ER recommended EGD to r.o ulcer since pain is not improving with medications and current tx . Will proceed with EGD since symptoms over 3 months will proceed with EUS Problem Diverticular disease of colon (633864471) Diverticula of colon (K57.30) Active confirmed csp Problem Rectal bleeding (03852116) Rectal bleeding (K62.5) Active confirmed Episodes after bowel movement / as per pt multiple episodes. Bright red blood (seen on pictures) no black stools. Severe constipation. Will proceed with lactulose / iron and hg WNL no recent episodes since last OV Problem Family History of Cancer of Colon (Situation) (080884403) Family history of colon cancer (Z80.0) Active confirmed mother 70s Problem Gastric polyp (55831730) Gastric polyp (K31.7) Active confirmed HP resected per egd Problem Altered bowel habits (03497174) Bowel habit changes (R19.4) Active confirmed constipation / poor response to miralax / will try lactulose controlled Problem Internal hemorrhoid (52481014) Internal hemorrhoid (K64.8) Active confirmed csp Problem Abnormal feces (164090382) Positive fecal occult blood test (R19.5) Active confirmed 01/2023 Csp done Problem Polyp colon (41894311) Colon polyp (D12.2) Active confirmed bx- HP --per csp . surveillance [address] no acute process no polyps seen per csp 01/2023 surveillance 5 y. Problem Pancreatitis (64193422) Pancreatitis (K85.10) Active confirmed as per pt will request records. (RECORDS of ct showed acute interstitial pancreatitis. Lipase 89 h, amylase wnl per labs . will proceed with EUS Problem Constipation (26111787) Constipation (K59.00) Active confirmed Problem Functional dyspepsia (7537852) Acid indigestion (K30) Active confirmed Problem Chronic gastritis (2966654) Chronic gastritis (K29.50) Active confirmed -per egd Problem Encounter to discuss colonoscopy results (Z71.2) Active confirmed Problem History of polyp of colon (situation) (430825430) Personal history of colon polyps (Z79.02) Active confirmed Plan Of Treatment Future Test Test Name Order Date AMYLASE AND LIPASE 05/19/2023 Comp. Metabolic Panel (14) 05/19/2023 Obtain old records 05/26/2023 Insurance Providers Payer Name Payer Address Payer Phone Subscriber Number Group Number Insured Name Patient Relationship to Insured Coverage Start Date Coverage End Date [employer] [address] [place] [address] [phone] [id number] JERAMY LINARES Self - patient is the insured 2 Medical (General) History Medical History History ICD Code Hypertension diabetes mellitus type 2 DiscHerriated Thyriod Cancer Surgical History Surgery Date(Month/Year) thyroid remove 2015 Right knee surgery 2017 Hospitalization History Reason Date(Month/Year) pancreatitis-[facility] 04/2023 chest pain -[facility] 01/2023 [facility] due to back injury 08/2020
--- OUTSIDE RECORDS SUMMARY | 2025-06-23 09:03 | XMS_ITS | Patient Health Record ---
Author Organization [facility] Address [address] [place] [address] Care Team Providers Care Telephone Installer Name Role Phone Deana Bryant MD Primary Care Provider Unavail Yamila Marlow Unavailable [phone] Allergies Allergen (clinical drug ingredient) Drug/Non Drug [...] needed Inhalation every 6 hrs Active Ipratropium Clayton 0.02 % 2.5 mL Inhala tion every [...] Problem Type II diabetes mellitus without complication (339372174) Type 2 diabetes mellitus without complications (E11.9) Active confirmed Problem Postoperative Hypothyroidism (87034429) Postprocedural hypothyroidism (E89.0) Active confirmed Problem 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) Active confirmed Problem Essential hypertension (24864344) Essential (primary) hypertension (I10) Active confirmed Problem Lumbosacral spondylosis without myelopathy (11057808) Other spondylosis, lumbosacral region (M47.897) Active confirmed Problem Spinal stenosis of lumbar region (58876710) Spinal stenosis, lumbosacral region (M48.07) Active confirmed Problem Lumbar radiculopathy (467293294) Radiculopathy, lumbar region (M54.16) Active confirmed Problem Paresthesia (finding) (52773836) Paresthesia of skin (R20.2) Active confirmed Problem History of malignant neoplasm of thyroid (046944991) Personal history of malignant neoplasm of thyroid (Z85.850) Active confirmed Problem Pain in lumbar spine (788403659) Vertebrogenic low back pain (M54.51) Active confirmed Problem Asthma (704135900) Asthma (J45.909) Active confirmed Plan Of Treatment Pending Test Test Name Order Date EMG/NCS RT lower ext 08/13/2022 Insurance Providers Payer Name Payer Address Payer Phone Subscriber Number Group Number Insured Name Patient Relationship to Insured Coverage Start Date Coverage End Date [facility] [address] [place] [address] [id number] Jimmy Azevedo Self - patient is the insured Medical (General) History Medical History History ICD Code diabetes mellitus arterial hypertension hx of thyoid cancer - hypothyroidism asthma Surgical History Surgery Date(Month/Year) right knee surgery 2017 thyroidectomy 2016 shoulder replacement 2021 Right wrist surgery 02/06/2023 Hospitalization History Reason Date(Month/Year) back pain 06/2021
--- OUTSIDE RECORDS SUMMARY | 2025-06-23 09:03 | XMS_ITS | Patient Health Record ---
Author Organization [facility] Address [address] [place] [address] Care Team Providers Care Resident Care Supervisor Name Role Phone CLAUDE CARVALHO MD Primary [...] Status Risk Notes Problem Preoperative cardiovascular examination (675178598) Encounter for pre-operative cardiovascular clearance (Z01.810) Active confirmed Problem Essential hypertension (60417579) Essential hypertension (I10) Active confirmed Problem Dyslipidemia (651177845) Dyslipidemia (E78.5) Active confirmed Problem Acquired hypothyroidism (608400669) Acquired hypothyroidism (E03.9) Active confirmed Problem Obese class I (finding) (122720603698473) Obesity (BMI 30.0-34.9) (E66.9) Active confirmed Problem Body mass index 30.00 to 34.99 (710369363989504) Body mass index [BMI] 33.0-33.9, adult (Z68.33) Active confirmed Plan Of Treatment No Information Insurance Providers Payer Name Payer Address Payer Phone Subscriber Number Group Number Insured Name Patient Relationship to Insured Coverage Start Date Coverage End Date [employer] [address] [place] [address] [id number] ALONDRA ZUNIGAIDADJERAMY Self - patient is the insured 1 Medical (General) History Medical History History ICD Code coronary artery disease heart diease angina Hypothyroidism type II diabetes dyslipidemia gastroesophageal reflux disease (GERD) morbid obesity Surgical History Surgery Date(Month/Year)
--- OUTSIDE RECORDS SUMMARY | 2025-06-23 09:03 | XMS_ITS | Continuity of Care Document ---
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 Plan of Treatment Reminders Order Date Submit Date Provider Last Modified By Organization Details Last Modified Time Details Appointments Establish ed 30 2025 12:00P Patel Ragsdale MD Not available Not available Not available Lab None recorded. Referral None recorded. Procedures None recorded. Surgeries None recorded. Imaging CT, neck, soft tissue, w/ contrast 2024 025 [email or web address] [facility], [address] [place] [address], [address], 04/25/2025 15:50:38 Medication Orders omeprazol e 20 mg tablet,de layed release 2024 025 [facility], [address] [place] [address], [address], 04/04/2025 14:44:26 Patient TargetsNo targets recorded. Patient InstructionsNo instructions recorded. Reason for Referral None Reported. Results Created Date Observation Date Name Description Value Unit Range Abnormal Flag Note LastModifiedBy Organization Detail LastModifiedTime 04/24/2004/19/2025 CT, neck, soft tissu e, w/ contr ast No observ ation record ed. [email or web address] [facility] [place] [address], [address], 05/01/2025 16:08:25 Result Notes None recorded. Problems Name Problem SNOMED Code Status Onset Date Resolution Date Notes Provider Name and Address Organization Details Recorded Time Abnormal auditory perception 90815371 Active 2024 MONICA MOORE MD [address] [address], [place], [address], [facility] [place] 09:52:01 Sensorineural hearing loss of bilateral ears 411089673 Active 2024 Janice hairston [place] [facility] [place] 10:34:35 Chronic sore throat 616050520 Active 2024 NICANOR Ragsdale MD [address] [place] [address], [place], [address], [facility] - [facility] [place] 14:32:28 Otalgia of right ear 9371571580 Active 2024 NICANOR Ragsdale MD [address] [place] [address], [place], [address], [facility] - [facility] [place] 14:32:37 Gastroesophag eal reflux disease without esophagitis 458292117 Active 2024 Mica hairston [place] [facility] [place] 10:15:22 Dysphagia 27538030 Active 2024 NICANOR Ragsdale MD [address] [place] [address], [place], [address], [facility] - [facility] [place] 14:38:08 Problem Notes None recorded. Procedures Surgical History Date Name Laterality Status Provider Name and Address Organization Details Recorded Time 04/04/20 25 FFL_RE completed NICANOR WEBBER MD [address] [place] [address], [phone], [facility] - [facility] [place] 04/04/2025 14:44:16 09/12/19 25 Comp Audio with Tymps - 49559 & 82546 completed Janice Jay [place] [facility] [place] 09/12/2024 10:34:30 thyroidectomy completed MONICA MOORE MD [address] [place] [address], [phone], [facility] - [facility] 09/12/2024 09:44:07 Imaging Results None recorded. Procedure Notes None recorded. Medical Equipment None Reported. Allergies Allergen ID Allergen Name Allergen Category Reaction Reaction Severity Criticality Documentation Date Start Date Code Code System Note Provider Name and Address Organization Details Recorded Time 230126 Product containin g penicilli n (product) medicatio n Not available Not available Not available 09/12/2024 52759 8001 SNOMED Edith hairston [place] [facility] 10:44:33 813873 shellfish derived food,medi cation Not available Not available Not available 09/12/2024 Edith hairston [facility] 10:44:54 Medications Name Sig Start Date Stop [...] Updated DateTime 04/04/2025 177.8 cm 30.1 kg/m2 75405.4 g Mica Yoo [place] [facility] 04/04/2025 13:51:11 Social History None recorded. Functional Status None recorded. Mental Status None recorded. Family History Nothing Reported. Medical History Condition Response Allergies/Hayfever N Heart Problems N Anxiety N Tonsil Infections N Emphysema N Thyroid Problems N Developmental Delay N Glaucoma N COPD N Anemia N Immune System Disorder N Anesthesia Complications N Heart Attack (IN) N Other Skin Condition N Diabetes Y [...] ICD10 Code Diagnosis IMO Codes Diagnosis Note [id number] NICANOR WEBBER MD [facility] [address] [address] 04/04/2025 13:32:26 04/04/2025 15:05:13 Chronic sore throat 092037964 J31.2 2579 Exam and laryngosco py were normal. I recommend a CT of the neck with contrast to rule out occult disease since he has had the symptoms chronicall y for about 6 months. Will plan a telehealth visit to review his CT scan. Otalgia of right ear 754 2417077 H92.01 [id number] Your exam was normal. May be referred pain from the throat. I will evaluate with a CT to exclude occult disease. Gastroesop hageal reflux disease without esophagitis 320270849 K21.9 [id number] Exam was benign. Laryngosco py showed cobbleston [...] ID Guarantor Name 04/04/2025 1 MEDICARE B-[place]: [facility] Jimmy Blumidad [id number] Jimmy Carrion ad 04/04/2025 2 [place]: [facility] Jimmy Harkins [id number] Jimmy Carrion ad Notes Date Note Type [...] occasional hoarseness. Denies heartburn. NICANOR WEBBER MD [address] [place] [address], [phone] [place] [facility] 04/04/2025 14:44:21
== END ==
LOC: HO.CARD 08:54
PROVIDERS: PCP Physician Assistant; Visit Provider Nurse Practitioner Family
DX: Z13.89 Encounter for screening for other disorder (principal)

== ENCOUNTER 2025-07-05 07:05 | Outpatient (REF) | payer MEDICARE, MEDICAID, SELFPAY ==
--- NOTE | ~2025-07-05 | CT_ITS ---
EXAMINATION: CT SOFT TISSUE NECK WITH CONTRAST CLINICAL INFORMATION: Dysphagia, pharyngeal-esophageal phase. 60-year-old male. COMPARISON: No prior relevant imaging. TECHNIQUE: Following the intravenous administration of 60 mL of Omnipaque 350 intravenous contrast, helical imaging was performed in the axial plane with generation of coronal and sagittal reformatted images. This CT examination was performed using dose optimization techniques as appropriate, variously including the following: *Automated exposure control *Adjustment of mA and/or kV according to patient size (this includes techniques or standardized protocols for targeted exams where dose is matched to indication/reason for exam; i.e. extremities or head) *Use of iterative reconstruction technique FINDINGS: Lymph Nodes: -No abnormal lymphadenopathy present within the neck. Small reactive appearing anterior cervical chain nodes are present. Carotid Sheath Structures: -Minimal calcification of the carotid bulbs bilaterally. No gross stenosis appreciated. Carotid sheath structures otherwise normal. Salivary Glands: -Mild fatty replacement of the bilateral parotid glands. Submandibular glands appear normal. Sublingual glands appear normal. Tongue Base/Floor of Mouth: -Normal Mucosal Space: -There is no discrete abnormal enhancing mucosal space mass identified. There is mild fullness in the left glossotonsillar sulcus without evidence of abnormal enhancement. This is nonspecific. -Mild hypertrophy of the palatine tonsillar tissue is present bilaterally, consistent with reactive etiology. Visceral Space: -The thyroid gland is either absent or completely atrophic. -The larynx has a normal appearance. The true vocal cords are normal. -The subglottic trachea appears normal. -The cervical esophagus appears normal. Retropharangeal Space: -Normal. Parapharyngeal Fat Planes: -Normal. Data Storage Specialist Spaces: -Normal. Anterior Cervical Space: -Normal. Imaged Intracranial Contents: -No mass effect, edema, or abnormal enhancement. Cortical and dural venous sinuses are patent. The skull base is normal. Globes and Orbits: -Normal. Paranasal Sinuses/Mastoids/Tympanic Spaces: -Normally aerated bilaterally. Lung Apices and Superior Mediastinal Structures: -Imaged lung apices are clear and superior mediastinal structures are normal. Bony Structures: -No suspicious bone lesions. No fractures. -Normal TM joints. -Mild cervical degenerative disc changes present at C4-5 and C5-6. CT/CT soft tissue neck w IV con IMPRESSION: 1. No definite enhancing mass, abnormal lymph nodes, or abnormal fluid collection within the neck. 2. Mild fullness of the left glossotonsillar sulcus is noted, nonspecific. If there is clinical concern, direct visualization of this region is recommended. 3. Mild hypertrophy of the palatine tonsillar tissue, consistent with reactive etiology. 4. The thyroid is either absent or atrophic. Electronically signed by: Elijah Carbajal MD 07/05/2025 09:44 AM [facility]
--- OUTSIDE RECORDS SUMMARY | 2025-07-05 07:09 | XMS_ITS | Data Portability ---
Demographics Address [address] [place] [address] Home Phone Mobile Phone Preferred Language es Marital Status Unknown Latter-Day Affiliation Unknown Race Unknown Additional Race(s) Other Race Ethnic Group or Author Organization [place] [facility] Address [address] [address] Care Team Providers Care Weatherization Administrator Name Role Phone JACK STAUFFER Primary Care Provider JACK STAUFFER Referring Provider Assessment Encounter Date [...] neck, soft tissue, w/ contrast 2024 025 [email or web address] [facility] [place], [address] [place] [address], [place], [address], 04/25/2025 15:50:38 Medication Orders omeprazol e 20 mg tablet,de layed release 2024 025 [facility], [address] [place] [address], [place], [address], 04/04/2025 14:44:26 Patient TargetsNo targets recorded. Patient [...] observ ation record ed. [facility] [place] 36[address] [facility] 101, [place], [address], 05/01/2025 16:08:25 Result Notes None recorded. Problems Name Problem SNOMED Code Status Onset Date Resolution Date Notes Provider Name and Address Organization Details Recorded Time Abnormal auditory perception 57291764 Active 2024 MONICA MOORE MD 100 [facility] 100, [facility] [place], [address], [facility] [place] 09:52:01 Sensorineural hearing loss of bilateral ears 418070430 Active 2024 Janice hairston [place] [facility] [place] 10:34:35 Chronic sore throat 832918201 Active 2024 NICANOR Ragsdale MD [address] [place] [address], [facility] [place], [address], [facility] - [facility] [place] 14:32:28 Otalgia of right ear 8795656358 Active 2024 NICANOR Ragsdale MD [address] [place] [address], [place], [address], [place] [facility] [place] 14:32:37 Gastroesophag eal reflux disease without esophagitis 113284620 Active 2024 Mica hairston [place] [facility] [place] 10:15:22 Dysphagia 93117674 Active 2024 NICANOR Ragsdale MD [address] [place] [address], [place], [address], [facility] - [facility] [place] 14:38:08 Problem Notes None recorded. Procedures Surgical History Date Name Laterality Status Provider Name and Address Organization Details Recorded Time 04/04/20 25 FFL_RE completed NICANOR WEBBER MD [address] [place], [place] [address], [place], [address], [facility] - [facility] 04/04/2025 14:44:16 09/12/19 25 Comp Audio with Tymps - 49219 & 87372 completed Janice Jay [place] [facility] 09/12/2024 10:34:30 thyroidectomy completed MONICA MOORE MD 100 [facility],[address], [address], [facility] - [facility] 09/12/2024 09:44:07 Imaging Results None recorded. Procedure Notes None recorded. Medical Equipment None Reported. Allergies Allergen ID Allergen Name Allergen Category Reaction Reaction Severity Criticality Documentation Date Start Date Code Code System Note Provider Name and Address Organization Details Recorded Time 292465 Product containin g penicilli n (product) medicatio n Not available Not available Not available 09/12/2024 79830 8001 SNOMED Edith hairston [place] [facility] 5 10:44:33 980835 shellfish derived food,medi cation Not available Not available Not available 09/12/2024 Edith hairston [facility] 10:44:54 Medications Name Sig Start Date [...] Updated DateTime 09/12/2024 177.8 cm 30.1 kg/m2 51007.4 g Edith Downingtara [facility] 09/12/2024 09:42:00 Date Recorded Body height Body mass index (BMI) Body weight Provider Name and Address Organization Details Last Updated DateTime 04/04/2025 177.8 cm 30.1 kg/m2 16137.4 g Mica Naila [facility] 04/04/2025 13:51:11 Social History None recorded. Functional Status None recorded. Mental Status None recorded. Family History Nothing Reported. Medical History Condition Response Tonsil Infections N Emphysema N Glaucoma N COPD N Anesthesia Complications N Hearing Loss N Arthritis Y Stroke N High Cholesterol N Liver Disease N Headaches N Fibromyalgia N Speech Delay N Kidney Disease N Allergies/Hayfever N Heart Problems N Anxiety N Thyroid Problems N Developmental Delay N Anemia N Immune System Disorder N Heart Attack (ID) N Other Skin Condition N Diabetes Y Rhinitis N Bleeding Disorder N Food Allergy Y Nasal polyps N Asthma N Sleep Disorder N GERD/Reflux N Hypertension Y Past Encounters Encounter ID Performer Location Encounter Start Date Encounter Closed Date Diagnosis/Indication Diagnosis SNOMED-CT Code Diagnosis ICD10 Code Diagnosis IMO Codes Diagnosis Note [id number] MONICA MOORE MD [facility] of [address] [address] 09/12/2024 09:37:27 09/12/2024 11:03:17 Abnormal auditory perception 13806279 H93.299 59 yo M presents for assessment [...] Sensorineu ral hearing loss of bilateral ears 170460304 H90.3 Audiologic al evaluation results: Right ear: Normal sloping to a moderate sensorineu ral hearing loss with excellent word recognitio n. Left ear: Normal sloping to a moderate sensorineu ral hearing loss with excellent word recognitio n. Tympanomet ry: Right Ear:Type A Left Ear:Type A [id number] SARAH MUELLER [facility] of [address] [address] 09/12/2024 10:31:54 09/13/2024 07:08:58 Sensorineural hearing loss of bilateral ears 795478870 H90.3 Audiologic al evaluation results: Right ear: Normal sloping to a moderate sensorineu ral hearing loss with excellent word recognitio n. Left ear: Normal sloping to a moderate sensorineu ral hearing loss with excellent word recognitio n. Tympanomet ry: Right Ear:Type A Left Ear:Type A [id number] NICANOR WEBBER MD [facility] [address] [place] [address] 04/04/2025 13:32:26 04/04/2025 15:05:13 Chronic sore throat 496495523 J31.2 2579 Exam and laryngosco py were normal. I recommend a CT of the neck with contrast to rule out occult disease since he has had the symptoms chronicall y for about 6 months. Will plan a telehealth visit to review his CT scan. Otalgia of right ear 993 7126674 H92.01 [id number] Your exam was normal. May be referred pain from the throat. I will evaluate with a CT to exclude occult disease. Gastroesop hageal reflux disease without esophagitis 412611640 K21.9 [id number] Exam was benign. Laryngosco py showed cob[place] [...] Name 04/17/2025 1 [place]: [place]NA oropeza Trindad [id number] Jimmy Carrion ad 04/17/2025 1 MEDICARE B-[place]: [facility] Jimmy Cornejo [id number] Jimmy Carrion ad 04/17/2025 2 [place]: [facility] Jimmy Harkins [id number] Jimmy Carrion ad Notes Date Note Type [...] No mouth guard. MONICA MOORE MD 100 [facility],[address], [address], [place] [facility] 09/12/2024 11:20:09 04/04/2025 text/html ROS as [...] occasional hoarseness. Denies heartburn. NICANOR WEBBER MD [address] [place] [address],[address], [address], [place] [facility] 04/04/2025 14:44:21
[2025-07-05 07:32] LABS: Hematocrit 39.6 % (42.0-52.0); Hemoglobin 13.0 g/dl (14.0-18.0); Mean Corpuscular HGB Conc 32.8 g/dl (31.0-36.0); Mean Corpuscular Hemoglobin 27.5 pg (27.0-33.0); Mean Corpuscular Volume 83.9 fL (80.0-98.0); NRBC Abs Auto 0.000 X10*3/uL (0.0-0.012); NRBC Pct Auto 0.0 /100WBC (0.0-0.2); Platelet Count 199 X10*3/uL (160-400); Red Blood Count 4.72 X10*6/uL (4.60-5.80); White Blood Count 5.6 X10*3/uL (4.8-10.8)
[2025-07-05 07:53] LABS: Alanine Aminotransferase 18 U/L (0-40); Albumin Level 4.5 g/dL (3.5-5.0); Alkaline Phosphatase 76 U/L (39-117); Anion Gap 13 (12-20); Aspartate Amino Transferase 22 U/L (5-37); Blood Urea Nitrogen 23 mg/dL (9-16); Calcium 9.5 mg/dL (8.4-10.2); Carbon Dioxide 27 mmol/L (22-29); Chloride 109 mmol/L (96-108); Cholesterol 186 mg/dL (<200); Estimated Glomerular Filt Rate > 60; HDL Cholesterol 45 mg/dL (>40); Potassium 3.7 mmol/L (3.3-5.1); Sodium 145 mmol/L (135-145); Total Protein 6.8 g/dL (6.5-8.0); Triglycerides 82 mg/dL (<150)
[2025-07-05 08:22] LABS: Microalbum/Creatinine Ratio Ur 7.3 ug/mg cr (<30)
[2025-07-05] MEDS: iohexoL 350 MG/ML 100 ML INFUS..BTL IV (08:44)
[2025-07-05 09:23] LABS: Free T4 (Free Thyroxine) 1.02 ng/dL (0.71-1.85)
== END 2025-07-05 07:06 | disposition home or self-care (01) ==
LOC: HO.CT 07:05
PROVIDERS: PCP Physician Assistant; Visit Provider Physician Assistant
DX: E11.8 Type 2 diabetes mellitus with unspecified complications (principal); E03.9 Hypothyroidism, unspecified; I25.10 Atherosclerotic heart disease of native coronary artery without angina pectoris; E55.9 Vitamin D deficiency, unspecified; Z12.5 Encounter for screening for malignant neoplasm of prostate; N40.1 Benign prostatic hyperplasia with lower urinary tract symptoms; N13.8 Other obstructive and reflux uropathy; R13.14 Dysphagia, pharyngoesophageal phase; M54.2 Cervicalgia
CPT/HCPCS: 36415; 70491; 80053; 80061; 82043; 82306; 82570; 83036; 84153; 84439; 84443; 85027; Q9967

== ENCOUNTER → 2025-07-05 08:18 | Outpatient (BNV) | payer MEDICARE, MEDICAID, SELFPAY | PROVIDERS: PCP Physician Assistant; Visit Provider Radiology Diagnostic Radiology | DX: J35.01 Chronic tonsillitis (principal) | CPT/HCPCS: 70491 ==

== ENCOUNTER 2025-07-06 09:26 | Outpatient (AMB) | payer MEDICARE, MEDICAID, SELFPAY ==
--- NOTE | 2025-07-06 09:16 | MHC.PC.OV ---
Vital Signs 07/06/25 09:28 Height 5 ft 9 in Weight 215 lb BMI 31.7 BP 140/94 H Blood Pressure Location Lt brachial Position Sitting Respiration 16 Pulse 88 Pulse Source Pulse Oximeter Temp 97.1 F Temp Source Temporal Artery Scan Pulse Oximetry (%) 98 Oxygen Delivery Method Room Air Intake Visit Reasons: f/u DMII / HTN Biotech Production Specialist Required: No Biotech Production Specialist Name: ID ##[id number] Accompanied by: Self / Same As Patient Allergies seafood Allergy (Severe, Verified 07/06/25 09:43) throat closes penicillin V Allergy (Intermediate, Verified 07/06/25 09:43) Rash Medication List - Last Reconciled 07/06/25 by Zachary Roberto PA-C alcohol swabs (BD Alcohol Swabs) 1 pad topical DAILY 90 days amlodipine 5 mg PO DAILY 90 days aspirin (Adult Low Dose Aspirin) 81 mg PO DAILY atorvastatin (Lipitor) 80 mg PO BEDTIME cholecalciferol (vitamin D3) 1,250 mcg PO QWEEK ciclopirox 8% 1 appl topical BEDTIME 4 weeks dulaglutide (Trulicity) 0.75 mg (0.5 mL) subcut QWEEK 4 weeks fluticasone propionate 50 mcg/actuation sprays intranasal gabapentin 300 mg PO BID 30 days hydroxyzine HCl 25 mg PO DAILY PRN 90 days levothyroxine (Synthroid) 100 mcg PO DAILY 30 days lisinopril-hydrochlorothiazide 20-12.5 mg 1 tab PO DAILY 90 days lorazepam 1 mg PO DAILY PRN 2 days metoprolol succinate ER 50 mg PO DAILY naproxen 250 mg PO BID PRN [shower chair As directed] Tobacco use date assessed: 05/16/25 Dental Screening Dental Screen Date: 03/29/25 HPI f/u DMII / HTN HPI Details Patient is a 60 year-old Latvian-speaking male here today for a follow-up visit Patient is Latvian-speaking only thus used a remote mobile phlebotomist.. 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 concerns--> The patient has a history of thyroid cancer, for which he underwent surgery several years ago in [place]. He did not receive radiation therapy post-surgery. Recently, he experiences pain when swallowing, particularly with sugary foods, and reports intermittent choking sensations. The patient reports a two-week history of right-sided throat pain radiating to the ear. CT Soft tissue neck--> No definite enhancing mass, abnormal lymph nodes, or abnormal fluid collection within the neck. 2. Mild fullness of the left glossotonsillar sulcus is noted, nonspecific. If there is clinical concern, direct visualization of this region is recommended. 3. Mild hypertrophy of the palatine tonsillar tissue, consistent with reactive etiology. 4. The thyroid is either absent or atrophic .. .. Type 2 diabetes: Recent labs revealed a fasting blood sugar of 163 and a hemoglobin A1c of 8.0, indicating uncontrolled diabetes. He has a history of using Trulicity, starting at 0.75 mg and increasing to 1.5 mg, which had previously controlled his blood sugar effectively.. .. Hypothyroid: The patient has a history of an underactive thyroid and is currently taking levothyroxine (Synthroid) 100 mcg. He reports having previously been on a dose of 150 mcg. Recent labs from yesterday showed a TSH of 20, indicating his hypothyroidism is not well-controlled. .. Coronary artery disease:Has established care with [facility], He reports getting coronary artery evaluations in [place] though never needed a stent. His recent LDL elevated likely due to under active thyroid. We will continue current dose of high-dosestatin therapy, work on regaining his thyroid. .. Hypertension: Patient's blood pressure acceptable today in office. He continues on lisinopril hydrochlorothiazide . Laboratory Tests 09/30/24 11/07/24 06/13/25 09:17 12:43 09:39 Hgb Creatinine POC Glucose 108 Fasting Glucose Hemoglobin A1c % 8.1 H Cholesterol 165 225 H LDL Cholesterol, C alc 106 H 153 H 25-OH Vitamin D To mary TSH 31.54 H 07/05/25 07:22 Hgb 13.0 L Creatinine 1.18 POC Glucose Fasting Glucose 163 H Hemoglobin A1c % 8.0 H Cholesterol 186 LDL Cholesterol, C alc 125 H 25-OH Vitamin D To mary 20.1 L TSH 20.03 H PFSH Medical History Nail dystrophy Onychomycosis Mass of left testicle Thyroid disorder Diabetes Surgical History H/O hand surgery H/O shoulder surgery H/O neck surgery H/O right knee surgery Family History Sister Diabetes Brother Diabetes Mother Hypercholesteremia Pancreatic cancer Social History Housing: Apartment Are you a primary vocational childcare teacher to a significant other at home: No Do you presently have visiting nurse or other home services: No Patient Tobacco Use Status: Never used Tobacco e-Cigarette/Vaping Use: Never Used Second Hand Smoke Exposure: No service: No Current occupational status: unemployed Cognitive needs: No Hearing needs: No Vision needs: Yes (Glasses) Questionnaire Thrive Questionnaire Date Thrive assessed: 08/10/24 AUDIT C Alcohol Use Questionnaire (AUDIT-C) 1. How often do you have a drink containing alcohol?: Never 3. How often do you have six or more drinks on one occasion?: Never Total Score: 0 ALBINO-7 AMB Questionnaire ALBINO-7 Date ALBINO - 7 assessed: 08/10/24 Source: Developed by Drs. Vincent Washington, Yana Brown, Estiven Mckinney and colleagues, with an educational rodney from [employer]. Review of Systems Const Denies headache(s) Eyes Denies loss of vision ENT Denies vertigo, Denies dizziness, Denies headache(s), Reports neck pain and Denies sore throat Card Denies chest pain, Denies leg edema and Denies lightheadedness Resp Denies cough, Denies hemoptysis and Denies wheezing GI Denies abdominal pain, Denies melena, Denies constipation, Denies diarrhea and Denies vomiting Denies dysuria, Denies urinary frequency and Denies urinary urgency Musc Reports back pain, Reports arthralgias, Denies joint swelling, Reports neck pain, Denies numbness and Denies tingling Neuro Denies Abnormal speech present, Denies behavioral changes, Denies vertigo, Denies dizziness, Denies headache(s), Denies loss of vision, Denies memory loss, Denies numbness and Denies tingling Psych Denies anxiety, Denies behavioral changes, Denies depression, Denies memory loss and Denies panic attacks Amandeep/Lymph Denies easy bleeding and Denies easy bruising Aller/Immun Denies wheezing Physical exam (Primary Care) Vital Signs: Last Vital Signs Temp 97.1 F 07/06/25 09:28 Pulse 88 07/06/25 09:28 Resp 16 07/06/25 09:28 BP 140/94 H 07/06/25 09:28 Pulse Ox 98 07/06/25 09:28 Oxygen Delivery Method Room Air 07/06/25 09:28 BMI result Body Mass Index 31.7 BMI Assessment/Plan discussion: High BMI High, discussed plan: lifestyle, weight reduction, dietary and physical activity Tobacco/Smoking Status: Tobacco use Status Tobacco use date assessed 05/16/25 07/06/25 09:17 Patient Tobacco Use Status Never used Tobacco 07/06/25 09:17 e-Cigarette/Vaping Use Never Used 07/06/25 09:17 Thrive Assessment: Date of Thrive Assessment Date Thrive assessed 08/10/24 07/06/25 09:17 Const Other: Obese General: healthy appearing, no acute distress, alert and awake Nutritional Appearance: well nourished Orientation/consciousness: oriented to person, oriented to place and oriented to time HENMT Ears: TM's normal bilaterally General nose exam: Normal nasal mucous membranes and turbinates present Eyes Conjunctivae: conjunctivae normal Sclerae: sclerae normal Pupils: Equal, round and reactive pupils present Neck Neck: Yes no lymphadenopathy and Yes no JVD Thyroid: Thyroid normal Carotids: no bruits Resp Effort & Inspection: normal respiratory effort and not tachypneic Auscultation: no crackles, no rales, no rhonchi and no wheezes Cardio Rate: regular rate Rhythm: regular rhythm Heart sounds: no murmurs and normal S1 and S2 GI Palpation (GI): Soft to palpation, nontender, no hepatomegaly and no splenomegaly Auscultation: normal bowel sounds Skin General skin exam: no rashes or lesions noted and dry skin Neuro General: oriented to person, oriented to place and oriented to time Cranial nerves: Yes Equal, round and reactive pupils present Speech: No Abnormal speech present Gait exam (Neuro): Normal gait present Motor exam (neuro): no tremor noted Extrem Right upper extremity: full ROM Left upper extremity: full ROM Right lower extremity: full ROM; no edema Left lower extremity: full ROM; no edema Psych Mental Status: mental status grossly normal Speech and movement: Normal speech and movement present Affect: normal affect Attitude: cooperative Thought process: Normal thought process present Coding Level of Care Code Est Pt Level 4 (13038) Diagnoses Diabetes mellitus type 2 with complications E11.8 Coronary artery disease involving [place] coronary artery of [place] heart without angina pectoris I25.10 Coronary Disease-Associated Artery/Lesion type: [place] artery [place] vs. 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 Will try to regulate his thyroid to also help this. Will increase his Trulicity 1.5 mg weekly for better glycemic control and weight reduction. Goal A1c is to be below 7.0 (2) CAD (coronary artery disease): Code(s): I25.10 - Atherosclerotic heart disease of [place] coronary artery without angina pectoris Category: Medical Qualifiers: Coronary Disease-Associated Artery/Lesion type: [place] artery [place] vs. transplanted heart: [place] heart Associated angina: without angina Qualified Code(s): I25.10 - Atherosclerotic heart disease of [place] coronary artery without angina pectoris Plan: Patient has a history of coronary artery disease, does report getting stents while living in [place]. Now establish care with [facility] and continues on aspirin along with high potency statin. Most recent lipid panel elevated with LDL of 150 in the setting of hypo functioning thyroid. Will work on regulating thyroid. He will continue on current dose of statin therapy. Goal LDL to be optimally below 70.. (3) HTN (hypertension): Code(s): I10 - Essential (primary) hypertension Category: Medical Qualifiers: Hypertension type: secondary to endocrine disorders Qualified Code(s): I15.2 - Hypertension secondary to endocrine disorders Plan: Blood pressure slightly elevated today in office. He reports he has been in some pain due to his arthritic joints. Blood pressure goal less than 130/80. Blood pressure at goal today. No medication changes made. (4) Hyperlipidemia, unspecified: Code(s): E78.5 - Hyperlipidemia, unspecified Category: Medical Qualifiers: Hyperlipidemia type: mixed hyperlipidemia Qualified Code(s): E78.2 - Mixed hyperlipidemia Plan: [place] LDL goal less than 70 in patient with diabetes and CAD. Labs done 09/30/2024 showed LDL 150. Continue high-dose atorvastatin. Repeat fasting lipids is pending (5) Hypertrophy of palatine tonsil: Code(s): J35.1 - Hypertrophy of tonsils Category: Medical Plan: Regarding the pharyngeal lesion, the patient will follow up with an ENT specialist for evaluation and possible biopsy. The referral was recently submitted, and the office will work to facilitate the appointment. (6) Hypothyroid: Code(s): E03.9 - Hypothyroidism, unspecified Category: Medical Qualifiers: Hypothyroidism type: acquired Qualified Code(s): E03.9 - Hypothyroidism, unspecified Plan: For uncontrolled hypothyroidism, as evidenced by a TSH of 20, the dose of levothyroxine (Synthroid) will be increased from 100 mcg to 150 mcg daily. This medication should be taken in the morning on an empty stomach. A repeat thyroid lab test will be ordered for 6 weeks from now (second week of August), which does not require fasting. (7) Status post replacement of right shoulder joint: Code(s): Z96.611 - Presence of right artificial shoulder joint Category: Surgical Plan: Patient seemingly to be in a considerable amount of pain. He does use Tylenol and naproxen though have not been too effective. Will supply patient with tramadol to use on an as needed basis for his arthritic pain. He is status post right shoulder replacement years ago Orders: Orders TSH reflex Free T4 6 Weeks E03.9 - Hypothyroidism, unspecified Medications: New levothyroxine (Synthroid) 150 mcg PO DAILY 30 tabs 1RF 30 days E03.9 - Hypothyroidism, unspecified dulaglutide (Trulicity) 1.5 mg (0.5 mL) subcut QWEEK 2 mL 3RF 4 weeks E11.8 - Type 2 diabetes mellitus with unspecified complications tramadol 50 mg PO BID PRN 14 tabs 0RF pain 7 days Z96.611 - Presence of right artificial shoulder joint Refilled gabapentin 300 mg PO BID 60 caps 3RF 30 days M62.830 - Muscle spasm of back, Z96.611 - Presence of right artificial shoulder joint amlodipine 5 mg PO DAILY 90 tabs 1RF 90 days E03.9 - Hypothyroidism, unspecified, I15.2 - Hypertension secondary to endocrine disorders On Hold levothyroxine (Synthroid) Hold Comment: Doctor's Order 100 mcg PO DAILY 30 tabs 1RF 30 days E03.9 - Hypothyroidism, unspecified dulaglutide (Trulicity) Hold Comment: Doctor's Order 0.75 mg (0.5 mL) subcut QWEEK 4 weeks 2 mL 3RF E11.8 - Type 2 diabetes mellitus with unspecified complications
[2025-07-06 09:28] VITALS: BP 140/94; PULSE 88; RESP 16; TEMP 36.2; O2SAT 98; BMI 31.7
--- OUTSIDE RECORDS SUMMARY | 2025-07-06 10:43 | XMS_ITS | Patient Health Record ---
Author Organization [facility] Address [address] [place] [address] Care Team Providers Care Repairer Pump Name Role Phone CLAUDE CARVALHO MD Primary [...] Status Risk Notes Problem Preoperative cardiovascular examination (056755361) Encounter for pre-operative cardiovascular clearance (Z01.810) Active confirmed Problem Essential hypertension (88362197) Essential hypertension (I10) Active confirmed Problem Dyslipidemia (548050032) Dyslipidemia (E78.5) Active confirmed Problem Acquired hypothyroidism (787875194) Acquired hypothyroidism (E03.9) Active confirmed Problem Obese class I (finding) (093181693520175) Obesity (BMI 30.0-34.9) (E66.9) Active confirmed Problem Body mass index 30.00 to 34.99 (901335402898851) Body mass index [BMI] 33.0-33.9, adult (Z68.33) Active confirmed Plan Of Treatment No Information Insurance Providers Payer Name Payer Address Payer Phone Subscriber Number Group Number Insured Name Patient Relationship to Insured Coverage Start Date Coverage End Date [employer] [facility] [address] [place] [address] [id number] ALONDRA ZUNIGAIDADJERAMY Self - patient is the insured 1 Medical (General) History Medical History History ICD Code coronary artery disease heart diease angina Hypothyroidism type II diabetes dyslipidemia gastroesophageal reflux disease (GERD) morbid obesity Surgical History Surgery Date(Month/Year)
--- OUTSIDE RECORDS SUMMARY | 2025-07-06 10:43 | XMS_ITS | Patient Health Record ---
Author Organization [facility] Address [address] [place] [address] Care Team Providers Care Valve Tester Name Role Phone Deana Bryant MD Primary Care Provider Unavail Yamila Marlow Unavailable [phone] Allergies Allergen (clinical drug ingredient) Drug/Non Drug [...] needed Inhalation every 6 hrs Active Ipratropium [place] 0.02 % 2.5 mL Inhala tion every [...] Problem Type II diabetes mellitus without complication (930093362) Type 2 diabetes mellitus without complications (E11.9) Active confirmed Problem Postoperative Hypothyroidism (30630177) Postprocedural hypothyroidism (E89.0) Active confirmed Problem 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) Active confirmed Problem Essential hypertension (22001648) Essential (primary) hypertension (I10) Active confirmed Problem Lumbosacral spondylosis without myelopathy (92693267) Other spondylosis, lumbosacral region (M47.897) Active confirmed Problem Spinal stenosis of lumbar region (51166761) Spinal stenosis, lumbosacral region (M48.07) Active confirmed Problem Lumbar radiculopathy (548393391) Radiculopathy, lumbar region (M54.16) Active confirmed Problem Paresthesia (finding) (64429742) Paresthesia of skin (R20.2) Active confirmed Problem History of malignant neoplasm of thyroid (984802081) Personal history of malignant neoplasm of thyroid (Z85.850) Active confirmed Problem Pain in lumbar spine (185744513) Vertebrogenic low back pain (M54.51) Active confirmed Problem Asthma (934718885) Asthma (J45.909) Active confirmed Plan Of Treatment Pending Test Test Name Order Date EMG/NCS RT lower ext 08/13/2022 Insurance Providers Payer Name Payer Address Payer Phone Subscriber Number Group Number Insured Name Patient Relationship to Insured Coverage Start Date Coverage End Date [facility] [address] [place] [address] [phone] [id number] Jimmy Azevedo Self - patient is the insured Medical (General) History Medical History History ICD Code diabetes mellitus arterial hypertension hx of thyoid cancer - hypothyroidism asthma Surgical History Surgery Date(Month/Year) right knee surgery 2017 thyroidectomy 2016 shoulder replacement 2021 Right wrist surgery 02/06/2023 Hospitalization History Reason Date(Month/Year) back pain 06/2021
== END 2025-07-06 10:03 | disposition home or self-care (01) ==
LOC: HO.HMCH 09:27
PROVIDERS: PCP Physician Assistant; Visit Provider Physician Assistant
DX: E11.8 Type 2 diabetes mellitus with unspecified complications (principal); I25.10 Atherosclerotic heart disease of native coronary artery without angina pectoris; I15.2 Hypertension secondary to endocrine disorders; E78.2 Mixed hyperlipidemia; J35.1 Hypertrophy of tonsils; E03.9 Hypothyroidism, unspecified; Z96.611 Presence of right artificial shoulder joint

== ENCOUNTER → 2025-07-06 09:26 | Outpatient (BNVA) | payer MEDICARE, MEDICAID, SELFPAY | PROVIDERS: PCP Physician Assistant; Visit Provider Physician Assistant | DX: E11.8 Type 2 diabetes mellitus with unspecified complications (principal); I25.10 Atherosclerotic heart disease of native coronary artery without angina pectoris; E78.2 Mixed hyperlipidemia; I15.2 Hypertension secondary to endocrine disorders; J35.1 Hypertrophy of tonsils; E03.9 Hypothyroidism, unspecified; Z96.611 Presence of right artificial shoulder joint | CPT/HCPCS: 99212 ==

== ENCOUNTER 2025-07-24 18:39 | Emergency (ER) | payer OTHER, SELFPAY ==
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
[2025-07-24 19:21] VITALS: BP 164/79; PULSE 85; RESP 18; TEMP 36.6; O2SAT 98; BMI 30.7
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
--- OUTSIDE RECORDS SUMMARY | 2025-07-24 21:24 | XMS_ITS | Continuity of Care Document ---
Demographics Address [address] [place] [address] Home Phone Mobile Phone Preferred Language es Marital Status Unknown Restorationism Affiliation Unknown Race Unknown Additional Race(s) Other Race Ethnic Group or Author Organization [place] [facility], [facility] Address [address] [place] [address] Care Team Providers Care Noise Abatement Engineer Name Role Phone JACK STAUFFER Primary Care Provider JACK STAUFFER Referring Provider [phone] Assessment No assessment recorded. Plan of Treatment Reminders Order Date Submit Date Provider Last Modified By Organization Details Last Modified Time Details Appointments Establish ed 30 2025 09:00A M NICANOR Ragsdale MD Not available Not available Not available Lab None recorded. Referral None recorded. Procedures None recorded. Surgeries None recorded. Imaging None recorded. Medication Orders None recorded. Patient TargetsNo targets recorded. Patient InstructionsNo instructions recorded. Reason for Referral None Reported. Problems Name Problem SNOMED Code Status Onset Date Resolution Date Notes Provider Name and Address Organization Details Recorded Time Abnormal auditory perception 87965220 Active 2024 MONICA MOORE MD [address] [place] [address], [place], [phone], [facility] - [facility] 5 09:52:01 Sensorineural hearing loss of bilateral ears 400174726 Active 2024 Janice hairston [place] - [facility] 5 10:34:35 Chronic sore throat 298325472 Active 2024 NICANOR Ragsdale MD [address] [place] [address], [place], [phone], [facility] - [facility] 5 14:32:28 Otalgia of right ear 4142279198 Active 2024 NICANOR Ragsdale MD [address] [address], [place], [phone], [place] [facility] [place] 14:32:37 Gastroesophag eal reflux disease without esophagitis 643105005 Active 2024 Mica hairston [place] - [facility] [place] 10:15:22 Dysphagia 30010758 Active 2024 NICANOR Ragsdale MD [address] [address], [place], [phone], [facility] - [facility] 14:38:08 Chronic sialadenitis 125781757 Active 2024 NICANOR Ragsdale MD [address] [place] [address], [place], [phone], [place] [facility] 09:12:32 Problem Notes None recorded. Procedures Surgical History Date Name Laterality Status Provider Name and Address Organization Details Recorded Time 07/10/20 25 FFL_RE completed NICANOR WEBBER MD [address] [place] [address], [phone], [facility] - [facility] 07/10/2025 08:59:04 04/04/20 25 FFL_RE completed NICANOR WEBBER MD [address] [place] [address], [phone], [facility] - [facility] 04/04/2025 14:44:16 09/12/19 25 Comp Audio with Tymps - 14018 & [address]3325 completed Janice Jay [place] - [facility] [place] 09/12/2024 10:34:30 thyroidectomy completed MONICA MOORE MD [address] [place] [address], [phone], [facility] - [facility] 09/12/2024 09:44:07 Imaging Results None recorded. Procedure Notes None recorded. Medical Equipment None Reported. Allergies Allergen ID Allergen Name Allergen Category Reaction Reaction Severity Criticality Documentation Date Start Date Code Code System Note Provider Name and Address Organization Details Recorded Time 366594 Product containin g penicilli n (product) medicatio n Not available Not available Not available 09/12/2024 19796 8001 SNOMED Edith hairston [place] - [facility] 5 10:44:33 049770 shellfish derived food,medi cation Not available Not available Not available 09/12/2024 Edith hairston [place] - [facility] 5 10:44:54 Medications Name Sig Start Date Stop [...] and Address Organization Details Last Updated DateTime 07/10/2025 177.8 cm 30.1 kg/m2 34663.4 g Mica Yoo [place] - [facility] 07/10/2025 08:31:31 Social History None recorded. Functional Status None recorded. Mental Status None recorded. Family History Nothing Reported. Medical History Condition Response Allergies/Hayfever N Heart Problems N Anxiety N Tonsil Infections N Emphysema N Thyroid Problems N COPD N Developmental Delay N Glaucoma N Anemia N Immune System Disorder N Anesthesia Complications N Heart Attack (NE) N Other Skin Condition N Diabetes Y [...] ICD10 Code Diagnosis IMO Codes Diagnosis Note [id number] NICANOR WEBBER MD [facility] on [address] [place] [address] 07/10/2025 08:25:22 07/10/2025 09:11:52 Gastroesophageal reflux disease without esophagitis 361948216 K21.9 055525 He did not benefit from omeprazole and I recommend he stop the medication . Chronic sialadenitis 235 646521 K11.23 2611246 His right submandibu lar gland was tender today. There are no palpable stones or tumors. I was unable to express saliva from either side. I do think his pain is coming from his submandibu lar gland. I discussed the importance of hydration as well as sialagogue s. I discussed I do not recommend surgery as I am not completely convinced that this would improve his pain and given the risk profile of submandibu lar gland excision. He will try conservati ve measures and we will plan a follow-up. I gave reassuranc e based on his CT scan that there is no concerning process going on. I repeated laryngosco py today given the piriform sinus finding on CT scan and it was normal on exam. Chronic sore throat 2754 96717 J31.2 2579 See above. Health Concerns Section Related Observation LastModified by Organization Detai ls LastModified Time None Recorded Concern Status LastModified by Organization Details LastModified Time None Recorded Payers Encounter Date Sequence Insurance Name Policy Number Policy Barboza Covered Member ID Barboza Member ID Guarantor Name 07/10/2025 1 [place] [employer] Jimmy M Torin Cornejo [id number] Jimmy Carrion ad 07/10/2025 2 [place] [facility] Jimmy M Torin [id number] Jimmy Carrion ad Notes Date Note Type Note Provider Name and Address Organization Details Recorded Time 07/10/2025 text/html ROS as noted in the HPI He was seen 09/2024 for right ear and neck pain. It worsened in March and we obtained a CT since the last visit which was negative for tumors or adenopathy. Did show nonspecific fullness in the left pyriform. He reports pain is worse and keeps him from sleeping. denies help from omeprazole. NICANOR WEBBER MD [address] [place] [address], [phone], [facility] - [facility] 07/10/2025 09:14:05
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
--- OUTSIDE RECORDS SUMMARY | 2025-07-24 21:24 | XMS_ITS | Data Portability ---
Demographics Address [address] [place] [address] Home Phone Mobile Phone Preferred Language es Marital Status Unknown Druze Affiliation Unknown Race Unknown Additional Race(s) Other Race Ethnic Group or Author Organization [place] - [facility], Allergy Address [address] [address] Care Team Providers Care Typesetters Printer Name Role Phone JACK STAUFFER Primary Care Provider [phone] JACK STAUFFER Referring Provider Assessment Encounter Date [...] neck, soft tissue, w/ contrast 2024 025 [email or web address] [facility] [place], [address] [place] [address] 101, [place], [address], 04/25/2025 15:50:38 Medication Orders omeprazol e 20 mg tablet,de layed release 2024 025 [facility], [address] [place] [address], [place], [address], 04/04/2025 14:44:26 Patient TargetsNo targets recorded. Patient [...] observ ation record ed. earle [facility] [place] [address] [facility], [place], [address], 05/01/2025 16:08:25 Result Notes None recorded. Problems Name Problem SNOMED Code Status Onset Date Resolution Date Notes Provider Name and Address Organization Details Recorded Time Abnormal auditory perception 42223736 Active 2024 MONICA MOORE MD 100 [facility], [address], [place] [facility] [place] [place], [address], [place] - [facility] 09:52:01 Sensorineural hearing loss of bilateral ears 142112540 Active 2024 Janice hairston [place] - [facility] 10:34:35 Chronic sore throat 034611967 Active 2024 NICANOR Ragsdale MD [address] [place] [address], [address], [place], [address], [facility] - [facility] [place] 14:32:28 Otalgia of right ear 9178226997 Active 2024 NICANOR Ragsdale MD [address] [place] [address] [address], [place], [address], [facility] - [facility] [place] 14:32:37 Gastroesophag eal reflux disease without esophagitis 770606656 Active 2024 Mica hairston [place] - [facility] 10:15:22 Dysphagia 04668749 Active 2024 NICANOR Ragsdale MD [address] [place] [address], [address], [place], [address], [facility] - [facility] [place] 14:38:08 Chronic sialadenitis 581896602 Active 2024 NICANOR Ragsdale MD 100 [facility], [address], [place], [address], [place] - [facility] 09:12:32 Problem Notes None recorded. Procedures Surgical History Date Name Laterality Status Provider Name and Address Organization Details Recorded Time 07/10/20 25 FFL_RE completed NICANOR WEBBER MD 100 [facility],[address], [address], [facility] - [facility] 07/10/2025 08:59:04 04/04/20 25 FFL_RE completed NICANOR WEBBER MD 100 [facility],[address], [address], [facility] - [facility] 04/04/2025 14:44:16 09/12/19 25 Comp Audio with Tymps - 50592 & 71767 completed Janice Jay [place] - [facility] 09/12/2024 10:34:30 thyroidectomy completed MONICA MOORE MD [address] [place] [address],[address], [address], [facility] - [facility] 09/12/2024 09:44:07 Imaging Results None recorded. Procedure Notes None recorded. Medical Equipment None Reported. Allergies Allergen ID Allergen Name Allergen Category Reaction Reaction Severity Criticality Documentation Date Start Date Code Code System Note Provider Name and Address Organization Details Recorded Time 180492 Product containin g penicilli n (product) medicatio n Not available Not available Not available 09/12/2024 32647 8001 SNOMED Edith hairston [facility] 10:44:33 234564 shellfish derived food,medi cation Not available Not available Not available 09/12/2024 Edith hairston [facility] 10:44:54 Medications Name Sig Start Date Stop [...] Updated DateTime 09/12/2024 177.8 cm 30.1 kg/m2 60024.4 g Edith Polanco [facility] 09/12/2024 09:42:00 Date Recorded Body height Body mass index (BMI) Body weight Provider Name and Address Organization Details Last Updated DateTime 04/04/2025 177.8 cm 30.1 kg/m2 30918.4 g Mica Yoo [facility] 04/04/2025 13:51:11 Date Recorded Body height Body mass index (BMI) Body weight Provider Name and Address Organization Details Last Updated DateTime 07/10/2025 177.8 cm 30.1 kg/m2 29649.4 g [facility] 07/10/2025 08:31:31 Social History None recorded. Functional Status None recorded. Mental Status None recorded. Family History Nothing Reported. Medical History Condition Response Allergies/Hayfever N Heart Problems N Anxiety N Tonsil Infections N Emphysema N Thyroid Problems N Developmental Delay N COPD N Glaucoma N Anemia N Immune System Disorder N Anesthesia Complications N Heart Attack (AK) N Other Skin Condition N Diabetes Y [...] ICD10 Code Diagnosis IMO Codes Diagnosis Note [id number] MONICA MOORE MD [facility] [address] [address] 09/12/2024 09:37:27 09/12/2024 11:03:17 Abnormal auditory perception 71966161 H93.299 59 yo M presents for assessment [...] Sensorineu ral hearing loss of bilateral ears 649940638 H90.3 Audiologic al evaluation results: Right ear: Normal sloping to a moderate sensorineu ral hearing loss with excellent word recognitio n. Left ear: Normal sloping to a moderate sensorineu ral hearing loss with excellent word recognitio n. Tympanomet ry: Right Ear:Type A Left Ear:Type A 87457 SARAH MUELLER [facility] [address] [address] 09/12/2024 10:31:54 09/13/2024 07:08:58 Sensorineural hearing loss of bilateral ears 581186802 H90.3 Audiologic al evaluation results: Right ear: Normal sloping to a moderate sensorineu ral hearing loss with excellent word recognitio n. Left ear: Normal sloping to a moderate sensorineu ral hearing loss with excellent word recognitio n. Tympanomet ry: Right Ear:Type A Left Ear:Type A 13941 NICANOR WEBBER MD [facility] [address] [address] 04/04/2025 13:32:26 04/04/2025 15:05:13 Chronic sore throat 005927742 J31.2 2579 Exam and laryngosco py were normal. I recommend a CT of the neck with contrast to rule out occult disease since he has had the symptoms chronicall y for about 6 months. Will plan a telehealth visit to review his CT scan. Otalgia of right ear 036 2933971 H92.01 9609945 Your exam was normal. May be referred pain from the throat. I will evaluate with a CT to exclude occult disease. Gastroesop hageal reflux disease without esophagitis 215548625 K21.9 361296 Exam was benign. Laryngosco py showed cobbleston ing. I feel the symptoms are likely due to extra esophageal reflux disease. We will begin a six-week trial of omeprazole which was sent to their pharmacy. We will plan a follow up in 3-4 months to reassess. [id number] NICANOR WEBBER MD [facility] on [address] [place] [address] 07/10/2025 08:25:22 07/10/2025 09:11:52 Gastroesophageal reflux disease without esophagitis 159430584 K21.9 598351 He did not benefit from omeprazole and I recommend he stop the medication . Chronic sialadenitis 235 593476 K11.23 0980435 His right submandibu lar gland was tender [...] was normal on exam. Chronic sore throat 2153 75332 J31.2 2579 See above. Health Concerns Section Related Observation LastModified by Organization Detai ls LastModified Time None Recorded Concern Status LastModified by Organization Details LastModified Time None Recorded Advance Directives Directive None Recorded Payers Insurance Date Sequence Insurance Name Policy Number Policy Barboza Covered Member ID Barboza Member ID Guarantor Name 04/17/2025 1 [place] [facility] Vivek Blumdad [id number] Jimmy Carrion ad 07/08/2025 1 [place] [facility] Jimmy Cornejo [id number] Jimmy Carrion ad 07/08/2025 2 [place] [facility] Jimmy Harkins [id number] Jimmy Carrion ad Notes Date Note Type [...] teeth. No mouth guard. MONICA MOORE MD [address] [place] [address],[address], [address], [facility] - [facility] 09/12/2024 11:20:09 04/04/2025 text/html ROS as noted [...] occasional hoarseness. Denies heartburn. NICANOR WEBBER MD [address] [place] [address],[address], [address], [facility] 04/04/2025 14:44:21 07/10/2025 text/html ROS as noted in the HPI He was seen 09/2024 for right ear and neck pain. It worsened in March and we obtained a CT since the last visit which was negative for tumors or adenopathy. Did show nonspecific fullness in the left pyriform. He reports pain is worse and keeps him from sleeping. denies help from omeprazole. NICANOR WEBBER MD [address] [place] [address],[address], [address], [facility] - [facility] 07/10/2025 09:14:05
--- OUTSIDE RECORDS SUMMARY | 2025-07-24 21:24 | XMS_ITS | Patient Health Record ---
Author Organization [facility] Address [address] [place] [address] Care Team Providers Care Application Security Developer Name Role Phone Deana Bryant MD Primary Care Provider Unavail Yamila Marlow Unavailable [phone] Allergies Allergen (clinical drug ingredient) Drug/Non Drug [...] needed Inhalation every 6 hrs Active Ipratropium [place] 0.02 % 2.5 mL Inhala tion every [...] Problem Type II diabetes mellitus without complication (780476887) Type 2 diabetes mellitus without complications (E11.9) Active confirmed Problem Postoperative Hypothyroidism (45790467) Postprocedural hypothyroidism (E89.0) Active confirmed Problem 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) Active confirmed Problem Essential hypertension (43163752) Essential (primary) hypertension (I10) Active confirmed Problem Lumbosacral spondylosis without myelopathy (86364528) Other spondylosis, lumbosacral region (M47.897) Active confirmed Problem Spinal stenosis of lumbar region (55411541) Spinal stenosis, lumbosacral region (M48.07) Active confirmed Problem Lumbar radiculopathy (205750385) Radiculopathy, lumbar region (M54.16) Active confirmed Problem Paresthesia (finding) (72786078) Paresthesia of skin (R20.2) Active confirmed Problem History of malignant neoplasm of thyroid (890782727) Personal history of malignant neoplasm of thyroid (Z85.850) Active confirmed Problem Pain in lumbar spine (824735814) Vertebrogenic low back pain (M54.51) Active confirmed Problem Asthma (264954783) Asthma (J45.909) Active confirmed Plan Of Treatment Pending Test Test Name Order Date EMG/NCS RT lower ext 08/13/2022 Insurance Providers Payer Name Payer Address Payer Phone Subscriber Number Group Number Insured Name Patient Relationship to Insured Coverage Start Date Coverage End Date [facility] [address] [place] [address] [id number] Jimmy Azevedo Self - patient is the insured Medical (General) History Medical History History ICD Code diabetes mellitus arterial hypertension hx of thyoid cancer - hypothyroidism asthma Surgical History Surgery Date(Month/Year) right knee surgery 2017 thyroidectomy 2016 shoulder replacement 2021 Right wrist surgery 02/06/2023 Hospitalization History Reason Date(Month/Year) back pain 06/2021
--- OUTSIDE RECORDS SUMMARY | 2025-07-24 21:24 | XMS_ITS | Patient Health Record ---
Author Organization [facility] Address [address] [place] [address] Care Team Providers Care Rn Acls Name Role Phone CLAUDE CARVALHO MD Primary [...] Status Risk Notes Problem Preoperative cardiovascular examination (484647327) Encounter for pre-operative cardiovascular clearance (Z01.810) Active confirmed Problem Essential hypertension (27040514) Essential hypertension (I10) Active confirmed Problem Dyslipidemia (389331499) Dyslipidemia (E78.5) Active confirmed Problem Acquired hypothyroidism (710204924) Acquired hypothyroidism (E03.9) Active confirmed Problem Obese class I (finding) (257163236297067) Obesity (BMI 30.0-34.9) (E66.9) Active confirmed Problem Body mass index 30.00 to 34.99 (539913722490876) Body mass index [BMI] 33.0-33.9, adult (Z68.33) Active confirmed Plan Of Treatment No Information Insurance Providers Payer Name Payer Address Payer Phone Subscriber Number Group Number Insured Name Patient Relationship to Insured Coverage Start Date Coverage End Date Total [employer] [facility] [address] [place] [address] [id number] ALONDRA ZUNIGAIDADJERAMY Self - patient is the insured 1 Medical (General) History Medical History History ICD Code coronary artery disease heart diease angina Hypothyroidism type II diabetes dyslipidemia gastroesophageal reflux disease (GERD) morbid obesity Surgical History Surgery Date(Month/Year)
[2025-07-24 22:00] VITALS: BP 157/80; PULSE 80; TEMP 36.4; O2SAT 95
--- NOTE | 2025-07-24 23:38 | PC.NURSE ---
pt medicated per mar
--- NOTE | 2025-07-24 23:41 | PC.NURSE ---
pt awaiting to be seen, no sign of distress, medicated per mar.
[2025-07-24 23:42] VITALS: BP 157/80; PULSE 80; RESP 20; TEMP 36.4; O2SAT 95
--- NOTE | 2025-07-24 23:46 | PC.NURSE ---
reviewed discharge instructions with pt, pt verbalized understanding, no sign of distress
== END 2025-07-24 23:47 | disposition home or self-care (01) ==
PROVIDERS: Emergency Provider Emergency Medicine; PCP Physician Assistant
DX: S16.1XXA Strain of muscle, fascia and tendon at neck level, initial encounter (principal); R51.9 Headache, unspecified; M54.2 Cervicalgia; M25.511 Pain in right shoulder; V43.52XA Car driver injured in collision with other type car in traffic accident, initial encounter; Y93.9 Activity, unspecified; Y92.410 Unspecified street and highway as the place of occurrence of the external cause; Y99.8 Other external cause status; Z79.899 Other long term (current) drug therapy
CPT/HCPCS: 70450; 72125; 73030; 99284; 99285